=== PATIENT | female | born 1945 | race Caucasian/White ===

== ENCOUNTER 2023-05-20 09:06 | Inpatient (IN) | payer OTHER, MEDICARE, SELFPAY ==
[2023-05-20] VITALS (73 sets, daily range): BP systolic 79–151; BP diastolic 50–83; PULSE 90–147; RESP 18–41; TEMP 36.5–39.4; O2SAT 95–100; BMI 29.1; BMI 29.4
--- NOTE | 2023-05-20 | OP_ITS ---
OPERATION DATE: ??05/20/2023 PREOPERATIVE DIAGNOSIS:? 1.? Septic shock. 2.? Bilateral hydronephrosis with ureteral/UPJ calculi. 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 4.? Acute kidney injury. POSTOPERATIVE DIAGNOSIS: 1.? Septic shock. 2.? Bilateral hydronephrosis with ureteral/UPJ calculi. 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 4.? Acute kidney injury. PROCEDURE:? 1.? Cystoscopy. 2.? Gentle bilateral retrograde pyelogram. 3.? Bilateral ureteral stent placement under fluoroscopic guidance. SURGEON:? Kyle Martines M.D. COMPLICATIONS:? None. ANESTHESIA:? Dr. Jolly with a general by endotracheal route. INDICATIONS:? Ms. Rios is a 78-year-old female with a positive prior history of kidney stones, who presents in essential septic shock with elevated lactic acid, labile blood pressure and certainly <__sepsis > criteria.? Recommendation made for operative intervention with cystoscopy and drainage of the bilateral renal units.? The patient and her then decided to proceed with operative intervention.? She does carry an increased anesthesia risk secondary to these concomitant comorbidities.? Intravenous antibiotics already prescribed by Dr. Echavarira.? Full informed consent is part of the record.? Risks of bleeding, infection, heart and lung problems under anesthesia, need for further intervention and intensive resuscitation postoperative are expected.? PROCEDURE:? The patient was brought back to the operating room and a time out was performed. ??All were in agreement with the operative plan.? After the successful induction of general anesthesia by the endotracheal root by Dr. Jolly, she was placed in the modified dorsolithotomy position and prepped in the usual fashion with Betadine solution.? She was draped appropriately.? ?2% Xylocaine jelly placed per urethra and a well lubricated 22-[place] cystourethroscope with 30 degree lens was then passed into the bladder.? The bladder was full of purulent urine.? This was irrigated with saline solution several times.? Degorot endoscopy revealed no tumors or stones or diverticula.? Generalized bladder irritation.? The bilateral ureteral orifices are normal.? I began with the left side.? A gentle left retrograde pyelogram was performed utilizing a 6-[place] open ended ureteral catheter.? It appears she has a stone at the left ureteropelvic junction and perhaps another within the left upper portion of the kidney.? The retrograde did not include filling up the entire collecting system, so as not to provide undue retrograde pressure. I was able to negotiate a 0.035 Guidewire up into the kidney, beyond the obstructing stone and over that a 7-[place] 22-30 cm Microvasive double J stent was passed into the kidney under fluoroscopic guidance.? Wire removed and there was good curl within the kidney and the bladder.? The right side was similarly treated.? On the right side, this was a very large stone, measuring about 3.5 cm, which essentially fills out the entire renal pelvis, and there may be a smaller stone in the lower pole.? Similarly, a right sided stent was placed there.? I should not that purulent urine was seen coming through the holes of each stent as soon as they were placed.? The bladder was left partially full, scope removed.? I should note that after removal of the wire, there was good positioning of both stents.? A Bob catheter was placed into the urinary bladder and the balloon inflated with about 8 cc of sterile water.? It was placed to bag drainage so as to monitor urine output carefully.? After the procedure, she was now a bit hypotensive, but still tachycardic and was subsequently transferred to the intensive care unit for aggressive monitoring.? I discussed the case again with Dr. Echavarria, who will be further evaluating the patient this evening.? KEKE
--- NOTE | 2023-05-20 | XR_ITS ---
The [address] [address] Patient Name: DAVID HWANG MRN: [id number] date: 1945 Sex: F Assigned Patient Location: [place] Current Patient Location: ICU Accession/Order Number: [id number] Exam Date: 05/20/2023 17:30 Report Date: 05/20/2023 20:41 At the request of: LEIGH FRY Procedure: XR urethrogram retrograde 2 fluoroscopic images of bilateral retrograde urethrogram, 05/20/2023 5:30 PM EST: COMPARISON: CT scan of the abdomen and pelvis, 05/20/2023. CLINICAL HISTORY: agustín kidney stones Fluoroscopy time: 23 seconds. Findings and impression: 1. Left ureteral stent has been placed. 2. Contrast seen opacifying the right renal pelvis outlining a prominent stone in right renal pelvis and also contrast opacifying the right ureter with subsequent placement of a stent. 3. Further correlation with real-time thorascopic findings and procedure note recommended. 4. An immediate interpretation was not requested. Electronically authenticated by: Zaki EMDINA Date: 05/20/2023 20:41
--- NOTE | 2023-05-20 09:36 | ED_ITS ---
HPI - Weakness General Chief complaint: Weakness Time Seen by Provider: 05/20/23 09:23 Source: patient and family Mode of arrival: walk-in History of Present Illness HPI Narrative: this patient's here with her complaining of weakness. Yesterday she had several falls and she's never fallen before. They admit that she's been shuffling and weaker than usual for the last several weeks. She is not running a fever. She did have some vomiting yesterday. She's not had diarrhea. She's not been eating much at all. She says she doesn't feel safe at home without her being there could she knows she'll fall again. She's not had previous cardiovascular problems, she denies hypertension diabetes previous stroke or any type of cancer. She does have a thyroid disorder and is on a statin. She says she's also had kidney stones. She does not have any back or flank pain. No abbdominal pain chest pain or shortness of breath. Related Data Home Medications Medication Instructions Recorded Confirmed amlodipine 10 mg tablet 10 mg PO QAM 05/20/23 05/20/23 atorvastatin 20 mg tablet 20 mg PO QPM 05/20/23 05/20/23 lamotrigine 200 mg tablet 200 mg PO QAM 05/20/23 05/20/23 levothyroxine 112 mcg tablet 112 mcg PO QAM 05/20/23 05/20/23 losartan 100 mg tablet 100 mg PO QAM 05/20/23 05/20/23 Allergies Allergy/AdvReac Type Severity Reaction Status Date / Time No Known Drug Allergies Allergy Verified 05/20/23 09:17 Exam Narrative Exam Narrative: she is awake alert cognition and mentation are normal. No slurred speech. Does not appear acutely ill but she is pale. Vital signs show some tachycardia but no hypotension. She is afebrile. HEENT does not have any scleral icterus. Mucous membranes are moist and pink. Eye examination shows extraocular muscles to be normal. Neck soft and supple with no meningeal irritation. There is no bruises contusions or injury to her neck area. Chest shows her lungs were clear bilaterally no wheezes rales or rhonchi. Heart sounds did not hear murmur but she does have tachycardia. Does not have any abdominal discomfort. Extremities show no edema. She has substantial weakness of all the major muscle groups that is equal on both legs bilaterally. She barely has antigravity muscles while in the seated position. Pulses to the extremities are normal. Constitutional Vital Signs, click to edit/add: Last Vital Signs Temp 97.7 F 05/20/23 09:14 Pulse 127 H 05/20/23 09:14 Resp 22 05/20/23 09:14 BP 150/83 H 05/20/23 09:14 Pulse Ox 99 05/20/23 09:27 O2 Del Method Room Air 05/20/23 09:27 Course Vital Signs Vital signs: Vital Signs Temperature 97.7 F 05/20/23 09:14 Pulse Rate 127 H 05/20/23 09:14 Respiratory Rate 22 05/20/23 09:14 Blood Pressure 150/83 H 05/20/23 09:14 Pulse Oximetry 96 05/20/23 09:14 Oxygen Delivery Method Room Air 05/20/23 09:14 Temperature 97.7 F 05/20/23 09:14 Pulse Rate 127 H 05/20/23 09:14 Respiratory Rate 22 05/20/23 09:14 Blood Pressure 150/83 H 05/20/23 09:14 Pulse Oximetry 99 05/20/23 09:27 Oxygen Delivery Method Room Air 05/20/23 09:27 MDM - Weakness MDM Narrative Medical decision making narrative: this patient presents with profound weakness and falls yesterday. Her laboratory studies suggest sepsis. She is placed on sepsis protocol with fluid hydration and antibiotic therapy and blood cultures. Her white blood cell count was elevated substantially with a left shift. Urinalysis consistent with urinary tract infection. Chest x-ray is normal. Also elevated is her thyroid-stimulating hormone and one of her liver function tests. These findings were discussed with the on-call physician who knows the patient personally. She will be admitted to the hospital for ongoing care Lab Data Labs: Lab Results 05/20/23 05/20/23 05/20/23 Range/Units 09:34 10:05 10:34 WBC 22.8 H (4.0-11.0) 10^3/uL RBC 3.45 L (4.20-5.40) 10^6/uL Hgb 13.1 (12.0-16.0) g/dL Hct 38.8 (36.0-48.0) % MCV 112.5 H (81.0-99.0) fL MCH 38.0 H (26.7-34.0) pg MCHC 33.8 (29.9-35.2) g/dL RDW 14.4 (11.0-15.0) % Plt Count 171 (150-450) 10^3/uL MPV 10.7 (9.5-13.5) fL Seg Neuts % (Manual) 70.0 Band Neutrophils % 19.0 H (0-5) % Lymphocytes % (Manual) 7.0 L (20.5-60.0) % Monocytes % (Manual) 3.0 (1.7-12.0) % Eosinophils % (Manual) 0.0 L (0.9-7.0) % Basophils % (Manual) 0.0 L (0.2-2.0) % Metamyelocytes % 1.0 Neutrophils # (Manual) 15.96 H (1.4-6.5) 10^3/uL Band Neutrophils # 4.3 H (0.0-0.3) 10^3/uL Lymphocytes # (Manual) 1.59 (1.20-3.80) 10^3/uL Monocytes # (Manual) 0.68 (0.30-0.80) 10^3/uL Eosinophils # (Manual) 0.00 (0.00-0.70) 10^3/uL Basophils # (Manual) 0.00 (0.00-0.10) 10^3/uL Metamyelocytes # 0.22 Anisocytosis 1+ Macrocytosis 1+ D-Dimer 11.36 H* (<=0.59) mg/L FEU VBG pH 7.411 (7.330-7.430) VBG pCO2 30.6 L (40.0-52.0) mmHg Sodium 135 L (136-145) mmol/L Potassium 3.8 (3.5-5.1) mmol/L Chloride 99 (98-107) mmol/L Carbon Dioxide 22.0 (21.0-32.0) mmol/L Anion Gap 17.8 BUN 29.0 H (7.0-18.0) mg/dL Creatinine 2.09 H (0.55-1.02) mg/dL Est GFR ( Amer) 28 L (>=60) Est GFR (Non-Af Amer) 23 L (>=60) BUN/Creatinine Ratio 13.9 Glucose 200 H (74-106) mg/dL Lactate 7.2 H* (0.4-2.0) mmol/L Calcium 9.3 (8.5-10.1) mg/dL Magnesium 1.6 L (1.8-2.4) mg/dL Total Bilirubin 1.2 H (0.2-1.0) mg/dL AST 45 H (15-37) U/L ALT 33 (14-59) U/L Alkaline Phosphatase 108 (46-116) U/L Total Protein 7.1 (6.4-8.2) g/dL Albumin 3.4 (3.4-5.0) g/dL Globulin 3.7 g/dL Albumin/Globulin Ratio 0.9 Lipase 11.0 L (16.0-77.0) U/L Free T4 1.36 (0.76-1.46) ng/dL TSH & Free T4 Interp 11.377 H (0.358-3.740) Urine Color Dk yellow (YELLOW) Urine Clarity Clear (CLEAR) Urine pH 6.0 (5.0-9.0) Ur Specific [place] 1.020 (1.005-1.025) Urine Protein 100 A (NEG/TRACE) mg/dL Urine Glucose (UA) Negative (NEGATIVE) mg/dL Urine Ketones Trace A (NEGATIVE) mg/dL Urine Occult Blood Large A (NEGATIVE) Urine Nitrite Negative (NEGATIVE) Urine Bilirubin Negative (NEGATIVE) Urine Urobilinogen 1.0 (0.2-1.0) EU/dL Ur Leukocyte Esterase Moderate A (NEGATIVE) Urine RBC 20-50 A (0-2) #/HPF Urine WBC 75-100 A (NONE SEEN) #/HPF Ur Squamous Epith Cells Rare (NONE/RARE) #/LPF Urine Crystals None seen (None Seen) #/HPF Urine Bacteria Large A (NONE SEEN) #/HPF Urine Casts None seen (NONE SEEN) #/LPF Urine Mucus Trace A (NONE SEEN) Ur Culture Indicated? Yes Blood Type A Negative Antibody Screen Negative Discharge Plan Discharge Chief Complaint: Weakness Time of Disposition Decision: 11:26 Prescriptions / Home Meds: No Action amlodipine 10 mg tablet 10 mg PO QAM atorvastatin 20 mg tablet 20 mg PO QPM lamotrigine 200 mg tablet 200 mg PO QAM levothyroxine 112 mcg tablet 112 mcg PO QAM losartan 100 mg tablet 100 mg PO QAM
--- NOTE | 2023-05-20 09:38 | XR_ITS ---
The [address] [address] Patient Name: DAVID HWANG MRN: [id number] date: 1945 Sex: F Assigned Patient Location: ER Current Patient Location: ED.MAIN Accession/Order Number: [id number] Exam Date: 05/20/2023 09:53 Report Date: 05/20/2023 10:04 At the request of: AURORA GUZMAN Procedure: XR chest 1V EXAMINATION: XR chest 1V HISTORY: weakness COMPARISON: No relevant comparison available. FINDINGS: LUNGS: No significant pulmonary parenchymal abnormalities. VASCULATURE: No increased pulmonary vasculature. PLEURA: No pneumothorax, effusion, or pleural thickening. CARDIAC: No cardiomegaly or cardiac silhouette abnormality. MEDIASTINUM: No visible mass or adenopathy. BONES: No fracture or visible bone lesion. OTHER: Negative. XR/XR chest 1V IMPRESSION: 1. No acute cardiopulmonary process. Electronically authenticated by: DON OSHEA Date: 05/20/2023 10:04
[2023-05-20] MEDS: 0.9 % SODIUM CHLORIDE 1,000 ML 999 ML IV (09:54)
[2023-05-20 09:56] LABS: Hematocrit 38.8 % (36.0-48.0); Hemoglobin 13.1 g/dL (12.0-16.0); Mean Corpuscular HGB Conc 33.8 g/dL (29.9-35.2); Mean Corpuscular Volume 112.5 fL (81.0-99.0); Mean Platelet Volume 10.7 fL (9.5-13.5); Platelet Count 171 10^3/uL (150-450); Red Blood Count 3.45 10^6/uL (4.20-5.40); Red Cell Distribution Width 14.4 % (11.0-15.0); White Blood Count 22.8 10^3/uL (4.0-11.0)
[2023-05-20 10:10] LABS: pH VBG 7.411 (7.330-7.430)
[2023-05-20 10:11] LABS: PCO2 VBG 30.6 mmHg (40.0-52.0)
[2023-05-20 10:13] LABS: Alanine Aminotransferase 33 U/L (14-59); Albumin Globulin Ratio 0.9; Albumin Level 3.4 g/dL (3.4-5.0); Alkaline Phosphatase 108 U/L (46-116); Anion Gap 17.8; Aspartate Amino Transferase 45 U/L (15-37); BUN Creatinine Ratio 13.9; Bilirubin Total 1.2 mg/dL (0.2-1.0); Calcium 9.3 mg/dL (8.5-10.1); Chloride 99 mmol/L (98-107); Estimated GFR (African America 28 (>=60); Estimated GFR (Non-African Ame 23 (>=60); Globulin 3.7 g/dL; Glucose 200 mg/dL (74-106); Magnesium 1.6 mg/dL (1.8-2.4); Potassium 3.8 mmol/L (3.5-5.1); Sodium 135 mmol/L (136-145); Total Protein 7.1 g/dL (6.4-8.2)
[2023-05-20 10:22] LABS: D Dimer 11.36 mg/L FEU (<=0.59); Lactate/Lactic Acid 7.2 mmol/L (0.4-2.0)
[2023-05-20 10:30] LABS: Band Neutrophils Absolute 4.3 10^3/uL (0.0-0.3); Lymphocytes Absolute Manual 1.59 10^3/uL (1.20-3.80); Monocytes Absolute Manual 0.68 10^3/uL (0.30-0.80); Segmented Neut Absolute Manual 15.96 10^3/uL (1.4-6.5)
[2023-05-20 10:31] LABS: Anisocytosis 1+; Macrocytosis 1+; Metamyelocytes Absolute Manual 0.22
--- NOTE | 2023-05-20 10:43 | ECG_ITS ---
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
[2023-05-20 10:44] LABS: Bilirubin Urine NEGATIVE (NEGATIVE); Blood Urine LARGE (NEGATIVE); Clarity Urine CLEAR (CLEAR); Glucose Urine UA NEGATIVE (NEGATIVE); Ketones Urine TRACE mg/dL (NEGATIVE); Leukocyte Esterase Urine MODERATE (NEGATIVE); Nitrite Urine NEGATIVE (NEGATIVE); Protein Urine 100 mg/dL (NEG/TRACE)
[2023-05-20 10:44] LABS: TSH W/ REFLEX FT4 11.377 (0.358-3.740)
[2023-05-20 10:47] LABS: Color Urine DK YELLOW (YELLOW); Urine Microscopic Indicated YES
[2023-05-20 11:13] LABS: Bacteria Urine LARGE #/HPF (NONE SEEN); Cast Seen? NONE SEEN #/LPF (NONE SEEN); Crystals Seen? None Seen #/HPF (None Seen); Mucus Urine TRACE (NONE SEEN); RBC Urine 20-50 #/HPF (0-2); Squamous Epithelial Cell Urine RARE #/LPF (NONE/RARE); Urine Culture Indicated YES; WBC Urine 75-100 #/HPF (NONE SEEN)
[2023-05-20 11:16] LABS: Free T4 1.36 ng/dL (0.76-1.46)
[2023-05-20] MEDS: CEFTRIAXONE 1,000 MG in 0.9 % SODIUM CHLORIDE 50 ML 100 MG IV (11:48)
--- NOTE | 2023-05-20 12:44 | P.HP_ITS ---
H&P: HPI History of Present Illness Chief complaint: WEAKNESS Narrative: Is a 2 to 3-day history of increasing weakness. describes some shortness of breath. In ER found to have significant sinus tachycardia, leukocytosis with bandemia, positive lactate with acute kidney injury from dehydration which is all secondary to acute UTI leading to severe sepsis with multisystem organ dysfunction. Patient admitted to the hospital Review of Systems ROS Status of ROS 10 or more systems reviewed and unremarkable except as noted in history and below Constitutional Reports: fatigue; Denies: fever Cardiovascular Denies: chest pain, palpitations or edema Respiratory Reports: shortness of breath; Denies: cough Gastrointestinal Reports: abdominal pain and nausea Meds Home Medications and Allergies Home Medications Medication Instructions Recorded Confirmed Type amlodipine 10 mg tablet 10 mg PO QAM 05/20/23 05/20/23 History atorvastatin 20 mg tablet 20 mg PO QPM 05/20/23 05/20/23 History lamotrigine 200 mg tablet 200 mg PO QAM 05/20/23 05/20/23 History levothyroxine 112 mcg tablet 112 mcg PO QAM 05/20/23 05/20/23 History losartan 100 mg tablet 100 mg PO QAM 05/20/23 05/20/23 History Allergies Allergy/AdvReac Type Severity Reaction Status Date / Time No Known Drug Allergies Allergy Verified 05/20/23 09:17 Exam Constitutional Vital Signs, click to edit/add: Last Vital Signs Temp 97.7 F 05/20/23 09:14 Pulse 147 H 05/20/23 12:22 Resp 18 05/20/23 12:20 BP 127/80 05/20/23 12:25 Pulse Ox 99 05/20/23 09:27 O2 Del Method Room Air 05/20/23 09:27 Documenting provider has reviewed patient's vital signs: yes Common normals: no apparent distress Exam limitations: altered mental status General appearance: cooperative [facility] Common normals: normocephalic; oral mucous membranes not moist (Dry mucous membranes) Chest Common normals: inspection of chest normal Respiratory Common normals: normal respiratory effort, no retractions and no use of accessory muscles Cardio Common normals: regular rhythm; irregular rate Rate: tachycardic GI Common normals: Normal to inspection, nondistended, normoactive bowel sounds present Palpation: soft and tender (Diffusely tender) Results Labs Labs: Short CBC 05/20/23 Range/Units 09:34 WBC 22.8 H (4.0-11.0) 10^3/uL Hgb 13.1 (12.0-16.0) g/dL Hct 38.8 (36.0-48.0) % Plt Count 171 (150-450) 10^3/uL BMP 05/20/23 09:34 Sodium 135 L Potassium 3.8 Chloride 99 Carbon Dioxide 22.0 BUN 29.0 H Creatinine 2.09 H Glucose 200 H Calcium 9.3 Liver Function 05/20/23 Range/Units 09:34 Total Bilirubin 1.2 H (0.2-1.0) mg/dL AST 45 H (15-37) U/L ALT 33 (14-59) U/L Alkaline Phosphatase 108 (46-116) U/L Albumin 3.4 (3.4-5.0) g/dL Urine 05/20/23 Range/Units 10:34 Urine Color Dk yellow (YELLOW) Urine Clarity Clear (CLEAR) Urine pH 6.0 (5.0-9.0) Ur Specific [place] 1.020 (1.005-1.025) Urine Protein 100 A (NEG/TRACE) mg/dL Urine Glucose (UA) Negative (NEGATIVE) mg/dL ABG ABG results: 05/20/23 10:05 VBG pH 7.411 VBG pCO2 30.6 L Assessment and Plan Assessment and Plan (1) Sepsis: Plan Sinus tachycardia, uncontrolled hypertension, mild respiratory distress, leukocytosis with significant bandemia, positive lactate, acute kidney injury with creatinine 2 times normal, elevated LFTs secondary to acute UTI possible pyelonephritis resulting in severe sepsis with multisystem organ dysfunction(kidney, liver, heme). IV fluid resuscitation started in ER, maintain continuous fluids, double antibiotics until cultures are returned, check on blood cultures and urine culture over the next day or 2. Severity of symptoms patient likely in the hospital 3 days minimum Hypothyroidism- states has been taking medication, T4 is not bad but will tweak up dose. Hyponatremia secondary to dehydration-secondary to the above-maintain fluid resuscitation- Acute kidney injury-earlier this year creatinine was 0.9. So more than 2 times normal. Continue with fluid resuscitation Hyperglycemia as possible complication of the above-does not appear to be on oral hypoglycemics. Accu-Cheks before meals and at bedtime with insulin sliding scale Hypertension by history-maintain current medications Mild dementia with anxiety-continue with medications Abdominal tenderness on my exam. Will check CT scan abdomen pelvis without con trast. She does have a history of kidney stones in the past. Macrocytosis-check B12 and folate levels as an outpatient Hypomagnesemia-supplement With severe sepsis and multisystem organ dysfunction the likely stay of at least 3 days. Make patient as inpatient status.
--- NOTE | 2023-05-20 12:52 | CT_ITS ---
[address] [address] Patient Name: DAVID HWANG MRN: [id number] date: 1945 Sex: F Assigned Patient Location: [place] Current Patient Location: [place] Accession/Order Number: [id number] Exam Date: 05/20/2023 13:45 Report Date: 05/20/2023 14:21 At the request of: JEROME MARIE Procedure: CT abdomen pelvis wo con EXAM: CT abdomen pelvis wo con HISTORY: nephrolithiasis COMPARISON: None. TECHNIQUE: Axial CT imaging was performed through the abdomen and pelvis without intravenous contrast. Multiplanar reformats were performed. Dose reduction techniques were achieved by using automated exposure control and/or adjustment of mA and/or kV according to patient size and/or use of iterative reconstruction technique. FINDINGS: Lung bases: Lung bases are clear. No pleural effusion. GI upper: Moderate hiatal hernia. Liver: Normal size and contour. Gallbladder: No significant abnormality. No cholelithiasis. Biliary system: No intra or extrahepatic biliary ductal dilatation. Spleen: Normal size. Pancreas: Unremarkable. Adrenal glands: Normal adrenal glands. Kidneys/ureters: Normal contours. There are bilateral renal stones measuring 3.2 cm on the right and 2.4 cm and the left, within the renal caliectasis and pelvis, resulting in bilateral moderate to severe hydronephrosis. No hydroureter. There are foci of air in the left renal calyces and pelvis, representing emphysematous pyelitis. 3.7 cm right renal cyst. Vessels: No aneurysm. Lymph Nodes: No lymphadenopathy. Small bowel: No wall thickening or dilatation. Colon: No wall thickening or dilatation. Constipation. Appendix: No findings of appendicitis. Peritoneal cavity: No free fluid or pneumoperitoneum. Lower : Unremarkable. Bones: No acute bony abnormality. Degenerative changes of the lumbar spine. Status post total arthroplasty of left hip. Streak artifact from the arthroplasty, limited evaluation of the adjacent soft tissue and pelvic organs. Soft tissues: No acute finding. Additional findings: None. CT/CT abdomen pelvis wo con IMPRESSION: bilateral renal stones measuring 3.2 cm on the right and 2.4 cm and the left, within the renal caliectasis and pelvis, resulting in bilateral moderate to severe hydronephrosis. No hydroureter. Foci of air in the left renal calyces and pelvis, representing emphysematous pyelitis. Moderate hiatal hernia. Constipation. Electronically authenticated by: RADHA WATKINS Date: 05/20/2023 14:21
[2023-05-20 13:15] LABS: Troponin I High Sensitivity 15.5 pg/mL (4.0-51.3)
[2023-05-20] MEDS: 0.9 % SODIUM CHLORIDE 1,000 ML 125 ML IV ×2 (14:41→23:34)
[2023-05-20] MEDS: CIPROFLOXACIN IN 5 % DEXTROSE 400 MG/200 ML PIGGYBACK 200 MG IV (14:41)
[2023-05-20 16:47] LABS: INR 1.15; Partial Thromboplastin Time 26.2 sec (22.3-36.2); Prothrombin Time 12.1 sec (9.0-11.6)
[2023-05-20] MEDS: PANTOPRAZOLE SODIUM 40 MG VIAL IV (16:55)
[2023-05-20 17:01] LABS: Glucometer 140 mg/dL (74-106)
[2023-05-20] MEDS: IOHEXOL 240 MG/ML - 10 ML VIAL INJ (17:45)
--- NOTE | 2023-05-20 18:10 | P.URCN_ITS ---
Urology - CN: HPI Date of Consult Consult date: 05/20/23 Requesting Physician: Tommy Hansen MD Primary Care Provider: Non-Staff Physician, Consult Narrative Reason for consult IM: Urosepsis, bilateral obstructing UPJ stones Narrative: Thanks for consult. 78 year old female with history of kidney stones presents for admission by Dr. Echavarria. CT shows bilateral renal calculi, obstructing at UPJ bilaterally. Left kidney with air in collecting system. Pain began two days ago, worsened. Clinical status worsened. WBC elevated, troponin 7. Entire PMH,PSH,ROS,family and social history, meds, allergies are as noted in admission H and P performed by Dr. Echavarria earlier today and are unchanged cc:: CC: Tommy Hansen MD [facility] Medical History (Updated 05/20/23 @ 18:19 by Eddie Martines MD) History of kidney stones ?Z87.442 - Personal history of urinary calculi (ICD-10) Hx: UTI (urinary tract infection) ?Z87.440 - Personal history of urinary (tract) infections (ICD-10) Hypothyroidism ?E03.9 - Hypothyroidism, unspecified (ICD-10) Surgical History (Updated 05/20/23 @ 12:53 by Yara Sow) History of hip replacement ?Z96.649 - Presence of unspecified artificial hip joint (ICD-10) History of knee replacement ?Z96.659 - Presence of unspecified artificial knee joint (ICD-10) Meds Home Medications and Allergies Home Medications Medication Instructions Recorded Confirmed Type amlodipine 10 mg tablet 10 mg PO QAM 05/20/23 05/20/23 History atorvastatin 20 mg tablet 20 mg PO QPM 05/20/23 05/20/23 History lamotrigine 200 mg tablet 200 mg PO QAM 05/20/23 05/20/23 History levothyroxine 112 mcg tablet 112 mcg PO QAM 05/20/23 05/20/23 History losartan 100 mg tablet 100 mg PO QAM 05/20/23 05/20/23 History Allergies Allergy/AdvReac Type Severity Reaction Status Date / Time No Known Drug Allergies Allergy Verified 05/20/23 09:17 Exam Narrative Exam Narrative: Gen: appears ill and pale, coooperative, shaking chills, rigors HEENT, wnl Heart, rapid rate, normal rhytyhm Lungs clear Abd, soft, NT Bilateral flank tenderness Normal external female genitalia LE: normal, good pulses, no edema Awake, weak. Constitutional Vital Signs, click to edit/add: Last Vital Signs Temp 100.6 F H 05/20/23 12:30 Pulse 115 H 05/20/23 16:00 Resp 20 05/20/23 12:30 BP 129/78 05/20/23 12:30 Pulse Ox 95 05/20/23 12:30 O2 Del Method Room Air 05/20/23 12:43 Results Labs Labs: Short CBC 05/20/23 Range/Units 09:34 WBC 22.8 H (4.0-11.0) 10^3/uL Hgb 13.1 (12.0-16.0) g/dL Hct 38.8 (36.0-48.0) % Plt Count 171 (150-450) 10^3/uL BMP 05/20/23 09:34 Sodium 135 L Potassium 3.8 Chloride 99 Carbon Dioxide 22.0 BUN 29.0 H Creatinine 2.09 H Glucose 200 H Calcium 9.3 Liver Function 05/20/23 Range/Units 09:34 Total Bilirubin 1.2 H (0.2-1.0) mg/dL AST 45 H (15-37) U/L ALT 33 (14-59) U/L Alkaline Phosphatase 108 (46-116) U/L Albumin 3.4 (3.4-5.0) g/dL Urine 05/20/23 Range/Units 10:34 Urine Color Dk yellow (YELLOW) Urine Clarity Clear (CLEAR) Urine pH 6.0 (5.0-9.0) Ur Specific [place] 1.020 (1.005-1.025) Urine Protein 100 A (NEG/TRACE) mg/dL Urine Glucose (UA) Negative (NEGATIVE) mg/dL ABG ABG results: 05/20/23 10:05 VBG pH 7.411 VBG pCO2 30.6 L Additional Findings Additional findings: CT viewed, report viewed, labs viewed. Discussed with Dr. Echavarria, discussed with Dr. Jolly from anesthesia, discussed with pt. and her . Urology Assessment and Plan Assessment and Plan (1) Hydronephrosis with ureteral calculus: (2) Septic shock: (3) Renal calculi: (4) KAMALA (acute kidney injury): (5) Emphysematous pyelonephritis: Plan The patient is at high anesthesia risk but has limited choices. Air in collecting system on the left indicative of gas-forming UTI with high morbidity risk, including . Needs immediate operative intervention to drain the kidneys (bilateral ureteral stents). Discussed extensively with the patient's , as pt. has mild dementia, and overall clinical state. Resuscitation efforts to continue. ICU recommended after OR and consideration for transfer to tertiary care facility. .
--- NOTE | 2023-05-20 19:09 | PC.NURSE ---
1841 Patients recovery was completed in the ICU department by this writer technical publications. Spouse was retrieved after initial recovery period and taken to in Room 271.
[2023-05-20 19:16] LABS: Hematocrit 31.9 % (36.0-48.0); Hemoglobin 10.6 g/dL (12.0-16.0); Mean Corpuscular HGB Conc 33.2 g/dL (29.9-35.2); Mean Corpuscular Hemoglobin 37.6 pg (26.7-34.0); Mean Corpuscular Volume 113.1 fL (81.0-99.0); Mean Platelet Volume 10.9 fL (9.5-13.5); Platelet Count 104 10^3/uL (150-450); Red Blood Count 2.82 10^6/uL (4.20-5.40); Red Cell Distribution Width 14.6 % (11.0-15.0); White Blood Count 10.7 10^3/uL (4.0-11.0)
[2023-05-20 19:33] LABS: Alanine Aminotransferase 31 U/L (14-59); Albumin Globulin Ratio 0.9; Albumin Level 2.5 g/dL (3.4-5.0); Alkaline Phosphatase 88 U/L (46-116); Anion Gap 15.1; Aspartate Amino Transferase 48 U/L (15-37); BUN Creatinine Ratio 15.1; Carbon Dioxide 19.4 mmol/L (21.0-32.0); Chloride 104 mmol/L (98-107); Estimated GFR (African America 31 (>=60); Estimated GFR (Non-African Ame 25 (>=60); Globulin 2.8 g/dL; Glucose 134 mg/dL (74-106); Potassium 3.5 mmol/L (3.5-5.1); Sodium 135 mmol/L (136-145); Total Protein 5.3 g/dL (6.4-8.2)
[2023-05-20 19:44] LABS: Atypical Lymphocytes Abs Man 0.1; Band Neutrophils Absolute 0.3 10^3/uL (0.0-0.3); Lymphocytes Absolute Manual 0.53 10^3/uL (1.20-3.80); Segmented Neut Absolute Manual 9.63 10^3/uL (1.4-6.5)
[2023-05-20 19:45] LABS: Anisocytosis 3+; Macrocytosis 2+
[2023-05-20] MEDS: PIPERACILLIN SODIUM/TAZOBACTAM 3.375 GM in 0.9 % SODIUM CHLORIDE 50 ML IV (20:00)
[2023-05-20 20:13] LABS: Lactate/Lactic Acid 4.4 mmol/L (0.4-2.0)
[2023-05-20] MEDS: NOREPINEPHRINE BITARTRATE 4 MG in DEXTROSE 5 % IN WATER 250 ML 30.48 MG IV (20:15)
[2023-05-20] MEDS: 0.9 % SODIUM CHLORIDE 1,000 ML 1000 ML IV ×3 (20:42→23:35)
[2023-05-20] MEDS: L. ACIDOPHILUS/L.BULGARICUS 1 PACKET GRAN.PACK PO (20:50)
[2023-05-20] MEDS: MAGNESIUM OXIDE 400 MG TABLET PO (20:50)
[2023-05-20] MEDS: ATORVASTATIN CALCIUM 20 MG TABLET PO (20:50)
[2023-05-20] MEDS: INSULIN ASPART 300 UNIT/3 ML PEN SUBQ (21:21)
[2023-05-20 21:26] LABS: Glucometer 162 mg/dL (74-106)
[2023-05-20] MEDS: ACETAMINOPHEN 500 MG TABLET 1000 MG PO (23:51)
[2023-05-21] VITALS (233 sets, daily range): BP systolic 73–125; BP diastolic 46–80; PULSE 80–129; RESP 18–50; TEMP 36.4–38.9; O2SAT 83–100
[2023-05-21 00:17] LABS: A. calcoaceticus-baumannii Cpx NOT DETECTED (NOT DETECTE); Bacteroides fragilis NOT DETECTED (NOT DETECTE); Candida albicans NOT DETECTED (NOT DETECTE); Candida auris NOT DETECTED (NOT DETECTE); Candida glabrata NOT DETECTED (NOT DETECTE); Candida krusei NOT DETECTED (NOT DETECTE); Candida parapsilosis NOT DETECTED (NOT DETECTE); Candida tropicalis NOT DETECTED (NOT DETECTE); Cryptococcus neoformans/gattii NOT DETECTED (NOT DETECTE); Enterobacter cloacae complex NOT DETECTED (NOT DETECTE); Enterococcus faecalis NOT DETECTED (NOT DETECTE); Enterococcus faecium NOT DETECTED (NOT DETECTE); Haemophilus influenzae NOT DETECTED (NOT DETECTE); Klebsiella aerogenes NOT DETECTED (NOT DETECTE); Listeria monocytogenes NOT DETECTED (NOT DETECTE); Neisseria meningitidis NOT DETECTED (NOT DETECTE); Proteus spp. NOT DETECTED (NOT DETECTE); Pseudomonas aeruginosa NOT DETECTED (NOT DETECTE); Salmonella spp. NOT DETECTED (NOT DETECTE); Serratia marcescens NOT DETECTED (NOT DETECTE); Staphylococcus epidermidis NOT DETECTED (NOT DETECTE); Staphylococcus lugdunensis NOT DETECTED (NOT DETECTE); Staphylococcus spp. NOT DETECTED (NOT DETECTE); Stenotrophomonas maltophilia NOT DETECTED (NOT DETECTE); Streptococcus agalactiae NOT DETECTED (NOT DETECTE); Streptococcus pneumoniae NOT DETECTED (NOT DETECTE); Streptococcus pyogenes NOT DETECTED (NOT DETECTE); Streptococcus spp. NOT DETECTED (NOT DETECTE)
[2023-05-21] MEDS: CIPROFLOXACIN IN 5 % DEXTROSE 400 MG/200 ML PIGGYBACK 200 MG IV (01:06)
[2023-05-21 01:39] LABS: Enterobacterales DETECTED (NOT DETECTE); Klebsiella pneumoniae group DETECTED (NOT DETECTE)
[2023-05-21] MEDS: NOREPINEPHRINE BITARTRATE 4 MG in DEXTROSE 5 % IN WATER 250 ML 38.1 MG IV (03:16)
[2023-05-21] MEDS: PIPERACILLIN SODIUM/TAZOBACTAM 3.375 GM in 0.9 % SODIUM CHLORIDE 50 ML IV ×2 (03:17→15:45)
[2023-05-21 04:15] LABS: Basophils Absolute Auto 0.1 10^3/uL (0.0-0.1); Basophils Percent Auto 0.3 % (0.2-2.0); Hematocrit 31.3 % (36.0-48.0); Hemoglobin 10.3 g/dL (12.0-16.0); Immature Granulocytes Abs Auto 1.17 10^3/uL (0.00-0.03); Immature Granulocytes Pct Auto 7.7 % (0.0-0.5); Lymphocytes Absolute Auto 1.5 10^3/uL (1.2-3.8); Lymphocytes Percent Auto 9.7 % (20.5-60.0); Mean Corpuscular HGB Conc 32.9 g/dL (29.9-35.2); Mean Corpuscular Hemoglobin 37.1 pg (26.7-34.0); Mean Corpuscular Volume 112.6 fL (81.0-99.0); Monocytes Absolute Auto 0.2 10^3/uL (0.3-0.8); Monocytes Percent Auto 1.6 % (1.7-12.0); Neutrophils Absolute Auto 12.3 10^3/uL (1.4-6.5); Neutrophils Percent Auto 80.7 % (43.0-75.0); Platelet Count 90 10^3/uL (150-450); Red Blood Count 2.78 10^6/uL (4.20-5.40); Red Cell Distribution Width 14.8 % (11.0-15.0); White Blood Count 15.2 10^3/uL (4.0-11.0)
[2023-05-21 04:42] LABS: Alanine Aminotransferase 38 U/L (14-59); Albumin Globulin Ratio 0.8; Albumin Level 2.2 g/dL (3.4-5.0); Alkaline Phosphatase 75 U/L (46-116); Anion Gap 15.8; Aspartate Amino Transferase 57 U/L (15-37); BUN Creatinine Ratio 15.3; Bilirubin Total 0.8 mg/dL (0.2-1.0); Calcium 7.3 mg/dL (8.5-10.1); Carbon Dioxide 17.8 mmol/L (21.0-32.0); Chloride 107 mmol/L (98-107); Estimated GFR (African America 35 (>=60); Estimated GFR (Non-African Ame 29 (>=60); Globulin 2.8 g/dL; Glucose 152 mg/dL (74-106); Magnesium 1.2 mg/dL (1.8-2.4); Potassium 3.6 mmol/L (3.5-5.1); Sodium 137 mmol/L (136-145)
[2023-05-21 04:55] LABS: Troponin I High Sensitivity 69.4 pg/mL (4.0-51.3)
[2023-05-21] MEDS: LEVOTHYROXINE SODIUM 125 MCG TABLET PO (06:36)
[2023-05-21] MEDS: HYOSCYAMINE SULFATE 0.125 MG TAB.SUBL 0.25 MG SL ×3 (07:38→15:45)
[2023-05-21 07:43] LABS: Glucometer 137 mg/dL (74-106)
[2023-05-21] MEDS: 0.9 % SODIUM CHLORIDE 1,000 ML 125 ML IV ×2 (08:00→17:25)
[2023-05-21] MEDS: MAGNESIUM OXIDE 400 MG TABLET PO ×2 (09:35→22:10)
[2023-05-21] MEDS: LAMOTRIGINE 100 MG TABLET 200 MG PO (09:37)
[2023-05-21] MEDS: L. ACIDOPHILUS/L.BULGARICUS 1 PACKET GRAN.PACK PO ×2 (09:38→22:10)
[2023-05-21 11:04] LABS: Troponin I High Sensitivity 55.9 pg/mL (4.0-51.3)
--- NOTE | 2023-05-21 11:06 | PM.PN ---
Progress Note: Subjective Subjective Interval history: Patient feels okay today. Denies pain. Reports decreased appetite and not hungry. Afebrile. Developed hypotension after procedure and on levophed overnight but now off. Troponin slightly elevated likely due to strain. No chest pain or palpitations. No SOB or cough. No nausea or emesis. Exam Constitutional Vital Signs, click to edit/add: Last Vital Signs Temp 98.2 F 05/21/23 10:42 Pulse 95 H 05/21/23 10:40 Resp 28 H 05/21/23 10:40 BP 95/53 05/21/23 10:05 Pulse Ox 83 L 05/21/23 10:40 O2 Del Method Room Air 05/21/23 07:55 O2 Flow Rate 2 05/20/23 23:44 Documenting provider has reviewed patient's vital signs: yes Common normals: no apparent distress and alert HENMT Common normals: normocephalic Eye Common normals: PERRL and EOMs intact bilaterally Respiratory Common normals: normal respiratory effort and clear to auscultation bilaterally Cardio Common normals: regular rate, regular rhythm, no gallops, no murmurs and no rub GI Common normals: Normal to inspection, nondistended, normoactive bowel sounds present and non-tender Extremity Common normals: no pedal edema Progress Note: Objective Labs Labs: Short CBC 05/20/23 05/21/23 Range/Units 18:59 04:09 WBC 10.7 15.2 H (4.0-11.0) 10^3/uL Hgb 10.6 L 10.3 L (12.0-16.0) g/dL Hct 31.9 L 31.3 L (36.0-48.0) % Plt Count 104 L 90 L (150-450) 10^3/uL BMP 05/20/23 05/21/23 18:59 04:09 Sodium 135 L 137 Potassium 3.5 3.6 Chloride 104 107 Carbon Dioxide 19.4 L 17.8 L BUN 29.0 H 26.0 H Creatinine 1.92 H 1.70 H Glucose 134 H 152 H Calcium 8.0 L 7.3 L Liver Function 05/20/23 05/21/23 Range/Units 18:59 04:09 Total Bilirubin 1.0 0.8 (0.2-1.0) mg/dL AST 48 H 57 H (15-37) U/L ALT 31 38 (14-59) U/L Alkaline Phosphatase 88 75 (46-116) U/L Albumin 2.5 L 2.2 L (3.4-5.0) g/dL ECG Attestation: ?I have reviewed the pertinent ECG results. Progress Note: A&P Assessment and Plan (1) Septic shock: (2) Emphysematous pyelonephritis: (3) Hydronephrosis with ureteral calculus: (4) Renal calculi: (5) KAMALA (acute kidney injury): (6) Elevated troponin: (7) Benign essential hypertension: (8) Hyponatremia: (9) Hypothyroidism: (10) Dementia: Plan Developed severe sepsis with shock after surgery as evidenced by hypotension and need for levophed. BP improved and monitor. Increase PO intake. Stop rocephin and start zosyn in addition to cipro while awaiting urine culture. Continue PT/OT for weakness. Monitor labs. Troponin elevated after procedure likely due to strain and monitor.
[2023-05-21 11:14] LABS: Glucometer 147 mg/dL (74-106)
[2023-05-21 11:32] LABS: CTX-M NOT DETECTED (NOT DETECTE); IMP NOT DETECTED (NOT DETECTE); KPC NOT DETECTED (NOT DETECTE)
[2023-05-21 11:33] LABS: NDM NOT DETECTED (NOT DETECTE); OXA-48-like NOT DETECTED (NOT DETECTE); VIM NOT DETECTED (NOT DETECTE); mcr-1 NOT DETECTED (NOT DETECTE)
[2023-05-21 15:51] LABS: Glucometer 104 mg/dL (74-106)
[2023-05-21] MEDS: ACETAMINOPHEN 500 MG TABLET 1000 MG PO (16:44)
--- NOTE | 2023-05-21 17:29 | PC.NURSE ---
Dolores, daughter, phoned [phone], for update regarding patient. Advised that patient had a slight fever, but was given a PRN medication and will monitor patient. Daughter states that she is concerned because family has noticed that she has had little interest in doing things and a decrease in appetite for a while now but was unable to quantify the amount of time that they have noticed this change in patient. States that mother will watch TV and lay in bed and tends top lack motivation for doing things, like her personal ADLs and hygiene care. Daughter states that patient's affect has been flat for some time now, and was curious if there was away that any of her depression medications could be adjusted. Advised would let physician know of her concerns. Will continue to monitor patient at this time.
[2023-05-21] MEDS: IBUPROFEN 200 MG/10 ML ORAL.SUSP 800 MG PO (18:24)
[2023-05-21 22:10] LABS: Glucometer 126 mg/dL (74-106)
[2023-05-21] MEDS: ATORVASTATIN CALCIUM 20 MG TABLET PO (22:10)
[2023-05-21] MEDS: NOREPINEPHRINE BITARTRATE 4 MG in DEXTROSE 5 % IN WATER 250 ML 6 MG IV (22:41)
[2023-05-22] VITALS (235 sets, daily range): BP systolic 73–146; BP diastolic 43–111; PULSE 76–167; RESP 20–53; TEMP 36.6–39.2; O2SAT 64–100
[2023-05-22] MEDS: 0.9 % SODIUM CHLORIDE 1,000 ML 125 ML IV ×3 (01:07→20:52)
[2023-05-22] MEDS: CIPROFLOXACIN IN 5 % DEXTROSE 400 MG/200 ML PIGGYBACK 200 MG IV (01:07)
[2023-05-22] MEDS: PIPERACILLIN SODIUM/TAZOBACTAM 3.375 GM in 0.9 % SODIUM CHLORIDE 50 ML IV ×2 (02:25→16:51)
[2023-05-22 05:26] LABS: Hematocrit 28.9 % (36.0-48.0); Hemoglobin 9.4 g/dL (12.0-16.0); Mean Corpuscular HGB Conc 32.5 g/dL (29.9-35.2); Mean Corpuscular Volume 113.8 fL (81.0-99.0); Mean Platelet Volume 11.4 fL (9.5-13.5); Platelet Count 71 10^3/uL (150-450); Red Blood Count 2.54 10^6/uL (4.20-5.40); Red Cell Distribution Width 14.9 % (11.0-15.0); White Blood Count 11.4 10^3/uL (4.0-11.0)
[2023-05-22 05:45] LABS: Troponin I High Sensitivity 31.7 pg/mL (4.0-51.3)
[2023-05-22 05:49] LABS: Alanine Aminotransferase 40 U/L (14-59); Albumin Globulin Ratio 0.7; Albumin Level 1.9 g/dL (3.4-5.0); Alkaline Phosphatase 69 U/L (46-116); Anion Gap 15.7; Aspartate Amino Transferase 48 U/L (15-37); BUN Creatinine Ratio 14.8; Bilirubin Total 0.7 mg/dL (0.2-1.0); Calcium 7.2 mg/dL (8.5-10.1); Carbon Dioxide 17.7 mmol/L (21.0-32.0); Chloride 109 mmol/L (98-107); Estimated GFR (African America 43 (>=60); Estimated GFR (Non-African Ame 36 (>=60); Globulin 2.9 g/dL; Glucose 124 mg/dL (74-106); Magnesium 1.3 mg/dL (1.8-2.4); Potassium 3.4 mmol/L (3.5-5.1); Sodium 139 mmol/L (136-145); Total Protein 4.8 g/dL (6.4-8.2)
[2023-05-22 06:09] LABS: Band Neutrophils Absolute 0.5 10^3/uL (0.0-0.3); Lymphocytes Absolute Manual 1.25 10^3/uL (1.20-3.80); Monocytes Absolute Manual 0.34 10^3/uL (0.30-0.80); Segmented Neut Absolute Manual 9.34 10^3/uL (1.4-6.5)
[2023-05-22] MEDS: LEVOTHYROXINE SODIUM 125 MCG TABLET PO (06:15)
[2023-05-22 07:55] LABS: Glucometer 104 mg/dL (74-106)
[2023-05-22] MEDS: MAGNESIUM OXIDE 400 MG TABLET PO ×2 (08:03→21:24)
[2023-05-22] MEDS: LAMOTRIGINE 100 MG TABLET 200 MG PO (08:03)
[2023-05-22] MEDS: HYOSCYAMINE SULFATE 0.125 MG TAB.SUBL 0.25 MG SL ×3 (08:03→17:57)
[2023-05-22] MEDS: L. ACIDOPHILUS/L.BULGARICUS 1 PACKET GRAN.PACK PO (08:03)
--- NOTE | 2023-05-22 10:31 | CT_ITS ---
The [address] [address] Patient Name: DAVID HWANG MRN: [id number] date: 1945 Sex: F Assigned Patient Location: ICU Current Patient Location: ICU Accession/Order Number: [id number] Exam Date: 05/22/2023 10:40 Report Date: 05/22/2023 11:17 At the request of: LEIGH FRY Procedure: CT stroke head/brain wo con CT stroke head/brain wo con, 05/22/2023 10:40 AM EST INDICATION: Dysphagia COMPARISON: No prior CT of the head available for comparison at the time of this dictation. TECHNIQUE: Axial CT images of the brain from skull base to vertex, including portions of the face and sinuses, were obtained without contrast. Multiplanar reformatted images were generated and reviewed as needed. FINDINGS: No intracranial mass, hydrocephalus, midline shift or acute hemorrhage. No extra-axial collection. Periventricular and deep white matter microvascular ischemic change. Keen-white matter differentiation is preserved. The paranasal sinuses and mastoid air cells are clear. Orbits are within normal limits. No acute skull fracture. CT/CT stroke head/brain wo con IMPRESSION: No acute intracranial abnormality. Electronically authenticated by: ALBANIA ORTIZ Date: 05/22/2023 11:17
--- NOTE | 2023-05-22 10:32 | PM.PN ---
Progress Note: Subjective Subjective Interval history: Patient feels better today. Denies pain. Still with decreased appetite and not hungry but trying to drink well. Afebrile. Off levophed during day but developed hypotension and resumed overnight. Currently off now. Troponin decreased. Urine culture with K. pneumoniae. No chest pain or palpitations. No SOB or cough. No nausea or emesis. Nursing reports problems swallowing today and no history of swallowing problems in past. Exam Constitutional Vital Signs, click to edit/add: Last Vital Signs Temp 98.2 F 05/22/23 09:37 Pulse 93 H 05/22/23 09:35 Resp 30 H 05/22/23 09:35 BP 108/73 05/22/23 09:30 Pulse Ox 95 05/22/23 09:35 O2 Del Method Room Air 05/22/23 03:00 O2 Flow Rate 2 05/20/23 23:44 Documenting provider has reviewed patient's vital signs: yes Common normals: no apparent distress, oriented x3 and alert HENMT Common normals: normocephalic Eye Common normals: PERRL and EOMs intact bilaterally Respiratory Common normals: normal respiratory effort and clear to auscultation bilaterally Cardio Common normals: regular rate, regular rhythm, no gallops, no murmurs and no rub GI Common normals: Normal to inspection, nondistended, normoactive bowel sounds present and non-tender Extremity Common normals: no pedal edema Progress Note: Objective Labs Labs: Short CBC 05/22/23 Range/Units 04:05 WBC 11.4 H (4.0-11.0) 10^3/uL Hgb 9.4 L (12.0-16.0) g/dL Hct 28.9 L (36.0-48.0) % Plt Count 71 L (150-450) 10^3/uL BMP 05/22/23 04:05 Sodium 139 Potassium 3.4 L Chloride 109 H Carbon Dioxide 17.7 L BUN 21.0 H Creatinine 1.42 H Glucose 124 H Calcium 7.2 L Liver Function 05/22/23 Range/Units 04:05 Total Bilirubin 0.7 (0.2-1.0) mg/dL AST 48 H (15-37) U/L ALT 40 (14-59) U/L Alkaline Phosphatase 69 (46-116) U/L Albumin 1.9 L (3.4-5.0) g/dL Progress Note: A&P Assessment and Plan (1) Septic shock: (2) Emphysematous pyelonephritis: (3) Hydronephrosis with ureteral calculus: (4) Renal calculi: (5) KAMALA (acute kidney injury): (6) Elevated troponin: (7) Dysphagia: (8) Benign essential hypertension: (9) Hyponatremia: (10) Hypothyroidism: (11) Dementia: Plan Continues to improve and urine culture showed K. pneumonia. UTI, pyelonephritis, and severe sepsis due to K. pneumonia. Culture shows sensitive to zosyn and continue. Stop cipro but also sensitive. BP improved and monitor. Increase oral intake and push fluids. Continue PT/OT for weakness. Noticed dysphagia and prior falls, check CT head. Check bedside swallow evaluation. Monitor labs and vitals.
[2023-05-22 12:55] LABS: Glucometer 102 mg/dL (74-106)
--- NOTE | 2023-05-22 15:40 | CT_ITS ---
[address] [address] Patient Name: DAVID HWANG MRN: [id number] date: 1945 Sex: F Assigned Patient Location: ICU Current Patient Location: ICU Accession/Order Number: [id number] Exam Date: 05/22/2023 20:15 Report Date: 05/22/2023 21:20 At the request of: LEIGH FRY Procedure: CT angio chest EXAM: CT angio chest HISTORY: PE PROTOCOL COMPARISON: Chest x-ray 05/20/2023 TECHNIQUE: Contrast-enhanced axial CT of the chest was performed in the pulmonary angiographic phase. Coronal and sagittal reformats provided. Maximum intensity projections of the chest were also provided. FINDINGS: Neck/mediastinum: The thyroid is not visualized. No supraclavicular, axillary, mediastinal or hilar lymphadenopathy. Cardiovascular: Normal heart size without pericardial effusion or thickening. Mild calcific atherosclerosis of the coronary arteries. Descending thoracic aorta measures 3.7 cm in diameter. Normal caliber of the main pulmonary artery. No aortic dissection. Small central filling defect seen within a segmental branch of the right upper lobe concerning for pulmonary embolus. No evidence for right heart strain. Right PICC with tip terminating at the superior cavoatrial junction. Lungs/pleura/airways: Bibasilar effusions with component of atelectasis. No pneumothorax. Trachea and mainstem bronchi are clear. No concerning pulmonary nodules. Upper abdomen: Large hiatal hernia. There is a focal area of contrast extravasation seen within the hernia sac on axial image 57 and 61. Musculoskeletal/soft tissues: Soft tissues are within normal limits. No acute or aggressive osseous abnormality. CT/CT angio chest IMPRESSION: Small central filling defect within segmental branch of the right upper lobe concerning for acute pulmonary embolus. No right heart strain. Large hiatal hernia. There are 2 hyperdense foci within the hernia sac which could reflect blood products or contrast extravasation without clear source. Of note the thoracic aorta runs just posterior to the hernia sac. Bibasilar small effusions. Electronically authenticated by: ALEXANDRA ALFONSO Date: 05/22/2023 21:20
[2023-05-22 16:32] LABS: Adenovirus NOT DETECTED (NOT DETECTE); Bordetella parapertussis NOT DETECTED (NOT DETECTE); Coronavirus 229E NOT DETECTED (NOT DETECTE); Coronavirus HKU1 NOT DETECTED (NOT DETECTE); Coronavirus NL63 NOT DETECTED (NOT DETECTE); Coronavirus OC43 NOT DETECTED (NOT DETECTE); Human Metapneumovirus NOT DETECTED (NOT DETECTE); Human Rhinovirus/Enterovirus NOT DETECTED (NOT DETECTE); Influenza A NOT DETECTED (NOT DETECTE); Influenza B NOT DETECTED (NOT DETECTE); Mycoplasma pneumoniae NOT DETECTED (NOT DETECTE); Parainfluenza Virus 1 NOT DETECTED (NOT DETECTE); Parainfluenza Virus 2 NOT DETECTED (NOT DETECTE); Parainfluenza Virus 3 NOT DETECTED (NOT DETECTE); Parainfluenza Virus 4 NOT DETECTED (NOT DETECTE); Respiratory Syncytial Virus NOT DETECTED (NOT DETECTE); SARS-CoV-2 NOT DETECTED (NOT DETECTE)
[2023-05-22 16:38] LABS: Hematocrit 31.6 % (36.0-48.0); Hemoglobin 10.4 g/dL (12.0-16.0); Mean Corpuscular HGB Conc 32.9 g/dL (29.9-35.2); Mean Corpuscular Hemoglobin 37.1 pg (26.7-34.0); Mean Corpuscular Volume 112.9 fL (81.0-99.0); Mean Platelet Volume 11.6 fL (9.5-13.5); Platelet Count 74 10^3/uL (150-450); Red Cell Distribution Width 14.9 % (11.0-15.0); White Blood Count 9.4 10^3/uL (4.0-11.0)
[2023-05-22 16:50] LABS: Alanine Aminotransferase 43 U/L (14-59); Albumin Globulin Ratio 0.6; Alkaline Phosphatase 98 U/L (46-116); Anion Gap 17.6; Aspartate Amino Transferase 50 U/L (15-37); Bilirubin Total 0.8 mg/dL (0.2-1.0); Calcium 7.6 mg/dL (8.5-10.1); Carbon Dioxide 16.1 mmol/L (21.0-32.0); Chloride 107 mmol/L (98-107); Estimated GFR (African America 43 (>=60); Estimated GFR (Non-African Ame 36 (>=60); Globulin 3.4 g/dL; Glucose 161 mg/dL (74-106); Magnesium 1.3 mg/dL (1.8-2.4); Potassium 3.7 mmol/L (3.5-5.1); Sodium 137 mmol/L (136-145); Total Protein 5.4 g/dL (6.4-8.2)
[2023-05-22] MEDS: ACETAMINOPHEN 500 MG TABLET 1000 MG PO (16:51)
[2023-05-22 16:58] LABS: Creatine Kinase MB 1.35 ng/mL (<=3.60); Troponin I High Sensitivity 32.5 pg/mL (4.0-51.3)
[2023-05-22 17:08] LABS: Creatine Kinase 337 U/L (26-192)
--- NOTE | 2023-05-22 18:16 | RESP.RT ---
Pt placed on NRB mask at this time, SpO2 increased to 98
[2023-05-22] MEDS: LACTATED RINGER'S SOLUTION 1,000 ML 999 ML IV ×2 (21:16→22:20)
[2023-05-22] MEDS: ATORVASTATIN CALCIUM 20 MG TABLET PO (21:24)
[2023-05-22] MEDS: ENSURE HP 237 ML LIQUID PO (21:24)
[2023-05-22 21:33] LABS: Glucometer 120 mg/dL (74-106)
[2023-05-22 21:58] LABS: Lactate/Lactic Acid 1.3 mmol/L (0.4-2.0)
[2023-05-22] MEDS: HEPARIN SODIUM (PORCINE) 5,000 UNIT/ML VIAL 6000 UNIT IV (22:20)
[2023-05-23] VITALS (207 sets, daily range): BP systolic 73–135; BP diastolic 50–101; PULSE 88–134; RESP 17–39; TEMP 37–37.4; O2SAT 85–100
[2023-05-23] MEDS: PIPERACILLIN SODIUM/TAZOBACTAM 3.375 GM in 0.9 % SODIUM CHLORIDE 50 ML IV ×2 (02:17→15:05)
[2023-05-23] MEDS: NOREPINEPHRINE BITARTRATE 4 MG in DEXTROSE 5 % IN WATER 250 ML 15.24 MG IV (02:18)
[2023-05-23] MEDS: IPRATROPIUM/ALBUTEROL SULFATE 3 ML AMPUL.NEB IH ×2 (04:24→15:30)
[2023-05-23 04:38] LABS: Basophils Percent Auto 0.2 % (0.2-2.0); Eosinophils Percent Auto 0.3 % (0.9-7.0); Hematocrit 27.2 % (36.0-48.0); Hemoglobin 9.3 g/dL (12.0-16.0); Immature Granulocytes Abs Auto 0.16 10^3/uL (0.00-0.03); Immature Granulocytes Pct Auto 1.8 % (0.0-0.5); Lymphocytes Percent Auto 11.3 % (20.5-60.0); Mean Corpuscular HGB Conc 34.2 g/dL (29.9-35.2); Mean Platelet Volume 11.4 fL (9.5-13.5); Monocytes Absolute Auto 0.2 10^3/uL (0.3-0.8); Monocytes Percent Auto 2.3 % (1.7-12.0); Neutrophils Absolute Auto 7.4 10^3/uL (1.4-6.5); Neutrophils Percent Auto 84.1 % (43.0-75.0); Platelet Count 64 10^3/uL (150-450); Red Blood Count 2.45 10^6/uL (4.20-5.40); Red Cell Distribution Width 14.7 % (11.0-15.0); White Blood Count 8.8 10^3/uL (4.0-11.0)
[2023-05-23 04:55] LABS: Alanine Aminotransferase 30 U/L (14-59); Albumin Globulin Ratio 0.6; Albumin Level 1.7 g/dL (3.4-5.0); Alkaline Phosphatase 80 U/L (46-116); Anion Gap 14.5; Aspartate Amino Transferase 40 U/L (15-37); BUN Creatinine Ratio 13.4; Bilirubin Total 0.9 mg/dL (0.2-1.0); Calcium 7.4 mg/dL (8.5-10.1); Carbon Dioxide 18.9 mmol/L (21.0-32.0); Chloride 109 mmol/L (98-107); Estimated GFR (African America 57 (>=60); Estimated GFR (Non-African Ame 47 (>=60); Globulin 2.9 g/dL; Glucose 130 mg/dL (74-106); Magnesium 1.2 mg/dL (1.8-2.4); Potassium 3.4 mmol/L (3.5-5.1); Sodium 139 mmol/L (136-145); Total Protein 4.6 g/dL (6.4-8.2)
[2023-05-23] MEDS: 0.9 % SODIUM CHLORIDE 1,000 ML 125 ML IV ×3 (06:15→21:06)
[2023-05-23] MEDS: LEVOTHYROXINE SODIUM 125 MCG TABLET PO (06:15)
[2023-05-23] MEDS: HYOSCYAMINE SULFATE 0.125 MG TAB.SUBL 0.25 MG SL (08:04)
[2023-05-23] MEDS: LAMOTRIGINE 100 MG TABLET 200 MG PO (08:06)
[2023-05-23] MEDS: L. ACIDOPHILUS/L.BULGARICUS 1 PACKET GRAN.PACK PO (08:07)
[2023-05-23] MEDS: MAGNESIUM OXIDE 400 MG TABLET PO ×2 (08:07→21:06)
[2023-05-23] MEDS: ENSURE HP 237 ML LIQUID PO ×2 (08:07→21:06)
--- NOTE | 2023-05-23 08:17 | PC.NURSE ---
2 rings given to the .
--- NOTE | 2023-05-23 09:06 | CA_ITS ---
Patient Name: DAVID VALENCIA MR#: [id number] : 1945 Exam Date: 05/23/2023 Ordering Doctor: DR LEIGH FRY . ECHOCARDIOGRAM REPORT PROCEDURE: CA ECHO DOPPLER COMPLETE INDICATIONS: Pulmonary embolism, pneumonia, septic shock COMPARISON: None. DESCRIPTION: COMPLETE ECHOCARDIOGRAM Real-time transthoracic echocardiography with 2D, M-mode, spectral and color flow Doppler performed. QUALITY: Technical quality was good. LEFT VENTRICLE: Normal chamber size. Proximal septal hypertrophy (sigmoid septum). LV EF: Global left ventricular systolic function is hyperdynamic; visually estimated ejection fraction is 65 to 70%. No significant wall motion abnormalities. DIASTOLIC: Normal diastolic function. ATRIAL SEPTUM: Not well-visualized. LEFT ATRIUM: Normal chamber size. RIGHT ATRIUM: Normal chamber size. RIGHT VENTRICLE: Normal chamber size. Normal right ventricular systolic function. TRICUSPID VALVE: Normal mobility and thickness. Mild regurgitation. Doppler studies reveal moderately (45-60) elevated right sided pressures. RVSP 53 mmHg MITRAL VALVE: Normal mobility and thickness. No evidence of mitral valve stenosis. There is no mitral annular calcification. Trivial mitral regurgitation. AORTIC VALVE: Normal trileaflet appearance. No visible sclerosis. Normal leaflet mobility. No evidence of aortic valve stenosis. No aortic regurgitation. AORTIC ROOT: Normal diameter and appearance. PULMONIC VALVE: Not well visualized. No stenosis. No regurgitation. PERICARDIUM: Anterior free space; trivial effusion versus fat pad. IVC: IVC is normal in size, does not fully collapse. CONCLUSION: 1. Global left ventricular systolic function is hyperdynamic; visually estimated ejection fraction is 65 to 70% 2. The right ventricle is normal in size and systolic function 3. Normal diastolic function 4. Mild tricuspid regurgitation 5. Moderately elevated right ventricular systolic pressure; RVSP 53 mmHg 6. Anterior free space; trivial effusion versus fat pad Adult Echocardiography Procedure Report Left Ventricle LVEDD (3.7 - 5.6 cm): 4.29 cm LVESD (2.2 - 4.0 cm): 2.83 cm LVIVS thickness (0.6 - 1.2 cm): 0.99 cm LVPW thickness (0.5 - 1.0 cm): 0.60 cm e': 0.11 m/s E - e': 7.87 LVOT Max Gradient: 7.53 mm[Hg] LVOT Area (cm2): 1.37 m/s Peak Velocity (LVOT): 1.37 m/s Mean Velocity (LVOT): 0.87 m/s LVOT Diameter 1.98 cm Left Atrium LA Volume Index (2D A2C): 32.34 ml/m2 Left Atrium Systolic Dimension: 3.29 cm Mitral Valve MV E to A Ratio: 0.94 Mitral Valve A-Wave Peak Velocity: 0.94 m/s Mitral Valve E-Wave Peak Velocity: 0.89 m/s Right Ventricle Aorta AO Root Diam: 3.26 cm Ascending Ao Diam: 2.80 cm Aortic Valve AoV Area (Peak Geoff): 2.48 cm2, 2.48 cm2 AoV Area (VTI): 2.50 cm2, 2.50 cm2 Peak Velocity(Antegrade Flow): 1.70 m/s Peak Gradient(Antegrade Flow): 11.58 mm[Hg] Mean Velocity(Antegrade Flow): 1.24 m/s Mean Gradient(Antegrade Flow): 6.74 mm[Hg] Velocity Time Integral: 32.20 cm Tricuspid Valve Peak Velocity (Regurgitant Flow): 2.99 m/s, 2.96 m/s, 3.36 m/s, 3.21 m/s Pulmonic Valve Peak Velocity: 1.20 m/s Peak Gradient: 6.52 mm[Hg], 5.08 mm[Hg] Right Atrium Right Atrium Systolic Pressure: 50.05 ml, 50.05 ml Dictated by: Hollis Posadas M.D. on 05/24/2023 at 15:56 Approved by: Hollis Posadas M.D. on 05/24/2023 at 16:00
[2023-05-23] MEDS: MAGNESIUM SULFATE IN WATER 4 GM/100 ML PIGGYBACK IV (09:11)
--- NOTE | 2023-05-23 09:23 | CM.NOTE ---
Important Message From Medicare discussed with pt and , both verbalize understanding. signs paper for pt, original given to pt and copy placed on pt's chart.
[2023-05-23] MEDS: HEPARIN SODIUM (PORCINE) 5,000 UNIT/ML VIAL 3400 UNIT IV (09:54)
[2023-05-23] MEDS: HEPARIN SODIUM,PORCINE/D5W 25,000 UNIT/500 ML IV.SOLN 23.04 UNIT IV (09:55)
--- NOTE | 2023-05-23 10:23 | CM.NOTE ---
Rounds made with Dr. Hansen, no discharge today. PT and OT will continue to work with pt for strengthening.
--- NOTE | 2023-05-23 10:29 | P.PN_ITS ---
Patient seen and examined, agree with assessment and plan below. Found PE and started heparin drip. Vitals improved. Overall feels better. Progress Note: Subjective Subjective Interval history: Date/time of exam: 05/23/23 1005 The patient is currently sitting up in a bedside chair. She states she feels better than when she was admitted, but continues to feel weak and with malaise. She admits to a persistent poor appetite. She denies any chest pain, SOB (on supplemental O2), abdominal pain, nausea, or vomiting. She continues to spike fevers with a Tmax of 102.5 yesterday afternoon. Her initial set of blood cultures have popped positive with Klebsiella pneumoniae. We will order repeat set of blood cultures today until we have negative blood cultures x24 hours. This is the same bacteria that is in the patient's urine and is sensitive to Zosyn that is already prescribed. She was still on Levophed drip overnight to maintain her blood pressures but nursing is attempting to titrate this down. We will continue to monitor her vital signs closely. She is awake and alert and oriented x3. [employer] emily is still pending after nursing reported difficulty swallowing yesterday. CTA chest obtained yesterday evening was positive for a PE in the right upper lobe and the patient is a little more hypoxic overnight. She has been initiated on a heparin drip for now and we will de-escalate to DOAC therapy when clinically indicated. Exam Constitutional Vital Signs, click to edit/add: Last Vital Signs Temp 97.8 F 05/22/23 19:02 Pulse 103 H 05/23/23 10:00 Resp 26 H 05/23/23 06:55 BP 106/67 05/23/23 08:16 Pulse Ox 96 05/23/23 06:55 O2 Del Method Nasal Cannula 05/23/23 05:15 O2 Flow Rate 4 05/23/23 06:00 Common normals: no apparent distress, oriented x3 and alert General appearance: cooperative Orientation/consciousness: Yes awake [facility] Common normals: normocephalic, head/scalp atraumatic and hearing grossly normal bilaterally Eye Common normals: PERRL, EOMs intact bilaterally, conjunctivae normal and no scleral icterus Chest Common normals: inspection of chest normal Chest: symmetrical chest wall rise Respiratory Common normals: normal respiratory effort, no use of accessory muscles and clear to auscultation bilaterally Effort & inspection: able to speak in complete sentences Auscultation: diminished lung sounds (BLL) Cardio Common normals: regular rate, regular rhythm, S1 normal heart sound, S2 normal heart sound, no murmurs and peripheral pulses 2+ throughout GI Common normals: Normal to inspection, nondistended, normoactive bowel sounds present, soft to palpation and no hepatosplenomegaly Palpation: tender (Mild RLQ); no guarding, not rigid and no rebound tenderness present Bladder/kidney exam: bladder normal to palpation and no CVA tenderness Extremity Common normals: normal to inspection and no calf tenderness General: edema (Tr-1+ Bilat insteps/ankles); no clubbing and no cyanosis Neuro Common normals: oriented x3, CN's II-XII intact bilaterally, moves all extremities, no focal motor deficits and no sensory deficits noted Sensorium/orientation: awake and alert Psych Common normals: mental status grossly normal Progress Note: Objective Labs Labs: Short CBC 05/22/23 05/23/23 Range/Units 16:23 04:30 WBC 9.4 8.8 (4.0-11.0) 10^3/uL Hgb 10.4 L 9.3 L (12.0-16.0) g/dL Hct 31.6 L 27.2 L (36.0-48.0) % Plt Count 74 L 64 L (150-450) 10^3/uL BMP 05/22/23 05/23/23 16:23 04:30 Sodium 137 139 Potassium 3.7 3.4 L Chloride 107 109 H Carbon Dioxide 16.1 L 18.9 L BUN 20.0 H 15.0 Creatinine 1.43 H 1.12 H Glucose 161 H 130 H Calcium 7.6 L 7.4 L Cardiac Enzymes 05/22/23 Range/Units 16:23 Total Creatine Kinase 337 H* (26-192) U/L CK-MB (CK-2) 1.35 (<=3.60) ng/mL Liver Function 05/22/23 05/23/23 Range/Units 16:23 04:30 Total Bilirubin 0.8 0.9 (0.2-1.0) mg/dL AST 50 H 40 H (15-37) U/L ALT 43 30 (14-59) U/L Alkaline Phosphatase 98 80 (46-116) U/L Albumin 2.0 L 1.7 L (3.4-5.0) g/dL Imaging CTA Chest: Attestation: I have reviewed the pertinent imaging results. Radiologist's impression: IMPRESSION: Small central filling defect within segmental branch of the right upper lobe concerning for acute pulmonary embolus. No right heart strain. Large hiatal hernia. There are 2 hyperdense foci within the hernia sac which could reflect blood products or contrast extravasation without clear source. Of note the thoracic aorta runs just posterior to the hernia sac. Bibasilar small effusions. Progress Note: A&P Assessment and Plan (1) Septic shock: Assessment and Plan: ACUTE * Improving * Levophed gtt weaning down, nursing will attempt to titrate off this morning * Lactic acid resolved * Leukocytosis resolved * Mentation at baseline * Renal function improving * Troponins returned to normal * Platelets continue dropping - 64 today * Tmax 102.5 yesterday afternoon but afebrile this morning * Continue IVF at 125/hr for now - monitor closely for fluid overload * 2/2 Emphysematous pyelonephritis - see below for ABX * Daily CBC, CMP (2) Emphysematous pyelonephritis: Assessment and Plan: ACUTE * Improving * 2/2 bilat obstructing renal calculi, L kidney emphysematous * See hydronephrosis * Urine growing K. Pneumoniae, sensitive to Zosyn. Continue IVPB zosyn for now * IVPB Cipro discontinued 05/22/23 (3) Hydronephrosis with ureteral calculus: Assessment and Plan: ACUTE * s/p pyelogram, bilat ureteral stent placement per Dr Martines, Urologist, on 05/20/23 * Unremarkable post op course * Defer to urology management when stents are to be removed * Pt denies pain, sepsis improving (4) Pulmonary embolism: Assessment and Plan: ACUTE * RUL segmental small PE on CTA 05/22/23 * On heparin gtt w/ pharmacy to manage for now * Plan to convert to Lovenox this evening if not significant hematuria develops, then likely convert to DOAC therapy in AM (5) Acute hypoxic respiratory failure: Assessment and Plan: ACUTE * Onset of hypoxia requiring O2 supplementation 05/22/23 * 2/2 acute PE in the post operative period (Cystoscopy, ureteral stent placement) * See PE (6) Bacteremia due to Klebsiella pneumoniae: Assessment and Plan: ACUTE * New result today from initial blood cultures in the ED * Identical pathogen is growing in urine and is susceptable to Zosyn - continue (7) Hypomagnesemia: Assessment and Plan: ACUTE * Mag sulfate 4 gm now * Check phos level as well and replete if indicated. See hypokalemia (8) KAMALA (acute kidney injury): Assessment and Plan: ACUTE Laboratory Tests 05/20/23 05/20/23 05/23/23 09:34 09:34 04:30 BUN 29.0 H 15.0 Creatinine 2.09 H 1.12 H Est GFR (Non-Af Amer) 23 L 05/23/23 04:30 BUN Creatinine Est GFR (Non-Af Amer) 47 L * 2/2 obstructive renal calculi, hydronephrosis and pyelonephritis * Improving * Lasix 40 IVP x 1 to push kidneys for improved output * Monitor renal fx closely * Continue IVFs for now * Continue to hold home ARB d/t renal toxicity * Daily CMP (9) Elevated troponin: Assessment and Plan: ACUTE * Resolved * Mild elevation likely d/t demand ischemia/septic shock (10) Dysphagia: Assessment and Plan: ACUTE * New finding reported by nursing 05/22/23 * CT brain unremarkable * No focal clinical findings * [employer] eval today (11) Hyponatremia: Assessment and Plan: ACUTE Laboratory Tests 05/20/23 05/23/23 09:34 04:30 Sodium 135 L 139 * Resolved * CMP daily (12) Hyperglycemia: Assessment and Plan: ACUTE * Improving * No known dx of DM2, not on oral glycemic meds * Likely 2/2 sepsis/infectious process * Continue ACHS glucometer checks and low dose SS insulin for glucose correction (13) Hypothyroidism: Assessment and Plan: CHRONIC * Subtherapeutic labs on admission * Home levothyroxine increased from 112 mcg to 125 * Defer to PCP management after discharge (14) Dementia: Assessment and Plan: CHRONIC * Continue home lamotrigine (15) Benign essential hypertension: Assessment and Plan: ACUTE * Hold home amlodipine and losartan d/t hypotension/sepsis/levophed administration * Resume when clinically indicated Plan I spent greater than 90 min of critical care time on this pt including face-to- face time, review of historical documentation, coordination of care.
[2023-05-23] MEDS: PANTOPRAZOLE SODIUM 40 MG VIAL IV ×2 (10:48→21:06)
[2023-05-23] MEDS: FUROSEMIDE 40 MG/4 ML VIAL IVP (10:48)
[2023-05-23 11:38] LABS: Phosphorus 1.2 mg/dL (2.6-4.7)
--- NOTE | 2023-05-23 11:53 | CM.NOTE ---
Discussed with pt regarding HH services at discharge, pt is in agreement to HH but unsure who she would like to go with. Pt given list of [employer] 5 star rating to pick HH company. Pt would like some time to discuss with .
[2023-05-23 12:08] LABS: Glucometer 132 mg/dL (74-106)
[2023-05-23] MEDS: POTASSIUM CHLORIDE 10 MEQ ER TABLET 40 MEQ PO (12:12)
--- NOTE | 2023-05-23 14:40 | CM.NOTE ---
Talked with pt to discuss discharge planning, pt refuses inpt skilled at discharge but remains open to services. Pt has decided on [facility] . Faxed clinical.
[2023-05-23 16:40] LABS: Glucometer 151 mg/dL (74-106)
[2023-05-23 16:40] LABS: PTT Heparin Monitor 40.4 sec (48.2-68.6)
[2023-05-23 18:34] LABS: Phosphorus 3.8 mg/dL (2.6-4.7)
[2023-05-23 20:57] LABS: Phosphorus 3.5 mg/dL (2.6-4.7)
[2023-05-23] MEDS: ENOXAPARIN SODIUM 80 MG/0.8 ML SYRINGE SUBQ (21:06)
[2023-05-23] MEDS: ATORVASTATIN CALCIUM 20 MG TABLET PO (21:06)
[2023-05-23 21:09] LABS: PTT Heparin Monitor 39.3 sec (48.2-68.6)
[2023-05-23 21:31] LABS: Glucometer 115 mg/dL (74-106)
[2023-05-24] VITALS (119 sets, daily range): BP systolic 90–124; BP diastolic 47–81; PULSE 87–107; RESP 18–39; TEMP 36.9–37.2; O2SAT 87–96; BMI 35.3
[2023-05-24] MEDS: PIPERACILLIN SODIUM/TAZOBACTAM 3.375 GM in 0.9 % SODIUM CHLORIDE 50 ML IV ×3 (02:42→21:00)
[2023-05-24] MEDS: IPRATROPIUM/ALBUTEROL SULFATE 3 ML AMPUL.NEB IH ×2 (02:49→12:43)
[2023-05-24 05:23] LABS: Basophils Percent Auto 0.2 % (0.2-2.0); Eosinophils Percent Auto 0.8 % (0.9-7.0); Hemoglobin 7.5 g/dL (12.0-16.0); Immature Granulocytes Abs Auto 0.12 10^3/uL (0.00-0.03); Immature Granulocytes Pct Auto 2.3 % (0.0-0.5); Lymphocytes Absolute Auto 1.1 10^3/uL (1.2-3.8); Lymphocytes Percent Auto 20.8 % (20.5-60.0); Mean Corpuscular HGB Conc 32.8 g/dL (29.9-35.2); Mean Corpuscular Hemoglobin 36.2 pg (26.7-34.0); Mean Corpuscular Volume 110.6 fL (81.0-99.0); Mean Platelet Volume 11.4 fL (9.5-13.5); Monocytes Absolute Auto 0.2 10^3/uL (0.3-0.8); Neutrophils Absolute Auto 3.8 10^3/uL (1.4-6.5); Neutrophils Percent Auto 71.9 % (43.0-75.0); Platelet Count 68 10^3/uL (150-450); Red Blood Count 2.07 10^6/uL (4.20-5.40); Red Cell Distribution Width 14.6 % (11.0-15.0); White Blood Count 5.2 10^3/uL (4.0-11.0)
[2023-05-24 05:37] LABS: Alanine Aminotransferase 34 U/L (14-59); Albumin Globulin Ratio 0.5; Albumin Level 1.5 g/dL (3.4-5.0); Alkaline Phosphatase 76 U/L (46-116); Anion Gap 12.6; Aspartate Amino Transferase 41 U/L (15-37); BUN Creatinine Ratio 11.7; Bilirubin Total 0.8 mg/dL (0.2-1.0); Calcium 7.1 mg/dL (8.5-10.1); Carbon Dioxide 21.6 mmol/L (21.0-32.0); Chloride 110 mmol/L (98-107); Estimated GFR (African America 53 (>=60); Estimated GFR (Non-African Ame 44 (>=60); Globulin 2.9 g/dL; Glucose 113 mg/dL (74-106); Magnesium 1.9 mg/dL (1.8-2.4); Potassium 3.2 mmol/L (3.5-5.1); Sodium 141 mmol/L (136-145); Total Protein 4.4 g/dL (6.4-8.2)
[2023-05-24 05:49] LABS: Hematocrit 22.9 % (36.0-48.0)
[2023-05-24] MEDS: LEVOTHYROXINE SODIUM 125 MCG TABLET PO (05:56)
[2023-05-24] MEDS: 0.9 % SODIUM CHLORIDE 1,000 ML 125 ML IV (06:05)
[2023-05-24] MEDS: MAGNESIUM OXIDE 400 MG TABLET PO ×2 (08:29→21:01)
[2023-05-24] MEDS: PANTOPRAZOLE SODIUM 40 MG VIAL IV ×2 (08:29→21:01)
[2023-05-24] MEDS: L. ACIDOPHILUS/L.BULGARICUS 1 PACKET GRAN.PACK PO ×2 (08:29→21:00)
[2023-05-24] MEDS: ENSURE HP 237 ML LIQUID PO ×2 (08:29→21:01)
[2023-05-24] MEDS: LAMOTRIGINE 100 MG TABLET 200 MG PO (08:29)
--- NOTE | 2023-05-24 08:39 | XR_ITS ---
The [address] [address] Patient Name: DAVID VALENCIA MRN: [id number] date: 1945 Sex: F Assigned Patient Location: ICU Current Patient Location: ICU Accession/Order Number: [id number] Exam Date: 05/24/2023 08:40 Report Date: 05/24/2023 09:17 At the request of: ADAM TRINIDAD Procedure: XR chest 1V PROCEDURE: XR chest 1V DATE: 05/24/2023 7:40 AM HOME [employer] EXPERIENCE EXPERT COMPARISONS: 05/20/2023 CLINICAL INDICATION: 78 years Female hypoxia FINDINGS: The heart size is within normal limits. The diaphragms appear slightly elevated consistent with less than optimal inspiratory radiograph. There is slight haziness overlying the lower lungs, left greater than right probably representing small bilateral pleural effusions with associated atelectasis. Slight increased markings of the perihilar regions could represent a small amount of interstitial fluid due to congestion. There is no evidence of pneumothorax A right arm PICC line is in place. The tip appears to overlie the SVC RA junction. XR/XR chest 1V IMPRESSION: There is now pleural effusions, left greater than right. There is associated basilar atelectasis. There is slight increased markings possibly representing some mild congestive changes. Electronically authenticated by: FAWN LISA Date: 05/24/2023 09:17
[2023-05-24] MEDS: 0.9 % SODIUM CHLORIDE 1,000 ML 85 ML IV (09:40)
[2023-05-24 10:13] LABS: Percent Iron Saturation 18.9 %
[2023-05-24] MEDS: ENOXAPARIN SODIUM 80 MG/0.8 ML SYRINGE SUBQ (10:14)
--- NOTE | 2023-05-24 10:30 | CM.NOTE ---
Rounds made with Dr. Hansen, discussed with pt about inpatient rehab vs HH and safety. Pt now open to going inpatient skilled at [facility]. E-mailed Orte[facility] at [facility] to check on bed status and openings.
--- NOTE | 2023-05-24 10:55 | P.PN_ITS ---
Patient seen and examined, agree with assessment and plan below. Overall improving and feels better. Hgb decreased overnight but no evidence of active bleeding. Continue antibiotics. Significant weakness and patient willing to go to SNF upon discharge. Diagnosis: 1. Severe sepsis with shock 2. Pyelonephritis 3. Kidney stones 4. PE 5. Hypoxia 6. Anemia 7. KAMALA Progress Note: Subjective Subjective Interval history: Date/time of exam: 05/24/23 1005 The patient is currently sitting up in a bedside chair. She states she feels better than when she was admitted, but continues to feel weak and a little SOB. Nursing was able to wean her off of O2 supplementation and her sats are dylan ntained between 90-93%, but she is tachypneic and may still require O2 supplementation. She denies any chest pain, abdominal pain, nausea, or vomiting. She has been afebrile x 36 hrs+. Her initial set of blood cultures have popped positive with Klebsiella pneumoniae. Follow up BC have remained neg for up to 48 hrs. She able to maintain a stable BP off of levophed since yesterday morning. Her BP this morning is soft and we have reduced her IVF rate and will be giving lasix d/t clinical concern for fluid overload. This may result in hypotension requiring resumption of pressor support. Nursing will monitor her VS closely. She is awake and alert and oriented x3. [employer] emily yesterday did not identify any swallowing needs. Exam Constitutional Vital Signs, click to edit/add: Last Vital Signs Temp 99.4 F 05/23/23 19:05 Pulse 106 H 05/24/23 08:00 Resp 31 H 05/24/23 05:50 BP 90/47 L 05/24/23 05:30 Pulse Ox 90 L 05/24/23 05:50 O2 Del Method Room Air 05/24/23 02:49 O2 Flow Rate 4 05/23/23 06:00 Common normals: no apparent distress, oriented x3 and alert General appearance: cooperative and other (Pale) Orientation/consciousness: Yes awake [facility] Common normals: normocephalic, head/scalp atraumatic and hearing grossly normal bilaterally Eye Common normals: PERRL, EOMs intact bilaterally, conjunctivae normal and no scleral icterus General eye: normal appearance of both eyes Chest Common normals: inspection of chest normal Chest: symmetrical chest wall rise Respiratory Common normals: no use of accessory muscles and clear to auscultation bilaterally Effort & inspection: able to speak in complete sentences and tachypneic Auscultation: diminished lung sounds (BLL) Cardio Common normals: regular rate (Borderline tachycardia), regular rhythm, S1 normal heart sound, S2 normal heart sound, no murmurs and peripheral pulses 2+ throughout GI Common normals: Normal to inspection, nondistended, normoactive bowel sounds present, soft to palpation and no hepatosplenomegaly Palpation: tender (Very mild RUQ - no rebound, guarding) Bladder/kidney exam: bladder normal to palpation Extremity Common normals: normal to inspection and no calf tenderness General: edema (1-2+ BLE shins to insteps); no clubbing and no cyanosis Neuro Common normals: CN's II-XII intact bilaterally, moves all extremities, no focal motor deficits and no sensory deficits noted Psych Common normals: mental status grossly normal Progress Note: Objective Labs Labs: Short CBC 05/24/23 Range/Units 05:00 WBC 5.2 (4.0-11.0) 10^3/uL Hgb 7.5 L (12.0-16.0) g/dL Hct 22.9 L* (36.0-48.0) % Plt Count 68 L (150-450) 10^3/uL BMP 05/24/23 05:00 Sodium 141 Potassium 3.2 L Chloride 110 H Carbon Dioxide 21.6 BUN 14.0 Creatinine 1.20 H Glucose 113 H Calcium 7.1 L Liver Function 05/24/23 Range/Units 05:00 Total Bilirubin 0.8 (0.2-1.0) mg/dL AST 41 H (15-37) U/L ALT 34 (14-59) U/L Alkaline Phosphatase 76 (46-116) U/L Albumin 1.5 L (3.4-5.0) g/dL Imaging Chest x-ray: Attestation: I have reviewed the pertinent imaging results. Radiologist's impression: IMPRESSION: There is now pleural effusions, left greater than right. There is associated basilar atelectasis. There is slight increased markings possibly representing some mild congestive changes. Progress Note: A&P Assessment and Plan (1) Septic shock: Assessment and Plan: ACUTE * Resolving * Levophed gtt weaning off yesterday morning. 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 Pneumoniae, sensitive to Zosyn. Continue IVPB zosyn * IVPB Cipro discontinued 05/22/23 (3) Hydronephrosis with ureteral calculus: Assessment and Plan: ACUTE * s/p pyelogram, bilat ureteral stent placement per Dr Martines, Urologist, on 05/20/23 * Unremarkable post op course * Defer to urology management when stents are to be removed * Pt denies pain, sepsis improving (4) Anemia: Assessment and Plan: ACUTE * Hgb 7.5 today * No evidence of active bleeding - no hematuria post operatively * Suspect hemodilution after large volume IVF administration for septic shock and KAMALA * See fluid overload * Check FOB to r/o occult bleeding * Iron studies ordered * Repeat HH at 1500 today * Consider PRBC transfusion for hgb less than 7 or significantly symptomatic (5) Fluid overload: Assessment and Plan: ACUTE * 2/2 large volume IVF administration for septic shock and KAMALA * CXR w/ evidence of developing pleural effusions and congestion, increasing peripheral edema * Reduce IVF rate to 85 ml/hr today * Unable to S.L. d/t very soft BPs w/ only recent d/c of pressor support, but could consider pending clinical course * Give IVP Lasix 40 mg x 1 now - consider further doses pending clinical course and BP tolerance * Daily weights (6) Pulmonary embolism: Assessment and Plan: ACUTE * RUL segmental small PE on CTA 05/22/23 * Heparin gtt converted to therapeutic lovenox BID dosing last noc - pt angelica well * Continue lovenox for now d/t concurrent anemia and risk for active bleeding. * Plan to convert to DOAC dosing at d/c (7) Acute hypoxic respiratory failure: Assessment and Plan: ACUTE * Resolving * Weaned off O2 supplementation today but pt is tachypneic and may need O2 resumed. Nursing to monitor * 2/2 acute PE in the post operative period (Cystoscopy, ureteral stent placement) * See PE (8) Bacteremia due to Klebsiella pneumoniae: Assessment and Plan: ACUTE * New result 05/23/23 from initial blood cultures in the ED * Identical pathogen is growing in urine and is susceptable to Zosyn - continue * Repeat BC neg for up to 48 hrs (9) Hypomagnesemia: Assessment and Plan: ACUTE * Resolved - Mag 1.9 today * Daily mag level (10) Hypophosphatemia: Assessment and Plan: ACUTE Laboratory Tests 05/23/23 05/23/23 09:50 20:39 Phosphorus 1.2 L* 3.5 * Repleted w/ 48 mmol NaPhos 05/23/23 - resolved on am labs today * Repeat Phos in AM (11) KAMALA (acute kidney injury): Assessment and Plan: ACUTE * Improving * 2/2 obstructive renal calculi, hydronephrosis and pyelonephritis * Continue IVFs at reduced rate d/t concern for fluid overload * Continue to hold home ARB d/t renal toxicity * Daily CMP (12) Hypothyroidism: Assessment and Plan: CHRONIC * Subtherapeutic labs on admission * Home levothyroxine increased from 112 mcg to 125 * Defer to PCP management after discharge (13) Dysphagia: Assessment and Plan: ACUTE * New finding reported by nursing 05/22/23 * CT brain unremarkable * No focal clinical findings * [employer]ATION AGENT eval w/ no identified swallowing issues * Suspect generalized weakness (14) Hyponatremia: Assessment and Plan: ACUTE * Resolved * CMP daily (15) Hyperglycemia: Assessment and Plan: ACUTE * Improving * No known dx of DM2, not on oral glycemic meds * Likely 2/2 sepsis/infectious process * Continue ACHS glucometer checks and low dose SS insulin for glucose correction (16) Elevated troponin: Assessment and Plan: ACUTE * Resolved * Mild elevation likely d/t demand ischemia/septic shock (17) Dementia: Assessment and Plan: CHRONIC * Continue home lamotrigine (18) Benign essential hypertension: Assessment and Plan: ACUTE * Hold home amlodipine and losartan d/t hypotension/sepsis/levophed administration * Resume when clinically indicated
--- NOTE | 2023-05-24 10:55 | PM.PN ---
Progress Note: Subjective Subjective Interval history: Date/time of exam: 05/24/23 1005 The patient is currently sitting up in a bedside chair. She states she feels better than when she was admitted, but continues to feel weak and a little SOB. Nursing was able to wean her off of O2 supplementation and her sats are maintained between 90-93%, but she is tachypneic and may still require O2 supplementation. She denies any chest pain, abdominal pain, nausea, or vomiting. She has been afebrile x 36 hrs+. Her initial set of blood cultures have popped positive with Klebsiella pneumoniae. Follow up BC have remained neg for up to 48 hrs. She able to maintain a stable BP off of levophed since yesterday morning. Her BP this morning is soft and we have reduced her IVF rate and will be giving lasix d/t clinical concern for fluid overload. This may result in hypotension requiring resumption of pressor support. Nursing will monitor her VS closely. She is awake and alert and oriented x3. NUCLEAR MEDICINE SPECIALIST emily yesterday did not identify any swallowing needs. Exam Constitutional Vital Signs, click to edit/add: Last Vital Signs Temp 99.4 F 05/23/23 19:05 Pulse 106 H 05/24/23 08:00 Resp 31 H 05/24/23 05:50 BP 90/47 L 05/24/23 05:30 Pulse Ox 90 L 05/24/23 05:50 O2 Del Method Room Air 05/24/23 02:49 O2 Flow Rate 4 05/23/23 06:00 Common normals: no apparent distress, oriented x3 and alert General appearance: cooperative and other (Pale) Orientation/consciousness: Yes awake [facility] Common normals: normocephalic, head/scalp atraumatic and hearing grossly normal bilaterally Eye Common normals: PERRL, EOMs intact bilaterally, conjunctivae normal and no scleral icterus General eye: normal appearance of both eyes Chest Common normals: inspection of chest normal Chest: symmetrical chest wall rise Respiratory Common normals: no use of accessory muscles and clear to auscultation bilaterally Effort & inspection: able to speak in complete sentences and tachypneic Auscultation: diminished lung sounds (BLL) Cardio Common normals: regular rate (Borderline tachycardia), regular rhythm, S1 normal heart sound, S2 normal heart sound, no murmurs and peripheral pulses 2+ throughout GI Common normals: Normal to inspection, nondistended, normoactive bowel sounds present, soft to palpation and no hepatosplenomegaly Palpation: tender (Very mild RUQ - no rebound, guarding) Bladder/kidney exam: bladder normal to palpation Extremity Common normals: normal to inspection and no calf tenderness General: edema (1-2+ BLE shins to insteps); no clubbing and no cyanosis Neuro Common normals: CN's II-XII intact bilaterally, moves all extremities, no focal motor deficits and no sensory deficits noted Psych Common normals: mental status grossly normal Progress Note: Objective Labs Labs: Short CBC 05/24/23 Range/Units 05:00 WBC 5.2 (4.0-11.0) 10^3/uL Hgb 7.5 L (12.0-16.0) g/dL Hct 22.9 L* (36.0-48.0) % Plt Count 68 L (150-450) 10^3/uL BMP 05/24/23 05:00 Sodium 141 Potassium 3.2 L Chloride 110 H Carbon Dioxide 21.6 BUN 14.0 Creatinine 1.20 H Glucose 113 H Calcium 7.1 L Liver Function 05/24/23 Range/Units 05:00 Total Bilirubin 0.8 (0.2-1.0) mg/dL AST 41 H (15-37) U/L ALT 34 (14-59) U/L Alkaline Phosphatase 76 (46-116) U/L Albumin 1.5 L (3.4-5.0) g/dL Imaging Chest x-ray: Attestation: I have reviewed the pertinent imaging results. Radiologist's impression: IMPRESSION: There is now pleural effusions, left greater than right. There is associated basilar atelectasis. There is slight increased markings possibly representing some mild congestive changes. Progress Note: A&P Assessment and Plan (1) Septic shock: Assessment and Plan: ACUTE Resolving Levophed gtt weaning off yesterday morning. 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 Pneumoniae, sensitive to Zosyn. Continue IVPB zosyn IVPB Cipro discontinued 05/22/23 (3) Hydronephrosis with ureteral calculus: Assessment and Plan: ACUTE s/p pyelogram, bilat ureteral stent placement per Dr Martines, Urologist, on 05/20/23 Unremarkable post op course Defer to urology management when stents are to be removed Pt denies pain, sepsis improving (4) Anemia: Assessment and Plan: ACUTE Hgb 7.5 today No evidence of active bleeding - no hematuria post operatively Suspect hemodilution after large volume IVF administration for septic shock and KAMALA See fluid overload Check FOB to r/o occult bleeding Iron studies ordered Repeat HH at 1500 today Consider PRBC transfusion for hgb less than 7 or significantly symptomatic (5) Fluid overload: Assessment and Plan: ACUTE 2/2 large volume IVF administration for septic shock and KAMALA CXR w/ evidence of developing pleural effusions and congestion, increasing peripheral edema Reduce IVF rate to 85 ml/hr today Unable to S.L. d/t very soft BPs w/ only recent d/c of pressor support, but could consider pending clinical course Give IVP Lasix 40 mg x 1 now - consider further doses pending clinical course and BP tolerance Daily weights (6) Pulmonary embolism: Assessment and Plan: ACUTE RUL segmental small PE on CTA 05/22/23 Heparin gtt converted to therapeutic lovenox BID dosing last noc - pt angelica well Continue lovenox for now d/t concurrent anemia and risk for active bleeding. Plan to convert to DOAC dosing at d/c (7) Acute hypoxic respiratory failure: Assessment and Plan: ACUTE Resolving Weaned off O2 supplementation today but pt is tachypneic and may need O2 resumed. Nursing to monitor 2/2 acute PE in the post operative period (Cystoscopy, ureteral stent placement) See PE (8) Bacteremia due to Klebsiella pneumoniae: Assessment and Plan: ACUTE New result 05/23/23 from initial blood cultures in the ED Identical pathogen is growing in urine and is susceptable to Zosyn - continue Repeat BC neg for up to 48 hrs (9) Hypomagnesemia: Assessment and Plan: ACUTE Resolved - Mag 1.9 today Daily mag level (10) Hypophosphatemia: Assessment and Plan: ACUTE Laboratory Tests 05/23/23 05/23/23 09:50 20:39 Phosphorus 1.2 L* 3.5 Repleted w/ 48 mmol NaPhos 05/23/23 - resolved on am labs today Repeat Phos in AM (11) KAMALA (acute kidney injury): Assessment and Plan: ACUTE Improving 2/2 obstructive renal calculi, hydronephrosis and pyelonephritis Continue IVFs at reduced rate d/t concern for fluid overload Continue to hold home ARB d/t renal toxicity Daily CMP (12) Hypothyroidism: Assessment and Plan: CHRONIC Subtherapeutic labs on admission Home levothyroxine increased from 112 mcg to 125 Defer to PCP management after discharge (13) Dysphagia: Assessment and Plan: ACUTE New finding reported by nursing 05/22/23 CT brain unremarkable No focal clinical findings NUCLEAR MEDICINE SPECIALIST eval w/ no identified swallowing issues Suspect generalized weakness (14) Hyponatremia: Assessment and Plan: ACUTE Resolved CMP daily (15) Hyperglycemia: Assessment and Plan: ACUTE Improving No known dx of DM2, not on oral glycemic meds Likely 2/2 sepsis/infectious process Continue ACHS glucometer checks and low dose SS insulin for glucose correction (16) Elevated troponin: Assessment and Plan: ACUTE Resolved Mild elevation likely d/t demand ischemia/septic shock (17) Dementia: Assessment and Plan: CHRONIC Continue home lamotrigine (18) Benign essential hypertension: Assessment and Plan: ACUTE Hold home amlodipine and losartan d/t hypotension/sepsis/levophed administration Resume when clinically indicated
[2023-05-24] MEDS: FUROSEMIDE 40 MG/4 ML VIAL IVP (11:03)
[2023-05-24] MEDS: POTASSIUM CHLORIDE 40 MEQ in 0.9 % SODIUM CHLORIDE 250 ML 67.5 MEQ IV (11:03)
--- NOTE | 2023-05-24 11:27 | CM.NOTE ---
[facility] notified of pt wanting to go inpatient skilled at discharge.
--- NOTE | 2023-05-24 11:28 | CM.NOTE ---
Clinical faxed to [facility] and spoke with Ortega in admissions.
--- NOTE | 2023-05-24 11:41 | PT.DAILY ---
Physical Therapy Daily Note PT Daily Note/Assess Start: 05/23/23 11:27 Freq: Status: Active Protocol: Document 05/24/23 11:27 CHRISTOPHER (Rec: 05/24/23 11:33 CHRISTOPHER [id number]) Physical Therapy Daily Note/Assessment Time In/Time Out Time In 11:05 Time Out 11:20 Pain In Pain N/A Pain Out Pain N/A Subjective Subjective Pt sitting in BS chair upon arrival. Agrees to PT. Denies pain. Wishes to get back to bed. Spo2 92% on room air prior to session. Therapeutic Exercise Time Therapeutic Exercise Minutes (minutes) 3 Therapeutic Exercise Units 0 Therapeutic Exercise Treatment Therapeutic Exercise Treatment Pt performs seated bilat LE strengthening ex while sitting in BS chair 10x ea. Therapeutic Activity Time Therapeutic Activity Minutes (minutes) 10 Therapeutic Activity Units 1 Therapeutic Activity Treatment Bed Mobility Ability Moderate Assist Chair Transfer Ability Standby Assistance Therapeutic Activity Comments Sit>stand from BS chair SBA - pt verbalized apprehension but is steady with RW. pt amb 5' to BS chair, slow on turn again because she is fearful of falling. Pt sits EOB 20 sec O2 88%. Sit>supine ModA for bilat LE's. Pt reports having a bowel movement while laying down. JIG BORER assists nursing with s-s rolling to get pt cleaned up. Pt remains supine with call light in reach and nursing present. Total Physical Therapy Time Total Therapy Minutes 13 Total Physical Therapy Units 1 Summary Daily Note Summary Apprehensive of standing due to fear of falling. Spo2 Does drop to 88% with activity. Steady with gait/chair transfer.
--- NOTE | 2023-05-24 14:09 | CM.NOTE ---
Updated PT, OT and progress note sent to [facility]. Spoke with [facility], they are able to accept pt and precert started. Updated pt and .
[2023-05-24] MEDS: BENZONATATE 100 MG CAPSULE 200 MG PO (14:21)
[2023-05-24 14:38] LABS: C. Difficile PCR NEGATIVE (NEGATIVE)
[2023-05-24 15:01] LABS: Hematocrit 25.9 % (36.0-48.0); Hemoglobin 8.5 g/dL (12.0-16.0)
[2023-05-24 16:35] LABS: Occult Blood Negative
[2023-05-24 17:33] LABS: Glucometer 130 mg/dL (74-106)
[2023-05-24] MEDS: ATORVASTATIN CALCIUM 20 MG TABLET PO (21:01)
[2023-05-24 21:06] LABS: Glucometer 109 mg/dL (74-106)
[2023-05-25] VITALS (17 sets, daily range): BP systolic 91–141; BP diastolic 55–83; PULSE 74–104; RESP 18–36; TEMP 36.7–37.7; O2SAT 89–98
[2023-05-25] MEDS: IPRATROPIUM/ALBUTEROL SULFATE 3 ML AMPUL.NEB IH ×2 (00:29→11:21)
[2023-05-25] MEDS: PIPERACILLIN SODIUM/TAZOBACTAM 3.375 GM in 0.9 % SODIUM CHLORIDE 50 ML IV ×3 (04:35→20:38)
[2023-05-25] MEDS: 0.9 % SODIUM CHLORIDE 1,000 ML 85 ML IV (04:35)
[2023-05-25 04:45] LABS: Basophils Percent Auto 0.2 % (0.2-2.0); Eosinophils Absolute Auto 0.1 10^3/uL (0.0-0.7); Eosinophils Percent Auto 1.2 % (0.9-7.0); Hemoglobin 7.4 g/dL (12.0-16.0); Immature Granulocytes Abs Auto 0.23 10^3/uL (0.00-0.03); Immature Granulocytes Pct Auto 4.1 % (0.0-0.5); Lymphocytes Absolute Auto 1.4 10^3/uL (1.2-3.8); Lymphocytes Percent Auto 24.4 % (20.5-60.0); Mean Corpuscular HGB Conc 32.9 g/dL (29.9-35.2); Mean Corpuscular Hemoglobin 36.8 pg (26.7-34.0); Mean Corpuscular Volume 111.9 fL (81.0-99.0); Mean Platelet Volume 11.3 fL (9.5-13.5); Monocytes Absolute Auto 0.2 10^3/uL (0.3-0.8); Monocytes Percent Auto 4.1 % (1.7-12.0); Neutrophils Absolute Auto 3.7 10^3/uL (1.4-6.5); Platelet Count 75 10^3/uL (150-450); Red Blood Count 2.01 10^6/uL (4.20-5.40); Red Cell Distribution Width 14.8 % (11.0-15.0); White Blood Count 5.6 10^3/uL (4.0-11.0)
[2023-05-25] MEDS: ACETAMINOPHEN 500 MG TABLET 1000 MG PO (04:46)
[2023-05-25 04:58] LABS: Phosphorus 2.4 mg/dL (2.6-4.7)
[2023-05-25 05:00] LABS: Alanine Aminotransferase 38 U/L (14-59); Albumin Globulin Ratio 0.5; Albumin Level 1.5 g/dL (3.4-5.0); Alkaline Phosphatase 89 U/L (46-116); Anion Gap 11.5; Aspartate Amino Transferase 44 U/L (15-37); BUN Creatinine Ratio 12.1; Bilirubin Total 0.7 mg/dL (0.2-1.0); Calcium 7.5 mg/dL (8.5-10.1); Carbon Dioxide 23.2 mmol/L (21.0-32.0); Chloride 109 mmol/L (98-107); Estimated GFR (African America 55 (>=60); Estimated GFR (Non-African Ame 45 (>=60); Glucose 101 mg/dL (74-106); Magnesium 1.8 mg/dL (1.8-2.4); Potassium 3.7 mmol/L (3.5-5.1); Sodium 140 mmol/L (136-145); Total Protein 4.5 g/dL (6.4-8.2)
[2023-05-25 05:19] LABS: Hematocrit 22.5 % (36.0-48.0)
[2023-05-25] MEDS: LEVOTHYROXINE SODIUM 125 MCG TABLET PO (05:37)
[2023-05-25] MEDS: ENOXAPARIN SODIUM 80 MG/0.8 ML SYRINGE SUBQ (08:42)
[2023-05-25] MEDS: MAGNESIUM OXIDE 400 MG TABLET PO ×2 (08:43→22:43)
[2023-05-25] MEDS: HYOSCYAMINE SULFATE 0.125 MG TAB.SUBL 0.25 MG SL ×3 (08:43→16:09)
[2023-05-25] MEDS: ENSURE HP 237 ML LIQUID PO ×2 (08:43→22:44)
[2023-05-25] MEDS: LAMOTRIGINE 100 MG TABLET 200 MG PO (08:43)
[2023-05-25] MEDS: L. ACIDOPHILUS/L.BULGARICUS 1 PACKET GRAN.PACK PO (08:43)
[2023-05-25] MEDS: PANTOPRAZOLE SODIUM 40 MG VIAL IV ×2 (08:43→22:44)
[2023-05-25] MEDS: FUROSEMIDE 40 MG/4 ML VIAL IVP ×2 (09:29→16:19)
[2023-05-25] MEDS: IRON SUCROSE COMPLEX 200 MG in 0.9 % SODIUM CHLORIDE 100 ML 220 MG IV (09:29)
--- NOTE | 2023-05-25 09:51 | CM.NOTE ---
Rounding with Dr. Hansen, anticipated discharge in 2 days. Plan for [facility] pending precert and medical stability.
--- NOTE | 2023-05-25 10:13 | CM.NOTE ---
Discussed again today with pt and about [facility], pt still agreeing to skilled rehab at discharge. Precert is good and pt able to transfer to [facility] skilled when medically stable.
[2023-05-25 11:16] LABS: Glucometer 133 mg/dL (74-106)
--- NOTE | 2023-05-25 11:21 | PT.DAILY ---
Physical Therapy Daily Note PT Daily Note/Assess Start: 05/23/23 11:27 Freq: Status: Active Protocol: Document 05/25/23 11:17 JORDINILNDAHARDY (Rec: 05/25/23 11:21 ASHLYNGAY [id number]) Physical Therapy Daily Note/Assessment Time In/Time Out Time In 09:40 Time Out 09:50 Pain In Pain N/A Pain Out Pain N/A Subjective Subjective Supine upon arrival. Agrees to PT. Cont to be anxious/ fearful of falling. Therapeutic Exercise Time Therapeutic Exercise Minutes (minutes) 3 Therapeutic Exercise Units 0 Therapeutic Exercise Treatment Therapeutic Exercise Treatment Bilat seated LE strengthening ex complete while sitting EOB unsupported on this date. 10x ea. Therapeutic Activity Time Therapeutic Activity Minutes (minutes) 6 Therapeutic Activity Units 1 Therapeutic Activity Treatment Bed Mobility Ability Standby Assistance Chair Transfer Ability Standby Assistance Therapeutic Activity Comments Supine>sit SBA with increased time needed and HOB elevated. Pt sits EOB 3 min to complete bilat LE strengthening ex while sitting unsupported - no LOB. Pt sit>stand SBA to RW. Has bowel movement. Static stand at RW while CERTIFICATION OFFICER cleans pt up and applied moisture barrier. Pt amb 5' to BS chair with RW, SBA with assist for IV lines. Pt reports SOB and is anxious - Spo2 is 93% on room air at this time. Pt declines further activity. Wishes to rest. Feet are elevated and call light is within reach. Total Physical Therapy Time Total Therapy Minutes 9 Total Physical Therapy Units 1 Summary Daily Note Summary Cont to be steady with transfer but fearful. remains incontinent and need assistance for pericare.
--- NOTE | 2023-05-25 13:14 | P.PN_ITS ---
Patient seen and examined, agree with assessment and plan below. Continues to improve and BP stable. Labs showed iron deficiency. Hgb stable and gave IV iron. Continue antibiotics. Significant weakness and patient willing to go to SNF upon discharge. Diagnosis: 1. Severe sepsis with shock 2. Pyelonephritis 3. Kidney stones 4. PE 5. Hypoxia 6. Anemia 7. KAMALA Progress Note: Subjective Subjective Interval history: Date/time of exam: 05/25/23 1140 The patient is sitting up in a bedside chair. She states she feels better than when she was admitted and notes that her appetite is improving. Her blood pressure has remained stable without pressor support and decreased IVF administr ation w/ lasix dosing. Nursing was able to keep her off O2 supplementation for the majority of the last 24 hrs. She has remained afebrile. She is not in any respiratory distress at the time of my exam. She will be transferred to the [facility] floor later today. Discharge likely in the next 48-72 hrs. Exam Constitutional Vital Signs, click to edit/add: Last Vital Signs Temp 98.0 F 05/25/23 07:25 Pulse 93 H 05/25/23 11:57 Resp 18 05/25/23 11:39 BP 113/67 05/25/23 11:39 Pulse Ox 96 05/25/23 11:39 O2 Del Method Room Air 05/25/23 11:39 O2 Flow Rate 1 05/25/23 00:32 Common normals: no apparent distress, oriented x3 and alert General appearance: cooperative Orientation/consciousness: Yes awake [facility] Common normals: normocephalic, head/scalp atraumatic and hearing grossly normal bilaterally Head and scalp: normocephalic and atraumatic Eye Common normals: PERRL, EOMs intact bilaterally, conjunctivae normal and no scleral icterus General eye: normal appearance of both eyes Conjunctiva: conjunctiva(e) normal Pupil: PERRL Chest Common normals: inspection of chest normal Chest: symmetrical chest wall rise Respiratory Common normals: normal respiratory effort and no use of accessory muscles Effort & inspection: able to speak in complete sentences Auscultation: rales (Faint, scattered RLL) Cardio Common normals: regular rate, regular rhythm, S1 normal heart sound, S2 normal heart sound, no murmurs and peripheral pulses 2+ throughout Rate: regular rate Rhythm: regular rhythm Heart sounds: S1 normal and S2 normal Peripheral pulses: pulses 2+ throughout GI Common normals: Normal to inspection, nondistended, normoactive bowel sounds present, soft to palpation, non-tender and no hepatosplenomegaly Palpation: soft and no hepatosplenomegaly Bladder/kidney exam: bladder normal to palpation Bimanual exam- vagina & uterus: bladder normal to palpation Extremity Common normals: normal to inspection and no calf tenderness General: edema (1-2+ edema BLE, improving); no clubbing and no cyanosis Neuro Common normals: oriented x3, CN's II-XII intact bilaterally, moves all extremities, no focal motor deficits and no sensory deficits noted Sensorium/orientation: awake and alert Psych Common normals: mental status grossly normal Progress Note: Objective Labs Labs: Short CBC 05/24/23 05/25/23 Range/Units 14:55 04:00 WBC 5.6 (4.0-11.0) 10^3/uL Hgb 8.5 L 7.4 L (12.0-16.0) g/dL Hct 25.9 L 22.5 L* (36.0-48.0) % Plt Count 75 L (150-450) 10^3/uL BMP 05/25/23 04:00 Sodium 140 Potassium 3.7 Chloride 109 H Carbon Dioxide 23.2 BUN 14.0 Creatinine 1.16 H Glucose 101 Calcium 7.5 L Liver Function 05/25/23 Range/Units 04:00 Total Bilirubin 0.7 (0.2-1.0) mg/dL AST 44 H (15-37) U/L ALT 38 (14-59) U/L Alkaline Phosphatase 89 (46-116) U/L Albumin 1.5 L (3.4-5.0) g/dL Progress Note: A&P Assessment and Plan (1) Septic shock: Assessment and Plan: ACUTE * Resolved * Levophed gtt weaning off 05/23/22. 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 Pneumoniae, sensitive to Zosyn. Continue IVPB zosyn * IVPB Cipro discontinued 05/22/23 (3) Hydronephrosis with ureteral calculus: Assessment and Plan: ACUTE * s/p pyelogram, bilat ureteral stent placement per Dr Martines, Urologist, on 05/20/23 * Unremarkable post op course * Defer to urology management when stents are to be removed * Pt denies pain, sepsis resolved (4) Anemia: Assessment and Plan: ACUTE * Hgb stable at 7.4 today * No evidence of active bleeding - no hematuria post operatively * FOB neg * Suspect hemodilution after large volume IVF administration for septic shock and KAMALA * See fluid overload * Iron studies revealed iron deficiency * Venofer IVPB today * Consider PRBC transfusion for hgb less than 7 or significantly symptomatic (5) Thrombocytopenia: Assessment and Plan: ACUTE * 2/2 sepsis and hemodilution * Stable and slowly improving despite Lovenox administration * Monitor w/ cbc daily (6) Fluid overload: Assessment and Plan: ACUTE * Improving * 2/2 large volume IVF administration for septic shock and KAMALA * Reduce IVF rate to 50 ml/hr today * Unable to S.L. d/t very soft BPs w/ only recent d/c of pressor support, but could consider pending clinical course * Give additional IVP Lasix 40 mg BID today * Daily weights (7) Severe protein-calorie malnutrition: Assessment and Plan: ACUTE * Per cad designer drafter evaluation and poor PO intake * Ensure BID (8) Pulmonary embolism: Assessment and Plan: ACUTE * RUL segmental small PE on CTA 05/22/23 * Continue therapeutic lovenox BID dosing this morning then d/c * Convert to DOAC dosing at d/c (9) Acute hypoxic respiratory failure: Assessment and Plan: ACUTE * Resolving * Weaned off O2 supplementation * 2/2 acute PE in the post operative period (Cystoscopy, ureteral stent placement) * See PE (10) Bacteremia due to Klebsiella pneumoniae: Assessment and Plan: ACUTE * Noted on 05/23/23 from initial blood cultures in the ED * Identical pathogen is growing in urine and is susceptable to Zosyn - continue * Repeat BC neg x 5 days (11) Hypomagnesemia: Assessment and Plan: ACUTE * Resolved - Mag stable at 1.8 today * Daily mag level (12) Hypophosphatemia: Assessment and Plan: ACUTE Laboratory Tests 05/23/23 05/23/23 09:50 20:39 Phosphorus 1.2 L* 3.5 * Resolved on am labs today * Repeat Phos in AM (13) KAMALA (acute kidney injury): Assessment and Plan: ACUTE * Improving * 2/2 obstructive renal calculi, hydronephrosis and pyelonephritis * Continue IVFs at reduced rate d/t concern for fluid overload * Continue to hold home ARB d/t renal toxicity * Daily CMP (14) Hypothyroidism: Assessment and Plan: CHRONIC * Subtherapeutic labs on admission * Home levothyroxine increased from 112 mcg to 125 * Defer to PCP management after discharge (15) Dysphagia: Assessment and Plan: ACUTE * Resolved * New finding reported by nursing 05/22/23 * CT brain unremarkable * No focal clinical findings * BOTTLE MACHINE OPERATOR eval w/ no identified swallowing issues * Suspect generalized weakness (16) Hyponatremia: Assessment and Plan: ACUTE * Resolved * CMP daily (17) Hyperglycemia: Assessment and Plan: ACUTE * Improving * No known dx of DM2, not on oral glycemic meds * Likely 2/2 sepsis/infectious process * Continue ACHS glucometer checks and low dose SS insulin for glucose correction (18) Elevated troponin: Assessment and Plan: ACUTE * Resolved * Mild elevation likely d/t demand ischemia/septic shock (19) Dementia: Assessment and Plan: CHRONIC * Continue home lamotrigine (20) Benign essential hypertension: Assessment and Plan: ACUTE * Hold home amlodipine and losartan d/t hypotension/sepsis/levophed administration * Resume when clinically indicated
--- NOTE | 2023-05-25 13:14 | PM.PN ---
Progress Note: Subjective Subjective Interval history: Date/time of exam: 05/25/23 1140 The patient is sitting up in a bedside chair. She states she feels better than when she was admitted and notes that her appetite is improving. Her blood pressure has remained stable without pressor support and decreased IVF administration w/ lasix dosing. Nursing was able to keep her off O2 supplementation for the majority of the last 24 hrs. She has remained afebrile. She is not in any respiratory distress at the time of my exam. She will be transferred to the [facility] floor later today. Discharge likely in the next 48-72 hrs. Exam Constitutional Vital Signs, click to edit/add: Last Vital Signs Temp 98.0 F 05/25/23 07:25 Pulse 93 H 05/25/23 11:57 Resp 18 05/25/23 11:39 BP 113/67 05/25/23 11:39 Pulse Ox 96 05/25/23 11:39 O2 Del Method Room Air 05/25/23 11:39 O2 Flow Rate 1 05/25/23 00:32 Common normals: no apparent distress, oriented x3 and alert General appearance: cooperative Orientation/consciousness: Yes awake HENMA Common normals: normocephalic, head/scalp atraumatic and hearing grossly normal bilaterally Head and scalp: normocephalic and atraumatic Eye Common normals: PERRL, EOMs intact bilaterally, conjunctivae normal and no scleral icterus General eye: normal appearance of both eyes Conjunctiva: conjunctiva(e) normal Pupil: PERRL Chest Common normals: inspection of chest normal Chest: symmetrical chest wall rise Respiratory Common normals: normal respiratory effort and no use of accessory muscles Effort & inspection: able to speak in complete sentences Auscultation: rales (Faint, scattered RLL) Cardio Common normals: regular rate, regular rhythm, S1 normal heart sound, S2 normal heart sound, no murmurs and peripheral pulses 2+ throughout Rate: regular rate Rhythm: regular rhythm Heart sounds: S1 normal and S2 normal Peripheral pulses: pulses 2+ throughout GI Common normals: Normal to inspection, nondistended, normoactive bowel sounds present, soft to palpation, non-tender and no hepatosplenomegaly Palpation: soft and no hepatosplenomegaly Bladder/kidney exam: bladder normal to palpation Bimanual exam- vagina & uterus: bladder normal to palpation Extremity Common normals: normal to inspection and no calf tenderness General: edema (1-2+ edema BLE, improving); no clubbing and no cyanosis Neuro Common normals: oriented x3, CN's II-XII intact bilaterally, moves all extremities, no focal motor deficits and no sensory deficits noted Sensorium/orientation: awake and alert Psych Common normals: mental status grossly normal Progress Note: Objective Labs Labs: Short CBC 05/24/23 05/25/23 Range/Units 14:55 04:00 WBC 5.6 (4.0-11.0) 10^3/uL Hgb 8.5 L 7.4 L (12.0-16.0) g/dL Hct 25.9 L 22.5 L* (36.0-48.0) % Plt Count 75 L (150-450) 10^3/uL BMP 05/25/23 04:00 Sodium 140 Potassium 3.7 Chloride 109 H Carbon Dioxide 23.2 BUN 14.0 Creatinine 1.16 H Glucose 101 Calcium 7.5 L Liver Function 05/25/23 Range/Units 04:00 Total Bilirubin 0.7 (0.2-1.0) mg/dL AST 44 H (15-37) U/L ALT 38 (14-59) U/L Alkaline Phosphatase 89 (46-116) U/L Albumin 1.5 L (3.4-5.0) g/dL Progress Note: A&P Assessment and Plan (1) Septic shock: Assessment and Plan: ACUTE Resolved Levophed gtt weaning off 05/23/22. 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 Pneumoniae, sensitive to Zosyn. Continue IVPB zosyn IVPB Cipro discontinued 05/22/23 (3) Hydronephrosis with ureteral calculus: Assessment and Plan: ACUTE s/p pyelogram, bilat ureteral stent placement per Dr Martines, Urologist, on 05/20/23 Unremarkable post op course Defer to urology management when stents are to be removed Pt denies pain, sepsis resolved (4) Anemia: Assessment and Plan: ACUTE Hgb stable at 7.4 today No evidence of active bleeding - no hematuria post operatively FOB neg Suspect hemodilution after large volume IVF administration for septic shock and KAMALA See fluid overload Iron studies revealed iron deficiency Venofer IVPB today Consider PRBC transfusion for hgb less than 7 or significantly symptomatic (5) Thrombocytopenia: Assessment and Plan: ACUTE 2/2 sepsis and hemodilution Stable and slowly improving despite Lovenox administration Monitor w/ cbc daily (6) Fluid overload: Assessment and Plan: ACUTE Improving 2/2 large volume IVF administration for septic shock and KAMALA Reduce IVF rate to 50 ml/hr today Unable to S.L. d/t very soft BPs w/ only recent d/c of pressor support, but could consider pending clinical course Give additional IVP Lasix 40 mg BID today Daily weights (7) Severe protein-calorie malnutrition: Assessment and Plan: ACUTE Per seismic prospecting supervisor evaluation and poor PO intake Ensure BID (8) Pulmonary embolism: Assessment and Plan: ACUTE RUL segmental small PE on CTA 05/22/23 Continue therapeutic lovenox BID dosing this morning then d/c Convert to DOAC dosing at d/c (9) Acute hypoxic respiratory failure: Assessment and Plan: ACUTE Resolving Weaned off O2 supplementation 2/2 acute PE in the post operative period (Cystoscopy, ureteral stent placement) See PE (10) Bacteremia due to Klebsiella pneumoniae: Assessment and Plan: ACUTE Noted on 05/23/23 from initial blood cultures in the ED Identical pathogen is growing in urine and is susceptable to Zosyn - continue Repeat BC neg x 5 days (11) Hypomagnesemia: Assessment and Plan: ACUTE Resolved - Mag stable at 1.8 today Daily mag level (12) Hypophosphatemia: Assessment and Plan: ACUTE Laboratory Tests 05/23/23 05/23/23 09:50 20:39 Phosphorus 1.2 L* 3.5 Resolved on am labs today Repeat Phos in AM (13) KAMALA (acute kidney injury): Assessment and Plan: ACUTE Improving 2/2 obstructive renal calculi, hydronephrosis and pyelonephritis Continue IVFs at reduced rate d/t concern for fluid overload Continue to hold home ARB d/t renal toxicity Daily CMP (14) Hypothyroidism: Assessment and Plan: CHRONIC Subtherapeutic labs on admission Home levothyroxine increased from 112 mcg to 125 Defer to PCP management after discharge (15) Dysphagia: Assessment and Plan: ACUTE Resolved New finding reported by nursing 05/22/23 CT brain unremarkable No focal clinical findings SEWAGE SCREEN OPERATOR eval w/ no identified swallowing issues Suspect generalized weakness (16) Hyponatremia: Assessment and Plan: ACUTE Resolved CMP daily (17) Hyperglycemia: Assessment and Plan: ACUTE Improving No known dx of DM2, not on oral glycemic meds Likely 2/2 sepsis/infectious process Continue ACHS glucometer checks and low dose SS insulin for glucose correction (18) Elevated troponin: Assessment and Plan: ACUTE Resolved Mild elevation likely d/t demand ischemia/septic shock (19) Dementia: Assessment and Plan: CHRONIC Continue home lamotrigine (20) Benign essential hypertension: Assessment and Plan: ACUTE Hold home amlodipine and losartan d/t hypotension/sepsis/levophed administration Resume when clinically indicated
--- NOTE | 2023-05-25 15:18 | CM.NOTE ---
2nd notice for Important Message From Medicare discussed with pt, pt verbalizes understanding and denies questions or concerns.
--- NOTE | 2023-05-25 15:25 | CM.NOTE ---
Updates sent to [facility].
[2023-05-25 16:08] LABS: Glucometer 91 mg/dL (74-106)
[2023-05-25 20:03] LABS: Glucometer 109 mg/dL (74-106)
[2023-05-25] MEDS: ATORVASTATIN CALCIUM 20 MG TABLET PO (20:38)
[2023-05-25] MEDS: 0.9 % SODIUM CHLORIDE 1,000 ML 50 ML IV (20:38)
[2023-05-25] MEDS: APIXABAN 5 MG TABLET 10 MG PO (22:43)
[2023-05-26] VITALS (8 sets, daily range): BP systolic 101–138; BP diastolic 66–80; PULSE 93–100; RESP 18–22; TEMP 36.7–37.3; O2SAT 90–92
[2023-05-26 04:36] LABS: Hematocrit 24.2 % (36.0-48.0); Hemoglobin 8.2 g/dL (12.0-16.0); Mean Corpuscular HGB Conc 33.9 g/dL (29.9-35.2); Mean Corpuscular Hemoglobin 37.6 pg (26.7-34.0); Mean Platelet Volume 11.5 fL (9.5-13.5); Platelet Count 109 10^3/uL (150-450); Red Blood Count 2.18 10^6/uL (4.20-5.40); Red Cell Distribution Width 14.6 % (11.0-15.0); White Blood Count 9.2 10^3/uL (4.0-11.0)
[2023-05-26] MEDS: PIPERACILLIN SODIUM/TAZOBACTAM 3.375 GM in 0.9 % SODIUM CHLORIDE 50 ML IV ×3 (04:37→20:44)
[2023-05-26 04:51] LABS: Alanine Aminotransferase 33 U/L (14-59); Albumin Globulin Ratio 0.5; Albumin Level 1.6 g/dL (3.4-5.0); Alkaline Phosphatase 101 U/L (46-116); Anion Gap 9.4; Aspartate Amino Transferase 38 U/L (15-37); BUN Creatinine Ratio 11.6; Bilirubin Total 0.5 mg/dL (0.2-1.0); Calcium 7.9 mg/dL (8.5-10.1); Chloride 104 mmol/L (98-107); Estimated GFR (African America 52 (>=60); Estimated GFR (Non-African Ame 43 (>=60); Globulin 3.5 g/dL; Glucose 103 mg/dL (74-106); Magnesium 1.6 mg/dL (1.8-2.4); Potassium 3.4 mmol/L (3.5-5.1); Sodium 138 mmol/L (136-145); Total Protein 5.1 g/dL (6.4-8.2)
[2023-05-26 05:37] LABS: Eosinophils Absolute Manual 0.27 10^3/uL (0.00-0.70); Lymphocytes Absolute Manual 0.82 10^3/uL (1.20-3.80); Monocytes Absolute Manual 0.36 10^3/uL (0.30-0.80); Segmented Neut Absolute Manual 7.72 10^3/uL (1.4-6.5)
[2023-05-26] MEDS: LEVOTHYROXINE SODIUM 125 MCG TABLET PO (06:16)
[2023-05-26 07:37] LABS: Glucometer 107 mg/dL (74-106)
[2023-05-26] MEDS: APIXABAN 5 MG TABLET 10 MG PO ×2 (08:38→22:06)
[2023-05-26] MEDS: LAMOTRIGINE 100 MG TABLET 200 MG PO (08:38)
[2023-05-26] MEDS: L. ACIDOPHILUS/L.BULGARICUS 1 PACKET GRAN.PACK PO (08:38)
[2023-05-26] MEDS: ENSURE HP 237 ML LIQUID PO ×2 (08:38→22:06)
[2023-05-26] MEDS: MAGNESIUM OXIDE 400 MG TABLET PO ×2 (08:38→22:06)
[2023-05-26] MEDS: PANTOPRAZOLE SODIUM 40 MG VIAL IV ×2 (08:38→22:06)
[2023-05-26] MEDS: HYOSCYAMINE SULFATE 0.125 MG TAB.SUBL 0.25 MG SL ×3 (08:38→18:10)
[2023-05-26] MEDS: MAGNESIUM SULFATE IN WATER 2 GM/50 ML PREMIX IV (10:29)
[2023-05-26] MEDS: POTASSIUM CHLORIDE 10 MEQ ER TABLET 20 MEQ PO (10:29)
[2023-05-26] MEDS: ONDANSETRON PF 4 MG/2 ML VIAL IV (10:32)
[2023-05-26 10:57] LABS: Glucometer 114 mg/dL (74-106)
--- NOTE | 2023-05-26 11:35 | P.PN_ITS ---
Patient seen and examined, agree with assessment and plan below. Continues to improve and BP stable. Labs show Hgb stable. C/o nausea. Continue antibiotics. Significant weakness and patient willing to go to SNF upon discharge. Diagnosis: 1. Severe sepsis with shock 2. Pyelonephritis 3. Kidney stones 4. PE 5. Hypoxia 6. Anemia 7. KAMALA Progress Note: Subjective Subjective Interval history: Date/time of exam: 05/26/23 0940 The patient is sitting up in a bedside chair. She continues to state that she feels better than when she was admitted and notes that her appetite is improving. Her blood pressure has remained stable without pressor support and decreased IVF administration w/ lasix dosing. We will saline lock her IVF today and continue to monitor her blood pressure. No further lasix doses are indicated and her renal function bumped up yesterday after 2 doses - we will continue to monitor her renal function. She has remained afebrile and without O2 supplementation overnight. She is not in any respiratory distress at the time of my exam. She will be transferred to the [facility] floor later today. Discharge likely in the next 24 hrs. Exam Constitutional Vital Signs, click to edit/add: Last Vital Signs Temp 98.5 F 05/26/23 06:00 Pulse 93 H 05/26/23 06:00 Resp 20 05/26/23 06:00 BP 138/80 05/26/23 06:00 Pulse Ox 90 L 05/26/23 10:27 O2 Del Method Room Air 05/26/23 10:27 O2 Flow Rate 1 05/25/23 00:32 Common normals: no apparent distress, oriented x3 and alert General appearance: cooperative Orientation/consciousness: Yes awake [facility] Common normals: normocephalic, head/scalp atraumatic and hearing grossly normal bilaterally Eye Common normals: PERRL, EOMs intact bilaterally, conjunctivae normal and no scleral icterus General eye: normal appearance of both eyes Chest Common normals: inspection of chest normal Chest: symmetrical chest wall rise Respiratory Common normals: normal respiratory effort, no use of accessory muscles and clear to auscultation bilaterally Effort & inspection: able to speak in complete sentences Cardio Common normals: regular rate, regular rhythm, S1 normal heart sound, S2 normal heart sound, no murmurs and peripheral pulses 2+ throughout GI Common normals: Normal to inspection, nondistended, normoactive bowel sounds present, soft to palpation, non-tender and no hepatosplenomegaly Palpation: soft and no hepatosplenomegaly Bladder/kidney exam: bladder normal to palpation Extremity Common normals: normal to inspection and no calf tenderness General: edema (1+ BLE - improving); no clubbing and no cyanosis Neuro Common normals: CN's II-XII intact bilaterally, moves all extremities, no focal motor deficits and no sensory deficits noted Psych Common normals: mental status grossly normal Progress Note: Objective Labs Labs: Short CBC 05/26/23 Range/Units 04:15 WBC 9.2 (4.0-11.0) 10^3/uL Hgb 8.2 L (12.0-16.0) g/dL Hct 24.2 L (36.0-48.0) % Plt Count 109 L (150-450) 10^3/uL BMP 05/26/23 04:15 Sodium 138 Potassium 3.4 L Chloride 104 Carbon Dioxide 28.0 BUN 14.0 Creatinine 1.21 H Glucose 103 Calcium 7.9 L Liver Function 05/26/23 Range/Units 04:15 Total Bilirubin 0.5 (0.2-1.0) mg/dL AST 38 H (15-37) U/L ALT 33 (14-59) U/L Alkaline Phosphatase 101 (46-116) U/L Albumin 1.6 L (3.4-5.0) g/dL Progress Note: A&P Assessment and Plan (1) Septic shock: Assessment and Plan: ACUTE * Resolved * Levophed gtt weaned off 05/23/22. MAP remains above 65 throughout night * Lactic acid resolved * Leukocytosis resolved * Mentation at baseline * Renal function improving * Troponins returned to normal * Afebrile more than 48 hrs * Platelets improving at 109 today, improving * Saline lock IVF today. 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 Pneumoniae, sensitive to Zosyn. Continue IVPB zosyn * IVPB Cipro discontinued 05/22/23 * Plan total 14 day course of ABX - likely d/c on Cefdinir (3) Hydronephrosis with ureteral calculus: Assessment and Plan: ACUTE * s/p pyelogram, bilat ureteral stent placement per Dr Martines, Urologist, on 05/20/23 * Unremarkable post op course * Defer to urology management when stents are to be removed. Follow up outpatient * Pt denies pain, sepsis resolved (4) Anemia: Assessment and Plan: ACUTE * Hgb stable at 8.2 today * No evidence of active bleeding - no hematuria post operatively * FOB neg * Suspect hemodilution after large volume IVF administration for septic shock and KAMALA * See fluid overload * Iron studies revealed iron deficiency * Venofer IVPB 05/25/23 * Consider PRBC transfusion for hgb less than 7 or significantly symptomatic (5) Thrombocytopenia: Assessment and Plan: ACUTE * 2/2 sepsis and hemodilution * Stable and slowly improving despite Lovenox administration * Monitor w/ cbc daily (6) Fluid overload: Assessment and Plan: ACUTE * Resolving * 2/2 large volume IVF administration for septic shock and KAMALA * S.L. IVF rate today * No further lasix dosing at this time * Lungs clear today * No hypoxia * Renal labs bumped today after BID Lasix dosing yesterday * Nearing euvolemia * Daily weights (7) Severe protein-calorie malnutrition: Assessment and Plan: ACUTE * Per senior network engineer evaluation with poor PO intake * Ensure BID (8) Pulmonary embolism: Assessment and Plan: ACUTE * RUL segmental small PE on CTA 05/22/23 * Converted to DOAC dosing yesterday - continue at d/c * Defer to PCP for total length of treatment (9) Acute hypoxic respiratory failure: Assessment and Plan: ACUTE * Resolved (10) Bacteremia due to Klebsiella pneumoniae: Assessment and Plan: ACUTE * Noted on 05/23/23 from initial blood cultures in the ED * Identical pathogen is growing in urine and is susceptable to Zosyn - continue * Repeat BC neg x 5 days (11) Hypomagnesemia: Assessment and Plan: ACUTE * Recurrent, mild * Mag 1.6 today * Give additional Mag sulfate 2gm IVPB * Daily mag level (12) Hypophosphatemia: Assessment and Plan: ACUTE * Resolved (13) KAMALA (acute kidney injury): Assessment and Plan: ACUTE * Improving * 2/2 obstructive renal calculi, hydronephrosis and pyelonephritis * Continue to hold home ARB d/t renal toxicity - consider holding at discharge pending BP control/clinical course * Daily CMP (14) Hypothyroidism: Assessment and Plan: CHRONIC * Subtherapeutic labs on admission * Home levothyroxine increased from 112 mcg to 125 * Defer to PCP management after discharge (15) Dysphagia: Assessment and Plan: ACUTE * Resolved * New finding reported by nursing 05/22/23 * CT brain unremarkable * No focal clinical findings * WAITER/WAITRESS HEAD eval w/ no identified swallowing issues * Suspect generalized weakness (16) Hyponatremia: Assessment and Plan: ACUTE * Resolved * CMP daily (17) Hyperglycemia: Assessment and Plan: ACUTE * Improving * No known dx of DM2, not on oral glycemic meds * Likely 2/2 sepsis/infectious process * Continue ACHS glucometer checks and low dose SS insulin for glucose correction (18) Elevated troponin: Assessment and Plan: ACUTE * Resolved * Mild elevation likely d/t demand ischemia/septic shock (19) Dementia: Assessment and Plan: CHRONIC * Continue home lamotrigine (20) Benign essential hypertension: Assessment and Plan: ACUTE * Hold home amlodipine and losartan d/t hypotension/sepsis/levophed administration * Resume when clinically indicated
--- NOTE | 2023-05-26 11:35 | PM.PN ---
Progress Note: Subjective Subjective Interval history: Date/time of exam: 05/26/23 0940 The patient is sitting up in a bedside chair. She continues to state that she feels better than when she was admitted and notes that her appetite is improving. Her blood pressure has remained stable without pressor support and decreased IVF administration w/ lasix dosing. We will saline lock her IVF today and continue to monitor her blood pressure. No further lasix doses are indicated and her renal function bumped up yesterday after 2 doses - we will continue to monitor her renal function. She has remained afebrile and without O2 supplementation overnight. She is not in any respiratory distress at the time of my exam. She will be transferred to the [facility] floor later today. Discharge likely in the next 24 hrs. Exam Constitutional Vital Signs, click to edit/add: Last Vital Signs Temp 98.5 F 05/26/23 06:00 Pulse 93 H 05/26/23 06:00 Resp 20 05/26/23 06:00 BP 138/80 05/26/23 06:00 Pulse Ox 90 L 05/26/23 10:27 O2 Del Method Room Air 05/26/23 10:27 O2 Flow Rate 1 05/25/23 00:32 Common normals: no apparent distress, oriented x3 and alert General appearance: cooperative Orientation/consciousness: Yes awake HENPR Common normals: normocephalic, head/scalp atraumatic and hearing grossly normal bilaterally Eye Common normals: PERRL, EOMs intact bilaterally, conjunctivae normal and no scleral icterus General eye: normal appearance of both eyes Chest Common normals: inspection of chest normal Chest: symmetrical chest wall rise Respiratory Common normals: normal respiratory effort, no use of accessory muscles and clear to auscultation bilaterally Effort & inspection: able to speak in complete sentences Cardio Common normals: regular rate, regular rhythm, S1 normal heart sound, S2 normal heart sound, no murmurs and peripheral pulses 2+ throughout GI Common normals: Normal to inspection, nondistended, normoactive bowel sounds present, soft to palpation, non-tender and no hepatosplenomegaly Palpation: soft and no hepatosplenomegaly Bladder/kidney exam: bladder normal to palpation Extremity Common normals: normal to inspection and no calf tenderness General: edema (1+ BLE - improving); no clubbing and no cyanosis Neuro Common normals: CN's II-XII intact bilaterally, moves all extremities, no focal motor deficits and no sensory deficits noted Psych Common normals: mental status grossly normal Progress Note: Objective Labs Labs: Short CBC 05/26/23 Range/Units 04:15 WBC 9.2 (4.0-11.0) 10^3/uL Hgb 8.2 L (12.0-16.0) g/dL Hct 24.2 L (36.0-48.0) % Plt Count 109 L (150-450) 10^3/uL BMP 05/26/23 04:15 Sodium 138 Potassium 3.4 L Chloride 104 Carbon Dioxide 28.0 BUN 14.0 Creatinine 1.21 H Glucose 103 Calcium 7.9 L Liver Function 05/26/23 Range/Units 04:15 Total Bilirubin 0.5 (0.2-1.0) mg/dL AST 38 H (15-37) U/L ALT 33 (14-59) U/L Alkaline Phosphatase 101 (46-116) U/L Albumin 1.6 L (3.4-5.0) g/dL Progress Note: A&P Assessment and Plan (1) Septic shock: Assessment and Plan: ACUTE Resolved Levophed gtt weaned off 05/23/22. MAP remains above 65 throughout night Lactic acid resolved Leukocytosis resolved Mentation at baseline Renal function improving Troponins returned to normal Afebrile more than 48 hrs Platelets improving at 109 today, improving Saline lock IVF today. 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 Pneumoniae, sensitive to Zosyn. Continue IVPB zosyn IVPB Cipro discontinued 05/22/23 Plan total 14 day course of ABX - likely d/c on Cefdinir (3) Hydronephrosis with ureteral calculus: Assessment and Plan: ACUTE s/p pyelogram, bilat ureteral stent placement per Dr Martines, Urologist, on 05/20/23 Unremarkable post op course Defer to urology management when stents are to be removed. Follow up outpatient Pt denies pain, sepsis resolved (4) Anemia: Assessment and Plan: ACUTE Hgb stable at 8.2 today No evidence of active bleeding - no hematuria post operatively FOB neg Suspect hemodilution after large volume IVF administration for septic shock and KAMALA See fluid overload Iron studies revealed iron deficiency Venofer IVPB 05/25/23 Consider PRBC transfusion for hgb less than 7 or significantly symptomatic (5) Thrombocytopenia: Assessment and Plan: ACUTE 2/2 sepsis and hemodilution Stable and slowly improving despite Lovenox administration Monitor w/ cbc daily (6) Fluid overload: Assessment and Plan: ACUTE Resolving 2/2 large volume IVF administration for septic shock and KAMALA S.L. IVF rate today No further lasix dosing at this time Lungs clear today No hypoxia Renal labs bumped today after BID Lasix dosing yesterday Nearing euvolemia Daily weights (7) Severe protein-calorie malnutrition: Assessment and Plan: ACUTE Per gyn evaluation with poor PO intake Ensure BID (8) Pulmonary embolism: Assessment and Plan: ACUTE RUL segmental small PE on CTA 05/22/23 Converted to DOAC dosing yesterday - continue at d/c Defer to PCP for total length of treatment (9) Acute hypoxic respiratory failure: Assessment and Plan: ACUTE Resolved (10) Bacteremia due to Klebsiella pneumoniae: Assessment and Plan: ACUTE Noted on 05/23/23 from initial blood cultures in the ED Identical pathogen is growing in urine and is susceptable to Zosyn - continue Repeat BC neg x 5 days (11) Hypomagnesemia: Assessment and Plan: ACUTE Recurrent, mild Mag 1.6 today Give additional Mag sulfate 2gm IVPB Daily mag level (12) Hypophosphatemia: Assessment and Plan: ACUTE Resolved (13) KAMALA (acute kidney injury): Assessment and Plan: ACUTE Improving 2/2 obstructive renal calculi, hydronephrosis and pyelonephritis Continue to hold home ARB d/t renal toxicity - consider holding at discharge pending BP control/clinical course Daily CMP (14) Hypothyroidism: Assessment and Plan: CHRONIC Subtherapeutic labs on admission Home levothyroxine increased from 112 mcg to 125 Defer to PCP management after discharge (15) Dysphagia: Assessment and Plan: ACUTE Resolved New finding reported by nursing 05/22/23 CT brain unremarkable No focal clinical findings MUSEUM ARCHIVIST eval w/ no identified swallowing issues Suspect generalized weakness (16) Hyponatremia: Assessment and Plan: ACUTE Resolved CMP daily (17) Hyperglycemia: Assessment and Plan: ACUTE Improving No known dx of DM2, not on oral glycemic meds Likely 2/2 sepsis/infectious process Continue ACHS glucometer checks and low dose SS insulin for glucose correction (18) Elevated troponin: Assessment and Plan: ACUTE Resolved Mild elevation likely d/t demand ischemia/septic shock (19) Dementia: Assessment and Plan: CHRONIC Continue home lamotrigine (20) Benign essential hypertension: Assessment and Plan: ACUTE Hold home amlodipine and losartan d/t hypotension/sepsis/levophed administration Resume when clinically indicated
--- NOTE | 2023-05-26 11:53 | CM.NOTE ---
Rounds made with Dr. Hansen, no discharge today. Pt plan is when medically stable will transfer to [facility].
--- NOTE | 2023-05-26 13:35 | CM.NOTE ---
Updates sent to [facility].
[2023-05-26 17:57] LABS: Glucometer 126 mg/dL (74-106)
[2023-05-26] MEDS: ATORVASTATIN CALCIUM 20 MG TABLET PO (20:44)
[2023-05-26 22:48] LABS: Glucometer 135 mg/dL (74-106)
[2023-05-27 02:50] LABS: Bilirubin Urine NEGATIVE (NEGATIVE); Blood Urine LARGE (NEGATIVE); Clarity Urine CLEAR (CLEAR); Color Urine LT. YELLOW (YELLOW); Glucose Urine UA NEGATIVE (NEGATIVE); Ketones Urine NEGATIVE (NEGATIVE); Leukocyte Esterase Urine SMALL (NEGATIVE); Nitrite Urine NEGATIVE (NEGATIVE); Protein Urine 100 mg/dL (NEG/TRACE); Specific Gravity Urine 1.015 (1.005-1.025); Urobilinogen Urine 0.2 EU/dL (0.2-1.0)
[2023-05-27 03:00] LABS: Urine Microscopic Indicated YES
[2023-05-27 03:03] LABS: Bacteria Urine NONE SEEN #/HPF (NONE SEEN); Mucus Urine NONE SEEN (NONE SEEN); RBC Urine >100 #/HPF (0-2); Squamous Epithelial Cell Urine NONE SEEN #/LPF (NONE/RARE); WBC Urine 20-50 #/HPF (NONE SEEN)
[2023-05-27 03:04] LABS: Cast Seen? NONE SEEN #/LPF (NONE SEEN); Crystals Seen? None Seen #/HPF (None Seen)
[2023-05-27 04:24] VITALS: PULSE 88; RESP 22; O2SAT 93
[2023-05-27] MEDS: IPRATROPIUM/ALBUTEROL SULFATE 3 ML AMPUL.NEB IH (04:24)
[2023-05-27] MEDS: PIPERACILLIN SODIUM/TAZOBACTAM 3.375 GM in 0.9 % SODIUM CHLORIDE 50 ML IV ×2 (04:41→13:02)
[2023-05-27 05:05] LABS: Basophils Percent Auto 0.2 % (0.2-2.0); Eosinophils Absolute Auto 0.1 10^3/uL (0.0-0.7); Hematocrit 28.9 % (36.0-48.0); Hemoglobin 9.6 g/dL (12.0-16.0); Immature Granulocytes Abs Auto 0.26 10^3/uL (0.00-0.03); Immature Granulocytes Pct Auto 2.1 % (0.0-0.5); Lymphocytes Absolute Auto 1.6 10^3/uL (1.2-3.8); Lymphocytes Percent Auto 13.2 % (20.5-60.0); Mean Corpuscular HGB Conc 33.2 g/dL (29.9-35.2); Mean Corpuscular Hemoglobin 37.5 pg (26.7-34.0); Mean Corpuscular Volume 112.9 fL (81.0-99.0); Mean Platelet Volume 11.7 fL (9.5-13.5); Monocytes Absolute Auto 0.4 10^3/uL (0.3-0.8); Monocytes Percent Auto 3.2 % (1.7-12.0); Neutrophils Absolute Auto 9.8 10^3/uL (1.4-6.5); Neutrophils Percent Auto 80.3 % (43.0-75.0); Platelet Count 140 10^3/uL (150-450); Red Blood Count 2.56 10^6/uL (4.20-5.40); Red Cell Distribution Width 14.8 % (11.0-15.0); White Blood Count 12.2 10^3/uL (4.0-11.0)
[2023-05-27 05:07] VITALS: BP 119/79; PULSE 98; RESP 22; TEMP 37.3; O2SAT 84
[2023-05-27 05:46] LABS: Alanine Aminotransferase 31 U/L (14-59); Albumin Globulin Ratio 0.5; Albumin Level 1.8 g/dL (3.4-5.0); Alkaline Phosphatase 121 U/L (46-116); Anion Gap 9.2; Aspartate Amino Transferase 32 U/L (15-37); BUN Creatinine Ratio 14.3; Bilirubin Total 0.4 mg/dL (0.2-1.0); Calcium 8.1 mg/dL (8.5-10.1); Carbon Dioxide 27.7 mmol/L (21.0-32.0); Chloride 103 mmol/L (98-107); Estimated GFR (African America 57 (>=60); Estimated GFR (Non-African Ame 47 (>=60); Globulin 3.6 g/dL; Glucose 106 mg/dL (74-106); Magnesium 2.3 mg/dL (1.8-2.4); Potassium 3.9 mmol/L (3.5-5.1); Sodium 136 mmol/L (136-145); Total Protein 5.4 g/dL (6.4-8.2)
[2023-05-27] MEDS: LEVOTHYROXINE SODIUM 125 MCG TABLET PO (06:42)
[2023-05-27] MEDS: HYOSCYAMINE SULFATE 0.125 MG TAB.SUBL 0.25 MG SL ×2 (07:35→11:23)
[2023-05-27 07:38] VITALS: RESP 26; O2SAT 84
[2023-05-27 08:08] VITALS: O2SAT 92
[2023-05-27] MEDS: ENSURE HP 237 ML LIQUID PO (08:26)
[2023-05-27] MEDS: PANTOPRAZOLE SODIUM 40 MG VIAL IV (08:26)
[2023-05-27] MEDS: APIXABAN 5 MG TABLET 10 MG PO (08:27)
[2023-05-27] MEDS: MAGNESIUM OXIDE 400 MG TABLET PO (08:27)
[2023-05-27] MEDS: LAMOTRIGINE 100 MG TABLET 200 MG PO (08:27)
[2023-05-27] MEDS: L. ACIDOPHILUS/L.BULGARICUS 1 PACKET GRAN.PACK PO (08:27)
--- NOTE | 2023-05-27 09:27 | CM.NOTE ---
2nd Notice of Important Message From Medicare discussed with pt and , both verbalizes understanding and denies questions or concerns.
--- NOTE | 2023-05-27 09:36 | XR_ITS ---
The [address] [address] Patient Name: DAVID VALENCIA MRN: [id number] date: 1945 Sex: F Assigned Patient Location: [place] Current Patient Location: [place] Accession/Order Number: [id number] Exam Date: 05/27/2023 09:35 Report Date: 05/27/2023 10:13 At the request of: ADAM TRINIDAD Procedure: XR chest 1V EXAMINATION: XR chest 1V 05/27/2023 7:10 AM PST HISTORY: Hypoxia TECHNIQUE: Single frontal view of the chest acquired. COMPARISONS: Chest x-ray 05/24/[address] 05/22/2023. FINDINGS: Lines/tubes/other: Central venous catheter terminates near the superior cavoatrial junction. Heart and mediastinum: Stable. Bones: No acute osseous abnormality. Lungs: Mild bibasilar opacification is similar. No overt pulmonary edema. Pleura: Follow-up pleural effusion and trace right pleural effusion are similar. No pneumothorax. Other: None. XR/XR chest 1V IMPRESSION: Mild bibasilar opacification is similar. No new or worsening cardiopulmonary abnormality demonstrated. Electronically authenticated by: RODNEY GRIFFIN Date: 05/27/2023 10:13
--- NOTE | 2023-05-27 10:22 | CM.NOTE ---
Rounding with Dr. Hansen and AISSATOU Laws. Pt. sitting up in chair with a family member in room. Oxygen at 2 liters, discussed weaning. Discussed discharge to [facility] today.
[2023-05-27 10:58] VITALS: O2SAT 93
[2023-05-27 11:27] LABS: Glucometer 128 mg/dL (74-106)
--- NOTE | 2023-05-27 12:13 | P.DS_ITS ---
Patient seen and examined, agree with below. Admitted with UTI and kidney stones. To OR for stents and developed hypotension and septic shock after. Initially on levophed. Cultures showed K. pneumonia and sensitive to antibiotics. BP stable. Severe weakness and PT recommended SNF. Transferred to SNF in stable condition. Diagnosis: 1. Severe sepsis with shock 2. Pyelonephritis 3. Kidney stones 4. PE 5. Hypoxia 6. Anemia 7. KAMALA DS: Providers Provider Date of admission: 05/20/23 12:27 Primary care physician: Non-Staff Physician, Consults: 05/20/23 12:33 Occupational Therapy Eval and Treat Routine Reason for consultation: Only if needed for Rehab Has provider been notified: No Physical Therapy Eval and Treat Routine Reason for consultation: Eval and Treat Has provider been notified: No 05/20/23 15:39 Consult to Urology Routine Consulting Provider: Eddie Martines Reason for consultation: nephro Has provider been notified: Yes 05/22/23 10:31 Clinical Bedside Swallow Eval and Treat Routine Reason for consultation: dysphagia Discharging clinician: Zeenat Zamora DS: Diagnosis Discharge Diagnosis (1) Septic shock: (2) Emphysematous pyelonephritis: (3) Hydronephrosis with ureteral calculus: (4) Anemia: (5) Thrombocytopenia: (6) Fluid overload: (7) Severe protein-calorie malnutrition: (8) Pulmonary embolism: (9) Acute hypoxic respiratory failure: (10) Bacteremia due to Klebsiella pneumoniae: (11) Hypomagnesemia: (12) Hypophosphatemia: (13) KAMALA (acute kidney injury): (14) Hypothyroidism: (15) Dysphagia: (16) Hyponatremia: (17) Hyperglycemia: (18) Elevated troponin: (19) Dementia: (20) Benign essential hypertension: DS: Summary Hospital Course Hospital Course: The patient was admitted with a septic shock from a UTI. KAMALA, leukocytosis, lactic acidosis and subtherapeutic hypothyroidism were also noted on admission. She was treated with IV fluids and double gram-negative IV antibiotics with Zosyn and Cipro. As the patient was also having abdominal pain, CT of the abdomen was obtained. This revealed obstructive bilateral renal calculi resulting in bilateral moderate to severe hydronephrosis with emphysematous pyelitis noted on the left. Urology was consulted emergently and the patient was taken to the OR later that same day by Dr. Martines for a cystoscopy, pyelogram, and bilateral ureteral stent placement. Postoperatively the patient became hypotensive and required IV pressor support in the ICU. She received large- volume IV fluid boluses as well . Urine cultures resulted with Klebsiella pneumoniae sensitive to both penicillins and ciprofloxacin. Ciprofloxacin was discontinued and Zosyn was maintained throughout her stay. Her first set of blood cultures also eventually grew out K. Pneumoniae but repeat blood cultures have finalized prior to discharge and are now negative. A 2D echo was unremarkable and no vegetations were noted and preserved LVEF of 65-70%. She was eventually weaned off of Levophed pressor support and was able to maintain blood pressures on her own. She became hypoxic during her stay and a CTA of the chest revealed an acute PE of the RUL and she was inititially treated with a heparin gtt, transitioned to therapeutic lovenox, then finally Eliquis shortly before discharge. Unfortunately she showed signs of fluid overload later in her stay and was given cautious Lasix administration due to her persistent but imp roving KAMALA. We were able to resolve her fluid overload in this manner and lasix was discontinued. Her renal function continued to improve and is near baseline for the patient. Her home ARB is continued to be on hold at d/c due to renal toxicity and adequately controlled BPs. We defer to her PCP if this should be resumed in the future. She was able to wean off of O2 support completely with PE treatment and diuresis. She also developed anemia during her stay. This was partly d/t hemodilution with large volume fluid administration as no active bleeding was noted, but iron studies revealed iron deficiency. She was given IV Venofer and her anemia is improving at the time of discharge. She also developed thrombocytopenia from septic shock (prior to anticoagulation administration). This slowly improved throughout her stay and is nearing her norm. Poor appetite lead to evaluation by the vacuum plastic forming machine operator who diagnosed severe protein calorie malnutrition and she was initiated on BID Ensure. Electrolyte disturbances with hypomagnesemia, hyponatremia, and hypophosphatemia were noted during her stay. These were repleted either with IV or p.o. preparations and had resolved at the time of discharge. TSH was noted to be subtherapeutic on admission and her levothyroxine dosing was increased. Follow-up TSH in 4 to 6 weeks is recommended. As the patient is significantly improved but she c ontinues to require strengthening, she is being discharged to a local SNF for rehab strengthening. She should follow-up with her PCP or SNF provider within 3 to 5 days, and with Dr. Martines, urologist, as scheduled. The bejarano catheter will be discontinued at discharge per the urology service recommendations She has been prescribed 7 more days of cefdinir (total 14 day course) for her UTI/bacteremia. She was also prescribed Eliquis per protocol for acute PE and length of treatment is deferred to her PCP/SNF provider. Time Spent with Patient Time attestation: Total time spent providing and/or coordinating discharge services: Time spent: greater than 30 minutes Specific discharge activities: Physical exam, discussion of discharge plan, questions answered. Exam Constitutional Vital Signs, click to edit/add: Last Vital Signs Temp 99.2 F 05/27/23 05:07 Pulse 98 H 05/27/23 05:07 Resp 26 H 05/27/23 07:38 BP 119/79 05/27/23 05:07 Pulse Ox 93 L 05/27/23 10:58 O2 Del Method Room Air 05/27/23 10:58 O2 Flow Rate 2 05/27/23 08:08 Common normals: no apparent distress, oriented x3 and alert General appearance: cooperative Orientation/consciousness: Yes awake HENMT Common normals: normocephalic and head/scalp atraumatic Eye Common normals: PERRL, EOMs intact bilaterally, conjunctivae normal and no scleral icterus Respiratory Common normals: normal respiratory effort, no use of accessory muscles and clear to auscultation bilaterally Effort & inspection: able to speak in complete sentences and symmetric chest movement Cardio Common normals: no JVD, regular rate, regular rhythm, S1 normal heart sound, S2 normal heart sound and peripheral pulses 2+ throughout GI Common normals: Normal to inspection, nondistended, normoactive bowel sounds present, soft to palpation and non-tender Palpation: soft Bladder/kidney exam: bladder normal to palpation Extremity Common normals: normal to inspection, full ROM and normal capillary refill General: edema (BLE 1-2+ insteps); no clubbing and no cyanosis Neuro Common normals: moves all extremities, no focal motor deficits and no sensory deficits noted Speech: speech normal Psych Common normals: mental status grossly normal and activity/motor behavior normal DS: Data Data Completed and Pending Labs on day of discharge: Labs from last 24 hours 05/27/23 05/27/23 05/27/23 11:26 04:25 01:45 WBC 12.2 H RBC 2.56 L Hgb 9.6 L Hct 28.9 L MCV 112.9 H MCH 37.5 H MCHC 33.2 RDW 14.8 Plt Count 140 L MPV 11.7 Neut % (Auto) 80.3 H Lymph % (Auto) 13.2 L [place] % (Auto) 3.2 Eos % (Auto) 1.0 Baso % (Auto) 0.2 Neut # (Auto) 9.8 H Lymph # (Auto) 1.6 [place] # (Auto) 0.4 Eos # (Auto) 0.1 Baso # (Auto) 0.0 Abs Immat Gran (auto) 0.26 H Imm/Tot Granulo (auto) 2.1 H Sodium 136 Potassium 3.9 Chloride 103 Carbon Dioxide 27.7 Anion Gap 9.2 BUN 16.0 Creatinine 1.12 H Est GFR ( Amer) 57 L Est GFR (Non-Af Amer) 47 L BUN/Creatinine Ratio 14.3 Glucose 106 Calcium 8.1 L Magnesium 2.3 Total Bilirubin 0.4 AST 32 ALT 31 Alkaline Phosphatase 121 H Total Protein 5.4 L Albumin 1.8 L Globulin 3.6 Albumin/Globulin Ratio 0.5 Urine Color Lt. yellow Urine Clarity Clear Urine pH 7.0 Ur Specific [place] 1.015 Urine Protein 100 A Urine Glucose (UA) Negative Urine Ketones Negative Urine Occult Blood Large A Urine Nitrite Negative Urine Bilirubin Negative Urine Urobilinogen 0.2 Ur Leukocyte Esterase Small A Urine RBC >100 A Urine WBC 20-50 A Ur Squamous Epith Cells None seen Urine Crystals None seen Urine Bacteria None seen Urine Casts None seen Urine Mucus None seen POC Glucose 128 H 05/26/23 05/26/23 22:47 17:55 WBC RBC Hgb Hct MCV MCH MCHC RDW Plt Count MPV Neut % (Auto) Lymph % (Auto) [place] % (Auto) Eos % (Auto) Baso % (Auto) Neut # (Auto) Lymph # (Auto) [place] # (Auto) Eos # (Auto) Baso # (Auto) Abs Immat Gran (auto) Imm/Tot Granulo (auto) Sodium Potassium Chloride Carbon Dioxide Anion Gap BUN Creatinine Est GFR ( Amer) Est GFR (Non-Af Amer) BUN/Creatinine Ratio Glucose Calcium Magnesium Total Bilirubin AST ALT Alkaline Phosphatase Total Protein Albumin Globulin Albumin/Globulin Ratio Urine Color Urine Clarity Urine pH Ur Specific [place] Urine Protein Urine Glucose (UA) Urine Ketones Urine Occult Blood Urine Nitrite Urine Bilirubin Urine Urobilinogen Ur Leukocyte Esterase Urine RBC Urine WBC Ur Squamous Epith Cells Urine Crystals Urine Bacteria Urine Casts Urine Mucus POC Glucose 135 H 126 H Preliminary micro results at discharge 05/23/23 10:02 - Preliminary Blood NO GROWTH AT 36-48 HOURS. FINAL TO FOLLOW. 05/23/23 09:50 Blood Culture Result 1 - Preliminary Blood NO GROWTH AT 36-48 HOURS. FINAL TO FOLLOW. Discharge Plan Discharge Disposition: Xfer SNF Condition: Fair Discharge Medications: New cefdinir 300 mg capsule 300 mg PO BID 7 Days Qty: 14 0RF apixaban 5 mg tablet 10 mg PO BID 5 Days Qty: 20 0RF Eliquis 5 mg tablet 5 mg PO BID Qty: 60 0RF Rx Instructions: Start 06/01/23 levothyroxine 125 mcg Tablet 125 mcg PO ACB Qty: 30 0RF Ensure Active Protein-Muscle Liquid 1 ea PO BID 30 Days Qty: 5688 0RF magnesium oxide 400 mg (241.3 mg magnesium) Tablet 400 mg PO BID Qty: 60 0RF Continued atorvastatin 20 mg tablet 20 mg PO QPM lamotrigine 200 mg tablet 200 mg PO QAM Held amlodipine 10 mg tablet 10 mg PO QAM Hold Instructions: Resume on 05/30/23. losartan 100 mg tablet 100 mg PO QAM Hold Instructions: Until PCP/SNF provider indicates to resume Discontinued levothyroxine 112 mcg tablet 112 mcg PO QAM Activity Restrictions/Additional Instructions: - Obtain BMP, magnesium level twice weekly x 2 weeks - results to SNF provider. (KAMALA, hypokalemia, hypomagnesemia) Forms: Portal Instructions Follow Up Appointments: - Follow up appt. with Dr. Martines (urology) on May.31 @ 9:15am office location: [facility], [address] [place], [place] [address]Adith[place] office #: [phone]
--- NOTE | 2023-05-27 12:45 | CM.NOTE ---
Faxed discharge summary, med list and CRF to [facility] for discharge. Called and spoke with Chante for update, pt will be transported between 4-4:30 by [facility].
[2023-05-27] MEDS: ONDANSETRON PF 4 MG/2 ML VIAL IV (13:28)
[2023-05-27 13:33] VITALS: BP 125/79; PULSE 90; RESP 20; TEMP 37.6; O2SAT 91
[2023-08-15 14:31] LABS: Reticulocyte Count 0.97 % (0.60-3.10)
== END 2023-05-27 15:56 | DRG 853 ==
LOC: ER 12:00 → MS 12:42 → ICU 05-21 08:33 → MS 05-25 13:20
PROVIDERS: Family Medicine; Internal Medicine; Urology; Admitting Provider Family Medicine; Emergency Provider Emergency Medicine Emergency Medical Services; Visit Provider Nurse Practitioner
PROC: 0T788DZ Dilation of Bilateral Ureters with Intraluminal Device, Via Natural or Artificial Opening Endoscopic (ICD-10-PCS; principal; 2023-05-20 17:30)
DX: A41.89 Other specified sepsis (principal); E43 Unspecified severe protein-calorie malnutrition; I26.99 Other pulmonary embolism without acute cor pulmonale; J96.01 Acute respiratory failure with hypoxia; R65.21 Severe sepsis with septic shock; N17.9 Acute kidney failure, unspecified; N13.6 Pyonephrosis; E87.1 Hypo-osmolality and hyponatremia; F03.A4 Unspecified dementia, mild, with anxiety; Z16.11 Resistance to penicillins; I11.0 Hypertensive heart disease with heart failure; I50.30 Unspecified diastolic (congestive) heart failure; B96.1 Klebsiella pneumoniae [K. pneumoniae] as the cause of diseases classified elsewhere; D69.6 Thrombocytopenia, unspecified; D50.9 Iron deficiency anemia, unspecified; E86.0 Dehydration; E03.9 Hypothyroidism, unspecified; E83.42 Hypomagnesemia; E87.70 Fluid overload, unspecified; E83.39 Other disorders of phosphorus metabolism; R73.9 Hyperglycemia, unspecified; R94.5 Abnormal results of liver function studies; R29.6 Repeated falls; R13.10 Dysphagia, unspecified; Z79.899 Other long term (current) drug therapy; Z79.890 Hormone replacement therapy; Z68.33 Body mass index [BMI] 33.0-33.9, adult
CPT/HCPCS: 0202U; 36415; 36569; 36591; 36592; 70450; 71045; 71275; 74176; 74420; 80048; 80053; 81001; 82550; 82553; 82728; 82800; 82948; 83540; 83550; 83605; 83690; 83735; 83880; 84100; 84439; 84443; 84481; 84484; 85014; 85018; 85025; 85027; 85045; 85378; 85610; 85730; 86850; 86900; 86901; 87040; 87086; 87150; 87186; 87493; 92610; 93005; 93306; 94640; 94667; 94668; 94761; 96361; 96366; 96367; 96368; 96372; 96375; 96376; 97110; 97161; 97164; 97165; 97530; 97535; 99285; C1874; C1887; G0328; J1756; J2704; J3480; Q9966; Q9967

== ENCOUNTER 2023-06-02 15:13 | Emergency (ER) | payer OTHER, MEDICARE, SELFPAY ==
[2023-06-02] VITALS (14 sets, daily range): BP systolic 119–132; BP diastolic 60–87; PULSE 85–90; RESP 18–30; TEMP 36.8–37.1; O2SAT 95–100; BMI 21.6
--- NOTE | 2023-06-02 15:28 | XR_ITS ---
The [address] [address] Patient Name: DAVID VALENCIA MRN: [id number] date: 1945 Sex: F Assigned Patient Location: ER Current Patient Location: ER Accession/Order Number: [id number] Exam Date: 06/02/2023 16:00 Report Date: 06/02/2023 16:22 At the request of: JAIDA RAYMUNDO Procedure: XR chest 1V EXAM: CHEST 1 VIEW HISTORY: Weakness TECHNIQUE: Chest, one view. COMPARISON: 05/27/2023. FINDINGS: There are low lung volumes with mild biapical scarring. There is a tiny left effusion. There is mild left basilar atelectasis. No focal consolidation. No pneumothorax. Pulmonary vasculature is within normal limits. Cardiomediastinal silhouette is normal. XR/XR chest 1V IMPRESSION: 1. Expiratory chest with tiny left effusion and mild left basilar atelectasis. Electronically authenticated by: KEANU PARK Date: 06/02/2023 16:22
--- NOTE | 2023-06-02 15:28 | ECG_ITS ---
The [facility] Test Date: 2023-06-02 Pat Name: DAVID VALENCIA Department: Room: - Gender: Female Director Of Home Health Services: : 1945 Requested By: TAWANNA RO Order Number: [id number] Reading MD: DARCIE HERNANDEZ Measurements Intervals [place] Rate: 88 P: 67 DC: 158 QRS: 20 QRSD: 84 T: 32 QT: 356 QTc: 401 Interpretive Statements 1100 Sinus rhythm 8102 Low QRS voltage in chest leads 9120 atypical ECG No previous ECG available for comparison Electronically Signed On 06-03-2023 7:21:05 EST by DARCIE HERNANDEZ
--- NOTE | 2023-06-02 15:30 | CT_ITS ---
The [address] [address] Patient Name: DAVID VALENCIA MRN: [id number] date: 1945 Sex: F Assigned Patient Location: ER Current Patient Location: ER Accession/Order Number: [id number] Exam Date: 06/02/2023 16:33 Report Date: 06/02/2023 16:58 At the request of: JAIDA RAYMUNDO Procedure: CT head/brain wo con CT head/brain wo con, 06/02/2023 4:33 PM EST INDICATION: Weakness COMPARISON: Prior CT dated 05/22/2023 TECHNIQUE: Axial CT images of the brain from skull base to vertex, including portions of the face and sinuses, were obtained without contrast . Multiplanar reformatted images were generated and reviewed as needed. Dose reduction techniques were achieved by using automated exposure control and/or adjustment of mA and/or kV according to patient size and/or use of iterative reconstruction technique. FINDINGS: The cerebral sulci as well as ventricular system are appropriate for age. There is no intracranial mass, mass effect, midline shift, intra or extra-axial fluid collection or hemorrhage. Periventricular and centrum semiovale hypodensities are most likely consistent with microvascular ischemic changes. 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 The visualized portions of orbits, mastoid air cells as well as paranasal sinuses are unremarkable. There is no suspicious osteolytic or osteoblastic lesion. CT/CT head/brain wo con IMPRESSION: No acute intracranial process is noted. Electronically authenticated by: MIKEY LEWIS Date: 06/02/2023 16:58
--- NOTE | 2023-06-02 15:30 | ED_ITS ---
HPI - Weakness General Chief complaint: Weakness Stated complaint: General Weakness Time Seen by Provider: 06/02/23 15:14 Source: patient Mode of arrival: ambulance Limitations: physical limitation History of Present Illness HPI Narrative: Patient is a 78-year-old female brought to the emergency department by ambulance from the [place] [facility] where she has been a resident for the last 6 days after a hospital stay for UTI, kidney stones, PE and septic shock. Patient has been refusing physical therapy and has not been communicative with the half-way staff. Family requested she be evaluated in the ER today due to generalized weakness and refusing PT. Patient denies any falls or injuries. She denies any pain at this time. When asked where she lives she states she lives at home with her who cares for her. Family's concern was for failure to thrive . Patient states she does not eat because she does not have an appetite. She denies any fevers, vomiting. She denies chest pain, shortness of breath, abdominal pain. She recently had a PICC line to her right upper extremity, while in the hospital she was on Levophed for septic shock. She was also diagnosed with a PE and started on Eliquis. She arrives to the emergency department with stable vital signs Related Data Home Medications Medication Instructions Recorded Confirmed amlodipine 10 mg tablet 10 mg PO QAM 05/20/23 06/02/23 atorvastatin 20 mg tablet 20 mg PO QPM 05/20/23 06/02/23 lamotrigine 200 mg tablet 200 mg PO QAM 05/20/23 06/02/23 losartan 100 mg tablet 100 mg PO QAM 05/20/23 05/20/23 apixaban 5 mg tablet 10 mg PO DAILY 06/02/23 06/02/23 Previous Rx's Medication Instructions Recorded cefdinir 300 mg capsule 300 mg PO BID 7 days #14 caps 05/26/23 food supplemt, lactose-reduced 1 ea PO BID 30 days #5,688 mL 05/26/23 (Ensure Active Protein-Muscle oral liquid) levothyroxine 125 mcg tablet 125 mcg PO ACB #30 tabs 05/26/23 magnesium oxide 400 mg (241.3 mg 400 mg PO BID #60 tabs 05/26/23 magnesium) tablet Allergies Allergy/AdvReac Type Severity Reaction Status Date / Time No Known Drug Allergies Allergy Verified 05/20/23 09:17 Review of Systems ROS Constitutional Denies: fever or chills Cardiovascular Denies: chest pain Respiratory Denies: shortness of breath or cough Gastrointestinal Denies: abdominal pain, nausea, vomiting or diarrhea Genitourinary Denies: painful urination Musculoskeletal Denies: back pain Integumentary/Breast Denies: rash Neurological Denies: headache PFSH PFSH Medical History (Updated 06/02/23 @ 17:30 by NACHO Thomas) Dementia ?F03.90 - Unspecified dementia, unspecified severity, without behavioral d isturbance, psychotic disturbance, mood disturbance, and anxiety (ICD-10) Benign essential hypertension ?I10 - Essential (primary) hypertension (ICD-10) Hx: UTI (urinary tract infection) ?Z87.440 - Personal history of urinary (tract) infections (ICD-10) History of kidney stones ?Z87.442 - Personal history of urinary calculi (ICD-10) Sepsis ?A41.9 - Sepsis, unspecified organism (ICD-10) Surgical History (Updated 05/20/23 @ 12:53 by Yara Sow) History of knee replacement ?Z96.659 - Presence of unspecified artificial knee joint (ICD-10) History of hip replacement ?Z96.649 - Presence of unspecified artificial hip joint (ICD-10) Exam Narrative Exam Narrative: Gen.: Awake, alert, in no distress Head: Normocephalic, atraumatic ENT: Moist mucous membranes Respiratory: No respiratory distress, lungs clear bilaterally; oxygen by nasal cannula Cardio: Regular rate and rhythm Gastrointestinal: Abdomen is soft, nondistended and nontender to palpation Extremities: Moves extremities equally Psych: Normal mood and affect Neuro: No focal neuro deficit Skin: Warm, dry, intact Constitutional Vital Signs, click to edit/add: Last Vital Signs Temp 98.3 F 06/02/23 15:21 Pulse 86 06/02/23 17:43 Resp 18 06/02/23 17:43 BP 119/79 06/02/23 17:43 Pulse Ox 98 06/02/23 17:43 O2 Del Method Nasal Cannula 06/02/23 15:25 O2 Flow Rate 3 06/02/23 15:25 Course Vital Signs Vital signs: Vital Signs Pulse Oximetry 100 06/02/23 15:18 Temperature 98.3 F 06/02/23 15:21 Pulse Rate 86 06/02/23 17:43 Respiratory Rate 18 06/02/23 17:43 Blood Pressure 119/79 06/02/23 17:43 Pulse Oximetry 98 06/02/23 17:43 Oxygen Delivery Method Nasal Cannula 06/02/23 15:25 Oxygen Delivery Flow Rate 3 06/02/23 15:25 MDM - Weakness MDM Narrative Medical decision making narrative: CT of the brain, chest x-ray, EKG unremarkable. Lab studies including blood cultures and straight catheterization for urine were obtained. Patient does still have a moderate urinary tract infection, she has another 7 days of antibiotics ordered and based on her urine culture from her hospital stay, the Omnicef is an appropriate antibiotic for this UTI. She has normal vital signs, no evidence of sepsis in the ER and her kidney function, blood counts and albumin are improving. There is no indication for admission as she is currently at a [place] [facility]. She is appropriate to continue rehab, continue her antibiotics and anticoagulation at the [facility]. Family was given education and reassurance by attending physician prior to discharge. Family did request that we discussed the case with the hospitalist as she did have a change in her energy level and weakness today, I discussed the case with Dr. Pulliam who is in agreement that the patient is already currently in a [place] [facility] facility on appropriate antibiotics, she does not meet sepsis criteria and there is no admission criteria at this time. If her symptoms change or she deteriorates, he recommended she be brought back to the hospital for further evaluation. Medical Records Attestation: I reviewed the patient's medical records. Lab Data Attestation: I reviewed the patient's lab results. Labs: Lab Results 06/02/23 06/02/23 Range/Units 15:50 16:25 WBC 9.7 (4.0-11.0) 10^3/uL RBC 2.97 L (4.20-5.40) 10^6/uL Hgb 10.8 L (12.0-16.0) g/dL Hct 33.7 L (36.0-48.0) % MCV 113.5 H (81.0-99.0) fL MCH 36.4 H (26.7-34.0) pg MCHC 32.0 (29.9-35.2) g/dL RDW 14.8 (11.0-15.0) % Plt Count 647 H (150-450) 10^3/uL MPV 10.0 (9.5-13.5) fL Neut % (Auto) 74.9 (43.0-75.0) % Lymph % (Auto) 18.1 L (20.5-60.0) % [place] % (Auto) 4.4 (1.7-12.0) % Eos % (Auto) 1.2 (0.9-7.0) % Baso % (Auto) 0.4 (0.2-2.0) % Neut # (Auto) 7.3 H (1.4-6.5) 10^3/uL Lymph # (Auto) 1.8 (1.2-3.8) 10^3/uL [place] # (Auto) 0.4 (0.3-0.8) 10^3/uL Eos # (Auto) 0.1 (0.0-0.7) 10^3/uL Baso # (Auto) 0.0 (0.0-0.1) 10^3/uL Abs Immat Gran (auto) 0.10 H (0.00-0.03) 10^3/uL Imm/Tot Granulo (auto) 1.0 H (0.0-0.5) % Sodium 134 L (136-145) mmol/L Potassium 4.3 (3.5-5.1) mmol/L Chloride 99 (98-107) mmol/L Carbon Dioxide 27.8 (21.0-32.0) mmol/L Anion Gap 11.5 BUN 11.0 (7.0-18.0) mg/dL Creatinine 1.05 H (0.55-1.02) mg/dL Est GFR ( Amer) >60 (>=60) Est GFR (Non-Af Amer) 51 L (>=60) BUN/Creatinine Ratio 10.5 Glucose 98 (74-106) mg/dL Lactate 1.9 (0.4-2.0) mmol/L Calcium 9.6 (8.5-10.1) mg/dL Magnesium 2.2 (1.8-2.4) mg/dL Total Bilirubin 0.3 (0.2-1.0) mg/dL AST 35 (15-37) U/L ALT 23 (14-59) U/L Alkaline Phosphatase 96 (46-116) U/L Troponin I High Sens 6.1 (4.0-51.3) pg/mL Total Protein 8.0 (6.4-8.2) g/dL Albumin 2.5 L (3.4-5.0) g/dL Globulin 5.5 g/dL Albumin/Globulin Ratio 0.5 TSH 14.076 H (0.358-3.740) uIU/mL Free T4 1.59 H (0.76-1.46) ng/dL Free T3 0.73 L (2.18-3.98) pg/mL Urine Color Lt. yellow (YELLOW) Urine Clarity Clear (CLEAR) Urine pH 7.5 (5.0-9.0) Ur Specific [place] 1.010 (1.005-1.025) Urine Protein 30 A (NEG/TRACE) mg/dL Urine Glucose (UA) Negative (NEGATIVE) mg/dL Urine Ketones Negative (NEGATIVE) mg/dL Urine Occult Blood Large A (NEGATIVE) Urine Nitrite Negative (NEGATIVE) Urine Bilirubin Negative (NEGATIVE) Urine Urobilinogen 0.2 (0.2-1.0) EU/dL Ur Leukocyte Esterase Moderate A (NEGATIVE) Urine RBC 50-75 A (0-2) #/HPF Urine WBC 20-50 A (NONE SEEN) #/HPF Ur Squamous Epith Cells Few A (NONE/RARE) #/LPF Urine Crystals None seen (None Seen) #/HPF Urine Bacteria Moderate A (NONE SEEN) #/HPF Urine Casts None seen (NONE SEEN) #/LPF Urine Mucus None seen (NONE SEEN) Ur Culture Indicated? Yes Imaging Data Chest x-ray: Attestation: I have reviewed the pertinent imaging results. Radiologist's impression: Procedure: XR chest 1V EXAM: CHEST 1 VIEW HISTORY: Weakness TECHNIQUE: Chest, one view. COMPARISON: 05/27/2023. FINDINGS: There are low lung volumes with mild biapical scarring. There is a tiny left effusion. There is mild left basilar atelectasis. No focal consolidation. No pneumothorax. Pulmonary vasculature is within normal limits. Cardiomediastinal silhouette is normal. IMPRESSION: 1. Expiratory chest with tiny left effusion and mild left basilar atelectasis. Electronically authenticated by: KEANU PARK Date: 06/02/2023 16:22 CT scan - head: Attestation: I have reviewed the pertinent imaging results. Radiologist's impression: Procedure: CT head/brain wo con CT head/brain wo con, 06/02/2023 4:33 PM EST INDICATION: Weakness COMPARISON: Prior CT dated 05/22/2023 TECHNIQUE: Axial CT images of the brain from skull base to vertex, including portions of the face and sinuses, were obtained without contrast . Multiplanar reformatted images were generated and reviewed as needed. Dose reduction techniques were achieved by using automated exposure control and/or adjustment of mA and/or kV according to patient size and/or use of iterative reconstruction technique. FINDINGS: The cerebral sulci as well as ventricular system are appropriate for age. There is no intracranial mass, mass effect, midline shift, intra or extra-axial fluid collection or hemorrhage. Periventricular and centrum semiovale hypodensities are most likely consistent with microvascular ischemic changes. 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 The visualized portions of orbits, mastoid air cells as well as paranasal sinuses are unremarkable. There is no suspicious osteolytic or osteoblastic lesion. IMPRESSION: No acute intracranial process is noted. Electronically authenticated by: MIKEY LEWIS Date: 06/02/2023 16:58 ECG Data Attestation: I personally reviewed and interpreted this ECG as follows: (Normal sinus rhythm at a rate of 88, no acute ST elevation, no ectopy. EKG reviewed by attending physician) ECG interpretation date: 06/02/23 ECG interpretation time: 15:41 Discharge Plan Discharge Chief Complaint: Weakness Clinical Impression: Generalized weakness, Acute UTI Patient Disposition: Home, Self-Care Time of Disposition Decision: 17:26 Condition: Good Prescriptions / Home Meds: No Action apixaban 5 mg tablet 10 mg PO DAILY amlodipine 10 mg tablet 10 mg PO QAM Hold Instructions: Resume on 05/30/23. atorvastatin 20 mg tablet 20 mg PO QPM lamotrigine 200 mg tablet 200 mg PO QAM losartan 100 mg tablet 100 mg PO QAM Hold Instructions: Until PCP/SNF provider indicates to resume cefdinir 300 mg capsule 300 mg PO BID 7 Days Qty: 14 0RF levothyroxine 125 mcg Tablet 125 mcg PO ACB Qty: 30 0RF Ensure Active Protein-Muscle Liquid 1 ea PO BID 30 Days Qty: 5688 0RF magnesium oxide 400 mg (241.3 mg magnesium) Tablet 400 mg PO BID Qty: 60 0RF Instructions: Weakness (ED), Urinary Tract Infection in Older Adults (ED) Additional Instructions: Continue antibiotics, follow up with PCP Stand Alone Forms: Portal Instructions Referrals: Physician,Non-Staff, [Physician] - 1 week
[2023-06-02] MEDS: 0.9 % SODIUM CHLORIDE 1,000 ML 100 ML IV (15:58)
[2023-06-02 16:09] LABS: Basophils Percent Auto 0.4 % (0.2-2.0); Eosinophils Absolute Auto 0.1 10^3/uL (0.0-0.7); Eosinophils Percent Auto 1.2 % (0.9-7.0); Hematocrit 33.7 % (36.0-48.0); Hemoglobin 10.8 g/dL (12.0-16.0); Lymphocytes Absolute Auto 1.8 10^3/uL (1.2-3.8); Lymphocytes Percent Auto 18.1 % (20.5-60.0); Mean Corpuscular Hemoglobin 36.4 pg (26.7-34.0); Mean Corpuscular Volume 113.5 fL (81.0-99.0); Monocytes Absolute Auto 0.4 10^3/uL (0.3-0.8); Monocytes Percent Auto 4.4 % (1.7-12.0); Neutrophils Absolute Auto 7.3 10^3/uL (1.4-6.5); Neutrophils Percent Auto 74.9 % (43.0-75.0); Red Blood Count 2.97 10^6/uL (4.20-5.40); Red Cell Distribution Width 14.8 % (11.0-15.0); White Blood Count 9.7 10^3/uL (4.0-11.0)
[2023-06-02 16:23] LABS: Lactate/Lactic Acid 1.9 mmol/L (0.4-2.0)
[2023-06-02 16:28] LABS: Platelet Count 647 10^3/uL (150-450)
[2023-06-02 16:35] LABS: Alanine Aminotransferase 23 U/L (14-59); Albumin Globulin Ratio 0.5; Albumin Level 2.5 g/dL (3.4-5.0); Alkaline Phosphatase 96 U/L (46-116); Anion Gap 11.5; Aspartate Amino Transferase 35 U/L (15-37); BUN Creatinine Ratio 10.5; Bilirubin Total 0.3 mg/dL (0.2-1.0); Calcium 9.6 mg/dL (8.5-10.1); Carbon Dioxide 27.8 mmol/L (21.0-32.0); Chloride 99 mmol/L (98-107); Estimated GFR (African America >60 (>=60); Estimated GFR (Non-African Ame 51 (>=60); Globulin 5.5 g/dL; Glucose 98 mg/dL (74-106); Magnesium 2.2 mg/dL (1.8-2.4); Potassium 4.3 mmol/L (3.5-5.1); Sodium 134 mmol/L (136-145); Troponin I High Sensitivity 6.1 pg/mL (4.0-51.3)
[2023-06-02 16:45] LABS: Bilirubin Urine NEGATIVE (NEGATIVE); Blood Urine LARGE (NEGATIVE); Clarity Urine CLEAR (CLEAR); Color Urine LT. YELLOW (YELLOW); Glucose Urine UA NEGATIVE (NEGATIVE); Ketones Urine NEGATIVE (NEGATIVE); Leukocyte Esterase Urine MODERATE (NEGATIVE); Nitrite Urine NEGATIVE (NEGATIVE); Protein Urine 30 mg/dL (NEG/TRACE); Urobilinogen Urine 0.2 EU/dL (0.2-1.0); pH Urine 7.5 (5.0-9.0)
[2023-06-02 16:46] LABS: Urine Microscopic Indicated YES
[2023-06-02 17:00] LABS: WBC Urine 20-50 #/HPF (NONE SEEN)
[2023-06-02 17:01] LABS: Bacteria Urine MODERATE #/HPF (NONE SEEN); Cast Seen? NONE SEEN #/LPF (NONE SEEN); Crystals Seen? None Seen #/HPF (None Seen); Mucus Urine NONE SEEN (NONE SEEN); RBC Urine 50-75 #/HPF (0-2); Squamous Epithelial Cell Urine FEW #/LPF (NONE/RARE); Urine Culture Indicated YES
[2023-06-02 17:13] LABS: Free T4 1.59 ng/dL (0.76-1.46)
[2023-06-02 17:28] LABS: Free T3 0.73 pg/mL (2.18-3.98)
== END 2023-06-02 19:46 | disposition home or self-care (01) ==
PROVIDERS: Physician Assistant; Emergency Provider Emergency Medicine Emergency Medical Services; PCP Family Medicine
DX: N39.0 Urinary tract infection, site not specified (principal); R53.1 Weakness; Z86.711 Personal history of pulmonary embolism; Z79.01 Long term (current) use of anticoagulants; Z79.899 Other long term (current) drug therapy; F03.90 Unspecified dementia, unspecified severity, without behavioral disturbance, psychotic disturbance, mood disturbance, and anxiety; I10 Essential (primary) hypertension; Z87.442 Personal history of urinary calculi; Z96.649 Presence of unspecified artificial hip joint; Z96.659 Presence of unspecified artificial knee joint; Z79.890 Hormone replacement therapy
CPT/HCPCS: 36415; 70450; 71045; 80053; 81001; 83605; 83735; 84439; 84443; 84481; 84484; 85025; 87040; 87086; 87150; 87186; 93005; 99285

== ENCOUNTER 2024-07-12 07:50 | Outpatient (OUT) | payer OTHER, MEDICARE, SELFPAY ==
--- OUTSIDE RECORDS SUMMARY | 2024-07-12 07:58 | XMS_ITS | CCD ---
Author Organization [facility] Care Team Providers Care Senior Director Finance Name Role Phone MARIAHROSSYED M Unavailable Unavailable MARIAH, BELEN M Unavailable Unavailable MARIAH, BELEN M Unavailable Unavailable HEMEYERFREDY Unavailable Unavailable MARIAH, BELEN M Unavailable Unavailable MARIAH, BELEN M Unavailable Unavailable MARIAH, BELEN M Unavailable Unavailable FREDY RO Unavailable Unavailable HEMEYER, DR STACY Attending Unavailable HEMEYER, DR STACY Consulting Unavailable HEMEYER, DR STACY Primary Care Unavailable HEMEYER, DR STACY Admitting Unavailable HEMEYER, DR STACY Admitting Unavailable HEMEYER, DR STACY Attending Unavailable HEMEYER, DR STACY Consulting Unavailable HEMEYER, DR STACY Primary Care Unavailable BOISE, DR ENZO Webber Consulting Unavailable ZIEBER, DR DON Bills Consulting Unavailable HEMEYER, DR STACY Admitting Unavailable HEMEYER, DR STACY Attending Unavailable HEMEYER, DR STACY Consulting Unavailable HEMEYER, DR STACY Primary Care Unavailable HEMEYER, DR STACY Attending Unavailable HEMEYER, DR STACY Consulting Unavailable HEMEYER, DR STACY Primary Care Unavailable HEMEYER, DR STACY Admitting Unavailable Eddie MARTINES Attending Unavailable Eddie MARTINES Attending Unavailable Eddie MARTINES Referring Unavailable Eddie MARTINES Attending Unavailable Eddie Martines Unavailable Fredy Ro MD Primary Care Provider Eddie Martines MD Unavailable Fredy Ro MD Primary Care Provider FREDY RO Attending Unavailable FREDY RO Attending Unavailable FREDY RO Attending Unavailable FREDY RO Attending Unavailable KIRSTIE, MELANI Referring Unavailable KIRSTIE, MELANI [facility] MELANI Referring Unavailable [facility] Unavailab le CHAVEZ, TROY Referring Unavailable CHAVEZ, TROY [facility]ending [facility] O'MARYAN, JONATHAN Attending Unavailable ELIZABETHRACHEL Attending Unavailable [facility] Unavailab le CHAVEZ, TROY Admitting Unavailable CHAVEZ, TROY [facility]ending [facility] CHAVEZ[facility] TROY Attending Unavailable O'MARYAN, JONATHAN Referring Unavailable KIRSTIE, MELANI Referring Unavailable [facility] Unavailab le KIRSTIE, MELANI Attending Unavailable KIRSTIE, MELANI [facility] Un[facility], [facility] Unavailab le HEMEYER, [facility] Unavailab le O'MARYAN, JONATHAN Attending Unavailable O'MARYAN, JONATHAN [facility]ending [facility] O'MARYAN, JONATHAN Attending Unavailable [facility] Unavailab le HEMEYER, [facility] CHAVEZ[facility] TROY [facility] Un[facility] CHAVEZ, TROY Admitting Unavailable CHAVEZ, TROY Attending Unavailable [facility] Unavailab le HEMEYER, [facility] Unavailab le CHAVEZ, TROY Ref[facility] Un[facility] KIRSTIE, MELANI Referring Unavailable KIRSTIE, MELANI Attending Unavailable [facility] Unavailab le O'MARYAN, JONATHAN Referring Unavailable CHAVEZ TROY J Referring Un[facility]ZTR[facility] J Referring [facility]available [facility] KIRSTIE, MELANI Referring Unavailable [facility] Unavailab le [facility] Primary Care Physician Unavail able Jayjay DICKERSON, Fredy Samson Primary Care Provider [phone] Medications Current Medications Medication Drug Class(es) Dates Sig (Normalized) Sig (Original) amLODIPine 5 mg oral tablet (20 sources) Dihydropyridine Calcium Channel Cornelia Start: 09-17-2023 take 1 tablet by mouth once daily amLODIPine (Norvasc) 5 MG tablet Indications: Essential hypertension (CMS/HCC) Take 1 tablet (5 mg) by mouth Daily 90 tablet 1 12/13/2023 Active take 1 tablet by masha th once daily in the morning amLODIPine (NORVASC) 10 mg tablet Take 1 0 mg by mouth every morning. 0 Suspended Comment on above: Take 10 mg by mouth every morning. Take 1 tablet by masha th every morning. apixaban 5 mg oral tablet (20 sources) Factor Xa Inhibitor Start: 03-12-2024 take 1 tablet by mouth in the morning apixaban (Eliquis) 5 MG tablet Indications: Acute septic pulmonary embolism without acute cor pulmonale (CMS/HCC) Take 1 tablet (5 mg) by mouth in the morning and 1 tablet (5 mg) before bedtime. 180 tablet 03/12/2024 Active Start: 07-25-2023 End: 10-23-2023 apixaban (ELIQUIS) 5 mg tab( s) Take 5 mg by mouth. 09/02/2023 Active Comment on above: Take 1 tablet by masha th every morning. Patient should start on July 25, 2023. carvedilol 12.5 mg oral tablet (20 sources) alpha-Adrenergic Cornelia, beta-Adrenergic Cornelia Start: take 1 tablet by mouth in the morning carvedilol (Coreg) 12.5 MG tablet Indications: Essential hypertension (CMS/HCC) Take 1 tablet (12.5 mg) by mouth in the morning and 1 tablet (12.5 mg) in the evening. Take with meals. 180 tablet 1 12/13/2023 Active Comment on above: Take 1 tablet by masha th twice daily. cholecalciferol 0.025 mg oral tablet (1 source) Vitamin D take 1 tablet by mouth in the morning cholecalciferol (Vitamin D-3) 25 MCG (1000 UT) tablet Take 25 mcg by mouth in the morning. Active docusate sodium 100 mg oral capsule (2 sources) Start: End: take 1 capsule by mouth twice daily docusate sodium (COLACE) 100 mg capsule Take 1 capsule by mouth two times a day. 60 capsule 0 07/22/2023 08/21/2023 Active Comment on above: Take 1 capsule by mo [facility] two times a day. famotidine 40 mg oral tablet (20 sources) Histamine-2 Receptor Antagonist take 1 tablet by mouth once daily famotidine (PEPCID) 40 mg tablet Take 40 mg by mouth once daily. Active Comment on above: Take 40 mg by mouth once daily. iv contrast (will be provided with radiology test) (1 source) Start: End: iv contrast (will be provided with radiology test) MRI Kidney Inject, intravenously, once for 1 dose. No IV access, insert saline lock prior to the beginning of sedation, infusion, injection of imaging exam. Discontinue saline lock post exam. If Pt. has a central line or IVAD, may access for administration according to line specific nursing protocol. Once exam is complete flush line and de-access according to line specific nursing protocol in the MR contrast administration guidelines link. 1 Each 0 11/07/2023 11/08/2023 Active lamoTRIgine 200 mg oral tablet (1 source) Mood Stabilizer, Anti-epileptic Agent Start: take 1 tablet by mouth once daily Lamictal 200 mg Tab 200 mg = 1 tab(s), Oral, Daily, # 90 tab(s), Refills(s) 1, [facility]: [facility], 162, cm, 12/07/19 9:02:00 EDT, Height/Length Measured, 73.1, kg, 12/07/19 9:02:00 EDT, Weight Measured Start Date: 12/07/19 Status: Ordered levothyroxine sodium 0.125 mg oral tablet (20 sources) l-Thyroxine Start: take 1 tablet by mouth before mealtime levothyroxine (Synthroid, Levoxyl) 125 MCG tablet Indications: Acquired hypothyroidism (CMS/HCC) Take 1 tablet (125 mcg) by mouth in the morning. Take before meals. 90 tablet 03/12/2024 Active Start: 04-15-2021 take 1 tablet by masha th once daily Synthroid 112 mcg Tab 112 mcg = 1 tab(s), Oral, Daily, Refills(s) 0 Start Date: 04/15/21 Status: Ordered levothyroxine (S YNTHROID) 125 mcg tablet Take 175 mcg by mouth once daily. 0 Active Comment on above: Take 175 mcg by mout h once daily. Take 125 mcg by mout h once daily. magnesium oxide 400 mg oral capsule (20 sources) Start: 03-12-2024 End: 09-08-2024 take 1 capsule by mouth once daily magnesium oxide 400 MG capsule Indications: Hypomagnesemia Take 1 capsule (400 mg) by mouth Daily 90 capsule 03/12/2024 09/08/2024 Active magnesium oxide 200 mg magnesium tab Take by mouth. Active Comment on above: Take by mouth. mirtazapine 30 mg oral tablet (20 sources) take 1 tablet by mouth once daily in the morning mirtazapine (REMERON) 30 mg tablet Take 30 mg by mouth every morning. Active Comment on above: Take 30 mg by mouth every morning. multivitamins(DAILY MULTIPLE TAB) (20 sources) Start: 10-01-2008 multivitamins(DAILY MULTIPLE TAB) Take by mouth. 0 0 10/01/2008 Active Start: 10-01-2008 multivitamins( DAILY MULTIPLE TAB) Take one(1) tablet daily. 0 0 10/01/2008 Suspended Start: 10-01-2008 multivitamins( DAILY MULTIPLE TAB) Take one(1) tablet daily. 0 0 10/01/2008 Active Comment on above: Take one(1) tablet d aily. Macrobid (1 source) Nitrofuran Antibacterial Start: take 1 mg by mouth twice daily Macrobid mg, Oral, BID, Refills(s) 0 Start Date: 06/10/23 Status: Ordered polyethylene glycol 3350 48593 mg powder for oral solution (1 source) Osmotic Laxative take 17 g by mouth once daily polyethylene glycol, PEG, 3350 (MiraLax) 17 g packet Take 17 g by mouth Daily Active Polyethylene Glycols (20 sources) polyethylene gly col 3350 (MIRALAX ORAL) Take by mouth. Active polyethylene gly col 3350 (MIRALAX ORAL) Take by mouth. 0 Suspended polyethylene gly col 3350 (MIRALAX ORAL) Take by mouth. 0 Active Comment on above: Take by mouth. sulfamethoxazole 800 mg / trimethoprim 160 mg oral tablet (14 sources) Dihydrofolate Reductase Inhibitor Antibacterial, Sulfonamide Antimicrobial Start: 07-22-19 End: 09-09-19 24 take 1 tablet by mouth twice daily sulfamethoxazole-t rimethoprim (BACTRIM DS) 800-160 mg per tablet Take 1 tablet by mouth two times a day for 14 days. 28 tablet 0 08/26/2023 09/09/2023 Active Comment on above: Take [address] [facility] two times a day. Take [address] [facility] two times a day for 14 days. tamsulosin hydrochloride 0.4 mg oral capsule (20 sources) alpha-Adrenergic Cornelia Start: 09-15-19 End: 09-24-19 take 0.4 mg by mouth every twenty-four hours as needed tamsulosin (FLOMAX) 0.4 mg Indications: Stent discomfort Take 1 capsule by mouth at bedtime as needed (For stent discomfort) for up to 7 days. Take for stent discomfort 7 capsule 09/17/2023 Active Start: 07-22-2023 End: 10-20-2023 tamsulosin (FLOMAX) 0.4 mg T awilda 1 capsule by mouth once daily 30 minutes after the same meal each day. 90 capsule 0 07/22/2023 10/20/2023 Suspended Comment on above: Take 1 capsule by [facility] once daily 30 minutes after the same meal each day. Take 1 capsule by [facility] at bedtime as needed (For stent discomfort) for up to 7 days. Take for stent discomfort vitamin b12 1 mg/ml injectable solution (20 sources) Vitamin B12 cyanocobalamin ( Vitamin B-12) 1000 MCG/ML injection Inject 1,000 mcg into the shoulder, thigh, or buttocks 1 (one) time Active take 1 tablet by mouth once immanuel y cyanocobalamin (VITAMIN B-12) 1,000 mcg tab Take 1,000 mcg by mouth once daily. Active Comment on above: Take 1,000 mcg by [facility] once daily. Completed/Discontinued Medications Medication Drug Class(es) Dates Sig (Normalized) Sig (Original) fosfomycin 3000 mg powder for oral solution (1 source) Start: 09-21-2023 End: 09-21-2023 take 1 dose by mouth once fosfomycin (MONUROL) 3 g pack Take 1 Packet by mouth one time only for 1 dose. 1 Packet 0 09/21/2023 09/21/2023 Comment on above: Take 1 Packet by [facility] one time only for 1 dose. lidocaine hydrochloride 0.02 mg/mg topical gel (2 sources) Antiarrhythmic, Amide Local Anesthetic Start: 09-21-2023 End: 10-21-2023 lidocaine urojet 2 % 10 mL topical gel (GLYDO) trospium chloride 20 mg oral tablet (11 sources) Cholinergic Muscarinic Antagonist Start: 07-22-2023 End: 09-16-2023 take 1 tablet by mouth every twelve hours as needed trospium (SANCTURA) 20 mg tablet Take 1 tablet by mouth two times a day as needed for bladder spasms for up to 14 days. 28 tablet 0 07/22/2023 09/16/2023 Discontinued Comment on above: Take 1 tablet by masha two times a day as needed for bladder spasms for up to 14 days. Problems Active Problems Problem Classification Problem Date Documented Date Episodic/Chronic Anxiety disorders (2 sources) Generalized anxiety disorder; Translations: [Generalized anxiety disorder] Onset: 02-07-2023 04-15-2021 Chronic Aortic; peripheral; and visceral artery aneurysms (1 source) Aneurysm of splenic artery; Translations: [Aneurysm of other specified arteries] Onset: 11-16-2022 11-16-2022 Chronic Chronic kidney disease (20 sources) Chronic kidney disease stage 3A ; Translations: [Stage 3a chronic kidney disease] Onset: 11-16-2022 07-05-2023 Chronic Chronic kidney disease (2 sources) Chronic kidney disease; Translations: [CHRONIC KIDNEY DISEASE STAGE 3A] Onset: 10-21-2021 Coagulation and hemorrhagic disorders (14 sources) Thrombocytopenic disorder; Translations: [Thrombocytopenia, unspecified] Onset: 10-26-2023 10-26-2023 Chronic Congestive heart failure; nonhypertensive (20 sources) Unspecified diastolic (congestive) heart failure; Translations: [Chronic diastolic heart failure] Onset: 01-26-2017 Chronic Disorders of lipid metabolism (6 sources) Pure hyperglyceridemia; Translations: [Mixed hyperlipidemia] Onset: 04-09-2022 Chronic Esophageal disorders (20 sources) Gastroesophageal reflux disease; Translations: [Gastro-esophageal reflux disease without esophagitis] Onset: 10-01-2008 10-01-2008 Chronic Essential hypertension (20 sources) Hypertensive disorder; Translations: [Essential (primary) hypertension] Onset: 11-12-2014 11-12-2014 Chronic Genitourinary symptoms and ill-defined conditions (20 sources) Presence of urogenital implants; Translations: [Other postprocedural status] Onset: 11-16-2022 07-05-2023 Chronic Hypertension with complications and secondary hypertension (1 source) Hypertensive renal disease; Translations: [Hypertensive chronic kidney disease with stage 1 through stage 4 chronic kidney disease, or unspecified chronic kidney disease] Onset: 11-16-2022 11-16-2022 Chronic Malaise and fatigue (5 sources) Chronic fatigue, unspecified; Translations: [Fatigue] Onset: 04-20-2022 Chronic Menopausal disorders (1 source) Menopausal and female climacteric states; Translations: [MENOPAUSAL FE CLIMACTERIC STATES] Onset: 06-07-2022 Chronic Mood disorders (17 sources) Severe recurrent major depression without psychotic features; Translations: [Major depressive disorder, recurrent severe without psychotic features] Onset: 11-16-2022 10-26-2023 Chronic Nutritional deficiencies (20 sources) Deficiency of macronutrients; Translations: [Unspecified severe protein-calorie malnutrition] Onset: 11-16-2022 07-05-2023 Chronic Osteoarthritis (1 source) Unilateral primary osteoarthritis, right hip; Translations: [UNILATERAL PRIMARY OSTEOARTHRITIS, RIGHT HIP] Onset: 05-13-2017 Chronic Osteoporosis (1 source) Age-related osteoporosis without current pathological fracture; Translations: [AGE-RELATED OSTEOPOROSIS W/O CURRENT PATHOLOGICAL FRACTURE] Onset: 05-13-2017 Chronic Other bone disease and musculoskeletal deformities (1 source) Other specified disorders of bone density and structure, right thigh; Translations: [OTH D/O BONE DEN STRUCT RT THIGH] Onset: 06-07-2022 Episodic Other connective tissue disease (1 source) Presence of left artificial hip joint; Translations: [PRESENCE OF LEFT ARTIFICIAL HIP JOINT] Onset: 02-08-2017 Chronic Other connective tissue disease (1 source) History of total replacement of left hip joint; Translations: [Presence of left artificial hip joint] Onset: 11-16-2022 11-16-2022 Chronic Other diseases of kidney and ureters (2 sources) Disorder of kidney and/or ureter; Translations: [Other specified disorders of kidney and ureter] 11-07-2023 Chronic Other diseases of kidney and ureters (1 source) Other specified disorders of kidney and ureter; Translations: [Other specified disorders of kidney and ureter] Onset: 12-14-2023 Chronic Other diseases of kidney and ureters (1 source) Cyst of kidney; Translations: [Cyst of kidney, acquired] 12-26-2023 Episodic Other ear and sense organ disorders (2 sources) Hearing loss; Translations: [Unspecified hearing loss, unspecified ear] Onset: 11-16-2022 04-15-2021 Chronic Other lower respiratory disease (1 source) Nodule of lung; Translations: [Solitary pulmonary nodule] 09-20-2023 Episodic Other nervous system disorders (20 sources) Disorder of brain; Translations: [Encephalopathy, unspecified] Onset: 07-19-2023 07-19-2023 Chronic Other nervous system disorders (1 source) Walking disability; Translations: [Difficulty in walking, not elsewhere classified] Onset: 11-16-2022 11-16-2022 Chronic Residual codes; unclassified (1 source) Family history of malignant neoplasm of digestive organs; Translations: [FAM HX MALIG NEOPLASM DIGESTIV ORGN] Onset: 06-07-2022 Episodic Spondylosis; intervertebral disc disorders; other back problems (3 sources) Sacroiliitis, not elsewhere classified; Translations: [Spondylosis without myelopathy or radiculopathy, lumbar region] Onset: 02-08-2017 Chronic Thyroid disorders (20 sources) Autoimmune thyroiditis; Translations: [Hypothyroidism] Onset: 04-25-2022 07-05-2023 Chronic Unclassified (2 sources) Unknown / UNK(Unknown) Onset: 02-08-2017 Unclassified (1 source) Patient encounter status 04-17-2021 Past or Other Problems Problem Classification Problem Date Documented Da te Episodic/Chronic Abdominal hernia (2 sources) Hiatal hernia; Translations: [Diaphragmatic hernia without obstruction or gangrene] Onset: 02-07-2023 04-15-2021 Episodic Calculus of urinary tract (20 sources) Kidney stone; Translations: [Calculus of kidney] Onset: 02-07-2023 07-05-2023 Episodic Coma; stupor; and brain damage (1 source) Daytime somnolence; Translations: [Somnolence] Onset: 11-16-2022 11-16-2022 Episodic Complication of device; implant or graft (4 sources) Fracture of femur following insertion of orthopedic implant, joint prosthesis, or bone plate, left leg; Translations: [FX FEMUR FOL INSRT ORTHO IMPLNT/PROSTH/BONE PLT, LEFT LEG] Onset: 02-08-2017 Episodic Deficiency and other anemia (20 sources) Anemia; Translations: [Anemia, unspecified] Onset: 08-29-2023 08-29-2023 Episodic Deficiency and other anemia (1 source) Anemia, unspecified; Translations: [Anemia, unspecified type] Onset: 08-29-2023 Episodic Deficiency and other anemia (2 sources) Pernicious anemia; Translations: [Vitamin B12 deficiency anemia due to intrinsic factor deficiency] Onset: 02-07-2023 04-15-2021 Episodic Fracture of neck of femur (hip) (5 sources) Displaced midcervical fracture of left femur, subsequent encounter for closed fracture with routine healing; Translations: [Closed fracture of neck of femur] Onset: 11-10-2016 02-07-2023 Episodic Genitourinary symptoms and ill-defined conditions (20 sources) Abnormal urinalysis; Translations: [Unspecified abnormal findings in urine] Onset: 07-05-2023 07-05-2023 Episodic Immunizations and screening for infectious disease (19 sources) Culture positive for vancomycin resistant enterococcus; Translations: [Carrier of other specified bacterial diseases] Onset: 09-10-2023 09-10-2023 Episodic Nutritional deficiencies (1 source) Cobalamin deficiency; Translations: [Deficiency of other specified B group vitamins] Onset: 12-14-2023 12-14-2023 Episodic Other aftercare (1 source) Polypharmacy ; Translations: [Other alf (current) drug therapy] Onset: 10-04-2023 10-04-2023 Episodic Other connective tissue disease (20 sources) Weakness of face muscles; Translations: [Facial weakness] Onset: 07-19-2023 07-19-2023 Episodic Other diseases of kidney and ureters (2 sources) Hydronephrosis; Translations: [Unspecified hydronephrosis] Onset: 06-10-2023 Episodic Other diseases of veins and lymphatics (1 source) Venous insufficiency of leg; Translations: [Venous insufficiency (chronic) (peripheral)] Onset: 11-16-2022 11-16-2022 Episodic Other lower respiratory disease (1 source) Shortness of breath; Translations: [Shortness of breath] Onset: 07-11-2023 Episodic Other nervous system disorders (16 sources) Impaired cognition; Translations: [Other symptoms and signs involving cognitive functions and awareness] Onset: 09-16-2023 09-16-2023 Episodic Other nutritional; endocrine; and metabolic disorders (2 sources) Body mass index 25-29 - overweight; Translations: [Overweight] Onset: 11-16-2022 04-17-2021 Episodic Other screening for suspected conditions (not mental disorders or infectious disease) (10 sources) Encounter for screening mammogram for malignant neoplasm of breast; Translations: [Encounter for screening for osteoporosis] Onset: 10-21-2021 Episodic Peripheral and visceral atherosclerosis (1 source) Omental infarction 04-15-2021 Episodic Pulmonary heart disease (20 sources) Pulmonary embolism; Translations: [Other pulmonary embolism without acute cor pulmonale] Onset: 07-11-2023 07-11-2023 Episodic Residual codes; unclassified (20 sources) Family history of renal stone; Translations: [Family history of disorders of kidney and ureter] Onset: 07-05-2023 07-05-2023 Episodic Residual codes; unclassified (18 sources) Delirium; Translations: [Disorientation, unspecified] Onset: 09-14-2023 09-14-2023 Episodic Residual codes; unclassified (1 source) Disorientation, unspecified; Translations: [Delirium] Onset: 09-14-2023 Episodic Residual codes; unclassified (1 source) Altered mental status, unspecified; Translations: [Altered mental status, unspecified altered mental status type] Onset: 07-18-2023 Episodic Residual codes; unclassified (1 source) Encounter for procedure for purposes other than remedying health state, unspecified; Translations: [Surgery, elective] Onset: 07-11-2023 Episodic Residual codes; unclassified (1 source) Family history of disorders of kidney and ureter; Translations: [Family history of nephrolithiasis] Onset: 07-05-2023 Episodic Screening and history of mental health and substance abuse codes (20 sources) Ex-smoker; Translations: [Personal history of nicotine dependence] Onset: 07-05-2023 07-05-2023 Episodic Spondylosis; intervertebral disc disorders; other back problems (1 source) Low back pain 05-09-2019 Episodic Urinary tract infections (19 sources) Acute cystitis; Translations: [Acute cystitis without hematuria] Onset: 09-10-2023 09-10-2023 Episodic Results Test Name Value Interpretation Reference Range Facility CT CHEST WO IVCONon 02-12-20 CT CHEST WO IVCON * * *Final Report* * * DATE OF EXAM: Feb 12 2024 9:24AM [facility] 0541 - CT CHEST WO IVCON / PROCEDURE REASON: Former smoker * * * * Physician Interpretation * * * * EXAMINATION: CHEST CT WITHOUT CONTRAST CLINICAL HISTORY: Lung nodules, former smoker Technique: Spiral CT acquisition of the chest from the thoracic inlet to the upper abdomen without contrast. MQ: [id number] CT Radiation dose: Integrated Dose-length product (DLP) for this visit = 238 mGy*cm CT Dose Reduction Employed: Automated exposure control(AEC) and iterative recon Comparison: CT chest 10/21/2023 RESULT: Limitations: None. Lines, tubes, and devices: None. Lung parenchyma and airways: No pneumothorax, pleural effusions, or focal consolidations. Secretions in the trachea. Scarring in the lung apices. Small clusters of tree-in-bud nodules in the left lower lobe (image 93, 302) and in the right lower lobe (image 149, 302), unchanged. Other previously described tree-in-bud nodules and groundglass opacities in the left lower lobe appear improved and nearly resolved. Scattered lung nodules includin.3 cm nodule in the right upper lobe (image 42, 302), unchanged. 0.5 cm nodule in the right upper lobe (image 57, 302), unchanged. 0.4 cm nodule in the right lower lobe (image 113, 302), unchanged. 0.4 cm nodule in the left apex (image 43, 302), appears new. 0.4 cm nodule left lower lobe (image 110, 302), unchanged. Previously described 0.5 cm nodule in the left lower lobe has resolved Pleural space: No pleural effusion. No pleural thickening. Lower neck, lymph nodes, and mediastinum: Thyroid is not seen. No axillary or mediastinal lymphadenopathy. Evaluation of hilar lymph nodes is limited due to lack of IV contrast. Heart, pericardium, and thoracic vessels: Mild aneurysm dilatation of the ascending thoracic aorta measuring up to 4.2 cm, unchanged from prior study. Main pulmonary artery is normal in caliber. The cardiac chambers are normal in size. Coronary artery atherosclerotic calcifications are noted, although the study is not optimized for coronary assessment. No pericardial effusion or thickening. Moderate-sized hiatal hernia Bones and soft tissues: No suspicious osseous lesions. Mild degenerative changes in the thoracic spine. Upper abdomen: 1.3 cm calcified splenic artery aneurysm, unchanged. 1.0 cm cyst in the midpole of left kidney Localizer images: No additional findings. IMPRESSION: 1. Small clusters of tree-in-bud nodules in the lower lobes bilaterally are unchanged and could reflect sequela of prior infection/inflammation. 2. Other previously described tree-in-bud nodules and groundglass opacities in the left lower lobe have nearly resolved. Were likely infectious or inflammatory 3. Previously seen 0.5 cm nodule in the left lower lobe is resolved. 4. 0.4 cm nodule in the left apex is new from prior study and likely infectious or inflammatory. 5. Other scattered lung nodules measuring up to 0.5 cm are unchanged. Recommend 1 year follow-up ACTIONABLE RESULT: FOLLOW-UP Acuity: Actionable Findings: Thoracic-Lung nodules Routing code: RI_1 Recommendation: CT Chest WO IVCON Time Frame: In one year. COMMUNICATION: Results will be communicated with the ordering provider via [employer] staff message or phone message by [employer] within 2 business days of report finalization. --END OF FINDING-- Harness Installer: [facility] Transcribe Date/Time: Feb 17 2024 7:57A Dictated by : JOANNA CARLISLE MD This examination was interpreted and the report reviewed and electronically signed by: JOANNA CARLISLE MD on Feb 17 2024 8:15AM EST [id number] ACTIONABLE Invalid Interpretation Code [facility] CNOVon 02-06-2024 CNOV Normal [facility] CNPNon 01-03-2024 CNPN Normal [facility] CNOVon 12-26-2023 CNOV Normal [facility] MR Kidney WO and W contrast Maria Del Carmen 12-14-2023 IMPRESSION: SCATTERED BENIGN RENAL CYSTS. NO SUSPICIOUS RENAL MASS -- SPECIFICALLY NO LEFT RENAL HILAR MASS QUERIED ON US 11/02/2023. SMALL TYPE IV HIATAL HERNIA CONTAINING PORTION OF LEFT HEPATIC LOBE LATERAL SEGMENT. Harness Installer: ROGE Transcribe Date/Time: Dec 14 2023 11:20A Dictated by : NITHIN WHALEN MD This examination was interpreted and the report reviewed and electronically signed by: ZELALEM ZUÑIGA MD on Dec 14 2023 12:40PM EST DIVISION OF RADIOLOGY * * *Final Report* * * DATE OF EXAM: Dec 14 2023 10:29AM [facility] 0721 - MRI KIDNEY WO/W IVCON / PROCEDURE REASON: Other specified disorders of kidney and ureter * * * * Physician Interpretation * * * * EXAMINATION: MRI ABDOMEN WITHOUT AND WITH IV CONTRAST CLINICAL HISTORY: Follow-up of solid or indeterminate renal mass on ultrasound 11/02/2023. TECHNIQUE: A renal MRI was performed on a 1.5 T MR system utilizing the torso phased-array coil. Pulse sequences included: axial precontrast T1 weighted in- and [id number], axial and coronal HASTE, axial DWI with creation of ADC map; axial and coronal T1-VIBE before and after the administration of intravenous gadolinium chelate. Multiple post processing techniques were performed. MQ: MRKid_1 Contrast: IV administration of 14 ml of Dotarem COMPARISON: US 11/14/2023, CT 09/17/2023. RESULT: Kidneys, adrenals and ureters: Right kidney: Benign cysts. No solid mass. Multifocal parenchymal scarring scarring. No hydronephrosis. Left kidney: Benign cysts. No solid mass; specifically no hilar mass as queried on 11/02/2023 ultrasound. Multifocal parenchymal scarring scarring. No hydronephrosis. Abdomen: Liver: Normal morphology. Diffuse hepatic steatosis. No mass. Biliary: No bile duct dilation. Spleen: No mass. No splenomegaly. Pancreas: No mass or duct dilation. Adrenals: No mass. GI tract: No dilation or wall thickening. Moderate type IV hiatal hernia containing knuckle of left lobe lateral segment, unchanged. Colonic diverticulosis without inflammatory changes. Small periampullary duodenal diverticulum. Lymph nodes (other): No abdominal or pelvic lymphadenopathy. Mesentery/Peritoneum: No ascites or mass. Retroperitoneum: No mass. Vasculature: The celiac axis and SMA are patent. The portal vein and branches, splenic vein, SMV, and hepatic veins are patent. No abdominal aortic aneurysm. Bones/Soft Tissues: Degenerative changes. Lower thorax: Unremarkable. DIVISION OF RADIOLOGY Provider, Diane Holguin [facility] - 12/14/2023 * * *Final Report* * * DATE OF EXAM: Dec 14 2023 10:29AM [facility] 0721 - MRI KIDNEY WO/W IVCON / PROCEDURE REASON: Other specified disorders of kidney and ureter * * * * Physician Interpretation * * * * EXAMINATION: MRI ABDOMEN WITHOUT AND WITH IV CONTRAST CLINICAL HISTORY: Follow-up of solid or indeterminate renal mass on ultrasound 11/02/2023. TECHNIQUE: A renal MRI was performed on a 1.5 T MR system utilizing the torso phased-array coil. Pulse sequences included: axial precontrast T1 weighted in- and [id number]-yq-clblv, axial and coronal HASTE, axial DWI with creation of ADC map; axial and coronal T1-VIBE before and after the administration of intravenous gadolinium chelate. Multiple post processing techniques were performed. MQ: MRKid_1 Contrast: IV administration of 14 ml of Dotarem COMPARISON: US 11/14/2023, CT 09/17/2023. RESULT: Kidneys, adrenals and ureters: Right kidney: Benign cysts. No solid mass. Multifocal parenchymal scarring scarring. No hydronephrosis. Left kidney: Benign cysts. No solid mass; specifically no hilar mass as queried on 11/02/2023 ultrasound. Multifocal parenchymal scarring scarring. No hydronephrosis. Abdomen: Liver: Normal morphology. Diffuse hepatic steatosis. No mass. Biliary: No bile duct dilation. Spleen: No mass. No splenomegaly. Pancreas: No mass or duct dilation. Adrenals: No mass. GI tract: No dilation or wall thickening. Moderate type IV hiatal hernia containing knuckle of left lobe lateral segment, unchanged. Colonic diverticulosis without inflammatory changes. Small periampullary duodenal diverticulum. Lymph nodes (other): No abdominal or pelvic lymphadenopathy. Mesentery/Peritoneum: No ascites or mass. Retroperitoneum: No mass. Vasculature: The celiac axis and SMA are patent. The portal vein and branches, splenic vein, SMV, and hepatic veins are patent. No abdominal aortic aneurysm. Bones/Soft Tissues: Degenerative changes. Lower thorax: Unremarkable. IMPRESSION IMPRESSION: SCATTERED BENIGN RENAL CYSTS. NO SUSPICIOUS RENAL MASS -- SPECIFICALLY NO LEFT RENAL HILAR MASS QUERIED ON US 11/02/2023. SMALL TYPE IV HIATAL HERNIA CONTAINING PORTION OF LEFT HEPATIC LOBE LATERAL SEGMENT. Harness Installer: ROGE Transcribe Date/Time: Dec 14 2023 11:20A Dictated by : NITHIN WHALEN MD This examination was interpreted and the report reviewed and electronically signed by: ZELALEM ZUÑIGA MD on Dec 14 2023 12:40PM [facility] Radiology Study observation (narrative) [facility] MR Kidney WO and W contrast IVOrdered By: Ccf Provider on 12-14-2023 [facility] MRI KIDNEY WO/W IVCONon 11-25 MRI KIDNEY WO/W IVCON Normal [facility] CNOVon 11-14-2023 CNOV Normal [facility] US KIDNEY/BLADDERon 11-02-19 US KIDNEY/BLADDER * * *Final Report* * * DATE OF EXAM: Nov 02 2023 12:51PM [facility] 1055 - US KIDNEY/BLADDER / PROCEDURE REASON: Nephrolithiasis * * * * Physician Interpretation * * * * EXAMINATION: RENAL ULTRASOUND CLINICAL HISTORY: Nephrolithiasis. TECHNIQUE: Sonography of the kidneys and urinary bladder was performed. Images were obtained and stored in a permanent archive. MQ: UR_1 COMPARISON: CT scan of the abdomen and pelvis without contrast dated 09/17/2023. RESULT: Right Kidney: -Renal length: 10.9 cm -Parenchyma: Normal parenchymal echogenicity. Normal parenchymal thickness. -Collecting system: No hydronephrosis. -Calculus: Echogenic focus measuring approximately 5 x 1 x 5 mm is identified in the mid right kidney, compatible with a nonobstructing renal calculus. -Lesion: An avascular, anechoic, well circumscribed lesion measuring 3.8 x 3.3 x 3.5 cm is identified in the mid to upper pole, compatible with a partly exophytic simple renal cyst. Left Kidney: -Renal length: 10.1 cm -Parenchyma: Normal parenchymal echogenicity. Normal parenchymal thickness. -Collecting system: No hydronephrosis. -Calculus: Echogenic foci measuring 3 x 1 x 3 mm and 4 x 3 x 5 mm in the mid and lower pole, compatible with nonobstructing renal calculi. -Lesion: Solid, iso to hypoechoic density measuring 2.4 x 2.1 x 2.5 cm is identified in the medial aspect of the mid left kidney; concerning for a lesion in this region. Bladder: No sonographically obvious intraluminal bladder lesions. IMPRESSION: Solid appearing lesion in the left kidney, concerning for neoplasm/malignancy. Further evaluation with CT scan of the kidneys or MRI of the kidneys is recommended. Nonobstructing bilateral renal calculi. No right or left hydronephrosis. ACTIONABLE RESULT: FOLLOW-UP Acuity: Actionable Findings: Kidneys/Ureters/Bladder Routing Code: GU_1 Recommendation: Unlisted Recommendation (see report) Time Frame: Non-urgent, but prompt follow-up COMMUNICATION: Results will be communicated with the ordering provider via [employer] staff message or phone message by [facility] within 2 business days of report finalization. --END OF FINDING-- Harness Installer: ROGE Transcribe Date/Time: Nov 05 2023 3:55P Dictated by : REYNA BACK MD This examination was interpreted and the report reviewed and electronically signed by: REYNA BACK MD on Nov 05 2023 3:59PM EST [id number] ACTIONABLE Invalid Interpretation Code [facility] XR ABDOMEN 3V KUB W/OBLIQUES on 11-02-2023 XR ABDOMEN 3V KUB W/OBLIQUES * * *Final Report* * * DATE OF EXAM: Nov 02 2023 12:22PM [id number] [id number] - XR ABDOMEN 3V KUB W/OBLIQUES / PROCEDURE REASON: Nephrolithiasis * * * * Physician Interpretation * * * * XR ABDOMEN 3V KUB W/OBLIQUES 11/02/2023 12:22 PM HISTORY: Nephrolithiasis, status post RIGHT-sided stent removal. TECHNIQUE: 3 views of the kidneys ureter and bladder were obtained COMPARISON: Abdominal x-rays dated 09/13/2023 and 11/02/[address] of the abdomen and pelvis dated 09/17/2023. RESULT: Again noted is a curvilinear calcification overlying the expected region of the RIGHT lower renal pole measuring approximately 9 mm. Linear calcification overlying the LEFT iliopsoas muscle border, which is likely vascular in nature as it is only seen on one view and corresponds with calcification in the aorta on CT. No definite LEFT-sided renal calcifications. Mesh anchors/markers are seen overlying T12 and in the LEFT subdiaphragmatic region, corresponding with those seen on CT. Callus location of the LEFT splenic artery, possibly a small calcified aneurysm. Moderate to severe degenerative changes of the lumbar spine, most prominent at the L4-5 level (assuming 5 lumbar vertebral bodies). Nonspecific bowel gas pattern. IMPRESSION: Approximately 0.9 cm curvilinear calcification overlying the expected region of the inferior RIGHT kidney, which could represent calyceal constipation seen on CT dated 09/17/2023. No additional renal/ureteral calcification seen. Harness Installer: ROGE Transcribe Date/Time: Nov 08 2023 4:41P Dictated by : MELISSA WHIPPLE MD This examination was interpreted and the report reviewed and electronically signed by: MELISSA WHIPPLE MD on Nov 08 2023 4:45PM EST [id number] Normal [facility] CT CHEST WO IVCONon 10-21-19 CT CHEST WO IVCON Invalid Interpretation Code [facility] CT Chest WO contrastOrdered By: Ccf Provider on 10-21-2023 Interpretation and review of laboratory results Abnormal [facility] Radiology Result ACTIONABLE Abnormal [facility] Comment on above: This report contains an incidental or actionable finding. This finding may be a new finding separate from the reason your provider ordered the imaging test or it may be an already known finding that needs additional or continued follow-up. Because of this incidental or actionable finding, you may need another test (imaging or a different type of test). Please contact your provider for the next steps. [facility] CT Chest WO contraston 10-20 IMPRESSION: Findings suggesting infectious bronchiolitis within the lower lobes left greater than right with overall improvement in the right lower lobe since prior CT abdomen pelvis. Additional follow-up chest CT in 3 months is recommended to ensure resolution. Solid pulmonary nodules measuring up to 5 mm can be reassessed on follow-up. Possible 2.3 cm contour deformity at the upper pole left kidney. Contrast-enhanced MRI is recommended to exclude a neoplasm. ACTIONABLE RESULT: FOLLOW-UP Acuity: Actionable Findings: Thoracic-Other Routing Code: CT_1 Recommendation: CT Chest WO IVCON Time Frame: Additional evaluation as described in the impression COMMUNICATION: Results will be communicated with the ordering provider via [employer] staff message or phone message by [facility] within 2 business days of report finalization. --END OF FINDING-- Acuity: Actionable Findings: Kidneys/Ureters/Bladder Routing Code: GU_1 Recommendation: MRI KIDNEY WO/W IVCON TimeFrame: at the discretion of the clinical team. --END OF FINDING-- Transcribe Date/Time: Oct 21 2023 10:21A Dictated by: BRIT HOBSON MD This examination was interpreted and the report reviewed and electronically signed by: BRIT HOBSON MD on Oct 21 2023 10:45AM EST Thank you for allowing us to participate in the care of your patient. Should there be any questions regarding this interpretation, please call [phone]. If you are unable to reach us at the number above, please feel free to contact [facility] eRadiology at [phone]. DIVISION OF RADIOLOGY * * *Final Report* * * DATE OF EXAM: Oct 21 2023 8:21AM [facility] 0541 - CT CHEST WO IVCON / PROCEDURE REASON: Former smoker * * * * Physician Interpretation * * * * RESULT: EXAMINATION: CHEST CT WITHOUT CONTRAST CLINICAL HISTORY: Former smoker nodule Technique: Spiral CT acquisition of the chest from the thoracic inlet to the upper abdomen without contrast. MQ: CTCWOR_4 CT Dose-Length Product: 191 mGy*cm CT Dose Reduction Employed: Automated exposure control (AEC) Comparison: CT abdomen pelvis 09/17/2023 and 07/05/2023 RESULT: Lines, tubes, and devices: None. Lung parenchyma and airways: Trachea and central airways are patent. Biapical pleuroparenchymal scarring. Diffuse bronchial wall thickening with scattered mucoid impactions. Centrilobular and tree-in-bud nodular opacities within the lower lobes left greater than right. Opacities in the right lower lobe improved since prior. More confluent 1.7 cm groundglass and nodular opacity left lower lobe (image 115). Previously identified 1.1 cm right middle lobe nodule has resolved. Scattered pulmonary nodules are noted. Index nodules are as follows: * 3 mm nodule right upper lobe (image 38) * 3 mm nodule right upper lobe (image 54) * 5 mm nodule left lower lobe (image 98) Pleural space: No pleural effusion or pneumothorax. Lower neck, lymph nodes, and mediastinum: No axillary, supraclavicular, mediastinal or hilar lymphadenopathy by CT size criteria. Heart, pericardium, and thoracic vessels: The heart is normal in size. No pericardial effusion. Ascending aorta is borderline dilated measuring up to 4 cm. Main pulmonary artery is normal caliber. Atherosclerotic calcifications of the thoracic aorta and coronary arteries. Bones/Soft Tissues: No aggressive osseous lesions. Upper abdomen: 1.3 cm calcified splenic artery aneurysm. Small hiatal hernia. Possible 2.3 cm contour deformity at the upper pole of the left kidney (axial image 203). Model Maker Scale (topogram) images: Unremarkable. DIVISION OF RADIOLOGY Provider, [facility] - 10/21/2023 * * *Final Report* * * DATE OF EXAM: Oct 21 2023 8:21AM [facility] 0541 - CT CHEST WO IVCON / PROCEDURE REASON: Former smoker * * * * Physician Interpretation * * * * RESULT: EXAMINATION: CHEST CT WITHOUT CONTRAST CLINICAL HISTORY: Former smoker nodule Technique: Spiral CT acquisition of the chest from the thoracic inlet to the upper abdomen without contrast. MQ: CTCWOR_4 CT Dose-Length Product: 191 mGy*cm CT Dose Reduction Employed: Automated exposure control (AEC) Comparison: CT abdomen pelvis 09/17/2023 and 07/05/2023 RESULT: Lines, tubes, and devices: None. Lung parenchyma and airways: Trachea and central airways are patent. Biapical pleuroparenchymal scarring. Diffuse bronchial wall thickening with scattered mucoid impactions. Centrilobular and tree-in-bud nodular opacities within the lower lobes left greater than right. Opacities in the right lower lobe improved since prior. More confluent 1.7 cm groundglass and nodular opacity left lower lobe (image 115). Previously identified 1.1 cm right middle lobe nodule has resolved. Scattered pulmonary nodules are noted. Index nodules are as follows: * 3 mm nodule right upper lobe (image 38) * 3 mm nodule right upper lobe (image 54) * 5 mm nodule left lower lobe (image 98) Pleural space: No pleural effusion or pneumothorax. Lower neck, lymph nodes, and mediastinum: No axillary, supraclavicular, mediastinal or hilar lymphadenopathy by CT size criteria. Heart, pericardium, and thoracic vessels: The heart is normal in size. No pericardial effusion. Ascending aorta is borderline dilated measuring up to 4 cm. Main pulmonary artery is normal caliber. Atherosclerotic calcifications of the thoracic aorta and coronary arteries. Bones/Soft Tissues: No aggressive osseous lesions. Upper abdomen: 1.3 cm calcified splenic artery aneurysm. Small hiatal hernia. Possible 2.3 cm contour deformity at the upper pole of the left kidney (axial image 203). Model Maker Scale (topogram) images: Unremarkable. IMPRESSION IMPRESSION: Findings suggesting infectious bronchiolitis within the lower lobes left greater than right with overall improvement in the right lower lobe since prior CT abdomen pelvis. Additional follow-up chest CT in 3 months is recommended to ensure resolution. Solid pulmonary nodules measuring up to 5 mm can be reassessed on follow-up. Possible 2.3 cm contour deformity at the upper pole left kidney. Contrast-enhanced MRI is recommended to exclude a neoplasm. ACTIONABLE RESULT: FOLLOW-UP Acuity: Actionable Findings: Thoracic-Other Routing Code: CT_1 Recommendation: CT Chest WO IVCON Time Frame: Additional evaluation as described in the impression COMMUNICATION: Results will be communicated with the ordering provider via [employer] staff message or phone message by [facility] within 2 business days of report finalization. --END OF FINDING-- Acuity: Actionable Findings: Kidneys/Ureters/Bladder Routing Code: GU_1 Recommendation: MRI KIDNEY WO/W IVCON TimeFrame: at the discretion of the clinical team. --END OF FINDING-- Transcribe Date/Time: Oct 21 2023 10:21A Dictated by: BRIT HOBSON MD This examination was interpreted and the report reviewed and electronically signed by: BRIT HOBSON MD on Oct 21 2023 10:45AM EST Thank you for allowing us to participate in the care of your patient. Should there be any questions regarding this interpretation, please call [phone]. If you are unable to reach us at the number above, please feel free to contact [facility] eRadiology at [phone]. [facility] Radiology Study observation (narrative) [facility] ASPERGILLUS GALACTOMANNAN SE RUMon 10-10-2023 ASPERGILLUS GALACTOMANNAN 0.06 Index Value Normal <=0.49 [facility] Comment on above: Order Comment: Ash rodarte Type: BLOOD SPECIMENOrdering Facility: [facility] Address: [address] [place] [address] Performed By: #### A SGALS ####[facility] LABCLIA [id number] [place] [address] [place] Galactomannan Ag IA Ql Negative Normal Negative [facility] Comment on above: Order Comment: Ash rodarte Type: BLOOD SPECIMENOrdering Facility: [facility] Address: [address] [place] [address] Result Comment: Aspe rgillus Galactomannan antigen assay is used as an aid in diagnosis of invasive aspergillosis in immunocompromised individuals especially in post-stem cell transplant, hematological malignancies on chemotherapy, and HIV-positive patients with very low CD4 T-cell counts. The test may also be used in disease prognostication and for monitoring response to anti-fungal therapy. False positive and false negative results are not uncommon. Clinical and radiological correlation is required. Performed By: #### A SAMUEL ####[facility] LABCLIA [id number] [address] BLASTOMYCES ANTIGENon 2023 INTERPRETATION Negative Normal [facility] Comment on above: Order Comment: Speci men Type: BLOOD SPECIMENOrdering Facility: [facility] Address: [address] [place] [address] Result Comment: Test Parameters:Reference Interval: None DetectedReportable Range: 0.31 ng/mL - 20.00 ng/mLResults above 20.00 ng/mL are reported as'Positive, Above the Limit of Quantification'This test was developed and its performancecharacteristics determined by [employer] Ithas not been cleared or approved by the FDA; however,FDA clearance or approval is not currently required forclinical use. The results are not intended to be usedas the sole means for clinical diagnosis or patientmanagement decisions.Test performed by [employer] [address] [place] [address] [place] [address] Phone: Peter Campos MD, [employer] Home [employer] Performed By: #### B HUSAM ####[facility]RE[facility] RE[facility] LABCLIA [id number] [place], [place] RESULT: SEE BELOW Normal [facility] Comment on above: Order Comment: Speci men Type: BLOOD SPECIMENOrdering Facility: [facility] Address: [address] [place] [address] Result Comment: None Detected ng/mL Performed By: #### B LAS ####ALYCE MURRELLTILLY REF LABCLIA [id number] [facility] [place] SPECIMEN TYPE: Serum Normal [facility] Comment on above: Order Comment: Speci men Type: BLOOD SPECIMENOrdering Facility: [facility] Address: [address] [place] [address] Performed By: #### B LAS ####ALYCE NANCY REF LABCLIA [id number] [place], [place] FUNGAL BATTERY IDon 10-10-19 24 Aspergillus sp Ab Immune diff Ql (S) Negative Normal Negative [facility] Comment on above: Order Comment: Speci men Type: BLOOD SPECIMENOrdering Facility: [facility] Address: [address] [place] [address] Result Comment: Aspe rgillus antibody test by immunodiffusion may be used as an aid in diagnosis of chronic pulmonary aspergillosis including chronic cavitary pulmonary aspergillosis and chronic fibrosing pulmonary aspergillosis. Immunodiffusion test is more specific but less sensitive than complement fixation test. Clinical correlation is required. Performed By: #### F UNID ####[facility] LABCLIA [id number] [place] [address] [place] B. dermatitidis Ab Immune diff Ql (S) Negative Normal Negative [facility] Comment on above: Order Comment: Speci [facility] Type: BLOOD SPECIMENOrdering Facility: [facility] Address: [address] [place] [address] Result Comment: Bonilla tomyces antibody test by Immunodiffusion may be used as an aid in diagnosis of infection with the dimorphic fungus Blastomyces dermatitidis. Blastomyces serology has low overall diagnostic sensitivity especially with localized disease. Immunodiffusion test is more specific but less sensitive than complement fixation test. Clinical and epidemiological correlation is required. Performed By: #### F UNID ####[facility] LABCLIA [id number] [place] [address] [place] Coccidioides sp Ab Immune diff Ql (S) Negative Normal Negative [facility] Comment on above: Order Comment: Speci men Type: BLOOD SPECIMENOrdering Facility: [facility] Address: [address] [place] [address] Result Comment: Cocc idioides antibody test by Immunodiffusion may be used as an aid in diagnosis of infection with the dimorphic fungus Coccidioides spp. Cannot exclude acute infection if the specimen collected 4-6 weeks after onset of signs and symptoms. Immunodiffusion test is more specific but less sensitive than complement fixation test. Clinical and epidemiological correlation is required. Performed By: #### F UNID ####[facility] [id number] [place] [address] [place] H. capsulatum Ab Immune diff Ql (S) Negative Normal Negative [facility] Comment on above: Order Comment: Speci men Type: BLOOD SPECIMENOrdering Facility: [facility] Address: [address] [place] [address] Result Comment: Hist oplasma antibody test by Immunodiffusion may be used as an aid in diagnosis of infection with the dimorphic fungus Histoplasma capsulatum. Histoplasma antibody test has low overall diagnostic sensitivity especially with localized disease. Immunodiffusion test is more specific but less sensitive than complement fixation test. Clinical and epidemiological correlation is required. Performed By: #### F UNID ####[facility] [id number] [place] [address] [place] HISTOPLASMA AG URINEon 10-09 H. capsulatum Ag (U) [Mass/Vol] <0.2 Normal <0.2 [facility] Comment on above: Order Comment: Speci men Type: URINE SPECIMENOrdering Facility: [facility] Address: [address] [place] [address] Performed By: #### U HISTO ####[facility] [id number] [place] [address] [place] H. capsulatum Ag IA Ql (U) Negative Normal Negative [facility] Comment on above: Order Comment: Speci men Type: URINE SPECIMENOrdering Facility: [facility] Address: [address] [place] [address] Result Comment: Hist oplasma galactomannan antigen, urine test is used as an aid in diagnosing histoplasmosis. A negative result cannot rule out infection. Low positive results may at times be due to cross-reactivity with Blastomyces, Talaromyces marneffei, Paracoccidioides, and some Mireya species. Clinical radiological, and epidemiological correlation is required. Performed By: #### U HISTO ####[facility] LABCLIA [id number] [place] [address] [place] CNOVon 09-21-2023 CNOV Normal [facility] CNCOon 09-19-2023 CNCO Letter Text Normal [facility] Basic metabolic 2000 panelon 09-17-2023 Anion gap [Moles/Vol] 11 mmol/L Normal 9-18 [facility] Comment on above: Order Comment: Speci men Type: BLOOD SPECIMENOrdering Facility: [facility] Address: [address] [place] [address] Performed By: #### 2 4321-2 ####[facility] LABCLIA [id number] [place] [address] [place] Calcium [Mass/Vol] 8.6 mg/dL Normal 8.5-10.2 [facility] Comment on above: Order Comment: Speci men Type: BLOOD SPECIMENOrdering Facility: [facility] Address: [address] [place] [address] Performed By: #### 2 4321-2 ####[facility] LABCLIA [id number] [place] [address] [place] Chloride [Moles/Vol] 107 mmol/L High 97-105 [facility] Comment on above: Order Comment: Speci men Type: BLOOD SPECIMENOrdering Facility: [facility] Address: [address] [place] [address] Performed By: #### 2 4321-2 ####[facility] LABCLIA [id number] [place] [address] [place] CO2 [Moles/Vol] 23 mmol/L Normal 22-30 [facility] Comment on above: Order Comment: Speci men Type: BLOOD SPECIMENOrdering Facility: [facility] Address: [address] [place] [address] Performed By: #### 2 4321-2 ####[facility] LABCLIA [id number] [place] [id number] [place] [facility] Creatinine [Mass/Vol] 0.70 mg/dL Normal 0.58-0.96 [facility] Comment on above: Order Comment: Speci men Type: BLOOD SPECIMENOrdering Facility: [facility] Address: [address] [place] [address] Performed By: #### 2 4321-2 ####[facility] LABIA [id number] [place] [address] [place] Creatinine and Glomerular filtration rate.predicted panel (S/P/Bld) 89 mL/min/1.73m??? Normal >=60 [facility] Comment on above: Order Comment: Speci men Type: BLOOD SPECIMENOrdering Facility: [facility] Address: [address] [place] [address] Result Comment: Josie mated Glomerular Filtration Rate (eGFR) is calculated using the 2020 CKD-EPI creatinine equation. This equation utilizes serum creatinine, sex, and age as parameters. The creatinine assay has traceable calibration to isotope dilution-mass spectrometry. Refer to KDIGO guidelines for clinical interpretation. In patients with unstable renal function, e.g. those with acute kidney injury, the eGFR may not accurately reflect actual GFR. Performed By: #### 2 4321-2 ####[facility] LABIA [id number] [place] [address] [place] Glucose [Mass/Vol] 94 mg/dL Normal 74-99 [facility] Comment on above: Order Comment: Speci men Type: BLOOD SPECIMENOrdering Facility: [facility] Address: [address] [place] [address] Result Comment: The [place] [employer] (ADA) provides guidance for cutoff values for fasting glucose and random glucose. The ADA defines fasting as no caloric intake for at least 8 hours. Fasting plasma glucose results between 100 to 125 mg/dL indicate increased risk for diabetes (prediabetes).Fasting plasma glucose results greater than or equal to 126 mg/dL meet the criteria for diagnosis of diabetes. In the absence of unequivocal hyperglycemia, results should be confirmed by repeat testing. In a patient with classic symptoms of hyperglycemia or hyperglycemic crisis, random plasma glucose results greater than or equal to 200 mg/dL meet the criteria for diagnosis of diabetes.Reference: Standards of Medical Care in Diabetes 2016, [place] [employer]. Diabetes Care. 2016.39(Suppl 1). Performed By: #### 2 4321-2 ####[facility] LABCLIA [id number] [place] [address] [place] Potassium [Moles/Vol] 3.6 mmol/L Low 3.7-5.1 [facility] Comment on above: Order Comment: Speci men Type: BLOOD SPECIMENOrdering Facility: [facility] Address: [address] [place] [address] Performed By: #### 2 4321-2 ####[facility] LABIA [id number] [place] [address] [place] Sodium [Moles/Vol] 141 mmol/L Normal 136-144 [facility] Comment on above: Order Comment: Ash rodarte Type: BLOOD SPECIMENOrdering Facility: [facility] Address: [address] [place] [address] Performed By: #### 2 4321-2 ####[facility] LABIA [id number] [place] [address] [place] Urea nitrogen [Mass/Vol] 4 mg/dL Low 7-21 [facility] Comment on above: Order Comment: Madeleinei men Type: BLOOD SPECIMENOrdering Facility: [facility] Address: [address] [place] [address] Performed By: #### 2 4321-2 ####[facility] LABIA [id number] [place] [id number] [place] CASE MANAGEMon 09-17-2023 CASE MANAGEM Normal [facility] CBC panel Auto (Bld)on 03-23 -2024 Erythrocyte distribution width (RBC) [Ratio] 13.8 % Normal 11.5-15.0 [facility] Comment on above: Order Comment: Speci men Type: BLOOD SPECIMENOrdering Facility: [facility] Address: [address] [place] [address] Performed By: #### 5 8410-2 ####[facility] LABIA [id number] [place] [address] [place] Hematocrit (Bld) [Volume fraction] 30.9 % Low 36.0-46.0 [facility] Comment on above: Order Comment: Speci men Type: BLOOD SPECIMENOrdering Facility: [facility] Address: [address] [place] [address] Performed By: #### 5 8410-2 ####[facility] LABIA [id number] [place] [address] [place] Hemoglobin (Bld) [Mass/Vol] 9.7 g/dL Low 11.5-15.5 [facility] Comment on above: Order Comment: Speci men Type: BLOOD SPECIMENOrdering Facility: [facility] Address: [address] [place] [address] Performed By: #### 5 8410-2 ####[facility] LABIA [id number] [place] [address] [place] MCH (RBC) [Entitic mass] 29.6 pg Normal 26.0-34.0 [facility] Comment on above: Order Comment: Speci men Type: BLOOD SPECIMENOrdering Facility: [facility] Address: [address] [place] [address] Performed By: #### 5 8410-2 ####[facility] LABIA [id number] [place] [address] [place] MCHC (RBC) [Mass/Vol] 31.4 g/dL Normal 30.5-36.0 [facility] Comment on above: Order Comment: Speci men Type: BLOOD SPECIMENOrdering Facility: [facility] Address: [address] [place] [address] Performed By: #### 5 8410-2 ####[facility] LABCLIA [id number] [place] [address] [place] MCV (RBC) [Entitic vol] 94.2 fL Normal 80.0-100.0 [facility] Comment on above: Order Comment: Speci men Type: BLOOD SPECIMENOrdering Facility: [facility] Address: [address] [place] [address] Performed By: #### 5 8410-2 ####[facility] LABIA [id number] [place] [address] [place] Nucleated RBC (Bld) [#/Vol] 10*3/uL Normal <0.01 [facility] Comment on above: Order Comment: Speci men Type: BLOOD SPECIMENOrdering Facility: [facility] Address: [address] [place] [address] Performed By: #### 5 8410-2 ####[facility] LABIA [id number] [place] [address] [place] Platelet mean volume (Bld) [Entitic vol] 9.4 fL Normal 9.0-12.7 [facility] Comment on above: Order Comment: Speci men Type: BLOOD SPECIMENOrdering Facility: [facility] Address: [address] [place] [address] Performed By: #### 5 8410-2 ####[facility] LABCLIA [id number] [place] [address] [place] Platelets (Bld) [#/Vol] 250 10*3/uL Normal 150-400 [facility] Comment on above: Order Comment: Speci men Type: BLOOD SPECIMENOrdering Facility: [facility] Address: [address] [place] [address] Performed By: #### 5 8410-2 ####[facility] LABCLIA [id number] [place] [address] [place] RBC (Bld) [#/Vol] 3.28 10*6/uL Low 3.90-5.[address] [facility] Comment on above: Order Comment: Speci men Type: BLOOD SPECIMENOrdering Facility: [facility] Address: [address] [place] [address] Performed By: #### 5 8410-2 ####[facility] LABIA [id number] [place] [address] [place] WBC (Bld) [#/Vol] 4.78 10*3/uL Normal 3.70-11.[address] [facility] Comment on above: Order Comment: Speci men Type: BLOOD SPECIMENOrdering Facility: [facility] Address: [address] [place] [address] Performed By: #### 5 8410-2 ####[facility] LABIA [id number] [place] [address] [place] Erythrocyte distribution width (RBC) [Ratio] 13.6 % Normal 11.5-15.0 [facility] Comment on above: Order Comment: Speci men Type: BLOOD SPECIMENOrdering Facility: [facility] Address: [address] [place] [address] Performed By: #### 5 8410-2 ####[facility] LABIA [id number] [place] [address] [place] Hematocrit (Bld) [Volume fraction] 30.3 % Low 36.0-46.0 [facility] Comment on above: Order Comment: Speci men Type: BLOOD SPECIMENOrdering Facility: [facility] Address: [address] [place] [address] Performed By: #### 5 8410-2 ####[facility] LABCLIA [id number] [place] [address] [place] Hemoglobin (Bld) [Mass/Vol] 9.2 g/dL Low 11.5-15.5 [facility] Comment on above: Order Comment: Speci men Type: BLOOD SPECIMENOrdering Facility: [facility] Address: [address] [place] [address] Performed By: #### 5 8410-2 ####[facility] LABIA [id number] [place] [address] [place] MCH (RBC) [Entitic mass] 29.0 pg Normal 26.0-34.0 [facility] Comment on above: Order Comment: Speci men Type: BLOOD SPECIMENOrdering Facility: [facility] Address: [address] [place] [address] Performed By: #### 5 8410-2 ####[facility] [id number] [place] [address] [place] MCHC (RBC) [Mass/Vol] 30.4 g/dL Low 30.5-36.0 [facility] Comment on above: Order Comment: Speci men Type: BLOOD SPECIMENOrdering Facility: [facility] Address: [address] [place] [address] Performed By: #### 5 8410-2 ####[facility] [id number] [place] [address] [place] MCV (RBC) [Entitic vol] 95.6 fL Normal 80.0-100.0 [facility] Comment on above: Order Comment: Speci men Type: BLOOD SPECIMENOrdering Facility: [facility] Address: [address] [place] [address] Performed By: #### 5 8410-2 ####[facility] [id number] [place] [address] [place] Nucleated RBC (Bld) [#/Vol] 10*3/uL Normal <0.01 [facility] Comment on above: Order Comment: Speci men Type: BLOOD SPECIMENOrdering Facility: [facility] Address: [address] [place] [address] Performed By: #### 5 8410-2 ####[facility] LABCLIA [id number] [place] [address] [place] Platelet mean volume (Bld) [Entitic vol] 9.3 fL Normal 9.0-12.7 [facility] Comment on above: Order Comment: Speci men Type: BLOOD SPECIMENOrdering Facility: [facility] Address: [address] [place] [address] Performed By: #### 5 8410-2 ####[facility] LABCLIA [id number] [place] [address] [place] Platelets (Bld) [#/Vol] 242 10*3/uL Normal 150-400 [facility] Comment on above: Order Comment: Speci men Type: BLOOD SPECIMENOrdering Facility: [facility] Address: [address] [place] [address] Performed By: #### 5 8410-2 ####[facility] LABCLIA [id number] [place] [address] [place] RBC (Bld) [#/Vol] 3.17 10*6/uL Low 3.90-5.[address] [facility] Comment on above: Order Comment: Speci men Type: BLOOD SPECIMENOrdering Facility: [facility] Address: [address] [place] [address] Performed By: #### 5 8410-2 ####[facility] LABCLIA [id number] [place] [address] [place] WBC (Bld) [#/Vol] 4.83 10*3/uL Normal 3.70-11.[address] [facility] Comment on above: Order Comment: Speci men Type: BLOOD SPECIMENOrdering Facility: [facility] Address: [address] [place] [address] Performed By: #### 5 8410-2 ####[facility] LABCLIA [id number] [place] [address] [place] ABD/PEL WO IVCONon 2023 CT ABD/PEL WO IVCON Invalid Interpretation Code [facility] Basic metabolic 2000 panelon 09-16-2023 Anion gap [Moles/Vol] 8 mmol/L Low 9-18 [facility] Comment on above: Order Comment: Speci men Type: BLOOD SPECIMENOrdering Facility: [facility] Address: [address] [place] [address] Performed By: #### 2 4321-2 ####[facility] LABCLIA [id number] [place] [address] [place] Calcium [Mass/Vol] 9.1 mg/dL Normal 8.5-10.2 [facility] Comment on above: Order Comment: Speci men Type: BLOOD SPECIMENOrdering Facility: [facility] Address: [address] [place] [address] Performed By: #### 2 4321-2 ####[facility] LABCLIA [id number] [place] [address] [place] Chloride [Moles/Vol] 106 mmol/L High 97-105 [facility] Comment on above: Order Comment: Speci men Type: BLOOD SPECIMENOrdering Facility: [facility] Address: [address] [place] [address] Performed By: #### 2 4321-2 ####[facility] LABCLIA [id number] [place] [address] [place] CO2 [Moles/Vol] 24 mmol/L Normal 22-30 [facility] Comment on above: Order Comment: Speci men Type: BLOOD SPECIMENOrdering Facility: [facility] Address: [address] [place] [address] Performed By: #### 2 4321-2 ####[facility] LABCLIA [id number] [place] [address] [place] Creatinine [Mass/Vol] 0.56 mg/dL Low 0.58-0.96 [facility] Comment on above: Order Comment: Ash rodarte Type: BLOOD SPECIMENOrdering Facility: [facility] Address: [address] [place] [address] Performed By: #### 2 4321-2 ####[facility] LABCLIA [id number] [place] [address] [place] Creatinine and Glomerular filtration rate.predicted panel (S/P/Bld) 94 mL/min/1.73m??? Normal >=60 [facility] Comment on above: Order Comment: Ash rodarte Type: BLOOD SPECIMENOrdering Facility: [facility] Address: [address] [place] [address] Result Comment: Josie mated Glomerular Filtration Rate (eGFR) is calculated using the 2020 CKD-EPI creatinine equation. This equation utilizes serum creatinine, sex, and age as parameters. The creatinine assay has traceable calibration to isotope dilution-mass spectrometry. Refer to KDIGO guidelines for clinical interpretation. In patients with unstable renal function, e.g. those with acute kidney injury, the eGFR may not accurately reflect actual GFR. Performed By: #### 2 4321-2 ####[facility] LABCLIA [id number] [place] [address] [place] Glucose [Mass/Vol] 96 mg/dL Normal 74-99 [facility] Comment on above: Order Comment: Ash rodarte Type: BLOOD SPECIMENOrdering Facility: [facility] Address: [address] [place] [address] Result Comment: The [place] [employer] (ADA) provides guidance for cutoff values for fasting glucose and random glucose. The ADA defines fasting as no caloric intake for at least 8 hours. Fasting plasma glucose results between 100 to 125 mg/dL indicate increased risk for diabetes (prediabetes).Fasting plasma glucose results greater than or equal to 126 mg/dL meet the criteria for diagnosis of diabetes. In the absence of unequivocal hyperglycemia, results should be confirmed by repeat testing. In a patient with classic symptoms of hyperglycemia or hyperglycemic crisis, random plasma glucose results greater than or equal to 200 mg/dL meet the criteria for diagnosis of diabetes.Reference: Standards of Medical Care in Diabetes 2016, [place] [employer]. Diabetes Care. 2016.39(Suppl 1). Performed By: #### 2 4321-2 ####[facility] LABCLIA [id number] [place] [address] [place] Potassium [Moles/Vol] 3.7 mmol/L Normal 3.7-5.1 [facility] Comment on above: Order Comment: Speci men Type: BLOOD SPECIMENOrdering Facility: [facility] Address: [address] [place] [address] Performed By: #### 2 4321-2 ####[facility] LABIA [id number] [place] [address] [place] Sodium [Moles/Vol] 138 mmol/L Normal 136-144 [facility] Comment on above: Order Comment: Speci men Type: BLOOD SPECIMENOrdering Facility: [facility] Address: [address] [place] [address] Performed By: #### 2 4321-2 ####[facility] LABIA [id number] [place] [address] [place] Urea nitrogen [Mass/Vol] 5 mg/dL Low 7-21 [facility] Comment on above: Order Comment: Speci men Type: BLOOD SPECIMENOrdering Facility: [facility] Address: [address] [place] [address] Performed By: #### 2 4321-2 ####[facility] LABIA [id number] [place] [id number] [place] CASE MANAGEMon 09-16-2023 CASE MANAGEM Normal [facility] CASE MANAGEM Normal [facility] CBC panel Auto (Bld)on 09-15 Erythrocyte distribution width (RBC) [Ratio] 13.8 % Normal 11.5-15.0 [facility] Comment on above: Order Comment: Speci men Type: BLOOD SPECIMENOrdering Facility: [facility] Address: [address] [place] [address] Performed By: #### 5 8410-2 ####[facility] LABCLIA [id number] [place] [address] [place] Hematocrit (Bld) [Volume fraction] 32.9 % Low 36.0-46.0 [facility] Comment on above: Order Comment: Speci men Type: BLOOD SPECIMENOrdering Facility: [facility] Address: [address] [place] [address] Performed By: #### 5 8410-2 ####[facility] LABIA [id number] [place] [address] [place] Hemoglobin (Bld) [Mass/Vol] 10.1 g/dL Low 11.5-15.5 [facility] Comment on above: Order Comment: Speci men Type: BLOOD SPECIMENOrdering Facility: [facility] Address: [address] [place] [address] Performed By: #### 5 8410-2 ####[facility] LABIA [id number] [place] [address] [place] MCH (RBC) [Entitic mass] 29.3 pg Normal 26.0-34.0 [facility] Comment on above: Order Comment: Speci men Type: BLOOD SPECIMENOrdering Facility: [facility] Address: [address] [place] [address] Performed By: #### 5 8410-2 ####[facility] LABCLIA [id number] [place] [address] [place] MCHC (RBC) [Mass/Vol] 30.7 g/dL Normal 30.5-36.0 [facility] Comment on above: Order Comment: Speci men Type: BLOOD SPECIMENOrdering Facility: [facility] Address: [address] [place] [address] Performed By: #### 5 8410-2 ####[facility] LABCLIA [id number] [place] [address] [place] MCV (RBC) [Entitic vol] 95.4 fL Normal 80.0-100.0 [facility] Comment on above: Order Comment: Speci men Type: BLOOD SPECIMENOrdering Facility: [facility] Address: [address] [place] [address] Performed By: #### 5 8410-2 ####[facility] LABIA [id number] [place] [address] [place] Nucleated RBC (Bld) [#/Vol] 10*3/uL Normal <0.01 [facility] Comment on above: Order Comment: Speci men Type: BLOOD SPECIMENOrdering Facility: [facility] Address: [address] [place] [address] Performed By: #### 5 8410-2 ####[facility] LABIA [id number] [place] [address] [place] Platelet mean volume (Bld) [Entitic vol] 9.7 fL Normal 9.0-12.7 [facility] Comment on above: Order Comment: Speci men Type: BLOOD SPECIMENOrdering Facility: [facility] Address: [address] [place] [address] Performed By: #### 5 8410-2 ####[facility] LABIA [id number] [place] [address] [place] Platelets (Bld) [#/Vol] 284 10*3/uL Normal 150-400 [facility] Comment on above: Order Comment: Speci men Type: BLOOD SPECIMENOrdering Facility: [facility] Address: [address] [place] [address] Performed By: #### 5 8410-2 ####[facility] LABCLIA [id number] [place] [address] [place] RBC (Bld) [#/Vol] 3.45 10*6/uL Low 3.90-5.[address] [facility] Comment on above: Order Comment: Speci men Type: BLOOD SPECIMENOrdering Facility: [facility] Address: [address] [place] [address] Performed By: #### 5 8410-2 ####[facility] LABCLIA [id number] [address] [address] [place] WBC (Bld) [#/Vol] 5.27 10*3/uL Normal 3.70-11.[address] [facility] Comment on above: Order Comment: Speci men Type: BLOOD SPECIMENOrdering Facility: [facility] Address: [address] [place] [address] Performed By: #### 5 8410-2 ####[facility] LABCLIA [id number] [place] [address] [place] CNPNon 09-16-2023 CNPN Normal [facility] CONSULTon 09-16-2023 CONSULT Normal [facility] NUTRITIONon 09-16-2023 NUTRITION Normal [facility] THERAPY NTon 09-16-2023 THERAPY NT Normal [facility] Basic metabolic 2000 panelon 09-15-2023 Anion gap [Moles/Vol] 14 mmol/L Normal 9-18 [facility] Comment on above: Order Comment: Speci men Type: BLOOD SPECIMENOrdering Facility: [facility] Address: [address] [place] [address] Performed By: #### 2 4321-2 ####[facility] LABCLIA [id number] [address] [address] [place] Calcium [Mass/Vol] 8.8 mg/dL Normal 8.5-10.2 [facility] Comment on above: Order Comment: Speci men Type: BLOOD SPECIMENOrdering Facility: [facility] Address: [address] [place] [address] Performed By: #### 2 4321-2 ####[facility] LABCLIA [id number] [address] [address] [place] Chloride [Moles/Vol] 104 mmol/L Normal 97-105 [facility] Comment on above: Order Comment: Speci men Type: BLOOD SPECIMENOrdering Facility: [facility] Address: [address] [place] [address] Performed By: #### 2 4321-2 ####[facility] LABCLIA [id number] [place] [address] [place] CO2 [Moles/Vol] 18 mmol/L Low 22-30 [facility] Comment on above: Order Comment: Speci men Type: BLOOD SPECIMENOrdering Facility: [facility] Address: [address] [place] [address] Performed By: #### 2 4321-2 ####[facility] LABCLIA [id number] [place] [address] [place] Creatinine [Mass/Vol] 0.57 mg/dL Low 0.58-0.96 [facility] Comment on above: Order Comment: Speci men Type: BLOOD SPECIMENOrdering Facility: [facility] Address: [address] [place] [address] Performed By: #### 2 4321-2 ####[facility] LABIA [id number] [address] [place] Creatinine and Glomerular filtration rate.predicted panel (S/P/Bld) 94 mL/min/1.73m??? Normal >=60 [facility] Comment on above: Order Comment: Speci men Type: BLOOD SPECIMENOrdering Facility: [facility] Address: [address] [place] [address] Result Comment: Josie mated Glomerular Filtration Rate (eGFR) is calculated using the 2020 CKD-EPI creatinine equation. This equation utilizes serum creatinine, sex, and age as parameters. The creatinine assay has traceable calibration to isotope dilution-mass spectrometry. Refer to KDIGO guidelines for clinical interpretation. In patients with unstable renal function, e.g. those with acute kidney injury, the eGFR may not accurately reflect actual GFR. Performed By: #### 2 4321-2 ####[facility] LABCLIA [id number] [place] [id number] [place] Glucose [Mass/Vol] 94 mg/dL Normal 74-99 [facility] Comment on above: Order Comment: Speci men Type: BLOOD SPECIMENOrdering Facility: [facility] Address: [address] [place] [address] Result Comment: The [place] [employer] (ADA) provides guidance for cutoff values for fasting glucose and random glucose. The ADA defines fasting as no caloric intake for at least 8 hours. Fasting plasma glucose results between 100 to 125 mg/dL indicate increased risk for diabetes (prediabetes).Fasting plasma glucose results greater than or equal to 126 mg/dL meet the criteria for diagnosis of diabetes. In the absence of unequivocal hyperglycemia, results should be confirmed by repeat testing. In a patient with classic symptoms of hyperglycemia or hyperglycemic crisis, random plasma glucose results greater than or equal to 200 mg/dL meet the criteria for diagnosis of diabetes.Reference: Standards of Medical Care in Diabetes 2016, [place] [employer]. Diabetes Care. 2016.39(Suppl 1). Performed By: #### 2 4321-2 ####[facility] LABCLIA [id number] [place] [address] [place] Potassium [Moles/Vol] 3.9 mmol/L Normal 3.7-5.1 [facility] Comment on above: Order Comment: Speci men Type: BLOOD SPECIMENOrdering Facility: [facility] Address: [address] [place] [address] Performed By: #### 2 4321-2 ####[facility] LABCLIA [id number] [place] [address] [place] Sodium [Moles/Vol] 136 mmol/L Normal 136-144 [facility] Comment on above: Order Comment: Speci men Type: BLOOD SPECIMENOrdering Facility: [facility] Address: [address] [place], [place] [address] Performed By: #### 2 4321-2 ####[facility] LABCLIA [id number] [place] [address] [place] Urea nitrogen [Mass/Vol] 5 mg/dL Low 7-21 [facility] Comment on above: Order Comment: Speci men Type: BLOOD SPECIMENOrdering Facility: [facility] Address: [address] [place] [address] Performed By: #### 2 4321-2 ####[facility] LABCLIA [id number] [place] [address] [place] CASE MANAGEMon 09-15-2023 CASE MANAGEM Normal [facility] CBC panel Auto (Bld)on 09-14 Erythrocyte distribution width (RBC) [Ratio] 13.7 % Normal 11.5-15.0 [facility] Comment on above: Order Comment: Speci men Type: BLOOD SPECIMENOrdering Facility: [facility] Address: [address] [place] [address] Performed By: #### 5 8410-2 ####[facility] LABCLIA [id number] [place] [address] [place] Hematocrit (Bld) [Volume fraction] 34.8 % Low 36.0-46.0 [facility] Comment on above: Order Comment: Speci men Type: BLOOD SPECIMENOrdering Facility: [facility] Address: [address] [place] [address] Performed By: #### 5 8410-2 ####[facility] LABCLIA [id number] [place] [address] [place] Hemoglobin (Bld) [Mass/Vol] 10.7 g/dL Low 11.5-15.5 [facility] Comment on above: Order Comment: Speci men Type: BLOOD SPECIMENOrdering Facility: [facility] Address: [address] [place] [address] Performed By: #### 5 8410-2 ####[facility] LABCLIA [id number] [place] [address] [place] MCH (RBC) [Entitic mass] 29.6 pg Normal 26.0-34.0 [facility] Comment on above: Order Comment: Speci men Type: BLOOD SPECIMENOrdering Facility: [facility] Address: [address] [place] [address] Performed By: #### 5 8410-2 ####[facility] LABCLIA [id number] [place] [address] [place] MCHC (RBC) [Mass/Vol] 30.7 g/dL Normal 30.5-36.0 [facility] Comment on above: Order Comment: Speci men Type: BLOOD SPECIMENOrdering Facility: [facility] Address: [address] [place] [address] Performed By: #### 5 8410-2 ####[facility] LABCLIA [id number] [place] [address] [place] MCV (RBC) [Entitic vol] 96.4 fL Normal 80.0-100.0 [facility] Comment on above: Order Comment: Speci men Type: BLOOD SPECIMENOrdering Facility: [facility] Address: [address] [place] [address] Performed By: #### 5 8410-2 ####[facility] LABIA [id number] [place] [address] [place] Nucleated RBC (Bld) [#/Vol] 10*3/uL Normal <0.01 [facility] Comment on above: Order Comment: Speci men Type: BLOOD SPECIMENOrdering Facility: [facility] Address: [address] [place] [address] Performed By: #### 5 8410-2 ####[facility] LABCLIA [id number] [place] [address] [place] Platelet mean volume (Bld) [Entitic vol] 10.4 fL Normal 9.0-12.7 [facility] Comment on above: Order Comment: Speci men Type: BLOOD SPECIMENOrdering Facility: [facility] Address: [address] [place] [address] Performed By: #### 5 8410-2 ####[facility] LABIA [id number] [place] [address] [place] Platelets (Bld) [#/Vol] 217 10*3/uL Normal 150-400 [facility] Comment on above: Order Comment: Speci men Type: BLOOD SPECIMENOrdering Facility: [facility] Address: [address] [place] [address] Performed By: #### 5 8410-2 ####[facility] LABIA [id number] [place] [address] [place] RBC (Bld) [#/Vol] 3.61 10*6/uL Low 3.90-5.[address] [facility] Comment on above: Order Comment: Speci men Type: BLOOD SPECIMENOrdering Facility: [facility] Address: [address] [place] [address] Performed By: #### 5 8410-2 ####[facility] LABIA [id number] [place] [address] [place] WBC (Bld) [#/Vol] 7.83 10*3/uL Normal 3.70-11.[address] [facility] Comment on above: Order Comment: Speci men Type: BLOOD SPECIMENOrdering Facility: [facility] Address: [address] [place] [address] Performed By: #### 5 8410-2 ####[facility] LABIA [id number] [place] [address] [place] CNDSon 09-15-2023 CNDS Normal [facility] CNPNon 09-15-2023 CNPN Normal [facility] CONSULT PROGon 09-15-2023 CONSULT PROG Normal [facility] THERAPY NTon 09-15-2023 THERAPY NT Normal [facility] THERAPY NT Normal [facility] THERAPY NT Normal [facility] ALLIED HEALTHon 09-14-2023 ALLIED HEALTH Normal [facility] Basic metabolic 2000 panelon 09-14-2023 Anion gap [Moles/Vol] 15 mmol/L Normal 9-18 [facility] Comment on above: Order Comment: Speci men Type: BLOOD SPECIMENOrdering Facility: [facility] Address: [address] [place] [address] Performed By: #### 2 4321-2 ####[facility] LABCLIA [id number] [place] [address] [place] Calcium [Mass/Vol] 9.0 mg/dL Normal 8.5-10.2 [facility] Comment on above: Order Comment: Speci men Type: BLOOD SPECIMENOrdering Facility: [facility] Address: [address] [place] [address] Performed By: #### 2 4321-2 ####[facility] LABCLIA [id number] [place] [address] [place] Chloride [Moles/Vol] 104 mmol/L Normal 97-105 [facility] Comment on above: Order Comment: Speci men Type: BLOOD SPECIMENOrdering Facility: [facility] Address: [address] [place] [address] Performed By: #### 2 4321-2 ####[facility] LABCLIA [id number] [place] [address] [place] CO2 [Moles/Vol] 17 mmol/L Low 22-30 [facility] Comment on above: Order Comment: Speci men Type: BLOOD SPECIMENOrdering Facility: [facility] Address: [address] [place], [place] [address] Performed By: #### 2 4321-2 ####[facility] LABCLIA [id number] [place] [id number] [place] Creatinine [Mass/Vol] 0.70 mg/dL Normal 0.58-0.96 [facility] Comment on above: Order Comment: Ash rodarte Type: BLOOD SPECIMENOrdering Facility: [facility] Address: [address] [place] [address] Performed By: #### 2 4321-2 ####[facility] LABCLIA [id number] [place] [address] [place] Creatinine and Glomerular filtration rate.predicted panel (S/P/Bld) 89 mL/min/1.73m??? Normal >=60 [facility] Comment on above: Order Comment: Ash rodarte Type: BLOOD SPECIMENOrdering Facility: [facility] Address: [address] [place] [address] Result Comment: Josie mated Glomerular Filtration Rate (eGFR) is calculated using the 2020 CKD-EPI creatinine equation. This equation utilizes serum creatinine, sex, and age as parameters. The creatinine assay has traceable calibration to isotope dilution-mass spectrometry. Refer to KDIGO guidelines for clinical interpretation. In patients with unstable renal function, e.g. those with acute kidney injury, the eGFR may not accurately reflect actual GFR. Performed By: #### 2 4321-2 ####[facility] LABIA [id number] [place] [address] [place] Glucose [Mass/Vol] 104 mg/dL High 74-99 [facility] Comment on above: Order Comment: Ash rodarte Type: BLOOD SPECIMENOrdering Facility: [facility] Address: [address] [place] [address] Result Comment: The [place] [employer] (ADA) provides guidance for cutoff values for fasting glucose and random glucose. The ADA defines fasting as no caloric intake for at least 8 hours. Fasting plasma glucose results between 100 to 125 mg/dL indicate increased risk for diabetes (prediabetes).Fasting plasma glucose results greater than or equal to 126 mg/dL meet the criteria for diagnosis of diabetes. In the absence of unequivocal hyperglycemia, results should be confirmed by repeat testing. In a patient with classic symptoms of hyperglycemia or hyperglycemic crisis, random plasma glucose results greater than or equal to 200 mg/dL meet the criteria for diagnosis of diabetes.Reference: Standards of Medical Care in Diabetes 2016, [place] [employer]. Diabetes Care. 2016.39(Suppl 1). Performed By: #### 2 4321-2 ####[facility] LABCLIA [id number] [place] [address] [place] Potassium [Moles/Vol] 3.9 mmol/L Normal 3.7-5.1 [facility] Comment on above: Order Comment: Speci men Type: BLOOD SPECIMENOrdering Facility: [facility] Address: [address] [place] [address] Performed By: #### 2 4321-2 ####[facility] LABIA [id number] [place] [address] [place] Sodium [Moles/Vol] 136 mmol/L Normal 136-144 [facility] Comment on above: Order Comment: Speci men Type: BLOOD SPECIMENOrdering Facility: [facility] Address: [address] [place] [address] Performed By: #### 2 4321-2 ####[facility] LABIA [id number] [place] [address] [place] Urea nitrogen [Mass/Vol] 6 mg/dL Low 7-21 [facility] Comment on above: Order Comment: Speci men Type: BLOOD SPECIMENOrdering Facility: [facility] Address: [address] [place] [address] Performed By: #### 2 4321-2 ####[facility] LABIA [id number] [place] [address] [place] CBC panel Auto (Bld)on 09-13 Erythrocyte distribution width (RBC) [Ratio] 14.0 % Normal 11.5-15.0 [facility] Comment on above: Order Comment: Speci men Type: BLOOD SPECIMENOrdering Facility: [facility] Address: [address] [place] [address] Performed By: #### 5 8410-2 ####[facility] LABIA [id number] [place] [id number] [place] Hematocrit (Bld) [Volume fraction] 36.4 % Normal 36.0-46.0 [facility] Comment on above: Order Comment: Speci men Type: BLOOD SPECIMENOrdering Facility: [facility] Address: [address] [place] [address] Performed By: #### 5 8410-2 ####[facility] LABCLIA [id number] [place] [address] [place] Hemoglobin (Bld) [Mass/Vol] 11.0 g/dL Low 11.5-15.5 [facility] Comment on above: Order Comment: Speci men Type: BLOOD SPECIMENOrdering Facility: [facility] Address: [address] [place] [address] Performed By: #### 5 8410-2 ####[facility] LABCLIA [id number] [place] [address] [place] MCH (RBC) [Entitic mass] 29.6 pg Normal 26.0-34.0 [facility] Comment on above: Order Comment: Speci men Type: BLOOD SPECIMENOrdering Facility: [facility] Address: [address] [place] [address] Performed By: #### 5 8410-2 ####[facility] LABIA [id number] [place] [address] [place] MCHC (RBC) [Mass/Vol] 30.2 g/dL Low 30.5-36.0 [facility] Comment on above: Order Comment: Speci men Type: BLOOD SPECIMENOrdering Facility: [facility] Address: [address] [place] [address] Performed By: #### 5 8410-2 ####[facility] LABCLIA [id number] [place] [address] [place] MCV (RBC) [Entitic vol] 98.1 fL Normal 80.0-100.0 [facility] Comment on above: Order Comment: Speci men Type: BLOOD SPECIMENOrdering Facility: [facility] Address: [address] [place] [address] Performed By: #### 5 8410-2 ####[facility] LABIA [id number] [place] [address] [place] Nucleated RBC (Bld) [#/Vol] 10*3/uL Normal <0.01 [facility] Comment on above: Order Comment: Speci men Type: BLOOD SPECIMENOrdering Facility: [facility] Address: [address] [place] [address] Performed By: #### 5 8410-2 ####[facility] LABIA [id number] [place] [address] [place] Platelet mean volume (Bld) [Entitic vol] 9.5 fL Normal 9.0-12.7 [facility] Comment on above: Order Comment: Speci men Type: BLOOD SPECIMENOrdering Facility: [facility] Address: [address] [place] [address] Performed By: #### 5 8410-2 ####[facility] LABIA [id number] [place] [address] [place] Platelets (Bld) [#/Vol] 258 10*3/uL Normal 150-400 [facility] Comment on above: Order Comment: Speci men Type: BLOOD SPECIMENOrdering Facility: [facility] Address: [address] [place] [address] Performed By: #### 5 8410-2 ####[facility] LABIA [id number] [place] [address] [place] RBC (Bld) [#/Vol] 3.71 10*6/uL Low 3.90-5.[address] [facility] Comment on above: Order Comment: Speci men Type: BLOOD SPECIMENOrdering Facility: [facility] Address: [address] [place] [address] Performed By: #### 5 8410-2 ####[facility] LABCLIA [id number] [address] [address] [place] WBC (Bld) [#/Vol] 9.51 10*3/uL Normal 3.70-11.[address] [facility] Comment on above: Order Comment: Speci men Type: BLOOD SPECIMENOrdering Facility: [facility] Address: [address] [place] [address] Performed By: #### 5 8410-2 ####[facility] LABCLIA [id number] [place] [address] [place] CONSULTon 09-14-2023 CONSULT Normal [facility] THERAPY NTon 09-14-2023 THERAPY NT Normal [facility] Basic metabolic 2000 panelon 09-13-2023 Anion gap [Moles/Vol] 11 mmol/L Normal 9-18 [facility] Comment on above: Order Comment: Speci men Type: BLOOD SPECIMENOrdering Facility: [facility] Address: [address] [place] [address] Performed By: #### 2 4321-2 ####[facility] LABCLIA [id number] [place] [address] [place] Calcium [Mass/Vol] 8.9 mg/dL Normal 8.5-10.2 [facility] Comment on above: Order Comment: Speci men Type: BLOOD SPECIMENOrdering Facility: SELECT [facility] Address: [address] [place] [address] Performed By: #### 2 4321-2 ####[facility] LABCLIA [id number] [place] [id number] [place] Chloride [Moles/Vol] 105 mmol/L Normal 97-105 [facility] Comment on above: Order Comment: Speci men Type: BLOOD SPECIMENOrdering Facility: [facility] Address: [address] [place], [place] [address] Performed By: #### 2 4321-2 ####[facility] LABCLIA [id number] [place] [address] [place] CO2 [Moles/Vol] 19 mmol/L Low 22-30 [facility] Comment on above: Order Comment: Speci men Type: BLOOD SPECIMENOrdering Facility: [facility] Address: [address] [place] [address] Performed By: #### 2 4321-2 ####[facility] LABCLIA [id number] [place] [address] [place] Creatinine [Mass/Vol] 0.64 mg/dL Normal 0.58-0.96 [facility] Comment on above: Order Comment: Speci men Type: BLOOD SPECIMENOrdering Facility: [facility] Address: [address] [place] [address] Performed By: #### 2 4321-2 ####[facility] LABIA [id number] [place] [address] [place] [facility] Creatinine and Glomerular filtration rate.predicted panel (S/P/Bld) 91 mL/min/1.73m??? Normal >=60 [facility] Comment on above: Order Comment: Speci men Type: BLOOD SPECIMENOrdering Facility: [facility] Address: [address] [place] [address] Result Comment: Josie mated Glomerular Filtration Rate (eGFR) is calculated using the 2020 CKD-EPI creatinine equation. This equation utilizes serum creatinine, sex, and age as parameters. The creatinine assay has traceable calibration to isotope dilution-mass spectrometry. Refer to KDIGO guidelines for clinical interpretation. In patients with unstable renal function, e.g. those with acute kidney injury, the eGFR may not accurately reflect actual GFR. Performed By: #### 2 4321-2 ####[facility] LABIA [id number] [place] [address] [place] Glucose [Mass/Vol] 121 mg/dL High 74-99 [facility] Comment on above: Order Comment: Speci men Type: BLOOD SPECIMENOrdering Facility: [facility] Address: [address] [place] [address] Result Comment: The [place] [employer] (ADA) provides guidance for cutoff values for fasting glucose and random glucose. The ADA defines fasting as no caloric intake for at least 8 hours. Fasting plasma glucose results between 100 to 125 mg/dL indicate increased risk for diabetes (prediabetes).Fasting plasma glucose results greater than or equal to 126 mg/dL meet the criteria for diagnosis of diabetes. In the absence of unequivocal hyperglycemia, results should be confirmed by repeat testing. In a patient with classic symptoms of hyperglycemia or hyperglycemic crisis, random plasma glucose results greater than or equal to 200 mg/dL meet the criteria for diagnosis of diabetes.Reference: Standards of Medical Care in Diabetes 2016, [place] [employer]. Diabetes Care. 2016.39(Suppl 1). Performed By: #### 2 4321-2 ####[facility] LABCLIA [id number] [place] [address] [place] Potassium [Moles/Vol] 4.2 mmol/L Normal 3.7-5.1 [facility] Comment on above: Order Comment: Speci men Type: BLOOD SPECIMENOrdering Facility: [facility] Address: [address] [place] [address] Performed By: #### 2 4321-2 ####[facility] LABCLIA [id number] [place] [address] [place] Sodium [Moles/Vol] 135 mmol/L Low 136-144 [facility] Comment on above: Order Comment: Speci men Type: BLOOD SPECIMENOrdering Facility: [facility] Address: [address] [place] [address] Performed By: #### 2 4321-2 ####[facility] LABCLIA [id number] [place] [address] [place] Urea nitrogen [Mass/Vol] 5 mg/dL Low 7-21 [facility] Comment on above: Order Comment: Speci men Type: BLOOD SPECIMENOrdering Facility: [facility] Address: [address] [place] [address] Performed By: #### 2 4321-2 ####[facility] LABIA [id number] [place] [address] [place] CASE MGT INIT ASSESon 2023 CASE MGT INIT ASSES Normal [facility] CBC panel Auto (Bld)on 09-12 Erythrocyte distribution width (RBC) [Ratio] 13.8 % Normal 11.5-15.0 [facility] Comment on above: Order Comment: Speci men Type: BLOOD SPECIMENOrdering Facility: [facility] Address: [address] [place] [address] Performed By: #### 5 8410-2 ####[facility] LABIA [id number] [place] [address] [place] Hematocrit (Bld) [Volume fraction] 32.6 % Low 36.0-46.0 [facility] Comment on above: Order Comment: Speci men Type: BLOOD SPECIMENOrdering Facility: [facility] Address: [address] [place] [address] Performed By: #### 5 8410-2 ####[facility] LABIA [id number] [place] [address] [place] Hemoglobin (Bld) [Mass/Vol] 10.2 g/dL Low 11.5-15.5 [facility] Comment on above: Order Comment: Speci men Type: BLOOD SPECIMENOrdering Facility: [facility] Address: [address] [place] [address] Performed By: #### 5 8410-2 ####[facility] LABIA [id number] [place] [address] [place] MCH (RBC) [Entitic mass] 29.8 pg Normal 26.0-34.0 [facility] Comment on above: Order Comment: Speci men Type: BLOOD SPECIMENOrdering Facility: [facility] Address: [address] [place] [address] Performed By: #### 5 8410-2 ####[facility] LABIA [id number] [place] [address] [place] MCHC (RBC) [Mass/Vol] 31.3 g/dL Normal 30.5-36.0 [facility] Comment on above: Order Comment: Speci men Type: BLOOD SPECIMENOrdering Facility: [facility] Address: [address] [place] [address] Performed By: #### 5 8410-2 ####[facility] LABIA [id number] [place] [address] [place] MCV (RBC) [Entitic vol] 95.3 fL Normal 80.0-100.0 [facility] Comment on above: Order Comment: Speci men Type: BLOOD SPECIMENOrdering Facility: [facility] Address: [address] [place] [address] Performed By: #### 5 8410-2 ####[facility] [id number] [place] [address] [place] Nucleated RBC (Bld) [#/Vol] 10*3/uL Normal <0.01 [facility] Comment on above: Order Comment: Speci men Type: BLOOD SPECIMENOrdering Facility: [facility] Address: [address] [place] [address] Performed By: #### 5 8410-2 ####[facility] [id number] [place] [address] [place] Platelet mean volume (Bld) [Entitic vol] 9.5 fL Normal 9.0-12.7 [facility] Comment on above: Order Comment: Speci men Type: BLOOD SPECIMENOrdering Facility: [facility] Address: [address] [place] [address] Performed By: #### 5 8410-2 ####[facility] [id number] [place] [address] [place] Platelets (Bld) [#/Vol] 284 10*3/uL Normal 150-400 [facility] Comment on above: Order Comment: Speci men Type: BLOOD SPECIMENOrdering Facility: [facility] Address: [address] [place] [address] Performed By: #### 5 8410-2 ####[facility] LABCLIA [id number] [place] [address] [place] RBC (Bld) [#/Vol] 3.42 10*6/uL Low 3.90-5.[address] [facility] Comment on above: Order Comment: Speci men Type: BLOOD SPECIMENOrdering Facility: [facility] Address: [address] [place] [address] Performed By: #### 5 8410-2 ####[facility] LABCLIA [id number] [place] [address] [place] WBC (Bld) [#/Vol] 8.71 10*3/uL Normal 3.70-11.[address] [facility] Comment on above: Order Comment: Speci men Type: BLOOD SPECIMENOrdering Facility: [facility] Address: [address] [place] [address] Performed By: #### 5 8410-2 ####[facility] LABCLIA [id number] [place] [address] [place] CONSULT PROGon 09-13-2023 CONSULT PROG Normal [facility] XR ABDOMEN 1V SUPINEon 09-12 XR ABDOMEN 1V SUPINE Normal [facility] ANES POSTPROC EVALon 024 [address]ES [address]PROC EVAL Normal [facility] ANES PRE-OPon 09-12-2023 ANES PRE-OP Normal [facility] BRIEF OP NOTon 09-12-2023 BRIEF OP NOT Normal [facility] Basic metabolic 2000 panelon 09-12-2023 Anion gap [Moles/Vol] 11 mmol/L Normal 9-18 [facility] Comment on above: Order Comment: Speci men Type: BLOOD SPECIMENOrdering Facility: [facility] Address: [address] [place] [address] Performed By: #### 2 4321-2 ####[facility] LABCLIA [id number] [place] [address] [place] Calcium [Mass/Vol] 9.0 mg/dL Normal 8.5-10.2 [facility] Comment on above: Order Comment: Speci men Type: BLOOD SPECIMENOrdering Facility: [facility] Address: [address] [place] [address] Performed By: #### 2 4321-2 ####[facility] LABCLIA [id number] [place] [address] [place] Chloride [Moles/Vol] 105 mmol/L Normal 97-105 [facility] Comment on above: Order Comment: Speci men Type: BLOOD SPECIMENOrdering Facility: [facility] Address: [address] [place] [address] Performed By: #### 2 4321-2 ####[facility] LABCLIA [id number] [place] [address] [place] CO2 [Moles/Vol] 19 mmol/L Low 22-30 [facility] Comment on above: Order Comment: Speci men Type: BLOOD SPECIMENOrdering Facility: [facility] Address: [address] [place] [address] Performed By: #### 2 4321-2 ####[facility] LABCLIA [id number] [place] [address] [place] Creatinine [Mass/Vol] 0.69 mg/dL Normal 0.58-0.96 [facility] Comment on above: Order Comment: Speci men Type: BLOOD SPECIMENOrdering Facility: [facility] Address: [address] [place], [place] [address] Performed By: #### 2 4321-2 ####[facility] LABCLIA [id number] [place] [address] [place] Creatinine and Glomerular filtration rate.predicted panel (S/P/Bld) 90 mL/min/1.73m??? Normal >=60 [facility] Comment on above: Order Comment: Ash rodarte Type: BLOOD SPECIMENOrdering Facility: [facility] Address: [address] [place] [address] Result Comment: Josie mated Glomerular Filtration Rate (eGFR) is calculated using the 2020 CKD-EPI creatinine equation. This equation utilizes serum creatinine, sex, and age as parameters. The creatinine assay has traceable calibration to isotope dilution-mass spectrometry. Refer to KDIGO guidelines for clinical interpretation. In patients with unstable renal function, e.g. those with acute kidney injury, the eGFR may not accurately reflect actual GFR. Performed By: #### 2 4321-2 ####[facility] LABCLIA [id number] [place] [address] [place] Glucose [Mass/Vol] 141 mg/dL High 74-99 [facility] Comment on above: Order Comment: Ash rodarte Type: BLOOD SPECIMENOrdering Facility: [facility] Address: [address] [place] [address] Result Comment: The [place] [employer] (ADA) provides guidance for cutoff values for fasting glucose and random glucose. The ADA defines fasting as no caloric intake for at least 8 hours. Fasting plasma glucose results between 100 to 125 mg/dL indicate increased risk for diabetes (prediabetes).Fasting plasma glucose results greater than or equal to 126 mg/dL meet the criteria for diagnosis of diabetes. In the absence of unequivocal hyperglycemia, results should be confirmed by repeat testing. In a patient with classic symptoms of hyperglycemia or hyperglycemic crisis, random plasma glucose results greater than or equal to 200 mg/dL meet the criteria for diagnosis of diabetes.Reference: Standards of Medical Care in Diabetes 2016, [place] [employer]. Diabetes Care. 2016.39(Suppl 1). Performed By: #### 2 4321-2 ####[facility] LABCLIA [id number] [place] [address] [place] Potassium [Moles/Vol] 4.3 mmol/L Normal 3.7-5.1 [facility] Comment on above: Order Comment: Speci men Type: BLOOD SPECIMENOrdering Facility: [facility] Address: [address] [place] [address] Performed By: #### 2 4321-2 ####[facility] LABCLIA [id number] [place] [address] [place] Sodium [Moles/Vol] 135 mmol/L Low 136-144 [facility] Comment on above: Order Comment: Speci men Type: BLOOD SPECIMENOrdering Facility: [facility] Address: [address] [place] [address] Performed By: #### 2 4321-2 ####[facility] LABCLIA [id number] [place] [address] [place] Urea nitrogen [Mass/Vol] 6 mg/dL Low 7-21 [facility] Comment on above: Order Comment: Speci men Type: BLOOD SPECIMENOrdering Facility: [facility] Address: [address] [place] [address] Performed By: #### 2 4321-2 ####[facility] LABCLIA [id number] [place] [address] [place] Anion gap [Moles/Vol] 14 mmol/L Normal 9-18 [facility] Comment on above: Order Comment: Speci men Type: BLOOD SPECIMENOrdering Facility: [facility] Address: [address] [place] [address] Performed By: #### 2 4321-2 ####[facility] LABCLIA [id number] [place] [address] [place] Calcium [Mass/Vol] 9.6 mg/dL Normal 8.5-10.2 [facility] Comment on above: Order Comment: Speci men Type: BLOOD SPECIMENOrdering Facility: [facility] Address: [address] [place] [address] Performed By: #### 2 4321-2 ####[facility] LABCLIA [id number] [place] [address] [place] Chloride [Moles/Vol] 102 mmol/L Normal 97-105 [facility] Comment on above: Order Comment: Speci men Type: BLOOD SPECIMENOrdering Facility: [facility] Address: [address] [place] [address] Performed By: #### 2 4321-2 ####[facility] LABCLIA [id number] [place] [address] [place] CO2 [Moles/Vol] 19 mmol/L Low 22-30 [facility] Comment on above: Order Comment: Speci men Type: BLOOD SPECIMENOrdering Facility: [facility] Address: [address] [place] [address] Performed By: #### 2 4321-2 ####[facility] LABCLIA [id number] [place] [address] [place] Creatinine [Mass/Vol] 0.73 mg/dL Normal 0.58-0.96 [facility] Comment on above: Order Comment: Speci men Type: BLOOD SPECIMENOrdering Facility: [facility] Address: [address] [place] [address] Performed By: #### 2 4321-2 ####[facility] LABIA [id number] [address] [place] Creatinine and Glomerular filtration rate.predicted panel (S/P/Bld) 85 mL/min/1.73m??? Normal >=60 [facility] Comment on above: Order Comment: Speci men Type: BLOOD SPECIMENOrdering Facility: [facility] Address: [address] [place] [address] Result Comment: Josie mated Glomerular Filtration Rate (eGFR) is calculated using the 2020 CKD-EPI creatinine equation. This equation utilizes serum creatinine, sex, and age as parameters. The creatinine assay has traceable calibration to isotope dilution-mass spectrometry. Refer to KDIGO guidelines for clinical interpretation. In patients with unstable renal function, e.g. those with acute kidney injury, the eGFR may not accurately reflect actual GFR. Performed By: #### 2 4321-2 ####[facility] LABIA [id number] [place] [address] [place] Glucose [Mass/Vol] 114 mg/dL High 74-99 [facility] Comment on above: Order Comment: Ash rodarte Type: BLOOD SPECIMENOrdering Facility: [facility] Address: [address] [place] [address] Result Comment: The [place] Diabetes [employer] (ADA) provides guidance for cutoff values for fasting glucose and random glucose. The ADA defines fasting as no caloric intake for at least 8 hours. Fasting plasma glucose results between 100 to 125 mg/dL indicate increased risk for diabetes (prediabetes).Fasting plasma glucose results greater than or equal to 126 mg/dL meet the criteria for diagnosis of diabetes. In the absence of unequivocal hyperglycemia, results should be confirmed by repeat testing. In a patient with classic symptoms of hyperglycemia or hyperglycemic crisis, random plasma glucose results greater than or equal to 200 mg/dL meet the criteria for diagnosis of diabetes.Reference: Standards of Medical Care in Diabetes 2016, [place] [employer]. Diabetes Care. 2016.39(Suppl 1). Performed By: #### 2 4321-2 ####[facility] LABIA [id number] [place] [address] [place] Potassium [Moles/Vol] 3.8 mmol/L Normal 3.7-5.1 [facility] Comment on above: Order Comment: Ash rodarte Type: BLOOD SPECIMENOrdering Facility: [facility] Address: [address] [place] [address] Performed By: #### 2 4321-2 ####[facility] LABIA [id number] [place] [address] [place] Sodium [Moles/Vol] 135 mmol/L Low 136-144 [facility] Comment on above: Order Comment: Ash rodarte Type: BLOOD SPECIMENOrdering Facility: [facility] Address: [address] [place] [address] Performed By: #### 2 4321-2 ####[facility] LABIA [id number] [place] [address] [place] Urea nitrogen [Mass/Vol] 6 mg/dL Low 7-21 [facility] Comment on above: Order Comment: Speci men Type: BLOOD SPECIMENOrdering Facility: [facility] Address: [address] [place] [address] Performed By: #### 2 4321-2 ####[facility] LABIA [id number] [address] [place] CALCULI ANALYSISon 4 Calculus analysis [Interp] Normal [facility] Comment on above: Order Comment: Speci men Type: CALCULUS SPECIMENOrdering Facility: [facility] Address: [address] [place] [address] Result Comment: This test was developed and its performance characteristics determined by [facility] [place] ([facility]). It has not been cleared or approved by the FDA. [facility] is regulated under CLIA as qualified to perform high-complexity testing. This test is used for clinical purposes. It should not be regarded as investigational or for research. Performed By: #### C SA ####[facility] LABIA [id number] [place] [address] [place] CALCULUS COLOR WHITE Normal [facility] Comment on above: Order Comment: Speci men Type: CALCULUS SPECIMENOrdering Facility: [facility] Address: [address] [place] [address] Performed By: #### C SA ####[facility] LABIA [id number] [address] [place] CALCULUS COMPOSITION 1 90% Calcium Phosphate Normal [facility] Comment on above: Order Comment: Speci men Type: CALCULUS SPECIMENOrdering Facility: [facility] Address: [address] [place] [address] Performed By: #### C SA ####[facility] LABCLIA [id number] [place] [address] [place] CALCULUS COMPOSITION 2 10% Minor Components Normal [facility] Comment on above: Order Comment: Speci men Type: CALCULUS SPECIMENOrdering Facility: [facility] Address: [address] [place] [address] Performed By: #### C SA ####[facility] LABCLIA [id number] [place] [address] [place] CALCULUS SIZE AND WT Multiple pieces. 0.0880 GRAMS Normal [facility] Comment on above: Order Comment: Speci men Type: CALCULUS SPECIMENOrdering Facility: [facility] Address: [address] [place] [address] Performed By: #### C SA ####[facility] LABCLIA [id number] [place] [address] [place] CALCULUS TYPE CALCULI/CALCULUS Normal [facility] Comment on above: Order Comment: Speci men Type: CALCULUS SPECIMENOrdering Facility: [facility] Address: [address] [place] [address] Performed By: #### C SA ####[facility]CL[facility] [id number] [place] [address] [place] CBC panel Auto (Bld)on 09-11 Erythrocyte distribution width (RBC) [Ratio] 13.6 % Normal 11.5-15.0 [facility] Comment on above: Order Comment: Speci men Type: BLOOD SPECIMENOrdering Facility: [facility] Address: [address] [place] [address] Performed By: #### 5 8410-2 ####[facility] LABCLIA [id number] [place] [address] [place] Hematocrit (Bld) [Volume fraction] 37.4 % Normal 36.0-46.0 [facility] Comment on above: Order Comment: Speci men Type: BLOOD SPECIMENOrdering Facility: [facility] Address: [address] [place] [address] Performed By: #### 5 8410-2 ####[facility] LABIA [id number] [place] [address] [place] Hemoglobin (Bld) [Mass/Vol] 11.8 g/dL Normal 11.5-15.5 [facility] Comment on above: Order Comment: Speci men Type: BLOOD SPECIMENOrdering Facility: [facility] Address: [address] [place] [address] Performed By: #### 5 8410-2 ####[facility] [id number] [place] [address] [place] MCH (RBC) [Entitic mass] 29.8 pg Normal 26.0-34.0 [facility] Comment on above: Order Comment: Speci men Type: BLOOD SPECIMENOrdering Facility: [facility] [facility] [place] Address: [address] [place] [address] Performed By: #### 5 8410-2 ####[facility] [id number] [place] [address] [place] MCHC (RBC) [Mass/Vol] 31.6 g/dL Normal 30.5-36.0 [facility] Comment on above: Order Comment: Speci men Type: BLOOD SPECIMENOrdering Facility: [facility] Address: [address] [address] Performed By: #### 5 8410-2 ####[facility] [id number] [place] [address] [place] MCV (RBC) [Entitic vol] 94.4 fL Normal 80.0-100.0 [facility] Comment on above: Order Comment: Speci men Type: BLOOD SPECIMENOrdering Facility: [facility] Address: [address] [place] [address] Performed By: #### 5 8410-2 ####[facility] [id number] [place] [address] [place] Nucleated RBC (Bld) [#/Vol] 10*3/uL Normal <0.01 [facility] Comment on above: Order Comment: Speci men Type: BLOOD SPECIMENOrdering Facility: [facility] Address: [address] [place] [address] Performed By: #### 5 8410-2 ####[facility] [id number] [place] [address] [place] Platelet mean volume (Bld) [Entitic vol] 9.7 fL Normal 9.0-12.7 [facility] Comment on above: Order Comment: Speci men Type: BLOOD SPECIMENOrdering Facility: [facility] Address: [address] [place] [address] Performed By: #### 5 8410-2 ####[facility] [id number] [place] [address] [place] Platelets (Bld) [#/Vol] 317 10*3/uL Normal 150-400 [facility] Comment on above: Order Comment: Speci men Type: BLOOD SPECIMENOrdering Facility: [facility] Address: [address] [place] [address] Performed By: #### 5 8410-2 ####[facility] [id number] [place] [address] [place] RBC (Bld) [#/Vol] 3.96 10*6/uL Normal 3.90-5.[address] [facility] Comment on above: Order Comment: Speci men Type: BLOOD SPECIMENOrdering Facility: [facility] [place] Address: [address] [place] [address] Performed By: #### 5 8410-2 ####[facility] [id number] [place] [id number] [place] WBC (Bld) [#/Vol] 6.14 10*3/uL Normal 3.70-11.[address] [facility] Comment on above: Order Comment: Speci men Type: BLOOD SPECIMENOrdering Facility: [facility] [place] Address: [address] [place] [address] Performed By: #### 5 8410-2 ####[facility] [id number] [place] [address] [place] Erythrocyte distribution width (RBC) [Ratio] 13.6 % Normal 11.5-15.0 [facility] Comment on above: Order Comment: Speci men Type: BLOOD SPECIMENOrdering Facility: [facility] Address: [address] [place] [address] Performed By: #### 5 8410-2 ####[facility] [id number] [place] [address] [place] Hematocrit (Bld) [Volume fraction] 35.4 % Low 36.0-46.0 [facility] Comment on above: Order Comment: Speci men Type: BLOOD SPECIMENOrdering Facility: [facility] [place] Address: [address] [place] [address] Performed By: #### 5 8410-2 ####[facility] [id number] [place] [address] [place] Hemoglobin (Bld) [Mass/Vol] 11.3 g/dL Low 11.5-15.5 [facility] Comment on above: Order Comment: Speci men Type: BLOOD SPECIMENOrdering Facility: [facility] [place] Address: [address] [place] [address] Performed By: #### 5 8410-2 ####[facility] [id number] [place] [address] [place] MCH (RBC) [Entitic mass] 30.1 pg Normal 26.0-34.0 [facility] Comment on above: Order Comment: Speci men Type: BLOOD SPECIMENOrdering Facility: [facility] [place] Address: [address] [place] [address] Performed By: #### 5 8410-2 ####[facility] [id number] [place] [address] [place] MCHC (RBC) [Mass/Vol] 31.9 g/dL Normal 30.5-36.0 [facility] Comment on above: Order Comment: Speci men Type: BLOOD SPECIMENOrdering Facility: [facility] Address: [address] [place] [address] Performed By: #### 5 8410-2 ####[facility] [id number] [place] [address] [place] MCV (RBC) [Entitic vol] 94.4 fL Normal 80.0-100.0 [facility] Comment on above: Order Comment: Speci men Type: BLOOD SPECIMENOrdering Facility: [facility] [place] Address: [address] [place] [address] Performed By: #### 5 8410-2 ####[facility] [id number] [place] [address] [place] Nucleated RBC (Bld) [#/Vol] 10*3/uL Normal <0.01 [facility] Comment on above: Order Comment: Speci men Type: BLOOD SPECIMENOrdering Facility: [facility] [place] Address: [address] [place] [address] Performed By: #### 5 8410-2 ####[facility] [id number] [place] [address] [place] Platelet mean volume (Bld) [Entitic vol] 9.9 fL Normal 9.0-12.7 [facility] Comment on above: Order Comment: Speci men Type: BLOOD SPECIMENOrdering Facility: [facility] [place] Address: [address] [place] [address] Performed By: #### 5 8410-2 ####[facility] [id number] [place] [address] [place] Platelets (Bld) [#/Vol] 300 10*3/uL Normal 150-400 [facility] Comment on above: Order Comment: Speci men Type: BLOOD SPECIMENOrdering Facility: [facility] [place] Address: [address] [place] [address] Performed By: #### 5 8410-2 ####[facility] [id number] [place] [address] [place] RBC (Bld) [#/Vol] 3.75 10*6/uL Low 3.90-5.[address] [facility] Comment on above: Order Comment: Speci men Type: BLOOD SPECIMENOrdering Facility: [facility] [place] Address: [address] [place] [address] Performed By: #### 5 8410-2 ####[facility] [id number] [place] [address] [place] WBC (Bld) [#/Vol] 5.38 10*3/uL Normal 3.70-11.[address] [facility] Comment on above: Order Comment: Speci men Type: BLOOD SPECIMENOrdering Facility: [facility] [place] Address: [address] [place] [address] Performed By: #### 5 8410-2 ####[facility] [id number] [place] [address] [place] OPERATIVE NOon 09-12-2023 OPERATIVE NO Normal [facility] XR CHEST 1V FRONTAL PORTon 0 09-12-2023 XR CHEST 1V FRONTAL PORT Normal [facility] CONSULT PROGon 09-11-2023 CONSULT PROG Normal [facility] PT EDon 09-11-2023 PT ED Normal [facility] Bacteria Ur Culton Bacteria identified Cx Nom (U) ORGANISM ID: 1 50,000-<100,000 CFU/ml Normal urogenital hang Normal [facility] Comment on above: Performed By: #### 6 30-4 ####[facility] [id number] [place] [address] [place] Basic metabolic 2000 panelon 09-10-2023 Anion gap [Moles/Vol] 13 mmol/L Normal 9-18 [facility] Comment on above: Order Comment: Speci men Type: BLOOD SPECIMENOrdering Facility: [facility] [place] Address: [address] [place] [address] Performed By: #### 2 4321-2 ####[facility] [id number] [place] [address] [place] Calcium [Mass/Vol] 9.6 mg/dL Normal 8.5-10.2 [facility] Comment on above: Order Comment: Speci men Type: BLOOD SPECIMENOrdering Facility: [facility] [place] Address: [address] [place] [address] Performed By: #### 2 4321-2 ####[facility] [id number] [place] [address] [place] Chloride [Moles/Vol] 103 mmol/L Normal 97-105 [facility] Comment on above: Order Comment: Speci men Type: BLOOD SPECIMENOrdering Facility: [facility] [place] Address: [address] [place] [address] Performed By: #### 2 4321-2 ####[facility] [id number] [place] [id number] [place] CO2 [Moles/Vol] 20 mmol/L Low 22-30 [facility] Comment on above: Order Comment: Speci men Type: BLOOD SPECIMENOrdering Facility: [facility] [place] Address: [address] [place] [address] Performed By: #### 2 4321-2 ####[facility] [id number] STATES OF [facility] Creatinine [Mass/Vol] 0.85 mg/dL Normal 0.58-0.96 [facility] Comment on above: Order Comment: Ash rodarte Type: BLOOD SPECIMENOrdering Facility: [facility] Address: [address] [place] [address] Performed By: #### 2 4321-2 ####[facility] [id number] [address] OF [facility] Creatinine and Glomerular filtration rate.predicted panel (S/P/Bld) 71 mL/min/1.73m??? Normal >=60 [facility] Comment on above: Order Comment: Ash rodarte Type: BLOOD SPECIMENOrdering Facility: [facility] [place] Address: [address] [place] [address] Result Comment: Josie mated Glomerular Filtration Rate (eGFR) is calculated using the 2020 CKD-EPI creatinine equation. This equation utilizes serum creatinine, sex, and age as parameters. The creatinine assay has traceable calibration to isotope dilution-mass spectrometry. Refer to KDIGO guidelines for clinical interpretation. In patients with unstable renal function, e.g. those with acute kidney injury, the eGFR may not accurately reflect actual GFR. Performed By: #### 2 4321-2 ####[facility] [id number] [place] [address] [place] Glucose [Mass/Vol] 94 mg/dL Normal 74-99 [facility] Comment on above: Order Comment: Ash rodarte Type: BLOOD SPECIMENOrdering Facility: [facility] [place] Address: [address] [place] [address] Result Comment: The [place] [employer] (ADA) provides guidance for cutoff values for fasting glucose and random glucose. The ADA defines fasting as no caloric intake for at least 8 hours. Fasting plasma glucose results between 100 to 125 mg/dL indicate increased risk for diabetes (prediabetes).Fasting plasma glucose results greater than or equal to 126 mg/dL meet the criteria for diagnosis of diabetes. In the absence of unequivocal hyperglycemia, results should be confirmed by repeat testing. In a patient with classic symptoms of hyperglycemia or hyperglycemic crisis, random plasma glucose results greater than or equal to 200 mg/dL meet the criteria for diagnosis of diabetes.Reference: Standards of Medical Care in Diabetes 2016, [place] [employer]. Diabetes Care. 2016.39(Suppl 1). Performed By: #### 2 4321-2 ####[facility] [id number] [place] [address] [place] Potassium [Moles/Vol] 4.3 mmol/L Normal 3.7-5.1 [facility] Comment on above: Order Comment: Speci men Type: BLOOD SPECIMENOrdering Facility: [facility] [place] Address: [address] [place] [address] Performed By: #### 2 4321-2 ####[facility] [id number] [place] [address] [place] Sodium [Moles/Vol] 136 mmol/L Normal 136-144 [facility] Comment on above: Order Comment: Speci men Type: BLOOD SPECIMENOrdering Facility: [facility] [place] Address: [address] [place] [address] Performed By: #### 2 4321-2 ####[facility] [id number] [place] [address] [place] Urea nitrogen [Mass/Vol] 7 mg/dL Normal 7-21 [facility] Comment on above: Order Comment: Speci men Type: BLOOD SPECIMENOrdering Facility: [facility] [place] Address: [address] [place] [address] Performed By: #### 2 4321-2 ####[facility] [id number] [place] [address] [place] CBC W Auto Differential pane l (Bld)on 09-10-2023 Basophils (Bld) [#/Vol] 0.03 10*3/uL Normal <0.11 [facility] Comment on above: Order Comment: Speci men Type: BLOOD SPECIMENOrdering Facility: [facility] [place] Address: [address] [place], [place] [address] Performed By: #### 5 7021-8 ####[facility] [id number] [place] [address] [place] Basophils/100 WBC (Bld) 0.5 % Normal [facility] Comment on above: Order Comment: Speci men Type: BLOOD SPECIMENOrdering Facility: [facility] [place] Address: [address] [place] [address] Performed By: #### 5 7021-8 ####[facility] [id number] [place] [address] [place] Differential cell count method Nom (Bld) Auto Normal [facility] Comment on above: Order Comment: Speci men Type: BLOOD SPECIMENOrdering Facility: [facility] [place] Address: [address] [place] [address] Performed By: #### 5 7021-8 ####[facility] [id number] [place] [address] [place] Eosinophils (Bld) [#/Vol] 0.14 10*3/uL Normal <0.46 [facility] Comment on above: Order Comment: Speci men Type: BLOOD SPECIMENOrdering Facility: [facility] [place] Address: [address] [place] [address] Performed By: #### 5 7021-8 ####[facility] [id number] [place] [address] [place] Eosinophils/100 WBC (Bld) 2.5 % Normal [facility] Comment on above: Order Comment: Speci men Type: BLOOD SPECIMENOrdering Facility: [facility] [place] Address: [address] [place] [address] Performed By: #### 5 7021-8 ####[facility] [id number] [place] [address] [place] Erythrocyte distribution width (RBC) [Ratio] 13.6 % Normal 11.5-15.0 [facility] Comment on above: Order Comment: Speci men Type: BLOOD SPECIMENOrdering Facility: [facility] [place] Address: [address] [place] [address] Performed By: #### 5 7021-8 ####[facility] [id number] [place] [address] [place] Hematocrit (Bld) [Volume fraction] 39.5 % Normal 36.0-46.0 [facility] Comment on above: Order Comment: Speci men Type: BLOOD SPECIMENOrdering Facility: [facility] [place] Address: [address] [place] [address] Performed By: #### 5 7021-8 ####[facility] [id number] [place] [address] [place] Hemoglobin (Bld) [Mass/Vol] 12.5 g/dL Normal 11.5-15.5 [facility] Comment on above: Order Comment: Speci men Type: BLOOD SPECIMENOrdering Facility: [facility] [place] Address: [address] [place] [address] Performed By: #### 5 7021-8 ####[facility] [id number] [place] [address] [place] Immature granulocytes (Bld) [#/Vol] 10*3/uL Normal <0.10 [facility] Comment on above: Order Comment: Speci men Type: BLOOD SPECIMENOrdering Facility: [facility] [place] Address: [address] [place] [address] Performed By: #### 5 7021-8 ####[facility] [id number] [place] [address] [place] Immature granulocytes/100 WBC (Bld) 0.2 % Normal [facility] Comment on above: Order Comment: Speci men Type: BLOOD SPECIMENOrdering Facility: [facility] [place] Address: [address] [place] [address] Performed By: #### 5 7021-8 ####[facility] [id number] [place] [address] [place] Lymphocytes (Bld) [#/Vol] 1.85 10*3/uL Normal 1.00-4.00 [facility] Comment on above: Order Comment: Speci men Type: BLOOD SPECIMENOrdering Facility: [facility] [place] Address: [address] [place] [address] Performed By: #### 5 7021-8 ####[facility] [id number] [place] [address] [place] Lymphocytes/100 WBC (Bld) 33.1 % Normal [facility] Comment on above: Order Comment: Speci men Type: BLOOD SPECIMENOrdering Facility: [facility] [place] Address: [address] [place] [address] Performed By: #### 5 7021-8 ####[facility] [id number] [place] [address] [place] MCH (RBC) [Entitic mass] 30.3 pg Normal 26.0-34.0 [facility] Comment on above: Order Comment: Speci men Type: BLOOD SPECIMENOrdering Facility: [facility] [place] Address: [address] [place] [address] Performed By: #### 5 7021-8 ####[facility] [id number] [place] [address] [place] MCHC (RBC) [Mass/Vol] 31.6 g/dL Normal 30.5-36.0 [facility] Comment on above: Order Comment: Speci men Type: BLOOD SPECIMENOrdering Facility: [facility] Address: [address] [place] [address] Performed By: #### 5 7021-8 ####[facility] [id number] [place] [address] [place] MCV (RBC) [Entitic vol] 95.9 fL Normal 80.0-100.0 [facility] Comment on above: Order Comment: Speci men Type: BLOOD SPECIMENOrdering Facility: [facility] Address: [address] [place] [address] Performed By: #### 5 7021-8 ####[facility] [id number] [place] [address] [place] Monocytes (Bld) [#/Vol] 0.50 10*3/uL Normal <0.87 [facility] Comment on above: Order Comment: Speci men Type: BLOOD SPECIMENOrdering Facility: [facility] Address: [address] [place] [address] Performed By: #### 5 7021-8 ####[facility] [id number] [place] [address] [place] Monocytes/100 WBC (Bld) 8.9 % Normal [facility] Comment on above: Order Comment: Speci men Type: BLOOD SPECIMENOrdering Facility: [facility] [place] Address: [address] [place] [address] Performed By: #### 5 7021-8 ####[facility] [id number] [place] [address] [place] Neutrophils (Bld) [#/Vol] 3.06 10*3/uL Normal 1.45-7.50 [facility] Comment on above: Order Comment: Speci men Type: BLOOD SPECIMENOrdering Facility: [facility] Address: [address] [place] [address] Performed By: #### 5 7021-8 ####[facility] [id number] [place] [address] [place] Neutrophils/100 WBC (Bld) 54.8 % Normal [facility] Comment on above: Order Comment: Speci men Type: BLOOD SPECIMENOrdering Facility: [facility] Address: [address] [place] [address] Performed By: #### 5 7021-8 ####[facility] [id number] [place] [address] [place] Nucleated RBC (Bld) [#/Vol] 10*3/uL Normal <0.01 [facility] Comment on above: Order Comment: Speci men Type: BLOOD SPECIMENOrdering Facility: [facility] Address: [address] [place] [address] Performed By: #### 5 7021-8 ####[facility] [id number] [place] [address] [place] Nucleated RBC/100 WBC (Bld) [Ratio] 0.0 /100 WBC Normal [facility] Comment on above: Order Comment: Speci men Type: BLOOD SPECIMENOrdering Facility: [facility] Address: [address] [place] [address] Performed By: #### 5 7021-8 ####[facility] [id number] [place] [address] [place] Platelet mean volume (Bld) [Entitic vol] 10.1 fL Normal 9.0-12.7 [facility] Comment on above: Order Comment: Speci men Type: BLOOD SPECIMENOrdering Facility: [facility] Address: [address] [place] [address] Performed By: #### 5 7021-8 ####[facility] [id number] [place] [address] [place] Platelets (Bld) [#/Vol] 374 10*3/uL Normal 150-400 [facility] Comment on above: Order Comment: Speci men Type: BLOOD SPECIMENOrdering Facility: [facility] Address: [address] [place] [address] Performed By: #### 5 7021-8 ####[facility] [id number] [place] [address] [place] RBC (Bld) [#/Vol] 4.12 10*6/uL Normal 3.90-5.[address] [facility] Comment on above: Order Comment: Speci men Type: BLOOD SPECIMENOrdering Facility: [facility] Address: [address] [place] [address] Performed By: #### 5 7021-8 ####[facility] [id number] [place] [address] [place] WBC (Bld) [#/Vol] 5.59 10*3/uL Normal 3.70-11.[address] [facility] Comment on above: Order Comment: Speci men Type: BLOOD SPECIMENOrdering Facility: [facility] Address: [address] [place] [address] Performed By: #### 5 7021-8 ####[facility] [id number] [place] [address] [place] CBC panel Auto (Bld)on 09-09 Erythrocyte distribution width (RBC) [Ratio] 13.8 % Normal 11.5-15.0 [facility] Comment on above: Order Comment: Speci men Type: BLOOD SPECIMENOrdering Facility: [facility] Address: [address] [place] [address] Performed By: #### 5 8410-2 ####[facility] [id number] [place] [address] [place] Hematocrit (Bld) [Volume fraction] 33.8 % Low 36.0-46.0 [facility] Comment on above: Order Comment: Speci men Type: BLOOD SPECIMENOrdering Facility: [facility] Address: [address] [place] [address] Performed By: #### 5 8410-2 ####[facility] [id number] [place] [address] [place] Hemoglobin (Bld) [Mass/Vol] 10.7 g/dL Low 11.5-15.5 [facility] Comment on above: Order Comment: Speci men Type: BLOOD SPECIMENOrdering Facility: [facility] Address: [address] [place] [address] Performed By: #### 5 8410-2 ####[facility] [id number] [place] [address] [place] MCH (RBC) [Entitic mass] 30.1 pg Normal 26.0-34.0 [facility] Comment on above: Order Comment: Speci men Type: BLOOD SPECIMENOrdering Facility: [facility] Address: [address] [place] [address] Performed By: #### 5 8410-2 ####[facility] [id number] [place] [address] [place] MCHC (RBC) [Mass/Vol] 31.7 g/dL Normal 30.5-36.0 [facility] Comment on above: Order Comment: Speci men Type: BLOOD SPECIMENOrdering Facility: [facility] Address: [address] [place] [address] Performed By: #### 5 8410-2 ####[facility] [id number] [place] [address] [place] MCV (RBC) [Entitic vol] 94.9 fL Normal 80.0-100.0 [facility] Comment on above: Order Comment: Speci men Type: BLOOD SPECIMENOrdering Facility: [facility] Address: [address] [place] [address] Performed By: #### 5 8410-2 ####[facility] [id number] [place] [address] [place] Nucleated RBC (Bld) [#/Vol] 10*3/uL Normal <0.01 [facility] Comment on above: Order Comment: Speci men Type: BLOOD SPECIMENOrdering Facility: [facility] Address: [address] [place] [address] Performed By: #### 5 8410-2 ####[facility] [id number] [place] [address] [place] Platelet mean volume (Bld) [Entitic vol] 9.9 fL Normal 9.0-12.7 [facility] Comment on above: Order Comment: Speci men Type: BLOOD SPECIMENOrdering Facility: [facility] Address: [address] [place] [address] Performed By: #### 5 8410-2 ####[facility] [id number] [place] [address] [place] Platelets (Bld) [#/Vol] 313 10*3/uL Normal 150-400 [facility] Comment on above: Order Comment: Speci men Type: BLOOD SPECIMENOrdering Facility: [facility] Address: [address] [place] [address] Performed By: #### 5 8410-2 ####[facility] [id number] [place] [address] [place] RBC (Bld) [#/Vol] 3.56 10*6/uL Low 3.90-5.[address] [facility] Comment on above: Order Comment: Speci men Type: BLOOD SPECIMENOrdering Facility: [facility] Address: [address] [place] [address] Performed By: #### 5 8410-2 ####[facility] [id number] [place] [address] [place] WBC (Bld) [#/Vol] 4.98 10*3/uL Normal 3.70-11.[address] [facility] Comment on above: Order Comment: Speci men Type: BLOOD SPECIMENOrdering Facility: [facility] Address: [address] [place] [address] Performed By: #### 5 8410-2 ####[facility] [id number] [place] [address] [place] CONSULT PROGon 09-10-2023 CONSULT PROG Normal [facility] CONSULT PROG Normal [facility] Comprehensive metabolic 2000 panelon 09-10-2023 Albumin [Mass/Vol] 3.5 g/dL Low 3.9-4.9 [facility] Comment on above: Order Comment: Speci men Type: BLOOD SPECIMENOrdering Facility: [facility] Address: [address] [place] [address] Performed By: #### 2 4323-8 ####[facility] [id number] [place] [address] [place] ALP [Catalytic activity/Vol] 127 U/L High 34-123 [facility] Comment on above: Order Comment: Speci men Type: BLOOD SPECIMENOrdering Facility: [facility] Address: [address] [place] [address] Performed By: #### 2 4323-8 ####[facility] [id number] [place] [address] [place] ALT [Catalytic activity/Vol] 12 U/L Normal 7-38 [facility] Comment on above: Order Comment: Speci men Type: BLOOD SPECIMENOrdering Facility: [facility] Address: [address] [place] [address] Performed By: #### 2 4323-8 ####[facility] [id number] [place] [address] [place] Anion gap [Moles/Vol] 13 mmol/L Normal 9-18 [facility] Comment on above: Order Comment: Speci men Type: BLOOD SPECIMENOrdering Facility: [facility] Address: [address] [place] [address] Performed By: #### 2 4323-8 ####[facility] [id number] [place] [address] [place] AST [Catalytic activity/Vol] 18 U/L Normal 13-35 [facility] Comment on above: Order Comment: Speci men Type: BLOOD SPECIMENOrdering Facility: [facility] Address: [address] [place] [address] Performed By: #### 2 4323-8 ####[facility] [id number] [place] [address] [place] Bilirubin [Mass/Vol] mg/dL Low 0.2-1.3 [facility] Comment on above: Order Comment: Speci men Type: BLOOD SPECIMENOrdering Facility: [facility] Address: [address] [place] [address] Performed By: #### 2 4323-8 ####[facility] [id number] [place] [address] [place] Calcium [Mass/Vol] 10.3 mg/dL High 8.5-10.2 [facility] Comment on above: Order Comment: Speci men Type: BLOOD SPECIMENOrdering Facility: [facility] Address: [address] [place], [place] [address] Performed By: #### 2 4323-8 ####[facility] [id number] [place] [address] [place] Chloride [Moles/Vol] 102 mmol/L Normal 97-105 [facility] Comment on above: Order Comment: Speci men Type: BLOOD SPECIMENOrdering Facility: [facility] Address: [address] [place] [address] Performed By: #### 2 4323-8 ####[facility] [id number] [place] [address] [place] CO2 [Moles/Vol] 20 mmol/L Low 22-30 [facility] Comment on above: Order Comment: Speci men Type: BLOOD SPECIMENOrdering Facility: [facility] Address: [address] [place] [address] Performed By: #### 2 4323-8 ####[facility] [id number] [place] [id number] [place] Creatinine [Mass/Vol] 0.92 mg/dL Normal 0.58-0.96 [facility] Comment on above: Order Comment: Ash rodarte Type: BLOOD SPECIMENOrdering Facility: [facility] Address: [address] [place] [address] Performed By: #### 2 4323-8 ####[facility] [id number] [address] Creatinine and Glomerular filtration rate.predicted panel (S/P/Bld) 64 mL/min/1.73m??? Normal >=60 [facility] Comment on above: Order Comment: Ash rodarte Type: BLOOD SPECIMENOrdering Facility: [facility] Address: [address] [place] [address] Result Comment: Josie mated Glomerular Filtration Rate (eGFR) is calculated using the 2020 CKD-EPI creatinine equation. This equation utilizes serum creatinine, sex, and age as parameters. The creatinine assay has traceable calibration to isotope dilution-mass spectrometry. Refer to KDIGO guidelines for clinical interpretation. In patients with unstable renal function, e.g. those with acute kidney injury, the eGFR may not accurately reflect actual GFR. Performed By: #### 2 4323-8 ####[facility] [id number] [place] [address] [place] Glucose [Mass/Vol] 83 mg/dL Normal 74-99 [facility] Comment on above: Order Comment: Ash rodarte Type: BLOOD SPECIMENOrdering Facility: [facility] Address: [address] [place] [address] Result Comment: The [place] [employer] (ADA) provides guidance for cutoff values for fasting glucose and random glucose. The ADA defines fasting as no caloric intake for at least 8 hours. Fasting plasma glucose results between 100 to 125 mg/dL indicate increased risk for diabetes (prediabetes).Fasting plasma glucose results greater than or equal to 126 mg/dL meet the criteria for diagnosis of diabetes. In the absence of unequivocal hyperglycemia, results should be confirmed by repeat testing. In a patient with classic symptoms of hyperglycemia or hyperglycemic crisis, random plasma glucose results greater than or equal to 200 mg/dL meet the criteria for diagnosis of diabetes.Reference: Standards of Medical Care in Diabetes 2016, [place] [employer]. Diabetes Care. 2016.39(Suppl 1). Performed By: #### 2 4323-8 ####[facility] [id number] [place] [address] [place] Potassium [Moles/Vol] 4.6 mmol/L Normal 3.7-5.1 [facility] Comment on above: Order Comment: Speci men Type: BLOOD SPECIMENOrdering Facility: [facility] Address: [address] [place] [address] Performed By: #### 2 4323-8 ####[facility] [id number] [place] [address] [place] Protein [Mass/Vol] 6.2 g/dL Low 6.3-8.0 [facility] Comment on above: Order Comment: Speci men Type: BLOOD SPECIMENOrdering Facility: [facility] Address: [address] [place] [address] Performed By: #### 2 4323-8 ####[facility] [id number] [place] [address] [place] Sodium [Moles/Vol] 135 mmol/L Low 136-144 [facility] Comment on above: Order Comment: Speci men Type: BLOOD SPECIMENOrdering Facility: [facility] Address: [address] [place] [address] Performed By: #### 2 4323-8 ####[facility] [id number] [place] [address] [place] Urea nitrogen [Mass/Vol] 9 mg/dL Normal 7-21 [facility] Comment on above: Order Comment: Speci men Type: BLOOD SPECIMENOrdering Facility: [facility] Address: [address] [place] [address] Performed By: #### 2 4323-8 ####[facility] [id number] [place] [address] [place] HISTORY PHYSICALon HISTORY PHYSICAL Normal [facility] NURSING PROGon 09-10-2023 NURSING PROG Normal [facility] PT panel Coag (PPP)on 2023 INR Coag (PPP) [Relative time] 1.0 {INR} Normal 0.9-1.3 [facility] Comment on above: Order Comment: Speci men Type: BLOOD SPECIMENOrdering Facility: [facility] Address: [address] [place] [address] Result Comment: Maria T min K Antagonist (VKA) Therapeutic Range: INR 2 to 3 (Target INR of 2.5)Note: For patients treated with VKA drugs, such as warfarin, the [place] [employer] 2012 Guideline recommends a therapeutic INR range of 2 to 3 (target INR of 2.5). This recommendation includes high-risk patients with antiphospholipid syndrome with previous arterial or venous thromboembolism, current-generation mechanical or bioprosthetic aortic heart valve replacement.Note: Patients with mechanical aortic valve replacement and additional risk factors for thromboembolic events (atrial fibrillation, previous thromboembolism, LV dysfunction, hypercoagulable conditions) or an older generation mechanical AVR (i.e., ball in-Cage) or any mechanical MVR should have a INR therapeutic range of 2.5 to 3.5 (target INR of 3).René GH, et al. Chest 2012, 141:7S-47SNishimura RA, et al. [facility] 2017, 70: 252-289 Performed By: #### 1 4979-9, 17001-3 ####[facility] [id number] [place] [address] [place] PT Coag (PPP) [Time] 10.8 s Normal 9.7-13.0 [facility] Comment on above: Order Comment: Speci men Type: BLOOD SPECIMENOrdering Facility: [facility] Address: [address] [place] [address] Performed By: #### 1 4979-9, 15568-8 ####[facility] [id number] [place] [address] [place] aPTT PPPon 09-10-2023 aPTT Coag (PPP) [Time] 28.8 s Normal 23.0-32.4 [facility] Comment on above: Order Comment: Speci men Type: BLOOD SPECIMENOrdering Facility: [facility] Address: [address] [place] [address] Performed By: #### 1 4979-9, 93782-9 ####[facility] [id number] [place] [address] [place] CNPNon 09-05-2023 CNPN Normal [facility] CNPNon 08-31-2023 CNPN Normal [facility] Bacteria Ur Culton Bacteria identified Cx Nom (U) Abnormal [facility] Comment on above: Performed By: #### 6 30-4 ####[facility] [id number] [place] [address] [place] CBC W Auto Differential pane l (Bld)on 08-29-2023 Basophils (Bld) [#/Vol] 0.05 10*3/uL Normal <0.11 [facility] Comment on above: Order Comment: Speci men Type: BLOOD SPECIMENOrdering Facility: [facility] Address: [address] [place] [address] Performed By: #### 5 7021-8 ####[facility] [id number] [place] [address] [place] Basophils/100 WBC (Bld) 0.7 % Normal [facility] Comment on above: Order Comment: Speci men Type: BLOOD SPECIMENOrdering Facility: [facility] Address: [address] [place] [address] Performed By: #### 5 7021-8 ####[facility] [id number] [place] [address] [place] Differential cell count method Nom (Bld) Auto Normal [facility] Comment on above: Order Comment: Speci men Type: BLOOD SPECIMENOrdering Facility: [facility] Address: [address] [place] [address] Performed By: #### 5 7021-8 ####[facility] [id number] [place] [address] [place] Eosinophils (Bld) [#/Vol] 0.22 10*3/uL Normal <0.46 [facility] Comment on above: Order Comment: Speci men Type: BLOOD SPECIMENOrdering Facility: [facility] Address: [address] [place] [address] Performed By: #### 5 7021-8 ####[facility] [id number] [place] [address] [place] Eosinophils/100 WBC (Bld) 3.0 % Normal [facility] Comment on above: Order Comment: Speci men Type: BLOOD SPECIMENOrdering Facility: [facility] Address: [address] [place] [address] Performed By: #### 5 7021-8 ####[facility] [id number] [place] [address] [place] Erythrocyte distribution width (RBC) [Ratio] 13.5 % Normal 11.5-15.0 [facility] Comment on above: Order Comment: Speci men Type: BLOOD SPECIMENOrdering Facility: [facility] Address: [address] [place] [address] Performed By: #### 5 7021-8 ####[facility] [id number] [place] [address] [place] Hematocrit (Bld) [Volume fraction] 39.0 % Normal 36.0-46.0 [facility] Comment on above: Order Comment: Speci men Type: BLOOD SPECIMENOrdering Facility: [facility] Address: [address] [place] [address] Performed By: #### 5 7021-8 ####[facility] [id number] [place] [address] [place] Hemoglobin (Bld) [Mass/Vol] 12.2 g/dL Normal 11.5-15.5 [facility] Comment on above: Order Comment: Speci men Type: BLOOD SPECIMENOrdering Facility: [facility] Address: [address] [place] [address] Performed By: #### 5 7021-8 ####[facility] [id number] [place] [address] [place] Immature granulocytes (Bld) [#/Vol] 0.04 10*3/uL Normal <0.10 [facility] Comment on above: Order Comment: Speci men Type: BLOOD SPECIMENOrdering Facility: [facility] Address: [address] [place] [address] Performed By: #### 5 7021-8 ####[facility] [id number] [place] [address] [place] Immature granulocytes/100 WBC (Bld) 0.5 % Normal [facility] Comment on above: Order Comment: Speci men Type: BLOOD SPECIMENOrdering Facility: [facility] Address: [address] [place] [address] Performed By: #### 5 7021-8 ####[facility] [id number] [place] [address] [place] Lymphocytes (Bld) [#/Vol] 2.45 10*3/uL Normal 1.00-4.00 [facility] Comment on above: Order Comment: Speci men Type: BLOOD SPECIMENOrdering Facility: [facility] Address: [address] [place] [address] Performed By: #### 5 7021-8 ####[facility] [id number] [place] [address] [place] Lymphocytes/100 WBC (Bld) 33.5 % Normal [facility] Comment on above: Order Comment: Speci men Type: BLOOD SPECIMENOrdering Facility: [facility] Address: [address] [place] [address] Performed By: #### 5 7021-8 ####[facility] [id number] [place] [address] [place] MCH (RBC) [Entitic mass] 30.8 pg Normal 26.0-34.0 [facility] Comment on above: Order Comment: Speci men Type: BLOOD SPECIMENOrdering Facility: [facility] Address: [address] [place] [address] Performed By: #### 5 7021-8 ####[facility] [id number] [place] [address] [place] MCHC (RBC) [Mass/Vol] 31.3 g/dL Normal 30.5-36.0 [facility] Comment on above: Order Comment: Speci men Type: BLOOD SPECIMENOrdering Facility: [facility] Address: [address] [place] [address] Performed By: #### 5 7021-8 ####[facility] [id number] [place] [address] [place] MCV (RBC) [Entitic vol] 98.5 fL Normal 80.0-100.0 [facility] Comment on above: Order Comment: Speci men Type: BLOOD SPECIMENOrdering Facility: [facility] Address: [address] [place] [address] Performed By: #### 5 7021-8 ####[facility] [id number] [place] [address] [place] Monocytes (Bld) [#/Vol] 0.62 10*3/uL Normal <0.87 [facility] Comment on above: Order Comment: Speci men Type: BLOOD SPECIMENOrdering Facility: [facility] Address: [address] [place] [address] Performed By: #### 5 7021-8 ####[facility] [id number] [place] [address] [place] Monocytes/100 WBC (Bld) 8.5 % Normal [facility] Comment on above: Order Comment: Speci men Type: BLOOD SPECIMENOrdering Facility: [facility] Address: [address] [place] [address] Performed By: #### 5 7021-8 ####[facility] [id number] [place] [address] [place] Neutrophils (Bld) [#/Vol] 3.94 10*3/uL Normal 1.45-7.50 [facility] Comment on above: Order Comment: Speci men Type: BLOOD SPECIMENOrdering Facility: [facility] Address: [address] [place] [address] Performed By: #### 5 7021-8 ####[facility] [id number] [place] [address] [place] Neutrophils/100 WBC (Bld) 53.8 % Normal [facility] Comment on above: Order Comment: Speci men Type: BLOOD SPECIMENOrdering Facility: [facility] Address: [address] [place] [address] Performed By: #### 5 7021-8 ####[facility]CL[facility] [id number] [place] [address] [place] Nucleated RBC (Bld) [#/Vol] 10*3/uL Normal <0.01 [facility] Comment on above: Order Comment: Speci men Type: BLOOD SPECIMENOrdering Facility: [facility] Address: [address] [place] [address] Performed By: #### 5 7021-8 ####[facility]CL[facility] [id number] [place] [address] [place] Nucleated RBC/100 WBC (Bld) [Ratio] 0.0 /100 WBC Normal [facility] Comment on above: Order Comment: Speci men Type: BLOOD SPECIMENOrdering Facility: [facility] Address: [address] [place] [address] Performed By: #### 5 7021-8 ####[facility] [id number] [place] [address] [place] Platelet mean volume (Bld) [Entitic vol] 10.0 fL Normal 9.0-12.7 [facility] Comment on above: Order Comment: Speci men Type: BLOOD SPECIMENOrdering Facility: [facility] Address: [address] [place] [address] Performed By: #### 5 7021-8 ####[facility] [id number] [place] [address] [place] Platelets (Bld) [#/Vol] 372 10*3/uL Normal 150-400 [facility] Comment on above: Order Comment: Speci men Type: BLOOD SPECIMENOrdering Facility: [facility] Address: [address] [place] [address] Performed By: #### 5 7021-8 ####[facility] [id number] [place] [address] [place] RBC (Bld) [#/Vol] 3.96 10*6/uL Normal 3.90-5.[address] [facility] Comment on above: Order Comment: Speci men Type: BLOOD SPECIMENOrdering Facility: [facility] Address: [address] [place] [address] Performed By: #### 5 7021-8 ####[facility] [id number] [place] [address] [place] WBC (Bld) [#/Vol] 7.32 10*3/uL Normal 3.70-11.[address] [facility] Comment on above: Order Comment: Speci men Type: BLOOD SPECIMENOrdering Facility: [facility] Address: [address] [place] [address] Performed By: #### 5 7021-8 ####[facility] [id number] [place] [address] [place] CNCOon 08-29-2023 CNCO Letter Text Normal [facility] CNOVon 08-29-2023 CNOV Normal [facility] CNPTOUTREACHon 08-29-2023 CNPTOUTREACH Normal [facility] Comprehensive metabolic 2000 panelon 08-29-2023 Albumin [Mass/Vol] 3.9 g/dL Normal 3.9-4.9 [facility] Comment on above: Order Comment: Speci men Type: BLOOD SPECIMENOrdering Facility: [facility] Address: [address] [place] [address] Performed By: #### 2 4323-8 ####[facility] LABCLIA [id number] [place] [address] [place] ALP [Catalytic activity/Vol] 134 U/L High 34-123 [facility] Comment on above: Order Comment: Speci men Type: BLOOD SPECIMENOrdering Facility: [facility] Address: [address] [place] [address] Performed By: #### 2 4323-8 ####[facility] LABCLIA [id number] [place] [address] [place] ALT [Catalytic activity/Vol] 19 U/L Normal 7-38 [facility] Comment on above: Order Comment: Speci men Type: BLOOD SPECIMENOrdering Facility: [facility] Address: [address] [place] [address] Performed By: #### 2 4323-8 ####[facility] LABCLIA [id number] [place] [address] [place] Anion gap [Moles/Vol] 12 mmol/L Normal 9-18 [facility] Comment on above: Order Comment: Speci men Type: BLOOD SPECIMENOrdering Facility: [facility] Address: [address] [place] [address] Performed By: #### 2 4323-8 ####[facility] LABCLIA [id number] [place] [address] [place] AST [Catalytic activity/Vol] 25 U/L Normal 13-35 [facility] Comment on above: Order Comment: Speci men Type: BLOOD SPECIMENOrdering Facility: [facility] Address: [address] [place] [address] Performed By: #### 2 4323-8 ####[facility] LABCLIA [id number] [place] [address] [place] Bilirubin [Mass/Vol] mg/dL Low 0.2-1.3 [facility] Comment on above: Order Comment: Speci men Type: BLOOD SPECIMENOrdering Facility: [facility] Address: [address] [place] [address] Performed By: #### 2 4323-8 ####[facility] LABCLIA [id number] [place] [address] [place] Calcium [Mass/Vol] 10.5 mg/dL High 8.5-10.2 [facility] Comment on above: Order Comment: Speci men Type: BLOOD SPECIMENOrdering Facility: [facility] Address: [address] [place] [address] Performed By: #### 2 4323-8 ####[facility] LABCLIA [id number] [place] [address] [place] Chloride [Moles/Vol] 102 mmol/L Normal 97-105 [facility] Comment on above: Order Comment: Speci men Type: BLOOD SPECIMENOrdering Facility: [facility] Address: [address] [place] [address] Performed By: #### 2 4323-8 ####[facility] LABCLIA [id number] [place] [address] [place] CO2 [Moles/Vol] 24 mmol/L Normal 22-30 [facility] Comment on above: Order Comment: Speci men Type: BLOOD SPECIMENOrdering Facility: [facility] Address: [address] [place] [address] Performed By: #### 2 4323-8 ####[facility] LABCLIA [id number] [place] [address] [place] Creatinine [Mass/Vol] 1.17 mg/dL High 0.58-0.96 [facility] Comment on above: Order Comment: Speci men Type: BLOOD SPECIMENOrdering Facility: [facility] Address: [address] [place] [address] Performed By: #### 2 4323-8 ####[facility] LABIA [id number] [place] [address] [place] Creatinine and Glomerular filtration rate.predicted panel (S/P/Bld) 48 mL/min/1.73m??? Low >=60 [facility] Comment on above: Order Comment: Speci men Type: BLOOD SPECIMENOrdering Facility: [facility] Address: [address] [place] [address] Result Comment: Josie mated Glomerular Filtration Rate (eGFR) is calculated using the 2020 CKD-EPI creatinine equation. This equation utilizes serum creatinine, sex, and age as parameters. The creatinine assay has traceable calibration to isotope dilution-mass spectrometry. Refer to KDIGO guidelines for clinical interpretation. In patients with unstable renal function, e.g. those with acute kidney injury, the eGFR may not accurately reflect actual GFR. Performed By: #### 2 4323-8 ####[facility] LABCLIA [id number] [place] [address] [place] Glucose [Mass/Vol] 105 mg/dL High 74-99 [facility] Comment on above: Order Comment: Speci men Type: BLOOD SPECIMENOrdering Facility: [facility] Address: [address] [place] [address] Result Comment: The [place] [employer] (ADA) provides guidance for cutoff values for fasting glucose and random glucose. The ADA defines fasting as no caloric intake for at least 8 hours. Fasting plasma glucose results between 100 to 125 mg/dL indicate increased risk for diabetes (prediabetes).Fasting plasma glucose results greater than or equal to 126 mg/dL meet the criteria for diagnosis of diabetes. In the absence of unequivocal hyperglycemia, results should be confirmed by repeat testing. In a patient with classic symptoms of hyperglycemia or hyperglycemic crisis, random plasma glucose results greater than or equal to 200 mg/dL meet the criteria for diagnosis of diabetes.Reference: Standards of Medical Care in Diabetes 2016, [place] [employer]. Diabetes Care. 2016.39(Suppl 1). Performed By: #### 2 4323-8 ####[facility] LABCLIA [id number] [place] [address] [place] Potassium [Moles/Vol] 4.7 mmol/L Normal 3.7-5.1 [facility] Comment on above: Order Comment: Speci men Type: BLOOD SPECIMENOrdering Facility: [facility] Address: [address] [place] [address] Performed By: #### 2 4323-8 ####[facility] LABCLIA [id number] [place] [address] [place] Protein [Mass/Vol] 6.7 g/dL Normal 6.3-8.0 [facility] Comment on above: Order Comment: Speci men Type: BLOOD SPECIMENOrdering Facility: [facility] Address: [address] [place] [address] Performed By: #### 2 4323-8 ####[facility] LABCLIA [id number] [place] [address] [place] Sodium [Moles/Vol] 138 mmol/L Normal 136-144 [facility] Comment on above: Order Comment: Speci men Type: BLOOD SPECIMENOrdering Facility: [facility] Address: [address] [place] [address] Performed By: #### 2 4323-8 ####[facility] LABCLIA [id number] [place] [address] [place] Urea nitrogen [Mass/Vol] 9 mg/dL Normal 7-21 [facility] Comment on above: Order Comment: Speci men Type: BLOOD SPECIMENOrdering Facility: [facility] Address: [address] [place] [address] Performed By: #### 2 4323-8 ####[facility] LABCLIA [id number] [place] [address] [place] HISTORY PHYSICALon HISTORY PHYSICAL Normal [facility] TYPE AND SCREEN,30 DAYon ABO A Normal [facility] Comment on above: Order Comment: Speci men Type: BLOOD SPECIMENOrdering Facility: [facility] Address: [address] [place] [address] Performed By: #### T [id number] ####[facility] BLOOD BANKCLIA [id number] [place] [address] [place] HISTORICAL AB SCR STATUS Negative Normal [facility] Comment on above: Order Comment: Speci men Type: BLOOD SPECIMENOrdering Facility: [facility] Address: [address] [place] [address] Performed By: #### T SCR30 ####[facility] BLOOD BANKCLIA [id number] [place] [id number] [place] Rh Nom (Bld) Negative Normal [facility] Comment on above: Order Comment: Speci men Type: BLOOD SPECIMENOrdering Facility: [facility] Address: [address] [place] [address] Performed By: #### T SCR30 ####[facility] MA[facility] BLOOD BANKIA [id number] [place] [address] [place] URINALYSIS, REFLEX MICROSCOP ICon 08-29-2023 Bilirubin Ql (U) Negative Negative [facility] Clarity (Unsp spec) Turbid Abnormal Clear [facility] Color (U) Red Abnormal Yellow [facility] Epithelial cells LM.HPF (Urine sed) [#/Area] Few [facility] Glucose Test strip (U) [Mass/Vol] Negative Negative [facility] Hemoglobin Ql (U) 3+ Abnormal Negative [facility] Hyaline casts (Urine sed) [#/Area] 1-3 /LPF Abnormal 0 /LPF [facility] Ketones Ql (U) Negative Negative [facility] Leukocyte esterase Test strip Ql (U) 2+ Abnormal Negative [facility] Nitrite Ql (U) Negative Negative [facility] pH (U) 6.5 [pH] 5.0 - 8.0 [facility] Protein (U) [Mass/Vol] [facility] RBC LM.HPF (Urine sed) [#/Area] /[HPF] Abnormal 0-3 /HPF [facility] Specific gravity (U) [Rel density] 1.025 1.005 - 1.030 [facility] Urobilinogen Ql (U) 0.2 EU/dL 0.2-1.0 EU/dL [facility] WBC LM.HPF (Urine sed) [#/Area] /[HPF] Abnormal 0-5 /HPF [facility] Bilirubin Ql (U) Negative Normal Negative [facility] Comment on above: Order Comment: Speci men Type: URINE SPECIMENOrdering Facility: [facility] Address: [address] [place] [address] Performed By: #### L [id number] ####[facility] LABCLIA [id number] [place] [address] [place] Clarity (Unsp spec) Turbid Abnormal Clear [facility] Comment on above: Order Comment: Speci men Type: URINE SPECIMENOrdering Facility: [facility] Address: [address] [place] [address] Performed By: #### L [id number] ####[facility] LABCLIA [id number] [place] [address] [place] Color (U) Red Abnormal Yellow [facility] Comment on above: Order Comment: Speci men Type: URINE SPECIMENOrdering Facility: [facility] Address: [address] [place] [address] Performed By: #### L [id number] ####[facility] LABCLIA [id number] [place] [address] [place] Epithelial cells LM.HPF (Urine sed) [#/Area] Few Normal [facility] Comment on above: Order Comment: Speci men Type: URINE SPECIMENOrdering Facility: [facility] Address: [address] [place] [address] Performed By: #### L [id number] ####[facility] LABCLIA [id number] [address] [place] Glucose Test strip (U) [Mass/Vol] Negative Normal Negative [facility] Comment on above: Order Comment: Speci men Type: URINE SPECIMENOrdering Facility: [facility] Address: [address] [place] [address] Performed By: #### L [id number] ####[facility] LABCLIA [id number] [place] [address] [place] Hemoglobin Ql (U) 3+ Abnormal Negative [facility] Comment on above: Order Comment: Speci men Type: URINE SPECIMENOrdering Facility: [facility] Address: [address] [place] [address] Performed By: #### L [id number] ####[facility] LABCLIA [id number] [place] [address] [place] Hyaline casts (Urine sed) [#/Area] 1-3 /LPF Abnormal 0 /LPF [facility] Comment on above: Order Comment: Speci men Type: URINE SPECIMENOrdering Facility: [facility] Address: [address] [place] [address] Performed By: #### L [id number] ####[facility] LABCLIA [id number] [place] [address] [place] Ketones Ql (U) Negative Normal Negative [facility] Comment on above: Order Comment: Speci men Type: URINE SPECIMENOrdering Facility: [facility] Address: [address] [place] [address] Performed By: #### L [id number] ####[facility] LABCLIA [id number] [place] [address] [place] Leukocyte esterase Test strip Ql (U) 2+ Abnormal Negative [facility] Comment on above: Order Comment: Speci men Type: URINE SPECIMENOrdering Facility: [facility] Address: [address] [place] [address] Performed By: #### L [id number] ####[facility] LABCLIA [id number] [place] [address] [place] Nitrite Ql (U) Negative Normal Negative [facility] Comment on above: Order Comment: Speci men Type: URINE SPECIMENOrdering Facility: [facility] Address: [address] [place] [address] Performed By: #### L [id number] ####[facility] LABCLIA [id number] [place] [address] [place] pH (U) 6.5 [pH] Normal 5.0-8.0 [facility] Comment on above: Order Comment: Speci men Type: URINE SPECIMENOrdering Facility: [facility] Address: [address] [place] [address] Performed By: #### L [id number] ####[facility] LABCLIA [id number] [place] [address] [place] Protein (U) [Mass/Vol] Normal [facility] Comment on above: Order Comment: Speci men Type: URINE SPECIMENOrdering Facility: [facility] Address: [address] [place] [address] Result Comment: Visi ble blood causes falsely elevated results for analyte Protein. Due to this limitation, Protein will not be reported for patients whose urine contains visible blood. Performed By: #### L [id number] ####[facility] LABIA [id number] [place] [address] [place] RBC LM.HPF (Urine sed) [#/Area] /[HPF] Abnormal 0-3 /HPF [facility] Comment on above: Order Comment: Speci men Type: URINE SPECIMENOrdering Facility: [facility] Address: [address] [place] [address] Performed By: #### L [id number] ####[facility] [id number] [place] [address] [place] Specific gravity (U) [Rel density] 1.025 Normal 1.005-1.030 [facility] Comment on above: Order Comment: Speci men Type: URINE SPECIMENOrdering Facility: [facility] Address: [address] [place] [address] Performed By: #### L [id number] ####[facility] LABIA [id number] [place] [address] [place] Urobilinogen Ql (U) 0.2 EU/dL Normal 0.2-1.0 EU/dL [facility] Comment on above: Order Comment: Speci men Type: URINE SPECIMENOrdering Facility: [facility] Address: [address] [place] [address] Performed By: #### L [id number] ####[facility] LABIA [id number] [place] [address] [place] WBC LM.HPF (Urine sed) [#/Area] /[HPF] Abnormal 0-5 /HPF [facility] Comment on above: Order Comment: Speci men Type: URINE SPECIMENOrdering Facility: [facility] Address: [address] [place] [address] Performed By: #### L [id number] ####[facility] LABCLIA [id number] [place] [address] [place] CNPNon 08-15-2023 CNPN Normal [facility] CNPNon 08-01-2023 CNPN Normal [facility] Basic metabolic 2000 panelon 07-24-2023 Anion gap [Moles/Vol] 13 mmol/L Normal 9-18 [facility] Comment on above: Order Comment: Speci men Type: BLOOD SPECIMENOrdering Facility: [facility] Address: [address] [place] [address] Performed By: #### 2 4321-2 ####[facility] LABCLIA [id number] [place] [address] [place] Calcium [Mass/Vol] 9.2 mg/dL Normal 8.5-10.2 [facility] Comment on above: Order Comment: Speci men Type: BLOOD SPECIMENOrdering Facility: [facility] Address: [address] [place] [address] Performed By: #### 2 4321-2 ####[facility] LABCLIA [id number] [place] [address] [place] Chloride [Moles/Vol] 105 mmol/L Normal 97-105 [facility] Comment on above: Order Comment: Speci men Type: BLOOD SPECIMENOrdering Facility: [facility] Address: [address] [place] [address] Performed By: #### 2 4321-2 ####[facility] LABCLIA [id number] [place] [address] [place] CO2 [Moles/Vol] 19 mmol/L Low 22-30 [facility] Comment on above: Order Comment: Speci men Type: BLOOD SPECIMENOrdering Facility: [facility] Address: [address] [place] [address] Performed By: #### 2 4321-2 ####[facility] LABCLIA [id number] [place] [address] [place] [facility] Creatinine [Mass/Vol] 0.65 mg/dL Normal 0.58-0.96 [facility] Comment on above: Order Comment: Ash rodarte Type: BLOOD SPECIMENOrdering Facility: [facility] Address: [address] [place] [address] Performed By: #### 2 4321-2 ####[facility] LABCLIA [id number] [address] OF [facility] Creatinine and Glomerular filtration rate.predicted panel (S/P/Bld) 91 mL/min/1.73m??? Normal >=60 [facility] Comment on above: Order Comment: Ash rodarte Type: BLOOD SPECIMENOrdering Facility: [facility] Address: [address] [place] [address] Result Comment: Josie mated Glomerular Filtration Rate (eGFR) is calculated using the 2020 CKD-EPI creatinine equation. This equation utilizes serum creatinine, sex, and age as parameters. The creatinine assay has traceable calibration to isotope dilution-mass spectrometry. Refer to KDIGO guidelines for clinical interpretation. In patients with unstable renal function, e.g. those with acute kidney injury, the eGFR may not accurately reflect actual GFR. Performed By: #### 2 4321-2 ####[facility] LABCLIA [id number] [place] [address] [place] Glucose [Mass/Vol] 97 mg/dL Normal 74-99 [facility] Comment on above: Order Comment: Ash rodarte Type: BLOOD SPECIMENOrdering Facility: [facility] Address: [address] [place] [address] Result Comment: The [place] [employer] (ADA) provides guidance for cutoff values for fasting glucose and random glucose. The ADA defines fasting as no caloric intake for at least 8 hours. Fasting plasma glucose results between 100 to 125 mg/dL indicate increased risk for diabetes (prediabetes).Fasting plasma glucose results greater than or equal to 126 mg/dL meet the criteria for diagnosis of diabetes. In the absence of unequivocal hyperglycemia, results should be confirmed by repeat testing. In a patient with classic symptoms of hyperglycemia or hyperglycemic crisis, random plasma glucose results greater than or equal to 200 mg/dL meet the criteria for diagnosis of diabetes.Reference: Standards of Medical Care in Diabetes 2016, [place] [employer]. Diabetes Care. 2016.39(Suppl 1). Performed By: #### 2 4321-2 ####[facility] LABCLIA [id number] [place] [address] [place] Potassium [Moles/Vol] 3.7 mmol/L Normal 3.7-5.1 [facility] Comment on above: Order Comment: Speci men Type: BLOOD SPECIMENOrdering Facility: [facility] Address: [address] [place] [address] Performed By: #### 2 4321-2 ####[facility] LABIA [id number] [place] [address] [place] Sodium [Moles/Vol] 137 mmol/L Normal 136-144 [facility] Comment on above: Order Comment: Speci men Type: BLOOD SPECIMENOrdering Facility: [facility] Address: [address] [place] [address] Performed By: #### 2 4321-2 ####[facility] LABIA [id number] [place] [address] [place] Urea nitrogen [Mass/Vol] 10 mg/dL Normal 7-21 [facility] Comment on above: Order Comment: Speci men Type: BLOOD SPECIMENOrdering Facility: [facility] Address: [address] [place] [address] Performed By: #### 2 4321-2 ####[facility] LABIA [id number] [place] [id number] [place] CASE MANAGEMon 07-24-2023 CASE MANAGEM Normal [facility] CBC W Auto Differential pane l (Bld)on 07-24-2023 Basophils (Bld) [#/Vol] 0.04 10*3/uL Normal <0.11 [facility] Comment on above: Order Comment: Speci men Type: BLOOD SPECIMENOrdering Facility: [facility] Address: [address] [place] [address] Performed By: #### 5 7021-8 ####[facility] LABCLIA [id number] [place] [address] [place] Basophils/100 WBC (Bld) 0.6 % Normal [facility] Comment on above: Order Comment: Speci men Type: BLOOD SPECIMENOrdering Facility: [facility] Address: [address] [place] [address] Performed By: #### 5 7021-8 ####[facility] LABCLIA [id number] [place] [address] [place] Differential cell count method Nom (Bld) Auto Normal [facility] Comment on above: Order Comment: Speci men Type: BLOOD SPECIMENOrdering Facility: [facility] Address: [address] [place] [address] Performed By: #### 5 7021-8 ####[facility] LABCLIA [id number] [place] [address] [place] Eosinophils (Bld) [#/Vol] 0.24 10*3/uL Normal <0.46 [facility] Comment on above: Order Comment: Speci men Type: BLOOD SPECIMENOrdering Facility: [facility] Address: [address] [place] [address] Performed By: #### 5 7021-8 ####[facility] LABCLIA [id number] [place] [address] [place] Eosinophils/100 WBC (Bld) 3.4 % Normal [facility] Comment on above: Order Comment: Speci men Type: BLOOD SPECIMENOrdering Facility: [facility] Address: [address] [place] [address] Performed By: #### 5 7021-8 ####[facility] LABCLIA [id number] [place] [address] [place] Erythrocyte distribution width (RBC) [Ratio] 14.5 % Normal 11.5-15.0 [facility] Comment on above: Order Comment: Speci men Type: BLOOD SPECIMENOrdering Facility: [facility] Address: [address] [place] [address] Performed By: #### 5 7021-8 ####[facility] LABIA [id number] [place] [address] [place] Hematocrit (Bld) [Volume fraction] 35.0 % Low 36.0-46.0 [facility] Comment on above: Order Comment: Speci men Type: BLOOD SPECIMENOrdering Facility: [facility] Address: [address] [place] [address] Performed By: #### 5 7021-8 ####[facility] LABIA [id number] [place] [address] [place] Hemoglobin (Bld) [Mass/Vol] 11.3 g/dL Low 11.5-15.5 [facility] Comment on above: Order Comment: Speci men Type: BLOOD SPECIMENOrdering Facility: [facility] Address: [address] [place] [address] Performed By: #### 5 7021-8 ####[facility] LABIA [id number] [place] [address] [place] Immature granulocytes (Bld) [#/Vol] 0.04 10*3/uL Normal <0.10 [facility] Comment on above: Order Comment: Speci men Type: BLOOD SPECIMENOrdering Facility: [facility] Address: [address] [place] [address] Performed By: #### 5 7021-8 ####[facility] LABIA [id number] [place] [address] [place] Immature granulocytes/100 WBC (Bld) 0.6 % Normal [facility] Comment on above: Order Comment: Speci men Type: BLOOD SPECIMENOrdering Facility: [facility] Address: [address] [place] [address] Performed By: #### 5 7021-8 ####[facility] LABCLIA [id number] [place] [address] [place] Lymphocytes (Bld) [#/Vol] 2.22 10*3/uL Normal 1.00-4.00 [facility] Comment on above: Order Comment: Speci men Type: BLOOD SPECIMENOrdering Facility: [facility] Address: [address] [place] [address] Performed By: #### 5 7021-8 ####[facility] LABCLIA [id number] [place] [address] [place] Lymphocytes/100 WBC (Bld) 31.2 % Normal [facility] Comment on above: Order Comment: Speci men Type: BLOOD SPECIMENOrdering Facility: [facility] Address: [address] [place] [address] Performed By: #### 5 7021-8 ####[facility] LABCLIA [id number] [place] [address] [place] MCH (RBC) [Entitic mass] 33.8 pg Normal 26.0-34.0 [facility] Comment on above: Order Comment: Speci men Type: BLOOD SPECIMENOrdering Facility: [facility] Address: [address] [place] [address] Performed By: #### 5 7021-8 ####[facility] LABCLIA [id number] [place] [address] [place] MCHC (RBC) [Mass/Vol] 32.3 g/dL Normal 30.5-36.0 [facility] Comment on above: Order Comment: Speci men Type: BLOOD SPECIMENOrdering Facility: [facility] Address: [address] [place] [address] Performed By: #### 5 7021-8 ####[facility] LABCLIA [id number] [place] [address] [place] MCV (RBC) [Entitic vol] 104.8 fL High 80.0-100.0 [facility] Comment on above: Order Comment: Speci men Type: BLOOD SPECIMENOrdering Facility: [facility] Address: [address] [place] [address] Performed By: #### 5 7021-8 ####[facility] LABCLIA [id number] [place] [address] [place] Monocytes (Bld) [#/Vol] 0.37 10*3/uL Normal <0.87 [facility] Comment on above: Order Comment: Speci men Type: BLOOD SPECIMENOrdering Facility: [facility] Address: [address] [place] [address] Performed By: #### 5 7021-8 ####[facility] LABCLIA [id number] [place] [address] [place] Monocytes/100 WBC (Bld) 5.2 % Normal [facility] Comment on above: Order Comment: Speci men Type: BLOOD SPECIMENOrdering Facility: [facility] Address: [address] [place] [address] Performed By: #### 5 7021-8 ####[facility] LABCLIA [id number] [place] [address] [place] Neutrophils (Bld) [#/Vol] 4.21 10*3/uL Normal 1.45-7.50 [facility] Comment on above: Order Comment: Speci men Type: BLOOD SPECIMENOrdering Facility: [facility] Address: [address] [place] [address] Performed By: #### 5 7021-8 ####[facility] LABCLIA [id number] [place] [address] [place] Neutrophils/100 WBC (Bld) 59.0 % Normal [facility] Comment on above: Order Comment: Speci men Type: BLOOD SPECIMENOrdering Facility: [facility] Address: [address] [place] [address] Performed By: #### 5 7021-8 ####[facility] LABIA [id number] [place] [address] [place] Nucleated RBC (Bld) [#/Vol] 10*3/uL Normal <0.01 [facility] Comment on above: Order Comment: Speci men Type: BLOOD SPECIMENOrdering Facility: [facility] Address: [address] [place] [address] Performed By: #### 5 7021-8 ####[facility] LABIA [id number] [place] [address] [place] Nucleated RBC/100 WBC (Bld) [Ratio] 0.0 /100 WBC Normal [facility] Comment on above: Order Comment: Speci men Type: BLOOD SPECIMENOrdering Facility: [facility] Address: [address] [place] [address] Performed By: #### 5 7021-8 ####[facility] LABIA [id number] [place] [address] [place] Platelet mean volume (Bld) [Entitic vol] 9.8 fL Normal 9.0-12.7 [facility] Comment on above: Order Comment: Speci men Type: BLOOD SPECIMENOrdering Facility: [facility] Address: [address] [place] [address] Performed By: #### 5 7021-8 ####[facility] LABCLIA [id number] [place] [address] [place] Platelets (Bld) [#/Vol] 332 10*3/uL Normal 150-400 [facility] Comment on above: Order Comment: Speci men Type: BLOOD SPECIMENOrdering Facility: [facility] Address: [address] [place] [address] Performed By: #### 5 7021-8 ####[facility] LABCLIA [id number] [place] [address] [place] RBC (Bld) [#/Vol] 3.34 10*6/uL Low 3.90-5.[address] [facility] Comment on above: Order Comment: Speci men Type: BLOOD SPECIMENOrdering Facility: [facility] Address: [address] [place] [address] Performed By: #### 5 7021-8 ####[facility] LABCLIA [id number] [place] [address] [place] WBC (Bld) [#/Vol] 7.12 10*3/uL Normal 3.70-11.[address] [facility] Comment on above: Order Comment: Speci men Type: BLOOD SPECIMENOrdering Facility: [facility] Address: [address] [place] [address] Performed By: #### 5 7021-8 ####[facility] LABCLIA [id number] [place] [address] [place] CNDSon 07-24-2023 CNDS Normal [facility] ALLIED HEALTHon 07-23-2023 ALLIED HEALTH Normal [facility] Basic metabolic 2000 panelon 07-23-2023 Anion gap [Moles/Vol] 15 mmol/L Normal 9-18 [facility] Comment on above: Order Comment: Speci men Type: BLOOD SPECIMENOrdering Facility: [facility] Address: [address] [place] [address] Performed By: #### 2 4321-2 ####[facility] LABCLIA [id number] [place] [address] [place] Calcium [Mass/Vol] 9.9 mg/dL Normal 8.5-10.2 [facility] Comment on above: Order Comment: Speci men Type: BLOOD SPECIMENOrdering Facility: [facility] Address: [address] [place] [address] Performed By: #### 2 4321-2 ####[facility] LABCLIA [id number] [place] [address] [place] Chloride [Moles/Vol] 103 mmol/L Normal 97-105 [facility] Comment on above: Order Comment: Speci men Type: BLOOD SPECIMENOrdering Facility: [facility] Address: [address] [place] [address] Performed By: #### 2 4321-2 ####[facility] LABCLIA [id number] [place] [address] [place] CO2 [Moles/Vol] 19 mmol/L Low 22-30 [facility] Comment on above: Order Comment: Speci men Type: BLOOD SPECIMENOrdering Facility: [facility] Address: [address] [place] [address] Performed By: #### 2 4321-2 ####[facility] LABCLIA [id number] [place] [address] [place] Creatinine [Mass/Vol] 0.57 mg/dL Low 0.58-0.96 [facility] Comment on above: Order Comment: Speci men Type: BLOOD SPECIMENOrdering Facility: [facility] Address: [address] [place] [address] Performed By: #### 2 4321-2 ####[facility] LABCLIA [id number] [place] [address] [place] Creatinine and Glomerular filtration rate.predicted panel (S/P/Bld) 94 mL/min/1.73m??? Normal >=60 [facility] Comment on above: Order Comment: Speci men Type: BLOOD SPECIMENOrdering Facility: [facility] Address: [address] [place] [address] Result Comment: Josie mated Glomerular Filtration Rate (eGFR) is calculated using the 2020 CKD-EPI creatinine equation. This equation utilizes serum creatinine, sex, and age as parameters. The creatinine assay has traceable calibration to isotope dilution-mass spectrometry. Refer to KDIGO guidelines for clinical interpretation. In patients with unstable renal function, e.g. those with acute kidney injury, the eGFR may not accurately reflect actual GFR. Performed By: #### 2 4321-2 ####[facility] LABIA [id number] [place] [address] [place] Glucose [Mass/Vol] 78 mg/dL Normal 74-99 [facility] Comment on above: Order Comment: Speci men Type: BLOOD SPECIMENOrdering Facility: [facility] Address: [address] [place] [address] Result Comment: The [place] [employer] (ADA) provides guidance for cutoff values for fasting glucose and random glucose. The ADA defines fasting as no caloric intake for at least 8 hours. Fasting plasma glucose results between 100 to 125 mg/dL indicate increased risk for diabetes (prediabetes).Fasting plasma glucose results greater than or equal to 126 mg/dL meet the criteria for diagnosis of diabetes. In the absence of unequivocal hyperglycemia, results should be confirmed by repeat testing. In a patient with classic symptoms of hyperglycemia or hyperglycemic crisis, random plasma glucose results greater than or equal to 200 mg/dL meet the criteria for diagnosis of diabetes.Reference: Standards of Medical Care in Diabetes 2016, [place] [employer]. Diabetes Care. 2016.39(Suppl 1). Performed By: #### 2 4321-2 ####[facility] LABIA [id number] [place] [address] [place] Potassium [Moles/Vol] 3.9 mmol/L Normal 3.7-5.1 [facility] Comment on above: Order Comment: Speci men Type: BLOOD SPECIMENOrdering Facility: [facility] Address: [address] [place] [address] Performed By: #### 2 4321-2 ####[facility] LABIA [id number] [place] [address] [place] Sodium [Moles/Vol] 137 mmol/L Normal 136-144 [facility] Comment on above: Order Comment: Speci men Type: BLOOD SPECIMENOrdering Facility: [facility] Address: [address] [place] [address] Performed By: #### 2 4321-2 ####[facility] LABCLIA [id number] [address] [address] [place] Urea nitrogen [Mass/Vol] 8 mg/dL Normal 7-21 [facility] Comment on above: Order Comment: Speci men Type: BLOOD SPECIMENOrdering Facility: [facility] Address: [address] [place] [address] Performed By: #### 2 4321-2 ####[facility] LABCLIA [id number] [place] [address] [place] CASE MANAGEMon 07-23-2023 CASE MANAGEM Normal [facility] CASE MANAGEM Normal [facility] CBC W Auto Differential pane l (Bld)on 07-23-2023 Basophils (Bld) [#/Vol] 0.04 10*3/uL Normal <0.11 [facility] Comment on above: Order Comment: Speci men Type: BLOOD SPECIMENOrdering Facility: [facility] Address: [address] [place] [address] Performed By: #### 5 7021-8 ####[facility] LABCLIA [id number] [place] [address] [place] Basophils/100 WBC (Bld) 0.6 % Normal [facility] Comment on above: Order Comment: Speci men Type: BLOOD SPECIMENOrdering Facility: [facility] Address: [address] [place] [address] Performed By: #### 5 7021-8 ####[facility] LABCLIA [id number] [place] [address] [place] Differential cell count method Nom (Bld) Auto Normal [facility] Comment on above: Order Comment: Speci men Type: BLOOD SPECIMENOrdering Facility: [facility] Address: [address] [place] [address] Performed By: #### 5 7021-8 ####[facility] LABCLIA [id number] [place] [address] [place] Eosinophils (Bld) [#/Vol] 0.22 10*3/uL Normal <0.46 [facility] Comment on above: Order Comment: Speci men Type: BLOOD SPECIMENOrdering Facility: [facility] Address: [address] [place] [address] Performed By: #### 5 7021-8 ####[facility] LABCLIA [id number] [place] [address] [place] Eosinophils/100 WBC (Bld) 3.2 % Normal [facility] Comment on above: Order Comment: Speci men Type: BLOOD SPECIMENOrdering Facility: [facility] Address: [address] [place] [address] Performed By: #### 5 7021-8 ####[facility] LABCLIA [id number] [place] [address] [place] Erythrocyte distribution width (RBC) [Ratio] 14.2 % Normal 11.5-15.0 [facility] Comment on above: Order Comment: Speci men Type: BLOOD SPECIMENOrdering Facility: [facility] Address: [address] [place] [address] Performed By: #### 5 7021-8 ####[facility] LABCLIA [id number] [place] [address] [place] Hematocrit (Bld) [Volume fraction] 39.2 % Normal 36.0-46.0 [facility] Comment on above: Order Comment: Speci men Type: BLOOD SPECIMENOrdering Facility: [facility] Address: [address] [place] [address] Performed By: #### 5 7021-8 ####[facility] LABCLIA [id number] [place] [address] [place] Hemoglobin (Bld) [Mass/Vol] 12.7 g/dL Normal 11.5-15.5 [facility] Comment on above: Order Comment: Speci men Type: BLOOD SPECIMENOrdering Facility: [facility] Address: [address] [place] [address] Performed By: #### 5 7021-8 ####[facility] LABCLIA [id number] [place] [address] [place] Immature granulocytes (Bld) [#/Vol] 0.06 10*3/uL Normal <0.10 [facility] Comment on above: Order Comment: Speci men Type: BLOOD SPECIMENOrdering Facility: [facility] Address: [address] [place] [address] Performed By: #### 5 7021-8 ####[facility] LABCLIA [id number] [place] [address] [place] Immature granulocytes/100 WBC (Bld) 0.9 % Normal [facility] Comment on above: Order Comment: Speci men Type: BLOOD SPECIMENOrdering Facility: [facility] Address: [address] [place] [address] Performed By: #### 5 7021-8 ####[facility] LABCLIA [id number] [place] [address] [place] Lymphocytes (Bld) [#/Vol] 2.22 10*3/uL Normal 1.00-4.00 [facility] Comment on above: Order Comment: Speci men Type: BLOOD SPECIMENOrdering Facility: [facility] Address: [address] [place] [address] Performed By: #### 5 7021-8 ####[facility] LABCLIA [id number] [place] [address] [place] Lymphocytes/100 WBC (Bld) 32.7 % Normal [facility] Comment on above: Order Comment: Speci men Type: BLOOD SPECIMENOrdering Facility: [facility] Address: [address] [place] [address] Performed By: #### 5 7021-8 ####[facility] LABCLIA [id number] [place] [address] [place] MCH (RBC) [Entitic mass] 33.9 pg Normal 26.0-34.0 [facility] Comment on above: Order Comment: Speci men Type: BLOOD SPECIMENOrdering Facility: [facility] Address: [address] [place] [address] Performed By: #### 5 7021-8 ####[facility] LABIA [id number] [place] [address] [place] MCHC (RBC) [Mass/Vol] 32.4 g/dL Normal 30.5-36.0 [facility] Comment on above: Order Comment: Speci men Type: BLOOD SPECIMENOrdering Facility: [facility] Address: [address] [place] [address] Performed By: #### 5 7021-8 ####[facility] LABIA [id number] [place] [address] [place] MCV (RBC) [Entitic vol] 104.5 fL High 80.0-100.0 [facility] Comment on above: Order Comment: Speci men Type: BLOOD SPECIMENOrdering Facility: [facility] Address: [address] [place] [address] Performed By: #### 5 7021-8 ####[facility] LABIA [id number] [place] [address] [place] Monocytes (Bld) [#/Vol] 0.39 10*3/uL Normal <0.87 [facility] Comment on above: Order Comment: Speci men Type: BLOOD SPECIMENOrdering Facility: [facility] Address: [address] [place] [address] Performed By: #### 5 7021-8 ####[facility] LABCLIA [id number] [place] [address] [place] Monocytes/100 WBC (Bld) 5.8 % Normal [facility] Comment on above: Order Comment: Speci men Type: BLOOD SPECIMENOrdering Facility: [facility] Address: [address] [place] [address] Performed By: #### 5 7021-8 ####[facility] LABCLIA [id number] [place] [address] [place] Neutrophils (Bld) [#/Vol] 3.85 10*3/uL Normal 1.45-7.50 [facility] Comment on above: Order Comment: Speci men Type: BLOOD SPECIMENOrdering Facility: [facility] Address: [address] [place] [address] Performed By: #### 5 7021-8 ####[facility] LABCLIA [id number] [place] [address] [place] Neutrophils/100 WBC (Bld) 56.8 % Normal [facility] Comment on above: Order Comment: Speci men Type: BLOOD SPECIMENOrdering Facility: [facility] Address: [address] [place] [address] Performed By: #### 5 7021-8 ####[facility] LABCLIA [id number] [place] [address] [place] Nucleated RBC (Bld) [#/Vol] 10*3/uL Normal <0.01 [facility] Comment on above: Order Comment: Speci men Type: BLOOD SPECIMENOrdering Facility: [facility] Address: [address] [place] [address] Performed By: #### 5 7021-8 ####[facility] LABCLIA [id number] [place] [address] [place] Nucleated RBC/100 WBC (Bld) [Ratio] 0.0 /100 WBC Normal [facility] Comment on above: Order Comment: Speci men Type: BLOOD SPECIMENOrdering Facility: [facility] Address: [address] [place] [address] Performed By: #### 5 7021-8 ####[facility] LABCLIA [id number] [place] [address] [place] Platelet mean volume (Bld) [Entitic vol] 9.6 fL Normal 9.0-12.7 [facility] Comment on above: Order Comment: Speci men Type: BLOOD SPECIMENOrdering Facility: [facility] Address: [address] [place] [address] Performed By: #### 5 7021-8 ####[facility]IA [id number] [place] [address] [place] Platelets (Bld) [#/Vol] 371 10*3/uL Normal 150-400 [facility] Comment on above: Order Comment: Speci men Type: BLOOD SPECIMENOrdering Facility: [facility] Address: [address] [place] [address] Performed By: #### 5 7021-8 ####[facility]IA [id number] [place] [address] [place] RBC (Bld) [#/Vol] 3.75 10*6/uL Low 3.90-5.[address] [facility] Comment on above: Order Comment: Speci men Type: BLOOD SPECIMENOrdering Facility: [facility] Address: [address] [place] [address] Performed By: #### 5 7021-8 ####[facility] LABIA [id number] [place] [address] [place] WBC (Bld) [#/Vol] 6.78 10*3/uL Normal 3.70-11.[address] [facility] Comment on above: Order Comment: Speci men Type: BLOOD SPECIMENOrdering Facility: [facility] Address: [address] [place] [address] Performed By: #### 5 7021-8 ####[facility]IA [id number] [place] [address] [place] NURSING PROGon 07-23-2023 NURSING PROG Normal [facility] Basic metabolic 2000 panelon 07-22-2023 Anion gap [Moles/Vol] 12 mmol/L Normal 9-18 [facility] Comment on above: Order Comment: Speci men Type: BLOOD SPECIMENOrdering Facility: [facility] Address: [address] [place] [address] Performed By: #### 2 4321-2 ####[facility] LABCLIA [id number] [place] [address] [place] Calcium [Mass/Vol] 9.2 mg/dL Normal 8.5-10.2 [facility] Comment on above: Order Comment: Speci men Type: BLOOD SPECIMENOrdering Facility: [facility] Address: [address] [place] [address] Performed By: #### 2 4321-2 ####[facility] LABCLIA [id number] [place] [address] [place] Chloride [Moles/Vol] 106 mmol/L High 97-105 [facility] Comment on above: Order Comment: Speci men Type: BLOOD SPECIMENOrdering Facility: [facility] Address: [address] [place] [address] Performed By: #### 2 4321-2 ####[facility]CLIA [id number] [place] [address] [place] CO2 [Moles/Vol] 22 mmol/L Normal 22-30 [facility] Comment on above: Order Comment: Speci men Type: BLOOD SPECIMENOrdering Facility: [facility] Address: [address] [place] [address] Performed By: #### 2 4321-2 ####[facility] LABCLIA [id number] [place] [address] [place] Creatinine [Mass/Vol] 0.58 mg/dL Normal 0.58-0.96 [facility] Comment on above: Order Comment: Speci men Type: BLOOD SPECIMENOrdering Facility: [facility] Address: [address] [place] [address] Performed By: #### 2 4321-2 ####[facility] LABIA [id number] [place] [address] [place] Creatinine and Glomerular filtration rate.predicted panel (S/P/Bld) 93 mL/min/1.73m??? Normal >=60 [facility] Comment on above: Order Comment: Ash rodarte Type: BLOOD SPECIMENOrdering Facility: [facility] Address: [address] [place] [address] Result Comment: Josie mated Glomerular Filtration Rate (eGFR) is calculated using the 2020 CKD-EPI creatinine equation. This equation utilizes serum creatinine, sex, and age as parameters. The creatinine assay has traceable calibration to isotope dilution-mass spectrometry. Refer to KDIGO guidelines for clinical interpretation. In patients with unstable renal function, e.g. those with acute kidney injury, the eGFR may not accurately reflect actual GFR. Performed By: #### 2 4321-2 ####[facility] LABIA [id number] [place] [address] [place] Glucose [Mass/Vol] 89 mg/dL Normal 74-99 [facility] Comment on above: Order Comment: Ash rodarte Type: BLOOD SPECIMENOrdering Facility: [facility] Address: [address] [place] [address] Result Comment: The [place] [employer] (ADA) provides guidance for cutoff values for fasting glucose and random glucose. The ADA defines fasting as no caloric intake for at least 8 hours. Fasting plasma glucose results between 100 to 125 mg/dL indicate increased risk for diabetes (prediabetes).Fasting plasma glucose results greater than or equal to 126 mg/dL meet the criteria for diagnosis of diabetes. In the absence of unequivocal hyperglycemia, results should be confirmed by repeat testing. In a patient with classic symptoms of hyperglycemia or hyperglycemic crisis, random plasma glucose results greater than or equal to 200 mg/dL meet the criteria for diagnosis of diabetes.Reference: Standards of Medical Care in Diabetes 2016, [place] [employer]. Diabetes Care. 2016.39(Suppl 1). Performed By: #### 2 4321-2 ####[facility] LABCLIA [id number] [place] [address] [place] Potassium [Moles/Vol] 3.5 mmol/L Low 3.7-5.1 [facility] Comment on above: Order Comment: Speci men Type: BLOOD SPECIMENOrdering Facility: [facility] Address: [address] [place] [address] Performed By: #### 2 4321-2 ####[facility] LABCLIA [id number] [place] [address] [place] Sodium [Moles/Vol] 140 mmol/L Normal 136-144 [facility] Comment on above: Order Comment: Speci men Type: BLOOD SPECIMENOrdering Facility: [facility] Address: [address] [place] [address] Performed By: #### 2 4321-2 ####[facility] LABCLIA [id number] [place] [address] [place] Urea nitrogen [Mass/Vol] 8 mg/dL Normal 7-21 [facility] Comment on above: Order Comment: Speci men Type: BLOOD SPECIMENOrdering Facility: [facility] Address: [address] [place] [address] Performed By: #### 2 4321-2 ####[facility] LABCLIA [id number] [place] [id number] [place] CASE MANAGEMon 07-22-2023 CASE MANAGEM Normal [facility] CASE MANAGEM Normal [facility] CBC W Auto Differential pane l (Bld)on 07-22-2023 Basophils (Bld) [#/Vol] 0.04 10*3/uL Normal <0.11 [facility] Comment on above: Order Comment: Speci men Type: BLOOD SPECIMENOrdering Facility: [facility] Address: [address] [place] [address] Performed By: #### 5 7021-8 ####[facility] LABCLIA [id number] [place] [address] [place] Basophils/100 WBC (Bld) 0.7 % Normal [facility] Comment on above: Order Comment: Speci men Type: BLOOD SPECIMENOrdering Facility: [facility] Address: [address] [place] [address] Performed By: #### 5 7021-8 ####[facility] LABCLIA [id number] [place] [address] [place] Differential cell count method Nom (Bld) Auto Normal [facility] Comment on above: Order Comment: Speci men Type: BLOOD SPECIMENOrdering Facility: [facility] Address: [address] [place] [address] Performed By: #### 5 7021-8 ####[facility] LABCLIA [id number] [place] [address] [place] Eosinophils (Bld) [#/Vol] 0.20 10*3/uL Normal <0.46 [facility] Comment on above: Order Comment: Speci men Type: BLOOD SPECIMENOrdering Facility: [facility] Address: [address] [place] [address] Performed By: #### 5 7021-8 ####[facility] LABCLIA [id number] [place] [address] [place] Eosinophils/100 WBC (Bld) 3.6 % Normal [facility] Comment on above: Order Comment: Speci men Type: BLOOD SPECIMENOrdering Facility: [facility] Address: [address] [place] [address] Performed By: #### 5 7021-8 ####[facility] LABCLIA [id number] [place] [address] [place] Erythrocyte distribution width (RBC) [Ratio] 14.5 % Normal 11.5-15.0 [facility] Comment on above: Order Comment: Speci men Type: BLOOD SPECIMENOrdering Facility: [facility] Address: [address] [place] [address] Performed By: #### 5 7021-8 ####[facility] LABCLIA [id number] [place] [address] [place] Hematocrit (Bld) [Volume fraction] 30.5 % Low 36.0-46.0 [facility] Comment on above: Order Comment: Speci men Type: BLOOD SPECIMENOrdering Facility: [facility] Address: [address] [place] [address] Performed By: #### 5 7021-8 ####[facility] LABCLIA [id number] [place] [address] [place] Hemoglobin (Bld) [Mass/Vol] 9.9 g/dL Low 11.5-15.5 [facility] Comment on above: Order Comment: Speci men Type: BLOOD SPECIMENOrdering Facility: [facility] Address: [address] [place] [address] Performed By: #### 5 7021-8 ####[facility] LABCLIA [id number] [place] [address] [place] Immature granulocytes (Bld) [#/Vol] 0.03 10*3/uL Normal <0.10 [facility] Comment on above: Order Comment: Speci men Type: BLOOD SPECIMENOrdering Facility: [facility] Address: [address] [place] [address] Performed By: #### 5 7021-8 ####[facility] LABCLIA [id number] [place] [address] [place] Immature granulocytes/100 WBC (Bld) 0.5 % Normal [facility] Comment on above: Order Comment: Speci men Type: BLOOD SPECIMENOrdering Facility: [facility] Address: [address] [place] [address] Performed By: #### 5 7021-8 ####[facility] LABCLIA [id number] [place] [address] [place] Lymphocytes (Bld) [#/Vol] 1.83 10*3/uL Normal 1.00-4.00 [facility] Comment on above: Order Comment: Speci men Type: BLOOD SPECIMENOrdering Facility: [facility] Address: [address] [place] [address] Performed By: #### 5 7021-8 ####[facility] LABIA [id number] [place] [address] [place] Lymphocytes/100 WBC (Bld) 33.3 % Normal [facility] Comment on above: Order Comment: Speci men Type: BLOOD SPECIMENOrdering Facility: [facility] Address: [address] [place] [address] Performed By: #### 5 7021-8 ####[facility] LABIA [id number] [place] [address] [place] MCH (RBC) [Entitic mass] 34.6 pg High 26.0-34.0 [facility] Comment on above: Order Comment: Speci men Type: BLOOD SPECIMENOrdering Facility: [facility] Address: [address] [place] [address] Performed By: #### 5 7021-8 ####[facility] LABIA [id number] [place] [address] [place] MCHC (RBC) [Mass/Vol] 32.5 g/dL Normal 30.5-36.0 [facility] Comment on above: Order Comment: Speci men Type: BLOOD SPECIMENOrdering Facility: [facility] Address: [address] [place] [address] Performed By: #### 5 7021-8 ####[facility] LABIA [id number] [place] [address] [place] MCV (RBC) [Entitic vol] 106.6 fL High 80.0-100.0 [facility] Comment on above: Order Comment: Speci men Type: BLOOD SPECIMENOrdering Facility: [facility] Address: [address] [place] [address] Performed By: #### 5 7021-8 ####[facility] LABCLIA [id number] [place] [address] [place] Monocytes (Bld) [#/Vol] 0.32 10*3/uL Normal <0.87 [facility] Comment on above: Order Comment: Speci men Type: BLOOD SPECIMENOrdering Facility: [facility] Address: [address] [place] [address] Performed By: #### 5 7021-8 ####[facility] LABCLIA [id number] [place] [address] [place] Monocytes/100 WBC (Bld) 5.8 % Normal [facility] Comment on above: Order Comment: Speci men Type: BLOOD SPECIMENOrdering Facility: [facility] Address: [address] [place] [address] Performed By: #### 5 7021-8 ####[facility] LABCLIA [id number] [place] [address] [place] Neutrophils (Bld) [#/Vol] 3.07 10*3/uL Normal 1.45-7.50 [facility] Comment on above: Order Comment: Speci men Type: BLOOD SPECIMENOrdering Facility: [facility] Address: [address] [place] [address] Performed By: #### 5 7021-8 ####[facility] LABCLIA [id number] [place] [address] [place] Neutrophils/100 WBC (Bld) 56.1 % Normal [facility] Comment on above: Order Comment: Speci men Type: BLOOD SPECIMENOrdering Facility: [facility] Address: [address] [place] [address] Performed By: #### 5 7021-8 ####[facility] LABCLIA [id number] [place] [address] [place] Nucleated RBC (Bld) [#/Vol] 10*3/uL Normal <0.01 [facility] Comment on above: Order Comment: Speci men Type: BLOOD SPECIMENOrdering Facility: [facility] Address: [address] [place] [address] Performed By: #### 5 7021-8 ####[facility] LABCLIA [id number] [place] [address] [place] Nucleated RBC/100 WBC (Bld) [Ratio] 0.0 /100 WBC Normal [facility] Comment on above: Order Comment: Speci men Type: BLOOD SPECIMENOrdering Facility: [facility] Address: [address] [place] [address] Performed By: #### 5 7021-8 ####[facility] LABIA [id number] [place] [address] [place] Platelet mean volume (Bld) [Entitic vol] 9.8 fL Normal 9.0-12.7 [facility] Comment on above: Order Comment: Speci men Type: BLOOD SPECIMENOrdering Facility: [facility] Address: [address] [place] [address] Performed By: #### 5 7021-8 ####[facility] LABIA [id number] [place] [address] [place] Platelets (Bld) [#/Vol] 308 10*3/uL Normal 150-400 [facility] Comment on above: Order Comment: Speci men Type: BLOOD SPECIMENOrdering Facility: [facility] Address: [address] [place] [address] Performed By: #### 5 7021-8 ####[facility] LABCLIA [id number] [place] [address] [place] RBC (Bld) [#/Vol] 2.86 10*6/uL Low 3.90-5.[address] [facility] Comment on above: Order Comment: Speci men Type: BLOOD SPECIMENOrdering Facility: [facility] Address: [address] [place] [address] Performed By: #### 5 7021-8 ####[facility] LABCLIA [id number] [place] [address] [place] WBC (Bld) [#/Vol] 5.49 10*3/uL Normal 3.70-11.[address] [facility] Comment on above: Order Comment: Speci men Type: BLOOD SPECIMENOrdering Facility: [facility] Address: [address] [place] [address] Performed By: #### 5 7021-8 ####[facility] LABCLIA [id number] [place] [address] [place] Basic metabolic 2000 panelon 07-21-2023 Anion gap [Moles/Vol] 16 mmol/L Normal 9-18 [facility] Comment on above: Order Comment: Speci men Type: BLOOD SPECIMENOrdering Facility: [facility] Address: [address] [place] [address] Performed By: #### 2 4321-2 ####[facility] LABCLIA [id number] [place] [address] [place] Calcium [Mass/Vol] 9.4 mg/dL Normal 8.5-10.2 [facility] Comment on above: Order Comment: Speci men Type: BLOOD SPECIMENOrdering Facility: [facility] Address: [address] [place] [address] Performed By: #### 2 4321-2 ####[facility] LABCLIA [id number] [place] [id number] [place] Chloride [Moles/Vol] 103 mmol/L Normal 97-105 [facility] Comment on above: Order Comment: Speci men Type: BLOOD SPECIMENOrdering Facility: [facility] Address: [address] [place] [address] Performed By: #### 2 4321-2 ####[facility] LABCLIA [id number] [place] [address] [place] CO2 [Moles/Vol] 19 mmol/L Low 22-30 [facility] Comment on above: Order Comment: Speci men Type: BLOOD SPECIMENOrdering Facility: [facility] Address: [address] [place] [address] Performed By: #### 2 4321-2 ####[facility] LABCLIA [id number] [place] [address] [place] Creatinine [Mass/Vol] 0.59 mg/dL Normal 0.58-0.96 [facility] Comment on above: Order Comment: Speci men Type: BLOOD SPECIMENOrdering Facility: [facility] Address: [address] [place] [address] Performed By: #### 2 4321-2 ####[facility] LABIA [id number] [place] [address] [place] Creatinine and Glomerular filtration rate.predicted panel (S/P/Bld) 93 mL/min/1.73m??? Normal >=60 [facility] Comment on above: Order Comment: Speci men Type: BLOOD SPECIMENOrdering Facility: [facility] Address: [address] [place] [address] Result Comment: Josie mated Glomerular Filtration Rate (eGFR) is calculated using the 2020 CKD-EPI creatinine equation. This equation utilizes serum creatinine, sex, and age as parameters. The creatinine assay has traceable calibration to isotope dilution-mass spectrometry. Refer to KDIGO guidelines for clinical interpretation. In patients with unstable renal function, e.g. those with acute kidney injury, the eGFR may not accurately reflect actual GFR. Performed By: #### 2 4321-2 ####[facility] LABCLIA [id number] [place] [address] [place] Glucose [Mass/Vol] 79 mg/dL Normal 74-99 [facility] Comment on above: Order Comment: Speci men Type: BLOOD SPECIMENOrdering Facility: [facility] Address: [address] [place] [address] Result Comment: The [place] [employer] (ADA) provides guidance for cutoff values for fasting glucose and random glucose. The ADA defines fasting as no caloric intake for at least 8 hours. Fasting plasma glucose results between 100 to 125 mg/dL indicate increased risk for diabetes (prediabetes).Fasting plasma glucose results greater than or equal to 126 mg/dL meet the criteria for diagnosis of diabetes. In the absence of unequivocal hyperglycemia, results should be confirmed by repeat testing. In a patient with classic symptoms of hyperglycemia or hyperglycemic crisis, random plasma glucose results greater than or equal to 200 mg/dL meet the criteria for diagnosis of diabetes.Reference: Standards of Medical Care in Diabetes 2016, [place] [employer]. Diabetes Care. 2016.39(Suppl 1). Performed By: #### 2 4321-2 ####[facility] LABCLIA [id number] [place] [address] [place] Potassium [Moles/Vol] 4.2 mmol/L Normal 3.7-5.1 [facility] Comment on above: Order Comment: Speci men Type: BLOOD SPECIMENOrdering Facility: [facility] Address: [address] [place] [address] Performed By: #### 2 4321-2 ####[facility] LABCLIA [id number] [place] [address] [place] Sodium [Moles/Vol] 138 mmol/L Normal 136-144 [facility] Comment on above: Order Comment: Speci men Type: BLOOD SPECIMENOrdering Facility: [facility] Address: [address] [place] [address] Performed By: #### 2 4321-2 ####[facility] LABCLIA [id number] [place] [address] [place] Urea nitrogen [Mass/Vol] 9 mg/dL Normal 7-21 [facility] Comment on above: Order Comment: Speci men Type: BLOOD SPECIMENOrdering Facility: [facility] Address: [address] [place] [address] Performed By: #### 2 4321-2 ####[facility] LABCLIA [id number] [place] [address] [place] CBC W Auto Differential pane l (Bld)on 07-21-2023 Basophils (Bld) [#/Vol] 0.03 10*3/uL Normal <0.11 [facility] Comment on above: Order Comment: Speci men Type: BLOOD SPECIMENOrdering Facility: [facility] Address: [address] [place] [address] Performed By: #### 5 7021-8 ####[facility] LABCLIA [id number] [place] [address] [place] Basophils/100 WBC (Bld) 0.4 % Normal [facility] Comment on above: Order Comment: Speci men Type: BLOOD SPECIMENOrdering Facility: [facility] Address: [address] [place] [address] Performed By: #### 5 7021-8 ####[facility] LABCLIA [id number] [place] [address] [place] Differential cell count method Nom (Bld) Auto Normal [facility] Comment on above: Order Comment: Speci men Type: BLOOD SPECIMENOrdering Facility: [facility] Address: [address] [place] [address] Performed By: #### 5 7021-8 ####[facility] LABIA [id number] [place] [address] [place] Eosinophils (Bld) [#/Vol] 0.21 10*3/uL Normal <0.46 [facility] Comment on above: Order Comment: Speci men Type: BLOOD SPECIMENOrdering Facility: [facility] Address: [address] [place] [address] Performed By: #### 5 7021-8 ####[facility] LABCLIA [id number] [place] [address] [place] Eosinophils/100 WBC (Bld) 3.1 % Normal [facility] Comment on above: Order Comment: Speci men Type: BLOOD SPECIMENOrdering Facility: [facility] Address: [address] [place] [address] Performed By: #### 5 7021-8 ####[facility] LABCLIA [id number] [place] [address] [place] Erythrocyte distribution width (RBC) [Ratio] 14.6 % Normal 11.5-15.0 [facility] Comment on above: Order Comment: Speci men Type: BLOOD SPECIMENOrdering Facility: [facility] Address: [address] [place] [address] Performed By: #### 5 7021-8 ####[facility] LABCLIA [id number] [place] [address] [place] Hematocrit (Bld) [Volume fraction] 35.6 % Low 36.0-46.0 [facility] Comment on above: Order Comment: Speci men Type: BLOOD SPECIMENOrdering Facility: [facility] Address: [address] [place] [address] Performed By: #### 5 7021-8 ####[facility] LABCLIA [id number] [place] [address] [place] Hemoglobin (Bld) [Mass/Vol] 11.5 g/dL Normal 11.5-15.5 [facility] Comment on above: Order Comment: Speci men Type: BLOOD SPECIMENOrdering Facility: [facility] Address: [address] [place] [address] Performed By: #### 5 7021-8 ####[facility] LABCLIA [id number] [place] [address] [place] Immature granulocytes (Bld) [#/Vol] 0.06 10*3/uL Normal <0.10 [facility] Comment on above: Order Comment: Speci men Type: BLOOD SPECIMENOrdering Facility: [facility] Address: [address] [place] [address] Performed By: #### 5 7021-8 ####[facility] LABCLIA [id number] [place] [address] [place] Immature granulocytes/100 WBC (Bld) 0.9 % Normal [facility] Comment on above: Order Comment: Speci men Type: BLOOD SPECIMENOrdering Facility: [facility] Address: [address] [place] [address] Performed By: #### 5 7021-8 ####[facility] LABCLIA [id number] [place] [address] [place] Lymphocytes (Bld) [#/Vol] 1.91 10*3/uL Normal 1.00-4.00 [facility] Comment on above: Order Comment: Speci men Type: BLOOD SPECIMENOrdering Facility: [facility] Address: [address] [place] [address] Performed By: #### 5 7021-8 ####[facility] LABCLIA [id number] [place] [address] [place] Lymphocytes/100 WBC (Bld) 27.8 % Normal [facility] Comment on above: Order Comment: Speci men Type: BLOOD SPECIMENOrdering Facility: [facility] Address: [address] [place] [address] Performed By: #### 5 7021-8 ####[facility] LABCLIA [id number] [place] [address] [place] [place] MCH (RBC) [Entitic mass] 34.5 pg High 26.0-34.0 [facility] Comment on above: Order Comment: Speci men Type: BLOOD SPECIMENOrdering Facility: [facility] Address: [address] [place] [address] Performed By: #### 5 7021-8 ####[facility] LABCLIA [id number] [place] [address] [place] MCHC (RBC) [Mass/Vol] 32.3 g/dL Normal 30.5-36.0 [facility] Comment on above: Order Comment: Speci men Type: BLOOD SPECIMENOrdering Facility: [facility] Address: [address] [place] [address] Performed By: #### 5 7021-8 ####[facility] LABCLIA [id number] [place] [address] [place] MCV (RBC) [Entitic vol] 106.9 fL High 80.0-100.0 [facility] Comment on above: Order Comment: Speci men Type: BLOOD SPECIMENOrdering Facility: [facility] Address: [address] [place] [address] Performed By: #### 5 7021-8 ####[facility] LABIA [id number] [place] [address] [place] Monocytes (Bld) [#/Vol] 0.37 10*3/uL Normal <0.87 [facility] Comment on above: Order Comment: Speci men Type: BLOOD SPECIMENOrdering Facility: [facility] Address: [address] [place] [address] Performed By: #### 5 7021-8 ####[facility] LABIA [id number] [place] [address] [place] Monocytes/100 WBC (Bld) 5.4 % Normal [facility] Comment on above: Order Comment: Speci men Type: BLOOD SPECIMENOrdering Facility: [facility] Address: [address] [place] [address] Performed By: #### 5 7021-8 ####[facility] LABIA [id number] [place] [address] [place] Neutrophils (Bld) [#/Vol] 4.29 10*3/uL Normal 1.45-7.50 [facility] Comment on above: Order Comment: Speci men Type: BLOOD SPECIMENOrdering Facility: [facility] Address: [address] [place] [address] Performed By: #### 5 7021-8 ####[facility] LABCLIA [id number] [place] [address] [place] Neutrophils/100 WBC (Bld) 62.4 % Normal [facility] Comment on above: Order Comment: Speci men Type: BLOOD SPECIMENOrdering Facility: [facility] Address: [address] [place] [address] Performed By: #### 5 7021-8 ####[facility] LABCLIA [id number] [place] [address] [place] Nucleated RBC (Bld) [#/Vol] 10*3/uL Normal <0.01 [facility] Comment on above: Order Comment: Speci men Type: BLOOD SPECIMENOrdering Facility: [facility] Address: [address] [place] [address] Performed By: #### 5 7021-8 ####[facility] LABCLIA [id number] [place] [address] [place] Nucleated RBC/100 WBC (Bld) [Ratio] 0.0 /100 WBC Normal [facility] Comment on above: Order Comment: Speci men Type: BLOOD SPECIMENOrdering Facility: [facility] Address: [address] [place] [address] Performed By: #### 5 7021-8 ####[facility] LABCLIA [id number] [place] [address] [place] Platelet mean volume (Bld) [Entitic vol] 10.0 fL Normal 9.0-12.7 [facility] Comment on above: Order Comment: Speci men Type: BLOOD SPECIMENOrdering Facility: [facility] Address: [address] [place] [address] Performed By: #### 5 7021-8 ####[facility] LABCLIA [id number] [place] [address] [place] Platelets (Bld) [#/Vol] 316 10*3/uL Normal 150-400 [facility] Comment on above: Order Comment: Speci men Type: BLOOD SPECIMENOrdering Facility: [facility] Address: [address] [place] [address] Result Comment: No c lot detected. Performed By: #### 5 7021-8 ####[facility] LABIA [id number] [place] [address] [place] RBC (Bld) [#/Vol] 3.33 10*6/uL Low 3.90-5.[address] [facility] Comment on above: Order Comment: Speci men Type: BLOOD SPECIMENOrdering Facility: [facility] Address: [address] [place] [address] Performed By: #### 5 7021-8 ####[facility] LABIA [id number] [place] [address] [place] WBC (Bld) [#/Vol] 6.87 10*3/uL Normal 3.70-11.[address] [facility] Comment on above: Order Comment: Speci men Type: BLOOD SPECIMENOrdering Facility: [facility] Address: [address] [place] [address] Performed By: #### 5 7021-8 ####[facility] LABIA [id number] [place] [id number] [place] CNPNon 07-21-2023 CNPN Normal [facility] CONSULT PROGon 07-21-2023 CONSULT PROG Normal [facility] THERAPY NTon 07-21-2023 THERAPY NT Normal [facility] Basic metabolic 2000 panelon 07-20-2023 Anion gap [Moles/Vol] 13 mmol/L Normal 9-18 [facility] Comment on above: Order Comment: Speci men Type: BLOOD SPECIMENOrdering Facility: [facility] Address: [address] [place], [place] [address] Performed By: #### 2 4321-2 ####[facility] LABCLIA [id number] [place] [address] [place] Calcium [Mass/Vol] 10.0 mg/dL Normal 8.5-10.2 [facility] Comment on above: Order Comment: Speci men Type: BLOOD SPECIMENOrdering Facility: [facility] Address: [address] [place] [address] Performed By: #### 2 4321-2 ####[facility] LABCLIA [id number] [place] [address] [place] Chloride [Moles/Vol] 104 mmol/L Normal 97-105 [facility] Comment on above: Order Comment: Speci men Type: BLOOD SPECIMENOrdering Facility: [facility] Address: [address] [place] [address] Performed By: #### 2 4321-2 ####[facility] LABCLIA [id number] [place] [address] [place] CO2 [Moles/Vol] 22 mmol/L Normal 22-30 [facility] Comment on above: Order Comment: Speci men Type: BLOOD SPECIMENOrdering Facility: [facility] Address: [address] [place], [place] [address] Performed By: #### 2 4321-2 ####[facility] LABCLIA [id number] [place] [address] [place] Creatinine [Mass/Vol] 0.83 mg/dL Normal 0.58-0.96 [facility] Comment on above: Order Comment: Speci men Type: BLOOD SPECIMENOrdering Facility: [facility] Address: [address] [place], [place] [address] Performed By: #### 2 4321-2 ####[facility] LABCLIA [id number] [place] [address] [place] Creatinine and Glomerular filtration rate.predicted panel (S/P/Bld) 73 mL/min/1.73m??? Normal >=60 [facility] Comment on above: Order Comment: Ash rodarte Type: BLOOD SPECIMENOrdering Facility: [facility] Address: [address] [place] [address] Result Comment: Josie mated Glomerular Filtration Rate (eGFR) is calculated using the 2020 CKD-EPI creatinine equation. This equation utilizes serum creatinine, sex, and age as parameters. The creatinine assay has traceable calibration to isotope dilution-mass spectrometry. Refer to KDIGO guidelines for clinical interpretation. In patients with unstable renal function, e.g. those with acute kidney injury, the eGFR may not accurately reflect actual GFR. Performed By: #### 2 4321-2 ####[facility] LABCLIA [id number] [place] [address] [place] Glucose [Mass/Vol] 98 mg/dL Normal 74-99 [facility] Comment on above: Order Comment: Ash rodarte Type: BLOOD SPECIMENOrdering Facility: [facility] Address: [address] [place] [address] Result Comment: The [place] [employer] (ADA) provides guidance for cutoff values for fasting glucose and random glucose. The ADA defines fasting as no caloric intake for at least 8 hours. Fasting plasma glucose results between 100 to 125 mg/dL indicate increased risk for diabetes (prediabetes).Fasting plasma glucose results greater than or equal to 126 mg/dL meet the criteria for diagnosis of diabetes. In the absence of unequivocal hyperglycemia, results should be confirmed by repeat testing. In a patient with classic symptoms of hyperglycemia or hyperglycemic crisis, random plasma glucose results greater than or equal to 200 mg/dL meet the criteria for diagnosis of diabetes.Reference: Standards of Medical Care in Diabetes 2016, [place] [employer]. Diabetes Care. 2016.39(Suppl 1). Performed By: #### 2 4321-2 ####[facility] LABCLIA [id number] [place] [address] [place] Potassium [Moles/Vol] 3.4 mmol/L Low 3.7-5.1 [facility] Comment on above: Order Comment: Speci men Type: BLOOD SPECIMENOrdering Facility: [facility] Address: [address] [place] [address] Performed By: #### 2 4321-2 ####[facility] LABCLIA [id number] [place] [address] [place] Sodium [Moles/Vol] 139 mmol/L Normal 136-144 [facility] Comment on above: Order Comment: Speci men Type: BLOOD SPECIMENOrdering Facility: [facility] Address: [address] [place] [address] Performed By: #### 2 4321-2 ####[facility] LABCLIA [id number] [place] [address] [place] Urea nitrogen [Mass/Vol] 13 mg/dL Normal 7-21 [facility] Comment on above: Order Comment: Speci men Type: BLOOD SPECIMENOrdering Facility: [facility] Address: [address] [place] [address] Performed By: #### 2 4321-2 ####[facility] LABCLIA [id number] [place] [address] [place] CASE MANAGEMon 07-20-2023 CASE MANAGEM Normal [facility] CBC W Auto Differential pane l (Bld)on 07-20-2023 Basophils (Bld) [#/Vol] 0.04 10*3/uL Normal <0.11 [facility] Comment on above: Order Comment: Speci men Type: BLOOD SPECIMENOrdering Facility: [facility] Address: [address] [place] [address] Performed By: #### 5 7021-8 ####[facility] LABCLIA [id number] [place] [address] [place] Basophils/100 WBC (Bld) 0.6 % Normal [facility] Comment on above: Order Comment: Speci men Type: BLOOD SPECIMENOrdering Facility: [facility] Address: [address] [place] [address] Performed By: #### 5 7021-8 ####[facility] LABCLIA [id number] [place] [address] [place] Differential cell count method Nom (Bld) Auto Normal [facility] Comment on above: Order Comment: Speci men Type: BLOOD SPECIMENOrdering Facility: [facility] Address: [address] [place] [address] Performed By: #### 5 7021-8 ####[facility] LABCLIA [id number] [place] [address] [place] Eosinophils (Bld) [#/Vol] 0.05 10*3/uL Normal <0.46 [facility] Comment on above: Order Comment: Speci men Type: BLOOD SPECIMENOrdering Facility: [facility] Address: [address] [place] [address] Performed By: #### 5 7021-8 ####[facility] LABIA [id number] [place] [address] [place] Eosinophils/100 WBC (Bld) 0.7 % Normal [facility] Comment on above: Order Comment: Speci men Type: BLOOD SPECIMENOrdering Facility: [facility] Address: [address] [place] [address] Performed By: #### 5 7021-8 ####[facility] LABCLIA [id number] [place] [address] [place] Erythrocyte distribution width (RBC) [Ratio] 14.7 % Normal 11.5-15.0 [facility] Comment on above: Order Comment: Speci men Type: BLOOD SPECIMENOrdering Facility: [facility] Address: [address] [place] [address] Performed By: #### 5 7021-8 ####[facility] LABCLIA [id number] [place] [address] [place] Hematocrit (Bld) [Volume fraction] 30.6 % Low 36.0-46.0 [facility] Comment on above: Order Comment: Speci men Type: BLOOD SPECIMENOrdering Facility: [facility] Address: [address] [place] [address] Performed By: #### 5 7021-8 ####[facility] LABCLIA [id number] [place] [address] [place] Hemoglobin (Bld) [Mass/Vol] 9.5 g/dL Low 11.5-15.5 [facility] Comment on above: Order Comment: Speci men Type: BLOOD SPECIMENOrdering Facility: [facility] Address: [address] [place] [address] Performed By: #### 5 7021-8 ####[facility] LABCLIA [id number] [place] [address] [place] Immature granulocytes (Bld) [#/Vol] 0.03 10*3/uL Normal <0.10 [facility] Comment on above: Order Comment: Speci men Type: BLOOD SPECIMENOrdering Facility: [facility] Address: [address] [place] [address] Performed By: #### 5 7021-8 ####[facility] LABCLIA [id number] [place] [address] [place] Immature granulocytes/100 WBC (Bld) 0.4 % Normal [facility] Comment on above: Order Comment: Speci men Type: BLOOD SPECIMENOrdering Facility: [facility] Address: [address] [place] [address] Performed By: #### 5 7021-8 ####[facility] LABCLIA [id number] [place] [address] [place] Lymphocytes (Bld) [#/Vol] 1.97 10*3/uL Normal 1.00-4.00 [facility] Comment on above: Order Comment: Speci men Type: BLOOD SPECIMENOrdering Facility: [facility] Address: [address] [place] [address] Performed By: #### 5 7021-8 ####[facility] LABCLIA [id number] [place] [address] [place] Lymphocytes/100 WBC (Bld) 29.2 % Normal [facility] Comment on above: Order Comment: Speci men Type: BLOOD SPECIMENOrdering Facility: [facility] Address: [address] [place] [address] Performed By: #### 5 7021-8 ####[facility] LABCLIA [id number] [place] [address] [place] MCH (RBC) [Entitic mass] 33.8 pg Normal 26.0-34.0 [facility] Comment on above: Order Comment: Speci men Type: BLOOD SPECIMENOrdering Facility: [facility] Address: [address] [place] [address] Performed By: #### 5 7021-8 ####[facility] LABIA [id number] [place] [address] [place] MCHC (RBC) [Mass/Vol] 31.0 g/dL Normal 30.5-36.0 [facility] Comment on above: Order Comment: Speci men Type: BLOOD SPECIMENOrdering Facility: [facility] Address: [address] [place] [address] Performed By: #### 5 7021-8 ####[facility] LABCLIA [id number] [place] [address] [place] MCV (RBC) [Entitic vol] 108.9 fL High 80.0-100.0 [facility] Comment on above: Order Comment: Speci men Type: BLOOD SPECIMENOrdering Facility: [facility] Address: [address] [place] [address] Performed By: #### 5 7021-8 ####[facility] LABCLIA [id number] [place] [address] [place] Monocytes (Bld) [#/Vol] 0.44 10*3/uL Normal <0.87 [facility] Comment on above: Order Comment: Speci men Type: BLOOD SPECIMENOrdering Facility: [facility] Address: [address] [place] [address] Performed By: #### 5 7021-8 ####[facility] LABCLIA [id number] [place] [address] [place] Monocytes/100 WBC (Bld) 6.5 % Normal [facility] Comment on above: Order Comment: Speci men Type: BLOOD SPECIMENOrdering Facility: [facility] Address: [address] [place] [address] Performed By: #### 5 7021-8 ####[facility] LABCLIA [id number] [place] [address] [place] Neutrophils (Bld) [#/Vol] 4.21 10*3/uL Normal 1.45-7.50 [facility] Comment on above: Order Comment: Speci men Type: BLOOD SPECIMENOrdering Facility: [facility] Address: [address] [place] [address] Performed By: #### 5 7021-8 ####[facility] LABCLIA [id number] [place] [address] [place] Neutrophils/100 WBC (Bld) 62.6 % Normal [facility] Comment on above: Order Comment: Speci men Type: BLOOD SPECIMENOrdering Facility: [facility] Address: [address] [place] [address] Performed By: #### 5 7021-8 ####[facility] LABCLIA [id number] [place] [address] [place] Nucleated RBC (Bld) [#/Vol] 10*3/uL Normal <0.01 [facility] Comment on above: Order Comment: Speci men Type: BLOOD SPECIMENOrdering Facility: [facility] Address: [address] [place] [address] Performed By: #### 5 7021-8 ####[facility] LABIA [id number] [place] [address] [place] Nucleated RBC/100 WBC (Bld) [Ratio] 0.0 /100 WBC Normal [facility] Comment on above: Order Comment: Speci men Type: BLOOD SPECIMENOrdering Facility: [facility] Address: [address] [place] [address] Performed By: #### 5 7021-8 ####[facility] LABIA [id number] [place] [address] [place] Platelet mean volume (Bld) [Entitic vol] 9.4 fL Normal 9.0-12.7 [facility] Comment on above: Order Comment: Speci men Type: BLOOD SPECIMENOrdering Facility: [facility] Address: [address] [place] [address] Performed By: #### 5 7021-8 ####[facility] LABIA [id number] [place] [address] [place] Platelets (Bld) [#/Vol] 321 10*3/uL Normal 150-400 [facility] Comment on above: Order Comment: Speci men Type: BLOOD SPECIMENOrdering Facility: [facility] Address: [address] [place] [address] Performed By: #### 5 7021-8 ####[facility] LABIA [id number] [place] [address] [place] RBC (Bld) [#/Vol] 2.81 10*6/uL Low 3.90-5.[address] [facility] Comment on above: Order Comment: Speci men Type: BLOOD SPECIMENOrdering Facility: [facility] Address: [address] [place] [address] Performed By: #### 5 7021-8 ####[facility] LABCLIA [id number] [place] [address] [place] WBC (Bld) [#/Vol] 6.74 10*3/uL Normal 3.70-11.[address] [facility] Comment on above: Order Comment: Speci men Type: BLOOD SPECIMENOrdering Facility: [facility] Address: [address] [place] [address] Performed By: #### 5 7021-8 ####[facility] LABIA [id number] [place] [address] [place] CBC panel Auto (Bld)on 07-20 Erythrocyte distribution width (RBC) [Ratio] 14.6 % Normal 11.5-15.0 [facility] Comment on above: Order Comment: Speci men Type: BLOOD SPECIMENOrdering Facility: [facility] Address: [address] [place] [address] Performed By: #### 5 8410-2 ####[facility] LABIA [id number] [place] [address] [place] Hematocrit (Bld) [Volume fraction] 30.7 % Low 36.0-46.0 [facility] Comment on above: Order Comment: Speci men Type: BLOOD SPECIMENOrdering Facility: [facility] Address: [address] [place] [address] Performed By: #### 5 8410-2 ####[facility] LABIA [id number] [place] [id number] [place] Hemoglobin (Bld) [Mass/Vol] 9.9 g/dL Low 11.5-15.5 [facility] Comment on above: Order Comment: Speci men Type: BLOOD SPECIMENOrdering Facility: [facility] Address: [address] [place] [address] Performed By: #### 5 8410-2 ####[facility] LABIA [id number] [place] [address] [place] MCH (RBC) [Entitic mass] 34.9 pg High 26.0-34.0 [facility] Comment on above: Order Comment: Speci men Type: BLOOD SPECIMENOrdering Facility: [facility] Address: [address] [place] [address] Performed By: #### 5 8410-2 ####[facility] LABIA [id number] [place] [address] [place] MCHC (RBC) [Mass/Vol] 32.2 g/dL Normal 30.5-36.0 [facility] Comment on above: Order Comment: Speci men Type: BLOOD SPECIMENOrdering Facility: [facility] Address: [address] [place] [address] Performed By: #### 5 8410-2 ####[facility] LABIA [id number] [place] [address] [place] MCV (RBC) [Entitic vol] 108.1 fL High 80.0-100.0 [facility] Comment on above: Order Comment: Speci men Type: BLOOD SPECIMENOrdering Facility: [facility] Address: [address] [place] [address] Performed By: #### 5 8410-2 ####[facility] LABIA [id number] [place] [address] [place] Nucleated RBC (Bld) [#/Vol] 10*3/uL Normal <0.01 [facility] Comment on above: Order Comment: Speci men Type: BLOOD SPECIMENOrdering Facility: [facility] Address: [address] [place] [address] Performed By: #### 5 8410-2 ####[facility] LABCLIA [id number] [place] [address] [place] Platelet mean volume (Bld) [Entitic vol] 9.6 fL Normal 9.0-12.7 [facility] Comment on above: Order Comment: Speci men Type: BLOOD SPECIMENOrdering Facility: [facility] Address: [address] [place] [address] Performed By: #### 5 8410-2 ####[facility] LABCLIA [id number] [place] [address] [place] Platelets (Bld) [#/Vol] 324 10*3/uL Normal 150-400 [facility] Comment on above: Order Comment: Speci men Type: BLOOD SPECIMENOrdering Facility: [facility] Address: [address] [place] [address] Performed By: #### 5 8410-2 ####[facility] LABCLIA [id number] [place] [address] [place] RBC (Bld) [#/Vol] 2.84 10*6/uL Low 3.90-5.[address] [facility] Comment on above: Order Comment: Speci men Type: BLOOD SPECIMENOrdering Facility: [facility] Address: [address] [place] [address] Performed By: #### 5 8410-2 ####[facility] LABCLIA [id number] [place] [address] [place] WBC (Bld) [#/Vol] 7.78 10*3/uL Normal 3.70-11.[address] [facility] Comment on above: Order Comment: Speci men Type: BLOOD SPECIMENOrdering Facility: [facility] Address: [address] [place] [address] Performed By: #### 5 8410-2 ####[facility] LABCLIA [id number] [place] [address] [place] CONSULT PROGon 07-20-2023 CONSULT PROG Normal [facility] CT FLANK WO IVCONon 07-20-[address] FLANK WO IVCON Normal [facility] MRA BRAIN WO IVCONon 024 MRA BRAIN WO IVCON Normal [facility] MRA CAROTID WO/W IVCONon MRA CAROTID WO/W IVCON Normal [facility] MRI BRAIN WO/W IVCONon 07-20 MRI BRAIN WO/W IVCON Normal [facility] THERAPY NTon 07-20-2023 THERAPY NT Normal [facility] CASE MGT INIT ASSESon 2023 CASE MGT INIT ASSES Normal [facility] CBC W Auto Differential pane l (Bld)on 07-19-2023 Basophils (Bld) [#/Vol] 10*3/uL Normal <0.11 [facility] Comment on above: Order Comment: Speci men Type: BLOOD SPECIMENOrdering Facility: [facility] Address: [address] [place] [address] Performed By: #### 5 7021-8, 44125-6 ####[facility] LABCLIA [id number] [place] [address] [place] Basophils/100 WBC (Bld) 0.1 % Normal [facility] Comment on above: Order Comment: Speci men Type: BLOOD SPECIMENOrdering Facility: [facility] Address: [address] [place] [address] Performed By: #### 5 7021-8, 87888-9 ####[facility] LABCLIA [id number] [place] [address] [place] Differential cell count method Nom (Bld) Auto Normal [facility] Comment on above: Order Comment: Speci men Type: BLOOD SPECIMENOrdering Facility: [facility] Address: [address] [place] [address] Performed By: #### 5 7021-8, 98250-5 ####[facility] LABCLIA [id number] [place] [address] [place] Eosinophils (Bld) [#/Vol] 10*3/uL Normal <0.46 [facility] Comment on above: Order Comment: Speci men Type: BLOOD SPECIMENOrdering Facility: [facility] Address: [address] [place] [address] Performed By: #### 5 7021-8, 77175-5 ####[facility] LABCLIA [id number] [place] [address] [place] Eosinophils/100 WBC (Bld) 0.0 % Normal [facility] Comment on above: Order Comment: Speci men Type: BLOOD SPECIMENOrdering Facility: [facility] Address: [address] [place] [address] Performed By: #### 5 7021-8, 08064-5 ####[facility] LABCLIA [id number] [place] [address] [place] Erythrocyte distribution width (RBC) [Ratio] 14.3 % Normal 11.5-15.0 [facility] Comment on above: Order Comment: Speci men Type: BLOOD SPECIMENOrdering Facility: [facility] Address: [address] [place] [address] Performed By: #### 5 7021-8, 93822-5 ####[facility] LABCLIA [id number] [place] [address] [place] Hematocrit (Bld) [Volume fraction] 34.3 % Low 36.0-46.0 [facility] Comment on above: Order Comment: Speci men Type: BLOOD SPECIMENOrdering Facility: [facility] Address: [address] [place] [address] Performed By: #### 5 7021-8, 24686-9 ####[facility] LABCLIA [id number] [place] [address] [place] Hemoglobin (Bld) [Mass/Vol] 10.8 g/dL Low 11.5-15.5 [facility] Comment on above: Order Comment: Speci men Type: BLOOD SPECIMENOrdering Facility: [facility] Address: [address] [place] [address] Performed By: #### 5 7021-8, 34683-9 ####[facility] LABCLIA [id number] [place] [address] [place] Immature granulocytes (Bld) [#/Vol] 0.03 10*3/uL Normal <0.10 [facility] Comment on above: Order Comment: Speci men Type: BLOOD SPECIMENOrdering Facility: [facility] Address: [address] [place] [address] Performed By: #### 5 7021-8, 00908-8 ####[facility] LABCLIA [id number] [place] [address] [place] Immature granulocytes/100 WBC (Bld) 0.4 % Normal [facility] Comment on above: Order Comment: Speci men Type: BLOOD SPECIMENOrdering Facility: [facility] Address: [address] [place] [address] Performed By: #### 5 7021-8, 12240-0 ####[facility] LABIA [id number] [place] [address] [place] Lymphocytes (Bld) [#/Vol] 1.08 10*3/uL Normal 1.00-4.00 [facility] Comment on above: Order Comment: Speci men Type: BLOOD SPECIMENOrdering Facility: [facility] Address: [address] [place] [address] Performed By: #### 5 7021-8, 43152-4 ####[facility] LABCLIA [id number] [place] [address] [place] Lymphocytes/100 WBC (Bld) 14.1 % Normal [facility] Comment on above: Order Comment: Speci men Type: BLOOD SPECIMENOrdering Facility: [facility] Address: [address] [place] [address] Performed By: #### 5 7021-8, 03759-1 ####[facility] LABCLIA [id number] [place] [address] [place] MCH (RBC) [Entitic mass] 33.5 pg Normal 26.0-34.0 [facility] Comment on above: Order Comment: Speci men Type: BLOOD SPECIMENOrdering Facility: [facility] Address: [address] [place] [address] Performed By: #### 5 7021-8, 52836-7 ####[facility] LABCLIA [id number] [place] [address] [place] MCHC (RBC) [Mass/Vol] 31.5 g/dL Normal 30.5-36.0 [facility] Comment on above: Order Comment: Speci men Type: BLOOD SPECIMENOrdering Facility: [facility] Address: [address] [place] [address] Performed By: #### 5 7021-8, 07202-6 ####[facility] LABCLIA [id number] [place] [address] [place] MCV (RBC) [Entitic vol] 106.5 fL High 80.0-100.0 [facility] Comment on above: Order Comment: Speci men Type: BLOOD SPECIMENOrdering Facility: [facility] Address: [address] [place] [address] Performed By: #### 5 7021-8, 49396-7 ####[facility] LABIA [id number] [place] [address] [place] Monocytes (Bld) [#/Vol] 0.23 10*3/uL Normal <0.87 [facility] Comment on above: Order Comment: Speci men Type: BLOOD SPECIMENOrdering Facility: [facility] Address: [address] [place] [address] Performed By: #### 5 7021-8, 82362-4 ####[facility] LABCLIA [id number] [place] [address] [place] Monocytes/100 WBC (Bld) 3.0 % Normal [facility] Comment on above: Order Comment: Speci men Type: BLOOD SPECIMENOrdering Facility: [facility] Address: [address] [place] [address] Performed By: #### 5 7021-8, 54615-4 ####[facility] LABCLIA [id number] [place] [address] [place] Neutrophils (Bld) [#/Vol] 6.30 10*3/uL Normal 1.45-7.50 [facility] Comment on above: Order Comment: Speci men Type: BLOOD SPECIMENOrdering Facility: [facility] Address: [address] [place] [address] Performed By: #### 5 7021-8, 62787-6 ####[facility] LABCLIA [id number] [place] [address] [place] Neutrophils/100 WBC (Bld) 82.4 % Normal [facility] Comment on above: Order Comment: Speci men Type: BLOOD SPECIMENOrdering Facility: [facility] Address: [address] [place] [address] Performed By: #### 5 7021-8, 55858-4 ####[facility] LABCLIA [id number] [place] [address] [place] Nucleated RBC (Bld) [#/Vol] 10*3/uL Normal <0.01 [facility] Comment on above: Order Comment: Speci men Type: BLOOD SPECIMENOrdering Facility: [facility] Address: [address] [place] [address] Performed By: #### 5 7021-8, 44231-2 ####[facility] LABCLIA [id number] [place] [address] [place] Nucleated RBC/100 WBC (Bld) [Ratio] 0.0 /100 WBC Normal [facility] Comment on above: Order Comment: Speci men Type: BLOOD SPECIMENOrdering Facility: [facility] Address: [address] [place] [address] Performed By: #### 5 7021-8, 31761-2 ####[facility] LABIA [id number] [place] [id number] [place] Platelet mean volume (Bld) [Entitic vol] 9.6 fL Normal 9.0-12.7 [facility] Comment on above: Order Comment: Speci men Type: BLOOD SPECIMENOrdering Facility: [facility] Address: [address] [place] [address] Performed By: #### 5 7021-8, 84862-2 ####[facility] LABIA [id number] [place] [address] [place] Platelets (Bld) [#/Vol] 345 10*3/uL Normal 150-400 [facility] Comment on above: Order Comment: Speci men Type: BLOOD SPECIMENOrdering Facility: [facility] Address: [address] [place] [address] Performed By: #### 5 7021-8, 90316-6 ####[facility] LABIA [id number] [place] [address] [place] RBC (Bld) [#/Vol] 3.22 10*6/uL Low 3.90-5.[address] [facility] Comment on above: Order Comment: Speci men Type: BLOOD SPECIMENOrdering Facility: [facility] Address: [address] [place] [address] Performed By: #### 5 7021-8, 10655-7 ####[facility] LABIA [id number] [place] [id number] [place] WBC (Bld) [#/Vol] 7.65 10*3/uL Normal 3.70-11.[address] [facility] Comment on above: Order Comment: Speci men Type: BLOOD SPECIMENOrdering Facility: [facility] Address: [address] [place] [address] Performed By: #### 5 7021-8, 53094-6 ####[facility] LABCLIA [id number] [place] [id number] [place] CONSULTon 07-19-2023 CONSULT Normal [facility] CONSULT Normal [facility] Comprehensive metabolic 2000 panelon 07-19-2023 Albumin [Mass/Vol] 3.5 g/dL Low 3.9-4.9 [facility] Comment on above: Order Comment: Speci men Type: BLOOD SPECIMENOrdering Facility: [facility] Address: [address] [place] [address] Performed By: #### 2 4323-8 ####[facility] LABCLIA [id number] [place] [address] [place] ALP [Catalytic activity/Vol] 131 U/L High 34-123 [facility] Comment on above: Order Comment: Speci men Type: BLOOD SPECIMENOrdering Facility: [facility] Address: [address] [place] [address] Performed By: #### 2 4323-8 ####[facility] LABCLIA [id number] [place] [address] [place] ALT [Catalytic activity/Vol] 8 U/L Normal 7-38 [facility] Comment on above: Order Comment: Speci men Type: BLOOD SPECIMENOrdering Facility: [facility] Address: [address] [place] [address] Performed By: #### 2 4323-8 ####[facility] LABCLIA [id number] [place] [address] [place] Anion gap [Moles/Vol] 12 mmol/L Normal 9-18 [facility] Comment on above: Order Comment: Speci men Type: BLOOD SPECIMENOrdering Facility: [facility] Address: [address] [place] [address] Performed By: #### 2 4323-8 ####[facility] LABCLIA [id number] [place] [address] [place] AST [Catalytic activity/Vol] 17 U/L Normal 13-35 [facility] Comment on above: Order Comment: Speci men Type: BLOOD SPECIMENOrdering Facility: [facility] Address: [address] [place] [address] Result Comment: Resu lts may be falsely increased due to interference from hemolysis. Suggest reorder as clinically indicated. Performed By: #### 2 4323-8 ####[facility] LABCLIA [id number] [place] [address] [place] Bilirubin [Mass/Vol] 0.3 mg/dL Normal 0.2-1.3 [facility] Comment on above: Order Comment: Speci men Type: BLOOD SPECIMENOrdering Facility: [facility] Address: [address] [place] [address] Performed By: #### 2 4323-8 ####[facility] LABCLIA [id number] [place] [address] [place] Calcium [Mass/Vol] 9.8 mg/dL Normal 8.5-10.2 [facility] Comment on above: Order Comment: Speci men Type: BLOOD SPECIMENOrdering Facility: [facility] Address: [address] [place] [address] Performed By: #### 2 4323-8 ####[facility] LABCLIA [id number] [place] [address] [place] Chloride [Moles/Vol] 105 mmol/L Normal 97-105 [facility] Comment on above: Order Comment: Speci men Type: BLOOD SPECIMENOrdering Facility: [facility] Address: [address] [place] [address] Performed By: #### 2 4323-8 ####[facility] LABCLIA [id number] [place] [address] [place] CO2 [Moles/Vol] 24 mmol/L Normal 22-30 [facility] Comment on above: Order Comment: Speci men Type: BLOOD SPECIMENOrdering Facility: [facility] Address: [address] [place] [address] Performed By: #### 2 4323-8 ####[facility] LABIA [id number] [place] [address] [place] Creatinine [Mass/Vol] 0.84 mg/dL Normal 0.58-0.96 [facility] Comment on above: Order Comment: Speci men Type: BLOOD SPECIMENOrdering Facility: [facility] Address: [address] [place] [address] Performed By: #### 2 4323-8 ####[facility] [id number] [place] [address] [place] Creatinine and Glomerular filtration rate.predicted panel (S/P/Bld) 72 mL/min/1.73m??? Normal >=60 [facility] Comment on above: Order Comment: Speci men Type: BLOOD SPECIMENOrdering Facility: [facility] Address: [address] [place] [address] Result Comment: Josie mated Glomerular Filtration Rate (eGFR) is calculated using the 2020 CKD-EPI creatinine equation. This equation utilizes serum creatinine, sex, and age as parameters. The creatinine assay has traceable calibration to isotope dilution-mass spectrometry. Refer to KDIGO guidelines for clinical interpretation. In patients with unstable renal function, e.g. those with acute kidney injury, the eGFR may not accurately reflect actual GFR. Performed By: #### 2 4323-8 ####[facility] LABIA [id number] [place] [address] [place] Glucose [Mass/Vol] 135 mg/dL High 74-99 [facility] Comment on above: Order Comment: Madeleinei men Type: BLOOD SPECIMENOrdering Facility: [facility] Address: [address] [place] [address] Result Comment: The [place] Diabetes Association (ADA) provides guidance for cutoff values for fasting glucose and random glucose. The ADA defines fasting as no caloric intake for at least 8 hours. Fasting plasma glucose results between 100 to 125 mg/dL indicate increased risk for diabetes (prediabetes).Fasting plasma glucose results greater than or equal to 126 mg/dL meet the criteria for diagnosis of diabetes. In the absence of unequivocal hyperglycemia, results should be confirmed by repeat testing. In a patient with classic symptoms of hyperglycemia or hyperglycemic crisis, random plasma glucose results greater than or equal to 200 mg/dL meet the criteria for diagnosis of diabetes.Reference: Standards of Medical Care in Diabetes 2016, [place] [employer] Association. Diabetes Care. 2016.39(Suppl 1). Performed By: #### 2 4323-8 ####[facility] LABCLIA [id number] [place] [address] [place] Potassium [Moles/Vol] 5.1 mmol/L Normal 3.7-5.1 [facility] Comment on above: Order Comment: Speci men Type: BLOOD SPECIMENOrdering Facility: [facility] Address: [address] [place] [address] Performed By: #### 2 4323-8 ####[facility] LABCLIA [id number] [place] [address] [place] Protein [Mass/Vol] 6.1 g/dL Low 6.3-8.0 [facility] Comment on above: Order Comment: Speci men Type: BLOOD SPECIMENOrdering Facility: [facility] Address: [address] [place] [address] Performed By: #### 2 4323-8 ####[facility] LABCLIA [id number] [place] [address] [place] Sodium [Moles/Vol] 141 mmol/L Normal 136-144 [facility] Comment on above: Order Comment: Speci men Type: BLOOD SPECIMENOrdering Facility: [facility] Address: [address] [place] [address] Performed By: #### 2 4323-8 ####[facility] LABCLIA [id number] [place] [address] [place] Urea nitrogen [Mass/Vol] 13 mg/dL Normal 7-21 [facility] Comment on above: Order Comment: Ash rodarte Type: BLOOD SPECIMENOrdering Facility: [facility] Address: [address] [place] [address] Performed By: #### 2 4323-8 ####[facility] LABIA [id number] [address] [place] HbA1c (Bld)on 07-19-2023 Average glucose Estimated from glycated hemoglobin (Bld) [Mass/Vol] 105 mg/dL Normal [facility] Comment on above: Order Comment: Ash rodarte Type: BLOOD SPECIMENOrdering Facility: [facility] Address: [address] [place] [address] Result Comment: eAG: (Estimated average glucose) is a calculated value from HgbA1c and is senior sales representative of the average blood glucose level in the last 2-3 month period. Performed By: #### 5 7021-8, 15109-0 ####[facility] LABIA [id number] [address] STATES OF [facility] HbA1c (Bld) [Mass fraction] 5.3 % Normal 4.3-5.6 [facility] Comment on above: Order Comment: Ash rodarte Type: BLOOD SPECIMENOrdering Facility: [facility] Address: [address] [place] [address] Result Comment: [place] Diabetes Association guidelines indicate that patients with HgbA1c in the range 5.7-6.4% are at increased risk for development of diabetes, and intervention by lifestyle modification may be beneficial. HgbA1c greater or equal to 6.5% is considered diagnostic of diabetes. Performed By: #### 5 7021-8, 73430-4 ####[facility] LABIA [id number] [place] [address] [place] Lipid 1996 panelon Cholesterol [Mass/Vol] 149 mg/dL Normal <200 [facility] Comment on above: Order Comment: Ash aster Type: BLOOD SPECIMENOrdering Facility: [facility] Address: [address] [place] [address] Result Comment: <200 mg/dL, Desirable 200-239 mg/dL, Borderline high>239 mg/dL, High Performed By: #### 2 4331-1 ####[facility] LABCLIA [id number] [place] [address] [place] Cholesterol in HDL [Mass/Vol] 44 mg/dL Normal >39 [facility] Comment on above: Order Comment: Speci men Type: BLOOD SPECIMENOrdering Facility: [facility] Address: [address] [place] [address] Result Comment: 40-5 9 mg/dL, Acceptable>59 mg/dL, High: Negative risk factor for coronary heart disease<40 mg/dL, Low: Positive risk factor for coronary heart disease Performed By: #### 2 4331-1 ####[facility] LABCLIA [id number] [address] STATES OF [facility] Cholesterol in LDL [Mass/Vol] 83 mg/dL Normal <100 [facility] Comment on above: Order Comment: Madeleinei men Type: BLOOD SPECIMENOrdering Facility: [facility] Address: [address] [place] [address] Result Comment: <100 mg/dL, Optimal 100-129 mg/dL, Near optimal/above optimal 130-159 mg/dL, Borderline high 160-189 mg/dL, High>189 mg/dL, Very highSecondary prevention optimal LDL Cholesterol levels are recommended to be < 70 mg/dL Performed By: #### 2 4331-1 ####[facility] LABCLIA [id number] [address] [place] Cholesterol in LDL/Cholesterol in HDL [Mass ratio] 1.89 {ratio} Normal <2.54 [facility] Comment on above: Order Comment: Speci men Type: BLOOD SPECIMENOrdering Facility: [facility] Address: [address] [place] [address] Result Comment: Refe rence:1. National Cholesterol Education Program ATP III Guideline At-A-Glance Quick Desk Reference: National Heart, Lung, and Blood [place]. National Institutes of Health. 2001: NIH Publication No. 01-3305.2. An International Atherosclerosis Society position paper: global recommendations for the management of dyslipidemia: executive summary, Atherosclerosis. 2014: 232(2):410-413. Performed By: #### 2 4331-1 ####[facility] LABCLIA [id number] [place] [address] [place] Cholesterol in VLDL [Mass/Vol] 22 mg/dL Normal <30 [facility] Comment on above: Order Comment: Madeleinei men Type: BLOOD SPECIMENOrdering Facility: [facility] Address: [address] [place] [address] Performed By: #### 2 4331-1 ####[facility] LABCLIA [id number] [place] [address] [place] Cholesterol non HDL [Mass/Vol] 105 mg/dL Normal <130 [facility] Comment on above: Order Comment: Ash rodarte Type: BLOOD SPECIMENOrdering Facility: [facility] Address: [address] [place] [address] Result Comment: <130 mg/dL, Optimal 130-159 mg/dL, Near optimal/above optimal 160-189 mg/dL, Borderline high 190-219 mg/dL, High>219 mg/dL, Very highSecondary prevention optimal non HDL Cholesterol levels are recommended to be <100 mg/dL Performed By: #### 2 4331-1 ####[facility] LABCLIA [id number] [place] [address] [place] Cholesterol.total/ Cholesterol in HDL [Mass ratio] 3.39 {ratio} Normal <5.10 [facility] Comment on above: Order Comment: Ash rodarte Type: BLOOD SPECIMENOrdering Facility: [facility] [facility] [place] Address: [address] [place] [address] Performed By: #### 2 4331-1 ####[facility] LABCLIA [id number] [place] [id number] [place] FASTING TIME Normal [facility] Comment on above: Order Comment: Speci men Type: BLOOD SPECIMENOrdering Facility: [facility] Address: [address] [place] [address] Result Comment: Unkn own Performed By: #### 2 4331-1 ####[facility] LABCLIA [id number] [place] [address] [place] Triglyceride [Mass/Vol] 109 mg/dL Normal <150 [facility] Comment on above: Order Comment: Speci men Type: BLOOD SPECIMENOrdering Facility: [facility] Address: [address] [place] [address] Result Comment: <150 mg/dL, Normal 150-199 mg/dL, Borderline high 200-499 mg/dL, High>499 mg/dL, Very high Performed By: #### 2 4331-1 ####[facility] LABCLIA [id number] [place] [address] [place] NURSING PROGon 07-19-2023 NURSING PROG Normal [facility] THERAPY NTon 07-19-2023 THERAPY NT Normal [facility] NT Normal [facility] THERAPY NT Normal [facility] ANES POSTPROC EVALon 024 ANES POSTPROC EVAL Normal [facility] ANES PRE-OPon 07-18-2023 ANES PRE-OP Normal [facility] BRIEF OP NOTon 07-18-2023 BRIEF OP NOT Normal [facility] Bacteria Ur Culton Bacteria identified Cx Nom (U) Abnormal [facility] Comment on above: Performed By: #### 6 30-4 ####[facility] LABCLIA [id number] [place] [address] [place] Basic metabolic 2000 panelon 07-18-2023 Anion gap [Moles/Vol] 13 mmol/L Normal 9-18 [facility] Comment on above: Order Comment: Speci men Type: BLOOD SPECIMENOrdering Facility: [facility] Address: [address] [place] [address] Performed By: #### 2 777-1, , ####[facility] LABCLIA [id number] [address] [address] [place] Calcium [Mass/Vol] 10.6 mg/dL High 8.5-10.2 [facility] Comment on above: Order Comment: Speci men Type: BLOOD SPECIMENOrdering Facility: [facility] Address: [address] [place] [id number] Performed By: #### 2 777-1, , ####[facility] LABCLIA [id number] [address] [address] [place] Chloride [Moles/Vol] 103 mmol/L Normal 97-105 [facility] Comment on above: Order Comment: Speci men Type: BLOOD SPECIMENOrdering Facility: [facility] Address: [address] [place] [id number] Performed By: #### 2 777-1, , ####[facility] LABCLIA [id number] [address] [address] [place] CO2 [Moles/Vol] 22 mmol/L Normal 22-30 [facility] Comment on above: Order Comment: Speci men Type: BLOOD SPECIMENOrdering Facility: [facility] Address: [address] [place] [id number] Performed By: #### 2 777-1, , ####[facility] LABCLIA [id number] [address] [address] [place] Creatinine [Mass/Vol] 1.03 mg/dL High 0.58-0.96 [facility] Comment on above: Order Comment: Speci men Type: BLOOD SPECIMENOrdering Facility: [facility] Address: [address] [place], [place] [id number] Performed By: #### 2 777-1, , 45342-6 ####[facility] LABCLIA [id number] [place] [address] [place] Creatinine and Glomerular filtration rate.predicted panel (S/P/Bld) 56 mL/min/1.73m??? Low >=60 [facility] Comment on above: Order Comment: Ash rodarte Type: BLOOD SPECIMENOrdering Facility: [facility] Address: [address] [place] [address] Result Comment: Josie mated Glomerular Filtration Rate (eGFR) is calculated using the 2020 CKD-EPI creatinine equation. This equation utilizes serum creatinine, sex, and age as parameters. The creatinine assay has traceable calibration to isotope dilution-mass spectrometry. Refer to KDIGO guidelines for clinical interpretation. In patients with unstable renal function, e.g. those with acute kidney injury, the eGFR may not accurately reflect actual GFR. Performed By: #### 2 777-1, 73836-4, 43858-8 ####[facility] LABIA [id number] [place] [address] [place] Glucose [Mass/Vol] 141 mg/dL High 74-99 [facility] Comment on above: Order Comment: Ash rodarte Type: BLOOD SPECIMENOrdering Facility: [facility] Address: [address] [place] [address] Result Comment: The [place] Diabetes Association (ADA) provides guidance for cutoff values for fasting glucose and random glucose. The ADA defines fasting as no caloric intake for at least 8 hours. Fasting plasma glucose results between 100 to 125 mg/dL indicate increased risk for diabetes (prediabetes).Fasting plasma glucose results greater than or equal to 126 mg/dL meet the criteria for diagnosis of diabetes. In the absence of unequivocal hyperglycemia, results should be confirmed by repeat testing. In a patient with classic symptoms of hyperglycemia or hyperglycemic crisis, random plasma glucose results greater than or equal to 200 mg/dL meet the criteria for diagnosis of diabetes.Reference: Standards of Medical Care in Diabetes 2016, [place] [employer]. Diabetes Care. 2016.39(Suppl 1). Performed By: #### 2 777-1, 24411-3, 01596-1 ####[facility] LABIA [id number] [place] [address] [place] Potassium [Moles/Vol] 4.9 mmol/L Normal 3.7-5.1 [facility] Comment on above: Order Comment: Speci men Type: BLOOD SPECIMENOrdering Facility: [facility] Address: [address] [place] [address] Performed By: #### 2 777-1, , 80084-2 ####[facility] LABIA [id number] [place] [address] [place] Sodium [Moles/Vol] 138 mmol/L Normal 136-144 [facility] Comment on above: Order Comment: Speci men Type: BLOOD SPECIMENOrdering Facility: [facility] Address: [address] [place] [address] Performed By: #### 2 777-1, , 03437-1 ####[facility] LABCLIA [id number] [place] [address] [place] Urea nitrogen [Mass/Vol] 11 mg/dL Normal 7-21 [facility] Comment on above: Order Comment: Speci men Type: BLOOD SPECIMENOrdering Facility: [facility] [place] Address: [address] [place] [address] Performed By: #### 2 777-1, , 38674-8 ####[facility] LABIA [id number] [place] [id number] [place] CALCULI ANALYSISon 4 Calculus analysis [Interp] Normal [facility] Comment on above: Order Comment: Speci men Type: CALCULUS SPECIMENOrdering Facility: [facility] Address: [address] [place] [address] Result Comment: This test was developed and its performance characteristics determined by [facility]'s Trever Krishnamurthy [facility] Pathology and Laboratory Medicine [place] ([facility]). It has not been cleared or approved by the FDA. [facility] is regulated under CLIA as qualified to perform high-complexity testing. This test is used for clinical purposes. It should not be regarded as investigational or for research. Performed By: #### C SA ####[facility] LABIA [id number] [place] [address] [place] CALCULUS COLOR DESIR Normal [facility] Comment on above: Order Comment: Speci men Type: CALCULUS SPECIMENOrdering Facility: [facility] Address: [address] [place] [address] Performed By: #### C SA ####[facility] LABIA [id number] [place] [address] [place] CALCULUS COMPOSITION 1 100% Calcium Phosphate Normal [facility] Comment on above: Order Comment: Speci men Type: CALCULUS SPECIMENOrdering Facility: [facility] Address: [address] [place] [address] Performed By: #### C SA ####[facility] [id number] [place] [address] [place] CALCULUS SIZE AND WT Multiple pieces. 2.0035 GRAMS Normal [facility] Comment on above: Order Comment: Speci men Type: CALCULUS SPECIMENOrdering Facility: [facility] [place] Address: [address] [place] [address] Performed By: #### C SA ####[facility] [id number] [place] [address] [place] CALCULUS TYPE Calculus, CALCULI/CALCULUS Normal [facility] Comment on above: Order Comment: Speci men Type: CALCULUS SPECIMENOrdering Facility: [facility] [place] Address: [address] [place] [address] Performed By: #### C SA ####[facility] LABIA [id number] [place] [address] [place] CBC W Auto Differential pane l (Bld)on 07-18-2023 Basophils (Bld) [#/Vol] 0.05 10*3/uL Normal <0.11 [facility] Comment on above: Order Comment: Speci men Type: BLOOD SPECIMENOrdering Facility: [facility] Address: [address] [place] [address] Performed By: #### 5 7021-8 ####[facility] LABCLIA [id number] [place] [address] [place] Basophils/100 WBC (Bld) 0.5 % Normal [facility] Comment on above: Order Comment: Speci men Type: BLOOD SPECIMENOrdering Facility: [facility] [place] Address: [address] [place] [address] Performed By: #### 5 7021-8 ####[facility] LABCLIA [id number] [place] [address] [place] Differential cell count method Nom (Bld) Auto Normal [facility] Comment on above: Order Comment: Speci men Type: BLOOD SPECIMENOrdering Facility: [facility] [place] Address: [address] [place] [address] Performed By: #### 5 7021-8 ####[facility] LABCLIA [id number] [place] [address] [place] Eosinophils (Bld) [#/Vol] 0.15 10*3/uL Normal <0.46 [facility] Comment on above: Order Comment: Speci men Type: BLOOD SPECIMENOrdering Facility: [facility] Address: [address] [place] [address] Performed By: #### 5 7021-8 ####[facility] LABCLIA [id number] [place] [address] [place] Eosinophils/100 WBC (Bld) 1.5 % Normal [facility] Comment on above: Order Comment: Speci men Type: BLOOD SPECIMENOrdering Facility: [facility] [place] Address: [address] [place] [address] Performed By: #### 5 7021-8 ####[facility] LABCLIA [id number] [place] [address] [place] Erythrocyte distribution width (RBC) [Ratio] 14.6 % Normal 11.5-15.0 [facility] Comment on above: Order Comment: Speci men Type: BLOOD SPECIMENOrdering Facility: [facility] [place] Address: [address] [place] [address] Performed By: #### 5 7021-8 ####[facility] LABCLIA [id number] [place] [address] [place] Hematocrit (Bld) [Volume fraction] 38.5 % Normal 36.0-46.0 [facility] Comment on above: Order Comment: Speci men Type: BLOOD SPECIMENOrdering Facility: [facility] [place] Address: [address] [place] [address] Performed By: #### 5 7021-8 ####[facility] LABCLIA [id number] [place] [address] [place] Hemoglobin (Bld) [Mass/Vol] 12.0 g/dL Normal 11.5-15.5 [facility] Comment on above: Order Comment: Speci men Type: BLOOD SPECIMENOrdering Facility: [facility] [place] Address: [address] [place] [address] Performed By: #### 5 7021-8 ####[facility] LABCLIA [id number] [place] [address] [place] Immature granulocytes (Bld) [#/Vol] 0.04 10*3/uL Normal <0.10 [facility] Comment on above: Order Comment: Speci men Type: BLOOD SPECIMENOrdering Facility: [facility] Address: [address] [place] [address] Performed By: #### 5 7021-8 ####[facility] LABCLIA [id number] [place] [address] [place] Immature granulocytes/100 WBC (Bld) 0.4 % Normal [facility] Comment on above: Order Comment: Speci men Type: BLOOD SPECIMENOrdering Facility: [facility] [place] Address: [address] [place] [address] Performed By: #### 5 7021-8 ####[facility] LABCLIA [id number] [place] [address] [place] Lymphocytes (Bld) [#/Vol] 2.42 10*3/uL Normal 1.00-4.00 [facility] Comment on above: Order Comment: Speci men Type: BLOOD SPECIMENOrdering Facility: [facility] [place] Address: [address] [place] [address] Performed By: #### 5 7021-8 ####[facility] LABCLIA [id number] [place] [address] [place] Lymphocytes/100 WBC (Bld) 24.0 % Normal [facility] Comment on above: Order Comment: Speci men Type: BLOOD SPECIMENOrdering Facility: [facility] Address: [address] [place] [address] Performed By: #### 5 7021-8 ####[facility] LABCLIA [id number] [place] [address] [place] MCH (RBC) [Entitic mass] 33.5 pg Normal 26.0-34.0 [facility] Comment on above: Order Comment: Speci men Type: BLOOD SPECIMENOrdering Facility: [facility] Address: [address] [place] [address] Performed By: #### 5 7021-8 ####[facility] LABCLIA [id number] [place] [address] [place] MCHC (RBC) [Mass/Vol] 31.2 g/dL Normal 30.5-36.0 [facility] Comment on above: Order Comment: Speci men Type: BLOOD SPECIMENOrdering Facility: [facility] [place] Address: [address] [place] [address] Performed By: #### 5 7021-8 ####[facility] LABCLIA [id number] [place] [address] [place] MCV (RBC) [Entitic vol] 107.5 fL High 80.0-100.0 [facility] Comment on above: Order Comment: Speci men Type: BLOOD SPECIMENOrdering Facility: [facility] Address: [address] [place] [address] Performed By: #### 5 7021-8 ####[facility] LABCLIA [id number] [place] [address] [place] Monocytes (Bld) [#/Vol] 0.29 10*3/uL Normal <0.87 [facility] Comment on above: Order Comment: Speci men Type: BLOOD SPECIMENOrdering Facility: [facility] Address: [address] [place] [address] Performed By: #### 5 7021-8 ####[facility] LABCLIA [id number] [place] [address] [place] Monocytes/100 WBC (Bld) 2.9 % Normal [facility] Comment on above: Order Comment: Speci men Type: BLOOD SPECIMENOrdering Facility: [facility] [place] Address: [address] [place] [address] Performed By: #### 5 7021-8 ####[facility] LABCLIA [id number] [place] [address] [place] Neutrophils (Bld) [#/Vol] 7.13 10*3/uL Normal 1.45-7.50 [facility] Comment on above: Order Comment: Speci men Type: BLOOD SPECIMENOrdering Facility: [facility] [place] Address: [address] [place] [address] Performed By: #### 5 7021-8 ####[facility] LABCLIA [id number] [place] [address] [place] Neutrophils/100 WBC (Bld) 70.7 % Normal [facility] Comment on above: Order Comment: Speci men Type: BLOOD SPECIMENOrdering Facility: [facility] [place] Address: [address] [place] [address] Performed By: #### 5 7021-8 ####[facility] LABCLIA [id number] [place] [address] [place] Nucleated RBC (Bld) [#/Vol] 10*3/uL Normal <0.01 [facility] Comment on above: Order Comment: Speci men Type: BLOOD SPECIMENOrdering Facility: [facility] [place] Address: [address] [place] [address] Performed By: #### 5 7021-8 ####[facility] LABCLIA [id number] [place] [address] [place] Nucleated RBC/100 WBC (Bld) [Ratio] 0.0 /100 WBC Normal [facility] Comment on above: Order Comment: Speci men Type: BLOOD SPECIMENOrdering Facility: [facility] [place] Address: [address] [place] [address] Performed By: #### 5 7021-8 ####[facility] LABCLIA [id number] [place] [address] [place] Platelet mean volume (Bld) [Entitic vol] 9.5 fL Normal 9.0-12.7 [facility] Comment on above: Order Comment: Speci men Type: BLOOD SPECIMENOrdering Facility: [facility] Address: [address] [place] [address] Performed By: #### 5 7021-8 ####[facility] LABCLIA [id number] [place] [address] [place] Platelets (Bld) [#/Vol] 392 10*3/uL Normal 150-400 [facility] Comment on above: Order Comment: Speci men Type: BLOOD SPECIMENOrdering Facility: [facility] Address: [address] [place] [address] Performed By: #### 5 7021-8 ####[facility] LABCLIA [id number] [place] [address] [place] RBC (Bld) [#/Vol] 3.58 10*6/uL Low 3.90-5.[address] [facility] Comment on above: Order Comment: Speci men Type: BLOOD SPECIMENOrdering Facility: [facility] Address: [address] [place] [address] Performed By: #### 5 7021-8 ####[facility] LABIA [id number] [place] [address] [place] WBC (Bld) [#/Vol] 10.08 10*3/uL Normal 3.70-11.00 [facility] Comment on above: Order Comment: Speci men Type: BLOOD SPECIMENOrdering Facility: [facility] Address: [address] [place] [address] Performed By: #### 5 7021-8 ####[facility] [id number] [place] [address] [place] [address] BRAIN ATTACK WO IVCONon 0 07-18-2023 CT BRAIN ATTACK WO IVCON Invalid Interpretation Code [facility] ECG COMPLETEon 07-18-2023 ECG COMPLETE Normal [facility] Magnesium SerPl-mCncon 07-18 Magnesium [Mass/Vol] 2.4 mg/dL High 1.7-2.3 [facility] Comment on above: Order Comment: Speci men Type: BLOOD SPECIMENOrdering Facility: [facility] Address: [address] [place] [address] Performed By: #### 2 777-1, 73887-1, 05453-3 ####[facility] LABIA [id number] [place] [address] [place] NURSING PROGon 07-18-2023 NURSING PROG Normal [facility] OPERATIVE NOon 07-18-2023 OPERATIVE NO Normal [facility] Phosphate SerPl-mCncon 07-18 Phosphate [Mass/Vol] 3.9 mg/dL Normal 2.7-4.8 [facility] Comment on above: Order Comment: Speci men Type: BLOOD SPECIMENOrdering Facility: [facility] Address: [address] [place] [address] Performed By: #### 2 777-1, 81369-1, 66918-1 ####[facility] LABCLIA [id number] [address] [place] SURGICAL PATHOLOGYon 024 CASE REPORT Normal [facility] Comment on above: Order Comment: Speci men Type: DEVICE SPECIMENOrdering Facility: [facility] Address: [address] [place] [address] Result Comment: Surg ica Pathology Report Case: [id number] Provider: Troy Chavez MD Collected: 07/18/2023 07:07 PMOrdering Location: Admitting Received: 07/19/2023 07:59 AMPathologist: David Leal MDSpecimens: A) - HARDWARE, Right Retained Stent. B) - HARDWARE, left retained stent Performed By: #### S ####[facility] LABIA [id number] [address] [place] CLINICAL HISTORY Normal [facility] Comment on above: Order Comment: Speci men Type: DEVICE SPECIMENOrdering Facility: [facility] Address: [address] [place] [address] Result Comment: Pre- op diagnosis:Nephrolithiasis [N20.0] Performed By: #### S ####[facility] LABCLIA [id number] [address] OF [facility] FINAL DIAGNOSIS Normal [facility] Comment on above: Order Comment: Speci men Type: DEVICE SPECIMENOrdering Facility: [facility] Address: [address] [place] [address] Result Comment: A. R ight side, hardware removal:-Double pigtail stent with no soft tissue present (gross examination only)B. Left side, hardware removal:-Double pigtail stent with no soft tissue present (gross examination only)CHLOE 07/19/23 Performed By: #### S ####[facility] LABCLIA [id number] [place] [address] [place] FINAL PERFORMING LAB Normal [facility] Comment on above: Order Comment: Speci aster Type: DEVICE SPECIMENOrdering Facility: [facility] Address: [address] [place] [address] Result Comment: Diag nostic interpretation performed at [facility], [address] [place] [address] CLIA# [id number] Director: Rik Powell M.D. Performed By: #### S ####[facility] [id number] [address] [place] GROSS DESCRIPTION A. HARDWARE Normal [facility] Comment on above: Order Comment: Speci aster Type: DEVICE SPECIMENOrdering Facility: [facility] Address: [address] [place] [address] Result Comment: Rece ived fresh labeled right retained stent is a blue double-ended pigtail stent measuring 26 cm in length. Attached calcified material is present. No soft tissue is present. No sections are submitted. The specimen was shown to Dr. Leal.B. HARDWAREReceived fresh labeled left retained stent is a blue double-ended pigtail stent measuring 26 cm in length. Attached calcified material is present. No soft tissue is present. No sections are submitted. The specimen was shown to Dr. Leal.Gross examination performed at [facility], [address] [place] [address] CLIA# [id number] 07/19/23 10:07 AM Performed By: #### S ####[facility] LABCLIA [id number] [place] [address] [place] XR CHEST 1V FRONTAL PORTon 0 07-18-2023 XR CHEST 1V FRONTAL PORT Normal [facility] CBC W Auto Differential pane l (Bld)on 07-11-2023 Basophils (Bld) [#/Vol] 0.05 10*3/uL Normal <0.11 [facility] Comment on above: Order Comment: Speci men Type: BLOOD SPECIMENOrdering Facility: [facility] Address: [address] [place] [address] Performed By: #### 5 7021-8 ####[facility] LABCLIA [id number] [place] [address] [place] Basophils/100 WBC (Bld) 0.5 % Normal [facility] Comment on above: Order Comment: Speci men Type: BLOOD SPECIMENOrdering Facility: [facility] Address: [address] [place] [address] Performed By: #### 5 7021-8 ####[facility] LABCLIA [id number] [place] [address] [place] Differential cell count method Nom (Bld) Auto Normal [facility] Comment on above: Order Comment: Speci men Type: BLOOD SPECIMENOrdering Facility: [facility] Address: [address] [place] [address] Performed By: #### 5 7021-8 ####[facility] LABCLIA [id number] [place] [address] [place] Eosinophils (Bld) [#/Vol] 0.16 10*3/uL Normal <0.46 [facility] Comment on above: Order Comment: Speci men Type: BLOOD SPECIMENOrdering Facility: [facility] Address: [address] [place] [address] Performed By: #### 5 7021-8 ####[facility] LABCLIA [id number] [place] [address] [place] Eosinophils/100 WBC (Bld) 1.7 % Normal [facility] Comment on above: Order Comment: Speci men Type: BLOOD SPECIMENOrdering Facility: [facility] Address: [address] [place] [address] Performed By: #### 5 7021-8 ####[facility] LABCLIA [id number] [place] [address] [place] Erythrocyte distribution width (RBC) [Ratio] 14.8 % Normal 11.5-15.0 [facility] Comment on above: Order Comment: Speci men Type: BLOOD SPECIMENOrdering Facility: [facility] Address: [address] [place] [address] Performed By: #### 5 7021-8 ####[facility] LABCLIA [id number] [place] [address] [place] Hematocrit (Bld) [Volume fraction] 39.4 % Normal 36.0-46.0 [facility] Comment on above: Order Comment: Speci men Type: BLOOD SPECIMENOrdering Facility: [facility] Address: [address] [place] [address] Performed By: #### 5 7021-8 ####[facility] LABIA [id number] [place] [address] [place] Hemoglobin (Bld) [Mass/Vol] 12.6 g/dL Normal 11.5-15.5 [facility] Comment on above: Order Comment: Speci men Type: BLOOD SPECIMENOrdering Facility: [facility] Address: [address] [place] [address] Performed By: #### 5 7021-8 ####[facility] LABCLIA [id number] [place] [address] [place] Immature granulocytes (Bld) [#/Vol] 0.03 10*3/uL Normal <0.10 [facility] Comment on above: Order Comment: Speci men Type: BLOOD SPECIMENOrdering Facility: [facility] Address: [address] [place] [address] Performed By: #### 5 7021-8 ####[facility] LABIA [id number] [place] [address] [place] Immature granulocytes/100 WBC (Bld) 0.3 % Normal [facility] Comment on above: Order Comment: Speci men Type: BLOOD SPECIMENOrdering Facility: [facility] Address: [address] [place] [address] Performed By: #### 5 7021-8 ####[facility] LABCLIA [id number] [place] [address] [place] Lymphocytes (Bld) [#/Vol] 2.36 10*3/uL Normal 1.00-4.00 [facility] Comment on above: Order Comment: Speci men Type: BLOOD SPECIMENOrdering Facility: [facility] Address: [address] [place] [address] Performed By: #### 5 7021-8 ####[facility] LABCLIA [id number] [place] [address] [place] Lymphocytes/100 WBC (Bld) 25.1 % Normal [facility] Comment on above: Order Comment: Speci men Type: BLOOD SPECIMENOrdering Facility: [facility] Address: [address] [place] [address] Performed By: #### 5 7021-8 ####[facility] LABIA [id number] [place] [address] [place] MCH (RBC) [Entitic mass] 34.6 pg High 26.0-34.0 [facility] Comment on above: Order Comment: Speci men Type: BLOOD SPECIMENOrdering Facility: [facility] Address: [address] [place] [address] Performed By: #### 5 7021-8 ####[facility] LABIA [id number] [place] [address] [place] MCHC (RBC) [Mass/Vol] 32.0 g/dL Normal 30.5-36.0 [facility] Comment on above: Order Comment: Speci men Type: BLOOD SPECIMENOrdering Facility: [facility] Address: [address] [place] [address] Performed By: #### 5 7021-8 ####[facility] LABCLIA [id number] [place] [address] [place] MCV (RBC) [Entitic vol] 108.2 fL High 80.0-100.0 [facility] Comment on above: Order Comment: Speci men Type: BLOOD SPECIMENOrdering Facility: [facility] Address: [address] [place] [address] Performed By: #### 5 7021-8 ####[facility] LABCLIA [id number] [place] [address] [place] Monocytes (Bld) [#/Vol] 0.43 10*3/uL Normal <0.87 [facility] Comment on above: Order Comment: Speci men Type: BLOOD SPECIMENOrdering Facility: [facility] Address: [address] [place] [address] Performed By: #### 5 7021-8 ####[facility] LABCLIA [id number] [place] [address] [place] Monocytes/100 WBC (Bld) 4.6 % Normal [facility] Comment on above: Order Comment: Speci men Type: BLOOD SPECIMENOrdering Facility: [facility] Address: [address] [place] [address] Performed By: #### 5 7021-8 ####[facility] LABCLIA [id number] [place] [address] [place] Neutrophils (Bld) [#/Vol] 6.37 10*3/uL Normal 1.45-7.50 [facility] Comment on above: Order Comment: Speci men Type: BLOOD SPECIMENOrdering Facility: [facility] Address: [address] [place] [address] Performed By: #### 5 7021-8 ####[facility] LABCLIA [id number] [place] [address] [place] Neutrophils/100 WBC (Bld) 67.8 % Normal [facility] Comment on above: Order Comment: Speci men Type: BLOOD SPECIMENOrdering Facility: [facility] Address: [address] [place] [address] Performed By: #### 5 7021-8 ####[facility] LABCLIA [id number] [place] [address] [place] Nucleated RBC (Bld) [#/Vol] 10*3/uL Normal <0.01 [facility] Comment on above: Order Comment: Speci men Type: BLOOD SPECIMENOrdering Facility: [facility] Address: [address] [place] [address] Performed By: #### 5 7021-8 ####[facility] LABCLIA [id number] [place] [address] [place] Nucleated RBC/100 WBC (Bld) [Ratio] 0.0 /100 WBC Normal [facility] Comment on above: Order Comment: Speci men Type: BLOOD SPECIMENOrdering Facility: [facility] Address: [address] [place] [address] Performed By: #### 5 7021-8 ####[facility] LABCLIA [id number] [place] [address] [place] Platelet mean volume (Bld) [Entitic vol] 9.6 fL Normal 9.0-12.7 [facility] Comment on above: Order Comment: Speci men Type: BLOOD SPECIMENOrdering Facility: [facility] Address: [address] [place] [address] Performed By: #### 5 7021-8 ####[facility] LABCLIA [id number] [place] [address] [place] Platelets (Bld) [#/Vol] 463 10*3/uL High 150-400 [facility] Comment on above: Order Comment: Speci men Type: BLOOD SPECIMENOrdering Facility: [facility] Address: [address] [place] [address] Performed By: #### 5 7021-8 ####[facility] LABCLIA [id number] [place] [address] [place] RBC (Bld) [#/Vol] 3.64 10*6/uL Low 3.90-5.[address] [facility] Comment on above: Order Comment: Speci men Type: BLOOD SPECIMENOrdering Facility: [facility] Address: [address] [place] [address] Performed By: #### 5 7021-8 ####[facility] LABCLIA [id number] [place] [address] [place] WBC (Bld) [#/Vol] 9.40 10*3/uL Normal 3.70-11.[address] [facility] Comment on above: Order Comment: Speci men Type: BLOOD SPECIMENOrdering Facility: [facility] Address: [address] [place] [address] Performed By: #### 5 7021-8 ####[facility] LABCLIA [id number] [place] [address] [place] Comprehensive metabolic 2000 panelon 07-11-2023 Albumin [Mass/Vol] 4.2 g/dL Normal 3.9-4.9 [facility] Comment on above: Order Comment: Speci men Type: BLOOD SPECIMENOrdering Facility: [facility] Address: [address] [place] [address] Performed By: #### 2 4323-8, 82274-4 ####[facility] LABCLIA [id number] [place] [address] [place] ALP [Catalytic activity/Vol] 167 U/L High 34-123 [facility] Comment on above: Order Comment: Speci men Type: BLOOD SPECIMENOrdering Facility: [facility] Address: [address] [place] [address] Performed By: #### 2 4323-8, 82982-9 ####[facility] LABCLIA [id number] [place] [id number] [place] ALT [Catalytic activity/Vol] 10 U/L Normal 7-38 [facility] Comment on above: Order Comment: Speci men Type: BLOOD SPECIMENOrdering Facility: [facility] Address: [address] [place] [address] Performed By: #### 2 4323-8, 47014-9 ####[facility] LABCLIA [id number] [place] [address] [place] Anion gap [Moles/Vol] 15 mmol/L Normal 9-18 [facility] Comment on above: Order Comment: Speci men Type: BLOOD SPECIMENOrdering Facility: [facility] Address: [address] [place] [address] Performed By: #### 2 4323-8, 80242-0 ####[facility] LABCLIA [id number] [place] [address] [place] AST [Catalytic activity/Vol] 22 U/L Normal 13-35 [facility] Comment on above: Order Comment: Speci men Type: BLOOD SPECIMENOrdering Facility: [facility] Address: [address] [place] [address] Performed By: #### 2 4323-8, 17894-9 ####[facility] LABCLIA [id number] [place] [address] [place] Bilirubin [Mass/Vol] 0.3 mg/dL Normal 0.2-1.3 [facility] Comment on above: Order Comment: Speci men Type: BLOOD SPECIMENOrdering Facility: [facility] Address: [address] [place] [address] Performed By: #### 2 4323-8, 43480-2 ####[facility] LABCLIA [id number] [place] [address] [place] Calcium [Mass/Vol] 11.0 mg/dL High 8.5-10.2 [facility] Comment on above: Order Comment: Speci men Type: BLOOD SPECIMENOrdering Facility: [facility] Address: [address] [place] [address] Performed By: #### 2 4323-8, 57023-8 ####[facility] LABCLIA [id number] [place] [address] [place] Chloride [Moles/Vol] 99 mmol/L Normal 97-105 [facility] Comment on above: Order Comment: Speci men Type: BLOOD SPECIMENOrdering Facility: [facility] Address: [address] [place] [address] Performed By: #### 2 4323-8, 13303-8 ####[facility] LABCLIA [id number] [place] [address] [place] CO2 [Moles/Vol] 24 mmol/L Normal 22-30 [facility] Comment on above: Order Comment: Speci men Type: BLOOD SPECIMENOrdering Facility: [facility] Address: [address] [place] [address] Performed By: #### 2 4323-8, 37942-7 ####[facility] LABCLIA [id number] [place] [address] [place] Creatinine [Mass/Vol] 1.00 mg/dL High 0.58-0.96 [facility] Comment on above: Order Comment: Speci men Type: BLOOD SPECIMENOrdering Facility: [facility] Address: [address] [place] [address] Performed By: #### 2 4323-8, 94909-2 ####[facility] LABCLIA [id number] [place] [address] [place] Creatinine and Glomerular filtration rate.predicted panel (S/P/Bld) 58 mL/min/1.73m??? Low >=60 [facility] Comment on above: Order Comment: Speci men Type: BLOOD SPECIMENOrdering Facility: [facility] Address: [address] [place] [address] Result Comment: Josie mated Glomerular Filtration Rate (eGFR) is calculated using the 2020 CKD-EPI creatinine equation. This equation utilizes serum creatinine, sex, and age as parameters. The creatinine assay has traceable calibration to isotope dilution-mass spectrometry. Refer to KDIGO guidelines for clinical interpretation. In patients with unstable renal function, e.g. those with acute kidney injury, the eGFR may not accurately reflect actual GFR. Performed By: #### 2 4323-8, 04001-4 ####[facility] LABIA [id number] [place] [address] [place] Glucose [Mass/Vol] 125 mg/dL High 74-99 [facility] Comment on above: Order Comment: Ash rodarte Type: BLOOD SPECIMENOrdering Facility: [facility] Address: [address] [place] [address] Result Comment: The [place] [employer] (ADA) provides guidance for cutoff values for fasting glucose and random glucose. The ADA defines fasting as no caloric intake for at least 8 hours. Fasting plasma glucose results between 100 to 125 mg/dL indicate increased risk for diabetes (prediabetes).Fasting plasma glucose results greater than or equal to 126 mg/dL meet the criteria for diagnosis of diabetes. In the absence of unequivocal hyperglycemia, results should be confirmed by repeat testing. In a patient with classic symptoms of hyperglycemia or hyperglycemic crisis, random plasma glucose results greater than or equal to 200 mg/dL meet the criteria for diagnosis of diabetes.Reference: Standards of Medical Care in Diabetes 2016, [place] [employer]. Diabetes Care. 2016.39(Suppl 1). Performed By: #### 2 4323-8, 77881-9 ####[facility] [id number] [place] [id number] [place] Potassium [Moles/Vol] 3.8 mmol/L Normal 3.7-5.1 [facility] Comment on above: Order Comment: Ash rodarte Type: BLOOD SPECIMENOrdering Facility: [facility] Address: [address] [place] [address] Performed By: #### 2 4323-8, 40809-1 ####[facility] LABCLIA [id number] [address] [address] [place] Protein [Mass/Vol] 7.2 g/dL Normal 6.3-8.0 [facility] Comment on above: Order Comment: Speci men Type: BLOOD SPECIMENOrdering Facility: [facility] Address: [address] [place] [address] Performed By: #### 2 4323-8, 95229-3 ####[facility] LABCLIA [id number] [place] [address] [place] Sodium [Moles/Vol] 138 mmol/L Normal 136-144 [facility] Comment on above: Order Comment: Speci men Type: BLOOD SPECIMENOrdering Facility: [facility] Address: [address] [place] [address] Performed By: #### 2 4323-8, 24069-4 ####[facility] LABCLIA [id number] [place] [address] [place] Urea nitrogen [Mass/Vol] 10 mg/dL Normal 7-21 [facility] Comment on above: Order Comment: Speci men Type: BLOOD SPECIMENOrdering Facility: [facility] Address: [address] [place] [address] Performed By: #### 2 4323-8, 18794-3 ####[facility] LABIA [id number] [place] [address] [place] HISTORY PHYSICALon HISTORY PHYSICAL Normal [facility] NT-proBNP [facility] 07-11 Natriuretic peptide.B prohormone N-Terminal [Mass/Vol] 102 pg/mL Normal <450 [facility] Comment on above: Order Comment: Speci men Type: BLOOD SPECIMENOrdering Facility: [facility] Address: [address] [place] [address] Performed By: #### 2 4323-8, 73111-2 ####[facility] LABCLIA [id number] [place] [address] [place] TYPE AND SCREEN,30 DAYon ABO A Normal [facility] Comment on above: Order Comment: Speci men Type: BLOOD SPECIMENOrdering Facility: [facility] Address: [address] [place] [address] Performed By: #### T SCR30 ####[facility] BLOOD BANKCLIA [id number] [place] [address] [place] HISTORICAL AB SCR STATUS Negative Normal [facility] Comment on above: Order Comment: Speci men Type: BLOOD SPECIMENOrdering Facility: [facility] Address: [address] [place] [address] Performed By: #### T SCR30 ####[facility] BLOOD BANKCLIA [id number] [place] [address] [place] Rh Nom (Bld) Negative Normal [facility] Comment on above: Order Comment: Speci men Type: BLOOD SPECIMENOrdering Facility: [facility] Address: [address] [place] [address] Performed By: #### T SCR30 ####[facility] BLOOD BANKCLIA [id number] [place] [address] [place] CNOVon 07-05-2023 CNOV Normal [facility] CNPTOUTREACHon 07-05-2023 CNPTOUTREACH Normal [facility] CT FLANK WO IVCONon 07-05-19 CT FLANK WO IVCON * * *Final Report* * * DATE OF EXAM: Jul 05 2023 7:38AM [facility] 0529 - CT FLANK WO IVCON / PROCEDURE REASON: Calculus of kidney * * * * Physician Interpretation * * * * EXAMINATION: CT ABDOMEN AND PELVIS WITHOUT IV CONTRAST (Renal stone protocol) CLINICAL HISTORY: Kidney stones; Cysto/bilateral retrograde pyelogram/bilateral ureteral stent placement 05/20/2023. TECHNIQUE: Non-contrast imaging of the abdomen and pelvis was performed through the urinary tract. Study performed without intravenous or oral contrast to evaluate for urinary tract calculus. MQ: [id number] Contrast: IV contrast: None Oral contrast: None CT Radiation dose: Integrated dose-length product (DLP) for this visit = 114 mGy*cm. CT Dose Reduction Employed: Automated exposure control(AEC) and iterative recon COMPARISON: Outside CT flank study dated 01/27/2013 RESULT: Limitations: Unenhanced imaging is limited for the evaluation of some renal and other intra-abdominal and pelvic pathology. Urinary Tract: Right kidney and ureter: There is 3.7 x 3 x 4.2 cm right renal pelvic staghorn calculus (axial image 71, coronal image 66, sagittal image 47), new since 01/27/2013. No hydronephrosis status post right double-J ureteral stent placement since 01/27/2013. There is 3 cm exophytic right mid renal cyst laterally, new since 01/27/2015. Left kidney and ureter: There is 1.7 x 2.3 x 2 cm left lower renal pelvic calculus (axial image 57, coronal image 67, sagittal image 80). No hydronephrosis. No finding to suggest cyst or mass in the unenhanced kidney. The left double-J ureteral stent is new since 01/27/2013 Bladder: No calculus. Abdomen and Pelvis: Liver: No mass is identified in the unenhanced liver. Biliary: The gallbladder is present. No intrahepatic biliary ductal dilatation. Spleen: No splenomegaly. Pancreas: No mass is identified in the unenhanced pancreas. Adrenals: Normal. GI Tract: No bowel dilation. Diffuse colonic stool. No bowel obstruction. Lymph Nodes: No lymphadenopathy. Mesentery/peritoneum: No ascites. Vasculature: No abdominal aortic aneurysm. Vascular patency cannot be determined due to lack of intravenous contrast. Pelvis: No mass or ascites. The uterus is surgically absent. Bones and Soft Tissues: Degenerative changes. The patient is status post left total hip arthroplasty, new since 01/27/2013. Lower thorax: Images of the lung bases demonstrate mild right basilar linear atelectasis. Model Maker Scale (topogram) images: No additional findings. IMPRESSION: BILATERAL LARGE RENAL PELVIC STONES (RIGHT GREATER THAN LEFT), NEW SINCE 01/27/2015. NO HYDRONEPHROSIS. NO CT EVIDENCE OF ACUTE INTRA-ABDOMINAL PROCESS. Harness Installer: ROGE Transcribe Date/Time: Jul 05 2023 7:47A Dictated by : REYES SANTACRUZ MD This examination was interpreted and the report reviewed and electronically signed by: REYES SANTACRUZ MD on Jul 05 2023 8:02AM EST [id number] Normal [facility] CNOVon 06-17-2023 CNOV Normal [facility] Operative Reporton 3 Operative Report [id number]#[id number] Normal [facility] Physician Referralon 023 Physician Referral [id number]#1.00TIFF Normal [facility] Physician Referral [id number]#1.00TIFF Normal [facility] Fci Recordson 06-13 [facility] Records [id number]#[id number] Normal [facility] Ambulatory Visit Summaryon 1 08-11-2022 Ambulatory Visit Summary ALICIA RUTHERFORD :1945 Visit Date:06/10/2023 Ambulatory Visit Instructions Your Diagnosis Kidney stone Hydronephrosis Tests Performed XR Abdomen 1 View -- Results Pending -- Please visit your patient portal for your results or contact your primary care physician. Your Care Team Attending Physician - RAMONA DICKERSON, Eddie Sprague Primary Care Physician - JAYJAY DICKERSON, FREDY Samson This Is Your Medications List lamotrigine (Lamictal 200 mg Tab) levothyroxine (Synthroid 112 mcg Tab) nitrofurantoin (Macrobid) Procedures Performed ESWL - Extracorporeal shockwave lithotripsy for renal calculus (06/23/2017), Cystoscopy (05/27/2017), ESWL - Extracorporeal shockwave lithotripsy for renal calculus (02/03/2017), ESWL - Extracorporeal shockwave lithotripsy for renal calculus (10/21/2016), Repair of right inguinal hernia (10/16/2015), ESWL - Extracorporeal shockwave lithotripsy for renal calculus (12/19/2013), Removal of nephrostomy tube (12/07/2013), Cystourethroscopy with percutaneous insertion of nephrostomy tube (12/05/2013), Cystoscopic removal of ureteric stent (02/05/2013), ESWL - Extracorporeal shockwave lithotripsy for renal calculus (01/23/2013), Cystoscopy and retrograde pyelography (01/12/2013), Cystoscopy (05/24/2011), Appendectomy, Biopsy of breast, Colonoscopy, Repair of diaphragmatic hiatal hernia, Sling procedure of bladder neck, PIYUSH BSO - Total abdominal hysterectomy and bilateral salpingo-oophorectomy, Tonsillectomy, Total knee replacement. Discharge Vitals Temperature (Temporal Artery) 36.5 ?C Heart Rate (Peripheral) 72 Blood Pressure 138/86 Height 163 cm Height 64 in Weight 74.2 kg Weight 163.24 lb BMI 27.93 What to do next You Need to Schedule the Following Appointments Follow Up with RAMONA DICKERSON, PAVEL Romero When: Comments: referral to [facility] for stone tx Where: [address] [facility] [address] [place], [place] [id number]- Medications What How Much When Instructions Unchanged lamotrigine (Lamictal 200 mg Tab) 1 Tablets By Mouth Every day Unchanged levothyroxine (Synthroid 112 mcg Tab) 1 Tablets By Mouth Every day Unchanged nitrofurantoin (Macrobid) By Mouth 2 times a day Allergies No Known Allergies Problems Ongoing - Any problem that you are currently receiving treatment for. Bipolar affective disorder, depressed, in full remission BMI 29.0-29.9,adult Diastolic heart failure Frequent urination Generalized anxiety disorder Hiatal hernia HTN (hypertension) Hydronephrosis Hypothyroidism Kidney stone Low back pain Omental infarction Pernicious anemia Personal history UTI Screening for malignant neoplasm of colon Unspecified hearing loss, unspecified ear Patient Survey You may receive a survey via text or e-mail asking about your office visit. Please share your experience with us by completing your survey. We appreciate your feedback and thank you for choosing us for your care. Education Materials Kidney Stones Kidney stones are rock-like masses that form inside of the kidneys. Kidneys are organs that make pee (urine). A kidney stone may move into other parts of the urinary tract, including: ? The tubes that connect the kidneys to the bladder (ureters). ? The bladder. ? The tube that carries urine out of the body (urethra). Kidney stones can cause very bad pain and can block the flow of pee. The stone usually leaves your body (passes) through your pee. You may need to have a doctor take out the stone. What are the causes? Kidney stones may be caused by: ? A condition in which certain glands make too much parathyroid hormone (primary hyperparathyroidism). ? A buildup of a type of crystals in the bladder made of a chemical called uric acid. The body makes uric acid when you eat certain foods. ? Narrowing (stricture) of one or both of the ureters. ? A kidney blockage that you were born with. ? Past surgery on the kidney or the ureters, such as gastric bypass surgery. What increases the risk? You are more likely to develop this condition if: ? You have had a kidney stone in the past. ? You have a family history of kidney stones. ? You do not drink enough water. ? You eat a diet that is high in protein, salt (sodium), or sugar. ? You are overweight or very overweight (obese). What are the signs or symptoms? Symptoms of a kidney stone may include: ? Pain in the side of the belly, right below the ribs (flank pain). Pain usually spreads (radiates) to the groin. ? Needing to pee often or right away (urgently). ? Pain when going pee (urinating). ? Blood in your pee (hematuria). ? Feeling like you may vomit (nauseous). ? Vomiting. ? Fever and chills. How is this treated? Treatment depends on the size, location, and makeup of the kidney stones. The stones will often pass out of the body through peeing. You may nee (more content not included)... Normal [facility] OT - Otheron 06-10-2023 OT - Other [id number]#1.00TIFF Normal [facility] Patient Educationon 06-10-20 23 Patient Education Urology Kidney Stones Kidney stones are rock-like masses that form inside of the kidneys. Kidneys are organs that make pee (urine). A kidney stone may move into other parts of the urinary tract, including: ? The tubes that connect the kidneys to the bladder (ureters). ? The bladder. ? The tube that carries urine out of the body (urethra). Kidney stones can cause very bad pain and can block the flow of pee. The stone usually leaves your body (passes) through your pee. You may need to have a doctor take out the stone. What are the causes? Kidney stones may be caused by: ? A condition in which certain glands make too much parathyroid hormone (primary hyperparathyroidism). ? A buildup of a type of crystals in the bladder made of a chemical called uric acid. The body makes uric acid when you eat certain foods. ? Narrowing (stricture) of one or both of the ureters. ? A kidney blockage that you were born with. ? Past surgery on the kidney or the ureters, such as gastric bypass surgery. What increases the risk? You are more likely to develop this condition if: ? You have had a kidney stone in the past. ? You have a family history of kidney stones. ? You do not drink enough water. ? You eat a diet that is high in protein, salt (sodium), or sugar. ? You are overweight or very overweight (obese). What are the signs or symptoms? Symptoms of a kidney stone may include: ? Pain in the side of the belly, right below the ribs (flank pain). Pain usually spreads (radiates) to the groin. ? Needing to pee often or right away (urgently). ? Pain when going pee (urinating). ? Blood in your pee (hematuria). ? Feeling like you may vomit (nauseous). ? Vomiting. ? Fever and chills. How is this treated? Treatment depends on the size, location, and makeup of the kidney stones. The stones will often pass out of the body through peeing. You may need to: ? Drink more fluid to help pass the stone. In some cases, you may be given fluids through an IV tube put into one of your veins at the hospital. ? Take medicine for pain. ? Make changes in your diet to help keep kidney stones from coming back. Sometimes, medical procedures are needed to remove a kidney stone. This may involve: ? A procedure to break up kidney stones using a beam of light (laser) or shock waves. ? Surgery to remove the kidney stones. Follow these instructions at home: Medicines ? Take acga-tit-ggoapjo and prescription medicines only as told by your doctor. ? Ask your doctor if the medicine prescribed to you requires you to avoid driving or using heavy machinery. Eating and drinking ? Drink enough fluid to keep your pee pale yellow. You may be told to drink at least 8?10 glasses of water each day. This will help you pass the stone. ? If told by your doctor, change your diet. This may include: ? Limiting how much salt you eat. ? Eating more fruits and vegetables. ? Limiting how much meat, poultry, fish, and eggs you eat. ? Follow instructions from your doctor about eating or drinking restrictions. General instructions ? Collect pee samples as told by your doctor. You may need to collect a pee sample: ? 24 hours after a stone comes out. ? 8?12 weeks after a stone comes out, and every 6?12 months after that. ? Strain your pee every time you pee (urinate), for as long as told. Use the strainer that your doctor recommends. ? Do not throw out the stone. Keep it so that it can be tested by your doctor. ? Keep all follow-up visits as told by your doctor. This is important. You may need follow-up tests. How is this prevented? To prevent another kidney stone: ? Drink enough fluid to keep your pee pale yellow. This is the best way to prevent kidney stones. ? Eat healthy foods. ? Avoid certain foods as told by your doctor. You may be told to eat less protein. ? Stay at a healthy weight. Where to find more information ? National Kidney Foundation (NKF): www.kidney.org ? [facility] (UCF): www.urologyhealth.org Contact a doctor if: ? You have pain that gets worse or does not get better with medicine. Get help right away if: ? You have a fever or chills. ? You get very bad pain. ? You get new pain in your belly (abdomen). ? You pass out (faint). ? You cannot pee. Summary ? Kidney stones are rock-like masses that form inside of the kidneys. ? Kidney stones can cause very bad pain and can block the flow of pee. ? The stones will often pass out of the body through peeing. ? Drink enough fluid to keep your pee pale yellow. This information is not intended to replace advice given to you by your health care provider. Make sure you discuss any questions you have with your health care provider. Document Revised: 02/15/2022 Document Reviewed: 02/15/2022 [employer] Patient Education ? 2022 [employer] [facility] Urology Office/Clinic Noteon 06-10-2023 Urology Office/Clinic Note HPI Staff New pt. Last seen in our office on 05/11/19-PRW. Pt was seen at [facility] on 05/20/23. Urology consult 05/20/23. OP note Cysto/bilateral retrograde pyelogram/bilateral ureteral stent placement 05/20/23. Previous DX: frequent urination, HX of kidney stones, personal HX of UTI. S/P ESWL 06/23/17 B&BSQ 16 Her is with her Dysuria: yes, start 1 week ago Incomplete bladder emptying: denies Hematuria: denies visible blood Frequency: every couple hours Urgency: sometimes Nocturia: couple times nightly Depends wore has to change every time she gets up Stream: denies hesitation, normal stream Leaking: denies Post void dripping: yes Wearing pads/ Depends: Depends wore daily changes 10x daily Urge incontinence: sometimes Stress incontinence: yes Incontinence without Sensory Awareness: yes Abdominal pain: _denies Flank pain: denies Sexual complaints: denies History of Present Illness Tests reviewed: reviewed UA, ER notes, CT scan, CBC I have reviewed the previous health record information and history for this patient from external providers and Dr. Alexander. I have reviewed and verified the staff HPI to be accurate for this encounter. Review of Systems PHQ Score Initial Depression Screen Score: 0 SCORE ROS - Provider Constitutional: denies weight loss, denies hot flashes. Eyes: denies eye problems. Gastrointestinal: denies nausea, denies vomiting. Cardiovascular: denies chest pain or angina. Integumentary: no dryness Musculoskeletal: denies musculoskeletal symptoms. ENMT: denies otolaryngeal symptoms. Respiratory: no shortness of breath. Heme/Lymph: denies easy bleeding tendency, denies easy bruising tendency. Psychiatric: no confusion, no anxiety. Genitourinary: See HPI. Physical Exam Vitals & Measurements T: 36.5 ?C(Temporal Artery) HR: 72(Peripheral) BP: 138/86 HT: 64 in HT: 163 cm WT: 74.2 kg WT: 163.24 lb BMI: 27.93 General Appearance: alert , no acute distress, well nourished, well developed female. Genitourinary: bladder nonpalpable, no flank pain. Assessment/Plan Former Dr. Alexander pt here with her . Pt currently resides at [facility]. BBS 16. 1. Kidney stone (N20.0: Calculus of kidney) S/p ESWL 06/23/17. Took HCTZ 12.5mg and Effer-K 25mEq bid in the past to help prevent stone formation. Seen in consult 05/20/[address] Echavarria. Was in septic shock. CT AP wo con 05/20/23 [facility] - bilateral renal stones, 3.2cm on R and 2.4cm on L. S/p Cysto/bilat RGP/bilat stent placement 05/20/[address] Martines. Had catheter placed at that time. Discussed recent [facility] ER visit. No recent imaging obtained. Advised pt a KUB will need done soon to verify if stones are visible on x-ray. Discussed the size of pt's stones will require operative intervention and will need a referral placed to tertiary care center, such as [facility]. Advised pt if stones were tx here now, multiple lithotripsies would be required. Risks would outweigh benefits. -KUB at [facility] now (message in pending results) -Referral to Dr. Troy Chavez at [facility] for stone tx 2. Hydronephrosis (N13.30: Unspecified hydronephrosis) See #1. Overall this patient had severe septic shock and was actually hypertensive with rapid heart rate but rigors/shaking chills. She made it through the surgery and then finally was well enough to be transferred to rehabilitation center. She has the large bilateral renal calculi, both of which were obstructing at the time of her septic shock episode. Will now refer her to tertiary care center, Dr. Chavez for his opinion regarding perhaps bilateral percutaneous access and nephrostolithotomy. The patient and his agree with that plan. CT scan and KUB to be obtained on a disc so they can take that to her appointment. Portions of this record may have been created with voice recognition artificial intelligence software, specifically [email or web address], [email or web address] and or [employer]. Substitutions may have occurred due to the inherent limitations of voice recognition and artificial intelligence software. Follow-up With When Contact Information Eddie MARTINES MD, URL [address] [address] Additional Instructions: referral to [facility] for stone tx Patient Education Kidney Stones, [id number]-Masf IMaliha, personally scribed for Dr. Martines on 06/10/2023 11:44:12. . Documentation recorded by the Maliha enrique acurately reflects the services(s) I performed and decisions made by me. Authenticated by Dr. Martines on 06/10/2023 11:46:19. Problem List/Past Medical History Ongoing Bipolar affective disorder, depressed, in full remission BMI 29.0-29.9,adult Diastolic heart failure Frequent urination Generalized anxiety disorder Hiatal hernia HTN (hypertension) Hydronephrosis Hypothyroidism Kidney stone Low back pain Omental infarction Pernicious anemia Personal history (more content not included)... Normal [facility] Comment on above: Result Comment: Elec tronically Signed By: Eddie MARTINES MD\.br\Date and Time Signed: 06/10/23 11:47 EST\.br\Electronically Co-Signed By: Maliha Dumont\.br\Date and Time Co-Signed: 06/10/23 11:44 EST RAD - CT Reporton 06-03-2023 RAD - CT Report [id number]#1.00TIFF Normal [facility] RAD - MISCon 06-03-2023 RAD - MISC [id number]#1.00TIFF Normal [facility] Consultation Noteon 06-01-20 Consultation Note [id number]#1.00TIFF Normal [facility] Operative Reporton Operative Report [id number]#1.00TIFF Normal [facility] Lab Reportson 05-31-2023 Lab Reports [id number]#1.00TIFF Normal [facility] Lab Reports [id number]#1.00TIFF Normal [facility] Lab Reportson 05-27-2023 Lab Reports [id number]#1.00TIFF Normal [facility] Lab Reportson 05-24-2023 Lab Reports [id number]#1.00TIFF Normal [facility] Lab Reports [id number]#1.00TIFF Normal [facility] Insurance Correspondence Off iceon 05-23-2023 Insurance Correspondence Office [id number]#1.00TIFF Normal [facility] MG MAMM SCREEN 3D DUGLAS CADon 06-03-2022 MG MAMM SCREEN 3D DUGLAS CAD Patient: ALICIA RUTHERFORD Exam Date: 06/03/2022 : 1945 Gender:F Ordering : DR FREDY RO . Admission #: [id number] Family : Order #: [id number] CLICK HERE TO VIEW EXAM RADIOLOGY REPORT PROCEDURE: MAMMOGRAM SCREENING 3D BILATERAL CAD COMPARISON: MG MAMM SCREEN DUGLAS W CAD, 05/09/2020. MG MAMM SCREEN DUGLAS W CAD, 09/30/2017. INDICATIONS: Screening mammography Calculator Name NCI Breast Cancer Risk Assessment Tool 5 Year Breast Cancer Risk 1.70% Lifetime Breast Cancer Risk 3.50% Personal Breast Cancer No Personal Ovarian Cancer No Treatments None Family Cancers Father with pancreas cancer at age 79. LOCATION: [facility] BREAST COMPOSITION: Heterogeneously dense,which may obscure small masses. FINDINGS: DIAGNOSTIC CATEGORY 1--NEGATIVE. NO CHANGE FROM COMPARISON ASSESSMENT. Scattered benign-appearing calcifications are present. Scattered benign-appearing lymph nodes are present. RIGHT BREAST: No significant suspicious finding. LEFT BREAST: No significant suspicious finding. RECOMMENDATIONS: ROUTINE MAMMOGRAM AND CLINICAL EVALUATION IN 12 MONTHS. PLEASE NOTE: A NORMAL MAMMOGRAM DOES NOT EXCLUDE THE POSSIBILITY OF BREAST CANCER. A CLINICALLY SUSPICIOUS PALPABLE LUMP SHOULD BE BIOPSIED. Dictated by: Enzo Aguirre MD on 06/03/2022 at 14:42 Approved by: Enzo Aguirre MD on 06/03/2022 at 14:45 Normal [facility] XR DEXA BONE DENSITYon 06-03 XR DEXA BONE DENSITY EXAMINATION: XR DEXA BONE DENSITY, 06/03/2022 1:24 PM EST HISTORY: Menopause present COMPARISON: DEXA bone densitometry 05/09/2020 TECHNIQUE: Dual-energy X-ray absorptiometry (DEXA) bone density study performed for the axial skeleton. FINDINGS: SPINE ANALYSIS: Average bone mineral density is 1.221 g/cm2. T-score (standard deviation relative to young adult mean): 0.3 . +6.3% change since prior study. HIP ANALYSIS: Lowest bone mineral density is within the right femoral neck, 0.753 g/cm2. T-score (standard deviation relative to young adult mean): -2.1 . -2.5% change since prior study. IMPRESSION: World [place] Organization Classification: Osteopenia - Moderate Fracture Risk Electronically authenticated by: DON OSHEA Date: 2022-06-03 14:21 Normal [facility] FREE T3on 04-20-2022 FREE T3 2.78 pg/mlL Normal 2.18-3.98 [facility] Comment on above: Performed By: #### T SH, FT3 #### [facility] [address] [place] [address] Dr. Dayron Ellis FREE T4on 04-20-2022 Free T4 [Mass/Vol] 1.57 ng/dL Critically high 0.76-1.46 [facility] Comment on above: Performed By: #### F T4 #### [facility] [address] [place] [address] Dr. Dayron Ellis TSHon 04-20-2022 TSH 0.015 uIU/mL Critically low 0.358-3.740 [facility] Comment on above: Performed By: #### T SH, FT3 #### [facility] [address] [place], [place] [id number] Dr. Dayron Ellis LIPID PROFILEon 04-09-2022 CHOL-HDL RATIO NORM SEE BELOW Normal [facility] Comment on above: Result Comment: 3.3 - 4.4 LOW RISK 4.4 - 7.1 AVERAGE RISK 7.1 - 11.0 MODERATE RISK >11.0 HIGH RISK Performed By: #### L IPID, AST #### [facility] [address] [address] [address] Dayron Ellis Cholesterol [Mass/Vol] 150 mg/dL Normal <=200 [facility] Comment on above: Performed By: #### L IPID, AST #### [facility] [address] [address] [address] Dayron Ellis Cholesterol in HDL [Mass/Vol] 56 mg/dL Normal 40-60 [facility] Comment on above: Performed By: #### L IPID, AST #### [facility] [address] [place] [address] Dr. Dayron Ellis Cholesterol in LDL [Mass/Vol] 72.2 mg/dL Normal [facility] Comment on above: Performed By: #### L IPID, AST #### [facility] [address] [address] [address] Dayron Ellis Cholesterol.total/ Cholesterol in HDL [Mass ratio] 2.7 {ratio} Normal [facility] Comment on above: Performed By: #### L IPID, AST #### [facility] [address] [address] [address] Dayron Ellis HDL NORMAL > or = 60 mg/dl - LO W CARDIOVASCULAR RISK <40 mg/dl - HIGH CARDIOVASCULAR RISK Normal [facility] Comment on above: Performed By: #### L IPID, AST #### [facility] [address] [address] [address] Dayron Ellis LDL CALC NORMAL SEE BELOW Normal [facility] Comment on above: Result Comment: <100 mg/dl OPTIMAL 100 - 129 mg/dl NEAR OR ABOVE OPTIMAL 130 - 159 mg/dl BORDERLINE HIGH 160 - 189 mg/dl HIGH >190 mg/dl VERY HIGH Performed By: #### L IPID, AST #### [facility] [address] [address] [address] Dayron Ellis Triglyceride [Mass/Vol] 109 mg/dL Normal <=150 [facility] Comment on above: Performed By: #### L IPID, AST #### [facility] [address] [address] [address] Dayron Ellis VLDL CALC 21.8 mg/dL Normal [facility] Comment on above: Performed By: #### L IPID, AST #### [facility] [address] [address] [address] Dayron Ellis SGOTon 04-09-2022 AST [Catalytic activity/Vol] 18 U/L Normal 15-37 [facility] Comment on above: Performed By: #### L IPID, AST #### [facility] [address] [place] [address] Dr. Dayron Ellis LIPID PROFILEon 10-16-2021 CHOL-HDL RATIO NORM SEE BELOW Normal [facility] Comment on above: Result Comment: 3.3 - 4.4 LOW RISK 4.4 - 7.1 AVERAGE RISK 7.1 - 11.0 MODERATE RISK >11.0 HIGH RISK Performed By: #### L IPID, CMP #### [facility] [address] [place] [address] Dr. Dayron Ellis Cholesterol [Mass/Vol] 266 mg/dL Critically high <=200 [facility] Comment on above: Performed By: #### L IPID, CMP #### [facility] [address] [place] [address] Dr. Dayron Ellis Cholesterol in HDL [Mass/Vol] 54 mg/dL Normal 40-60 [facility] Comment on above: Performed By: #### L IPID, CMP #### [facility] [address] [place] [address] Dr. Dayron Ellis Cholesterol in LDL [Mass/Vol] 174.6 mg/dL [facility] Comment on above: Performed By: #### L IPID, CMP #### [facility] [address] [place] [address] Dr. Dayron Ellis Cholesterol.total/ Cholesterol in HDL [Mass ratio] 4.9 {ratio} [facility] Comment on above: Performed By: #### L IPID, CMP #### [facility] [address] [place] [address] Dr. Dayron Ellis HDL NORMAL > or = 60 mg/dl - LO W CARDIOVASCULAR RISK <40 mg/dl - HIGH CARDIOVASCULAR RISK Normal [facility] Comment on above: Performed By: #### L IPID, CMP #### [facility] [address] [address] [address] Dayron Ellis LDL CALC NORMAL SEE BELOW Normal [facility] Comment on above: Result Comment: <100 mg/dl OPTIMAL 100 - 129 mg/dl NEAR OR ABOVE OPTIMAL 130 - 159 mg/dl BORDERLINE HIGH 160 - 189 mg/dl HIGH >190 mg/dl VERY HIGH Performed By: #### L IPID, CMP #### [facility] [address] [place] [address] Dr. Dayron Ellis Triglyceride [Mass/Vol] 187 mg/dL Critically high <=150 [facility] Comment on above: Performed By: #### L IPID, CMP #### [facility] [address] [place] [address] Dr. Dayron Ellis VLDL CALC 37.4 mg/dL [facility] Comment on above: Performed By: #### L IPID, CMP #### [facility] [address] [place] [address] Dr. Dayron Ellis PROF 14(COMP METB)on 022 Albumin [Mass/Vol] 3.9 g/dL Normal 3.4-5.0 [facility] Comment on above: Performed By: #### L IPID, CMP #### [facility] [address] [place] [address] Dr. Dayron Ellis Albumin/Globulin [Mass ratio] 1.1 {ratio} Normal [facility] Comment on above: Performed By: #### L IPID, CMP #### [facility] [address] [place] [address] Dr. Dayron Ellis ALP [Catalytic activity/Vol] 126 U/L Critically high 46-116 [facility] Comment on above: Performed By: #### L IPID, CMP #### [facility] [address] [address] [address] Dayron Ellis ALT [Catalytic activity/Vol] 34 U/L Normal 14-59 [facility] Comment on above: Performed By: #### L IPID, CMP #### [facility] [address] [address] [address] Dayron Ellis Anion gap [Moles/Vol] 13.2 mmol/L Normal [facility] Comment on above: Performed By: #### L IPID, CMP #### [facility] [address] [address] [address] Dayron Ellis AST [Catalytic activity/Vol] 15 U/L Normal 15-37 [facility] Comment on above: Performed By: #### L IPID, CMP #### [facility] [address] [address] [address] Dayron Ellis Bilirubin [Mass/Vol] 0.4 mg/dL Normal 0.2-1.3 [facility] Comment on above: Performed By: #### L IPID, CMP #### [facility] [address] [address] [address] Dayron Ellis Calcium [Mass/Vol] 9.8 mg/dL Normal 8.5-10.1 [facility] Comment on above: Performed By: #### L IPID, CMP #### [facility] [address] [address] [address] Dayron Ellis Chloride [Moles/Vol] 102 mmol/L Normal 98-107 [facility] Comment on above: Performed By: #### L IPID, CMP #### [facility] [address] [address] [address] Dayron Ellis CO2 [Moles/Vol] 28.9 mmol/L Normal 22.0-30.0 [facility] Comment on above: Performed By: #### L IPID, CMP #### [facility] [address] [address] [address] Dayron Ellis Creatinine [Mass/Vol] 0.71 mg/dL Normal 0.52-1.04 [facility] Comment on above: Performed By: #### L IPID, CMP #### [facility] [address] [address] [address] Dayron Ellis EGFR-AF NAURUAN >60 Normal >=60 [facility] Comment on above: Performed By: #### L IPID, CMP #### [facility] [address] [address] [address] Dayron Ellis EGFR-NON AF NAURUAN >60 Normal >=60 [facility] Comment on above: Performed By: #### L IPID, CMP #### [facility] [address] [address] [address] Dayron Ellis Globulin (S) [Mass/Vol] 3.6 g/dL Normal [facility] Comment on above: Performed By: #### L IPID, CMP #### [facility] [address] [address] [address] Dayron Ellis Glucose [Mass/Vol] 114 mg/dL Critically high 74-106 [facility] Comment on above: Performed By: #### L IPID, CMP #### [facility] [address] [address] [address] Dayron Ellis Potassium [Moles/Vol] 4.1 mmol/L Normal 3.4-5.0 [facility] Comment on above: Performed By: #### L IPID, CMP #### [facility] [address] [address] [address] Dayron Ellis Protein [Mass/Vol] 7.5 g/dL Normal 6.1-8.2 [facility] Comment on above: Performed By: #### L IPID, CMP #### [facility] [address] [address] [address] Dayron Ellis Sodium [Moles/Vol] 140 mmol/L Normal 137-145 [facility] Comment on above: Performed By: #### L IPID, CMP #### [facility] [address] [address] [address] Dayron Ellis Urea nitrogen [Mass/Vol] 13.0 mg/dL Normal 7.0-18.0 [facility] Comment on above: Performed By: #### L IPID, CMP #### [facility] [address] [address] [address] Dayron Ellis Urea nitrogen/Creatinin e [Mass ratio] 18.3 mg/mg Normal [facility] Comment on above: Performed By: #### L IPID, CMP #### [facility] [address] [address] [address] Dayron Ellis HIP LEFT 1 OR 2 VWS WITH PEL VISon 05-13-2017 HIP LEFT 1 OR 2 VWS WITH PELVIS [facility] [place] [address] Patient Name: ALICIA RUTHERFORD : 1945Sex: FAge: Race: WhiteMRN: [id number]. Location: 84Patient Status: Date: 05/13/2017 9:50:00 AMCompleted Date: 05/13/2017 09:58 AMRequesting Provider: BELEN LEMUS Attending Provider: Report Copy To: Signs & Symptoms: S72.032D Displ midcervical fx l femur, subs for clos fx w routn heal [id number]: AthenaComments: , , Views (X-RAY, HIP): Radiologic Protocol , , , Ordering Provider - BELEN LEMUS PA-C , Exam: HIP LEFT 1 OR 2 VWS WITH PELVISAccession #: [id number] HIP LEFT 1 OR 2 VWS WITH PELVIS 05/13/2017 9:58 AM EST SIGNS AND SYMPTOMS: S72.032D Displ midcervical fx l femur, subs for clos fx w routn heal I10 TECHNOLOGIST COMMENTS: Patient states left hip AMILCAR x 10/2016 ortho follow up of left hip QUESTION FOR THE RADIOLOGIST: , , Views (X-RAY, HIP): Radiologic Protocol , , , Ordering Megan LEMUS PA-C , PROTOCOL: AP(PA) and Lateral views were obtained. COMPARISON: February 08, 2017 FINDINGS: Soft tissues:Improved swelling Bones:Osteoporosis Joints:Left hemiarthroplasty in satisfactory and unchanged alignmentMild right [place] hip arthritisMild degenerative disc disease and sacroiliitis IMPRESSION: Left hemiarthroplasty in satisfactory alignment Electronically signed by:Karl Alejo. Transcribed by: [email or web address], User Resident: Electronically Signed by: KARL ALEJO @ 05/13/2017 10:33 AM Normal [facility] Comment on above: Order Comment: , , V iews (X-RAY, HIP): Radiologic Protocol , , , Ordering Megan RAMIREZC , HIP LEFT 1 OR 2 VWS WITH PEL VISon 02-08-2017 HIP LEFT 1 OR 2 VWS WITH PELVIS [facility] [address] [place] [address] Patient Name: ALICIA RUTHEFRORD : 1945Sex: FAge: Race: WhiteMRN: [id number]. Location: 84Patient Status: OVisit #: [id number] Date: 02/08/2017 10:05:00 AMCompleted Date: 02/08/2017 10:06 AMRequesting Provider: BELEN LEMUS Attending Provider: BELEN LEMUS Report Copy To: Signs & Symptoms: M96.662 Fx femur fol insrt ortho implnt/prosth/bone plt, left leg [id number]: AthenaComments: , , , Ordering Provider - BELEN MARIAH PA-C , Rendering Provider - BELEN MARIAH PA-C , Exam: HIP LEFT 1 OR 2 VWS WITH PELVISAccession #: [id number] HIP LEFT 1 OR 2 VWS WITH PELVIS 02/08/2017 10:08 AM EDT SIGNS AND SYMPTOMS: M96.662 Fx femur fol insrt ortho implnt/prosth/bone plt, left leg I10 TECHNOLOGIST COMMENTS: History of left hip surgery 10/25/2016. Ortho follow up. QUESTION FOR THE RADIOLOGIST: , , , Ordering Provider - BELEN MARIAH PA-C , Rendering Provider - BELEN MARIAH PA-C , PROTOCOL: AP(PA) and Lateral views were obtained. COMPARISON: December 14, 2016 FINDINGS: Soft tissues:Surgical clips remain in left hemipelvis while the right ureteral stent has been removed. Bones:Osteoporosis Joints:Left hemiarthroplasty in satisfactory alignmentRight [place] hip intactDegenerative changes of lower spine and SI joints similar to prior study IMPRESSION: Healing left hip hemiarthroplasty Electronically signed by:Karl Alejo. Transcribed by: [email or web address], User Resident: Electronically Signed by: KARL ALEJO @ 02/08/2017 03:56 PM Normal [facility] Comment on above: Order Comment: , , = ========= , Ordering Provider - BELEN MARIAH PA-C , Rendering Provider - BELEN MARIAH PA-C , Vital Signs Date Time Vital Sign Value Performing Clinician Facility 02-06-2024 08:24-0400 Body mass index (BMI) [Ratio] 28.32 kg/m2 Jonathan O'Maryan PA-C Work Phone: [facility] 02-06-2024 08:24-0400 Body weight 74.84 kg Jonathan O'Maryan PA-C Work Phone: [facility] Comment on above: verbal 11-14-2023 09:08-0400 Body mass index (BMI) [Ratio] 25.75 kg/m2 Jonathan O'Maryan PA-C Work Phone: [facility] 11-14-2023 09:08-0400 Body weight 68.04 kg Jonathan O'Maryan PA-C Work Phone: [facility] 08-29-2023 14:09-0500 Body height 162.6 cm Pacc 1 Work Phone: [facility] 08-29-2023 14:09-0500 Body temperature 98.1 [degF] Pacc 1 Work Phone: [facility] 08-29-2023 14:09-0500 Body weight 68.04 kg Pacc 1 Work Phone: [facility] 08-29-2023 14:09-0500 Diastolic blood pressure 66 mm[Hg] Pacc 1 Work Phone: [facility] 08-29-2023 14:09-0500 Heart rate 85 /min Pacc 1 Work Phone: [facility] 08-29-2023 14:09-0500 SaO2% (BldA) [Mass fraction] 98 % Pacc 1 Work Phone: [facility] 08-29-2023 14:09-0500 Systolic blood pressure 104 mm[Hg] Pacc 1 Work Phone: [facility] 08-29-2023 13:16-0500 Body weight 71.67 kg Rachel Johnson APRN.CNP Work Phone: [facility] 08-29-2023 13:16-0500 Diastolic blood pressure 74 mm[Hg] Rachel [place] DEPLOYMENT ENGINEER.LEAD PERSON Work Phone: [facility] 08-29-2023 13:16-0500 Heart rate 84 /min Rachel Elizabeth DEPLOYMENT ENGINEER.LEAD PERSON Work Phone: [facility] 08-29-2023 13:16-0500 Systolic blood pressure 110 mm[Hg] Rachel [place] DEPLOYMENT ENGINEER.LEAD PERSON Work Phone: [facility] 06-10-2023 11:14-0500 Blood Pressure Location Eddie MARTINES [facility] 06-10-2023 11:14-0500 Body temperature 97.7 [degF] Eddie MARTINES [facility] 06-10-2023 11:14-0500 Diastolic blood pressure 86 mm[Hg] Eddie MARTINES [facility] 06-10-2023 11:14-0500 Heart rate 72 /min Eddie MARTINES [facility] 06-10-2023 11:14-0500 Systolic blood pressure 138 mm[Hg] Eddie MARTINES [facility] Encounters Encounter Date Encounter Type Care Provider Facility Start: 06-17-2024 End: 06-18-2024 Tiffany Ro MD Work Phone: [facility] Comment on above: Acquired hypothyroid ism (CMS/HCC) Start: 03-30-2024 End: 03-30-2024 E-mail encounter from caregiver Richard De La Garzadelisa JOHNLEAD PERSON Work Phone: [facility] Start: 03-30-2024 End: 03-30-2024 Follow-up encounter Richard Henriquez APRN.LEAD PERSON Work Phone: [facility] Comment on above: Actionable Findings Follow-up Start: 02-12-2024 ambulatory MELANI MCKEEI Facility:[facility] Start: 02-12-2024 End: 02-12-2024 Subsequent hospital visit by physician [facility] ([facility]) Work Phone: [facility] Radiology CT Scan Comment on above: Former smoker [Z87.8 91] Start: 02-06-2024 End: 02-06-2024 ambulatory JONATHAN O'MARYAN Facility:[facility] Start: 02-06-2024 End: 02-06-2024 Office outpatient visit 25 minutes Jonathan O'Maryan PA-C Work Phone: Urology Comment on above: Nephrolithiasis (Chioma luis Dx); Urine volume deficient; Hypocitraturia Start: 01-03-2024 Telephone encounter Jonathan CORP80' nohue PA-C Work Phone: Urology Comment on above: [employer] Start: 12-26-2023 End: 12-26-2023 ambulatory JONATHAN O'MARYAN Facility:[facility] Start: 12-26-2023 End: 12-26-2023 Office outpatient visit 25 minutes Jonathan O'Maryan PA-C Work Phone: Urology Comment on above: Nephrolithiasis (Chioma luis Dx); Bilateral renal cysts Start: 12-14-2023 End: 12-14-2023 ambulatory TROY CHAVEZ Facility:[facility] Start: 12-14-2023 End: 12-14-2023 Subsequent hospital visit by physician [facility] (Lg Bore/1.5t) Radiology MRI Comment on above: Other specified diso rders of kidney and ureter [N28.89] Start: 12-13-2023 End: 12-13-2023 ambulatory FREDY RO Not Available Start: 11-14-2023 End: 11-14-2023 ambulatory FREDY RO Facility:[facility] Start: 11-14-2023 End: 11-14-2023 Patient encounter procedure Jonathan O'Maryan PA-C Work Phone: Urology Comment on above: Nephrolithiasis (Chioma luis Dx) Start: 11-07-2023 ambulatory Troy Chavez MD Work Phone: Urology Comment on above: Kidney ultrasound Start: 11-07-2023 E-mail encounter fro m caregiver Troy Chavez MD Work Phone: Urology Start: 11-02-2023 ambulatory TROY CHAVEZ Facility:[facility] Start: 11-02-2023 End: 11-02-2023 Subsequent hospital visit by physician [facility] Work Phone: [facility] Radiology Ultrasound Comment on above: Nephrolithiasis [N20 .0] Start: 10-26-2023 End: 10-26-2023 Telemedicine consultation with patient Melani Thacker MD Work Phone: Infectious Disease Start: 10-26-2023 End: 10-26-2023 ambulatory Melani Thacker MD Work Phone: Infectious Disease Comment on above: PLEASE CALL DO TABITHA H NIKOLAYE GABY Former smoker (Prima ry Dx); Severe episode of recurrent major depressive disorder, without psychotic features (HCC); Disorder involving thrombocytopenia (HCC); Malnutrition of mild degree (HCC); Chronic diastolic CHF (congestive heart failure) (HCC); Stage 3a chronic kidney disease (HCC) Start: 10-21-2023 End: 10-21-2023 ambulatory MELANI KIRSTIE Facility:[facility] Start: 10-21-2023 End: 10-21-2023 Subsequent hospital visit by physician [facility] Work Phone: Radiology Comment on above: Former smoker [Z87.8 91] Start: 10-10-2023 End: 10-10-2023 ambulatory MELANI KIRSTIE Facility:[facility] Start: 09-26-2023 End: 09-26-2023 ambulatory FREDY RO Not Available Start: 09-21-2023 End: 09-21-2023 Telemedicine consultation with patient Melani Thacker MD Work Phone: [facility] Start: 09-21-2023 End: 09-21-2023 Patient encounter procedure Troy Chavez MD Work Phone: Urology Comment on above: Nephrolithiasis (Chioma luis Dx) Start: 09-21-2023 End: 10-02-2023 ambulatory Melani Thacker MD Work Phone: Infectious Disease Comment on above: Former smoker (Prima ry Dx) Start: 09-20-2023 ambulatory Joy thurman MD Work Phone: [facility] Start: 09-20-2023 E-mail encounter latrice [place] caregiver Joy Olson MD Work Phone: [facility] Start: 09-16-2023 Telephone encounter Bernadette smith MD Work Phone: Geriatrics Comment on above: Consult (Best practi ce) Start: 09-15-2023 Telephone encounter Grecia Arechiga RN U [facility]ctor Comment on above: Manager Paid - O ther Start: 09-13-2023 ambulatory Troy Chavez MD Work Phone: Urology Comment on above: post-op check in Start: 09-13-2023 E-mail encounter latrice north caregiver Troy Chavez MD Work Phone: [facility] Start: 09-10-2023 End: 09-17-2023 Evaluation and management of inpatient TROY CHAVEZ Facility:[facility] Start: 09-05-2023 Telephone encounter Grecia Arechiga RN U hector Comment on above: Results Start: 08-31-2023 Telephone encounter Cate Shafer RN Pr e Anesthesia Comment on above: PreOp Call (Qamar instruction) Start: 08-30-2023 End: 08-30-2023 ambulatory FREDY RO Not Available Start: 08-29-2023 End: 08-29-2023 ambulatory FREDY RO Facility:[facility] Start: 08-29-2023 End: 08-29-2023 Admission to establishment Pacc Main 1 Work Phone: [facility] Start: 08-29-2023 Encounter for other preprocedural examination MELANI THACKER [facility] Start: 08-29-2023 End: 08-29-2023 ambulatory Pacc Main 1 Work Phone: Pre Anesthesia Comment on above: Preop examination (P rimary Dx); Hypothyroidism, unspecified type; Gastroesophageal reflux disease without esophagitis; Hypertension, unspecified type; Pulmonary embolism, unspecified chronicity, unspecified pulmonary embolism type, unspecified whether acute cor pulmonale present (HCC); Chronic diastolic CHF (congestive heart failure) (HCC); Anemia, unspecified type Start: 08-29-2023 End: 08-29-2023 ambulatory RACHEL ELIZABETH Facility:[facility] Start: 08-29-2023 Encounter for other preprocedural examination RACHEL ELIZABETH [facility] Start: 08-29-2023 End: 08-29-2023 Patient encounter procedure Rachel Elizabeth DEPLOYMENT ENGINEER.LEAD PERSON Work Phone: Urology Comment on above: Pre-op exam (Primary Dx) Start: 08-29-2023 End: 08-29-2023 Preprocedural examination done Rachel Johnson APRN.LEAD PERSON Work Phone: [facility] Work Phone: Start: 08-26-2023 End: 08-26-2023 Telemedicine consultation with patient Melani Thacker MD Work Phone: [facility] Start: 08-26-2023 End: 08-26-2023 ambulatory Melani Thacker MD Work Phone: Infectious Disease Comment on above: Nephrolithiasis (Chioma luis Dx) Start: 08-15-2023 Telephone encounter Grecia young Start: 08-01-2023 Telephone encounter Grecia young Comment on above: Patient Question Start: 07-18-2023 End: 07-24-2023 Evaluation and management of inpatient TROY CHAVEZ Facility:[facility] Start: 07-11-2023 End: 07-11-2023 ambulatory TROY CHAVEZ Facility:[facility] Start: 07-11-2023 End: 07-11-2023 ambulatory FREDY RO Facility:[facility] Start: 07-11-2023 Encounter for other preprocedural examination MELANI KIRSTIE [facility] Start: 07-06-2023 End: 07-06-2023 ambulatory MELANI KIRSTIE Facility:[facility] Start: 07-05-2023 End: 07-05-2023 ambulatory TROY CHAVEZ Facility:[facility] Start: 07-05-2023 ambulatory JONATHAN LANDRUM Facilit y:[facility] Start: 06-17-2023 End: 06-17-2023 ambulatory JONATHAN LANDRUM Facility:[facility] Start: 06-10-2023 End: 06-11-2023 ambulatory Eddie MARTINES Facility:[facility] Start: 06-10-2023 End: 06-10-2023 Patient encounter procedure Eddie MARTINES [facility] Start: 05-31-2023 End: 06-01-2023 ambulatory Eddie MARTINES Facility: [place] Start: 05-20-2023 End: 05-21-2023 ambulatory Eddie MARTINES Facility:CD:[id number] Start: 05-12-2023 End: 05-12-2023 ambulatory FREDY RO Not Available Start: 06-03-2022 End: 06-04-[address] FREDY RO Facility:[facility] Start: 04-20-2022 End: 04-21-[address] FREDY RO Facility:[facility] Start: 04-09-2022 End: 04-10-[address] FREDY RO Facility:[facility] Start: 10-16-2021 End: 10-17-[address] FREDY RO Facility:[facility] Start: 05-13-2017 End: 05-14-2017 Ambulatory BELEN LEMUS Facility:[facility] Start: 02-08-2017 End: 02-09-2017 Ambulatory BELEN LEMUS Facility:[facility] Procedures Date Procedure Procedure Detail Performing Clinician Start: 12-14-2023 Mri abdomen w/o & w/ contrast material Troy Chavez MD Work Phone: Start: 10-21-2023 Ct thorax w/o contra st material Melani Thacker MD Work Phone: Start: 08-29-2023 Antibody screen MELANI HINTON Comment on above: Order Comment: Speci men Type: BLOOD SPECIMENOrdering Facility: [facility] Address: [address] [place] [address] Performed By: #### T SCR30 ####CC MAIN BLOOD BANKIA [id number] [address] Start: 08-29-2023 Urnls dip stick/tabl et reagent auto microscopy Bulk Order Provider Start: 07-20-2023 Echocardiography MELANI KIRSTIE Start: 07-11-2023 Antibody screen MELANI M MARY JANE Comment on above: Order Comment: Speci men Type: BLOOD SPECIMENOrdering Facility: [facility] Address: [address] [place] [address] Performed By: #### T SCR30 ####[facility] [id number] [address] Start: 06-23-2017 Extracorporeal shock wave lithotripsy of calculus of kidney Eddie MARTINES Start: 05-27-2017 Cystoscopy Eddie KEENE Start: 02-03-2017 Extracorporeal shock wave lithotripsy of calculus of kidney Eddie MARTINES Start: 10-21-2016 Extracorporeal shock wave lithotripsy of calculus of kidney Eddie MARTINES Start: 10-16-2015 Repair of right ingu inal hernia Eddie MARTINES Start: 12-19-2013 Extracorporeal shock wave lithotripsy of calculus of kidney Eddie MARTINES Start: 12-07-2013 Removal of nephrostomy tube Eddie MARTINES Start: 12-05-2013 Cystourethroscopy wi percutaneous insertion of nephrostomy tube Eddie MARTINES Start: 02-05-2013 Cystoscopic removal of ureteric stent Eddie MARTINES Start: 01-23-2013 Extracorporeal shock wave lithotripsy of calculus of kidney Eddie MARTINES Start: 01-12-2013 Cystoscopy and retro grade pyelography Eddie MARTINES Start: 05-24-2011 Cystoscopy Eddie KEENE Appendectomy Eddie MARTINES Biopsy of breast Eddie Mcfadden Colonoscopy Eddie MARTINES Esophageal hiatus he rnia repair Eddie MARTINES Repair of stress inc ontinence by suprapubic sling Eddie MARTINES Tonsillectomy Eddie MARTINES Total abdominal hyst erectomy with bilateral salpingo-oophorectomy Eddie MARTINES Total knee replacement Baudilio MARTINES Plan of Treatment Date Care Activity Detail Author Start: 09-16-2026 Diabetes Screening Diabetes Screenin g [facility] Start: 09-15-2026 Diabetes Screening Diabetes Screenin g [facility] Start: 09-14-2026 Diabetes Screening Diabetes Screenin [facility] Start: 09-12-2026 Diabetes Screening Diabetes Screenin g [facility] Start: 08-28-2026 Diabetes Screening Diabetes Screenin g [facility] Start: 07-24-2026 Diabetes Screening Diabetes Screenin g [facility] Start: 09-16-2024 Creatinine measurement Serum Creatin ine [facility] Start: 09-15-2024 Creatinine measurement Serum Creatin ine [facility] Start: 09-14-2024 Creatinine measurement Serum Creatin ine [facility] Start: 09-12-2024 Creatinine measurement Serum Creatin ine [facility] Start: 08-28-2024 BP Controlled (<130/80) BP Controlle d (<130/80) [facility] Start: 08-28-2024 Complete blood count Hemoglobin/Johnathon tocrit [facility] Start: 08-28-2024 Creatinine measurement Serum Creatin ine [facility] Start: 08-08-2024 End: 08-08-2024 Patient encounter procedure 08/08/2024 9:30 AM EST [facility] [address] [facility] [place] [address] Jonathan Landrum PA-C [address] [place] [address] 1 month follow up Urology Comment on above: 1 month follow up Start: 07-24-2024 Creatinine measurement Serum Creatin ine [facility] Start: 07-11-2024 BP Controlled (<130/80) BP Controlle d (<130/80) [facility] Start: 05-28-2024 End: 05-28-2024 Patient encounter procedure 05/28/2024 4:00 PM EST Office Visit Geriatrics [address] [place], [place] [id number] Sly Rodriguez MD [address] [place], [place] [id number] gem evaluation Geriatrics Comment on above: gem evaluation Start: 02-26-2024 Covid-19 Vaccine ( season) Covid-19 Vaccine ( season) [facility] Start: 02-26-2024 Influenza vaccination C [facility] Start: 02-22-2024 End: 02-22-2024 Follow-up encounter 02/22/2024 1:00 PM EDT [facility] [address] [place] [address] Melani Thacker MD [address] [place] [address] Nephrolithiasis Follow Up Infectious Disease Comment on above: Nephrolithiasis Foll ow Up Start: 02-22-2024 End: 02-22-2024 Patient encounter procedure Radiology Comment on above: Former smoker [Z87.8 91 (ICD-10-CM)] Nephrolithiasis Foll ow Up Start: 02-12-2024 End: 02-12-2024 Patient encounter procedure 02/12/2024 9:30 AM EDT Appointment [facility] [place] [facility] [address] [place] [address] ormer smoker [Z87.891] [facility] Radiology CT Scan Comment on above: ormer smoker [Z87.89 1] Start: 02-06-2024 End: 02-06-2024 Patient encounter procedure 02/06/2024 8:30 AM EDT Office Visit Urology [address] [place] [address] Jonathan Landrum PA-C [address] [place] [address] 1 month follow up Urology Comment on above: 1 month follow up Start: 02-01-2024 End: 02-01-2024 Patient encounter procedure 02/01/2024 8:30 AM EDT Appointment [facility] [place] Scan [address] [place] [address] CT CHEST WO [facility] Radiology CT Scan Comment on above: CT CHEST WO IVCON Start: 01-26-2024 End: 11-24-2024 CT Chest WO contrast CT CHEST WO IVCON Radiology Routine Former smoker Expected: 01/26/2024, Expires: 11/24/2024 [facility] Work Phone: Comment on above: Expected: 01/26/2024 , Expires: 11/24/2024 Start: 01-12-2024 End: 01-12-2024 Patient encounter procedure 01/12/2024 4:00 PM EDT Office Visit Geriatrics [address] [place] [address] Sly Rodriguez MD [address] [place] [address] [phone] GEM new evaluation Geriatrics Comment on above: GEM new evaluation Start: 01-03-2024 End: 04-03-2024 LITHOLINK 24HR URINE PANEL LITHOLINK 24HR URINE PANEL Lab Routine Nephrolithiasis Expected: 01/03/2024, Expires: 04/03/2024 [facility] Work Phone: Comment on above: Expected: 01/03/2024 , Expires: 04/03/2024 Start: 12-26-2023 End: 12-26-2023 Patient encounter procedure 12/26/2023 9:30 AM EDT Office Visit Urology [address] [place] [address] Jonathan Landrum PA-C [address] [place] [address] 6wk follow up Urology Comment on above: 6wk follow up Start: 12-14-2023 End: 12-14-2023 Patient encounter procedure 12/14/2023 10:00 AM EDT Appointment Radiology MRI [address] [place] [address] Other specified disorders of kidney and ureter [N28.89] Radiology MRI Comment on above: Other specified diso rders of kidney and ureter [N28.89] Start: 11-14-2023 End: 11-14-2023 Patient encounter procedure 11/14/2023 9:30 AM EDT Office Visit Urology [address] [place] [address] Jonathan Landrum PA-C [address] [place] [address] 6 week litholink review Urology Comment on above: 6 week litholink rev iew Start: 11-04-2023 End: 11-04-2023 Patient encounter procedure 11/04/2023 10:00 AM EDT Office Visit Urology [address] [address] Jonathan Landrum PA-C [address] [place] [address] 6 week litholink review Urology Comment on above: 6 week litholink rev iew Start: 11-02-2023 End: 11-02-2023 Patient encounter procedure [facility] Radiology General Comment on above: XR ABDOMEN 3V KUB W/ OBLIQUES XR first Start: 10-26-2023 End: 10-26-2023 ambulatory 10/26/2023 3:30 PM EDT [facility] [address] [place] [address] Melani Thacker MD [address] [place] [address] *please call [phone] Infectious Disease Comment on above: *please call [phone] Start: 10-22-2023 End: 10-20-2024 CT Chest WO contrast CT CHEST WO IVCON Radiology Routine Former smoker Expected: 10/22/2023, Expires: 10/20/2024 [facility] Work Phone: Comment on above: Expected: 10/22/2023 , Expires: 10/20/2024 Start: 10-02-2023 End: 01-01-2024 ASPERGILLUS GALACTOMANNAN SERUM ASPERGILLUS GALACTOMANNAN SERUM Lab Routine Former smoker Expected: 10/02/2023, Expires: 01/01/2024 [facility] Work Phone: Comment on above: Expected: 10/02/2023 , Expires: 01/01/2024 Start: 10-02-2023 End: 01-01-2024 BLASTOMYCES ANTIGEN BLASTOMYCES ANTIGEN Lab Routine Former smoker Expected: 10/02/2023, Expires: 01/01/2024 [facility] Work Phone: Comment on above: Expected: 10/02/2023 , Expires: 01/01/2024 Start: 10-02-2023 End: 01-01-2024 FUNGAL BATTERY ID FUNGAL BATTERY ID Lab Routine Former smoker Expected: 10/02/2023, Expires: 01/01/2024 [facility] Work Phone: Comment on above: Expected: 10/02/2023 , Expires: 01/01/2024 Start: 10-02-2023 End: 01-01-2024 HISTOPLASMA AG URINE HISTOPLASMA AG URINE Lab Routine Former smoker Expected: 10/02/2023, Expires: 01/01/2024 [facility] Work Phone: Comment on above: Expected: 10/02/2023 , Expires: 01/01/2024 Start: 08-01-2023 End: 10-31-2023 Bacteria identified in Urine by Culture URINE CULTURE Microbiology Routine Screening for genitourinary condition Expected: 08/01/2023, Expires: 10/31/2023 [facility] Work Phone: Comment on above: Expected: 08/01/2023 , Expires: 10/31/2023 Start: 08-01-2023 End: 10-31-2023 Urinalysis complete panel - Urine URINALYSIS, WITH MICROSCOPIC Lab Routine Screening for genitourinary condition Expected: 08/01/2023, Expires: 10/31/2023 [facility] Work Phone: Comment on above: Expected: 08/01/2023 , Expires: 10/31/2023 Start: 06-27-2023 Advance Directive Discussion Advance Directive Discussion [facility] Start: 06-27-2023 Behavioral Health Screening Behavioral Health Screening [facility] Start: 06-27-2023 Depression Assessment Depression Ass essment [facility] Start: 02-25-2023 Covid-19 Vaccine ( season) Covid-19 Vaccine ( season) [facility] Start: 02-25-2023 Influenza vaccination Influenza Vacc ine (#1) [facility] Start: 05-08-2021 Pneumococcal Vaccine : 65+ (2 of 2 - PCV) Pneumococcal Vaccine: 65+ (2 of 2 - PCV) [facility] Start: 05-08-2021 Pneumococcal Vaccine : 65+ Years (2 of 2 - PCV) Pneumococcal Vaccine: 65+ Years (2 of 2 - PCV) [facility] Start: 2021 RSV Vaccine (1 - 1-d ose 75+ series) RSV Vaccine (1 - 1-dose 75+ series) [facility] Start: 2011 Screening for osteoporosis Bone Density Screening [facility] Start: 2006 RSV Vaccine (1 - 1-d ose 60+ series) RSV Vaccine (1 - 1-dose 60+ series) [facility] Start: 1996 Shingrix Vaccine (1 of 2) Stokes grix Vaccine (1 of 2) [facility] Start: 1965 Urine microalbumin profile DTaP,Tdap,Td Vaccine (1 - Tdap) [facility] Start: 1964 Annual PCP Team Diesel Maintenance Technician justin Disease Visit Annual PCP Team Chronic Disease Visit [facility] Start: 1964 Anxiety Screening Anxiety Screening [facility] Start: 1964 Hepatitis C screening Hepatitis C Ia kaushik [facility] CT Chest WO contrast CT CHEST WO IVCON Radiology Routine Former smoker 02/12/2024 9:24 AM EDT [facility] Work Phone: End: 12-06-2024 MR Kidney WO and W contrast IV MRI KIDNEY WO/W IVCON Radiology Routine Other specified disorders of kidney and ureter 1 Occurrences starting 11/07/2023 until 12/06/2024 [facility] Work Phone: Comment on above: 1 Occurrences starti ng 11/07/2023 until 12/06/2024 End: 10-20-2024 US Kidney - bilateral and Urinary bladder US KIDNEY/BLADDER Radiology Routine Nephrolithiasis 1 Occurrences starting 09/21/2023 until 10/20/2024 [facility] Work Phone: Comment on above: 1 Occurrences starti ng 09/21/2023 until 10/20/2024 US Kidney - bilatera l and Urinary bladder US KIDNEY/BLADDER Radiology Routine Nephrolithiasis 11/02/2023 12:51 PM EDT [facility] Work Phone: End: 03-08-2025 US Kidney - bilateral and Urinary bladder US KIDNEY/BLADDER Radiology Routine Nephrolithiasis 1 Occurrences starting 02/06/2024 until 03/08/2025 [facility] Work Phone: Comment on above: 1 Occurrences starti ng 02/06/2024 until 03/08/2025 End: 10-20-2024 XR Abdomen GE 3 Views AP and Oblique and Cone XR ABDOMEN 3V KUB W/OBLIQUES Radiology Routine Nephrolithiasis 1 Occurrences starting 09/21/2023 until 10/20/2024 [facility] Work Phone: Comment on above: 1 Occurrences starti ng 09/21/2023 until 10/20/2024 XR Abdomen GE 3 View s AP and Oblique and Cone XR ABDOMEN 3V KUB W/OBLIQUES Radiology Routine Nephrolithiasis 11/02/2023 12:22 PM EDT [facility] Work Phone: End: 03-07-2025 XR Abdomen GE 3 Views AP and Oblique and Cone XR ABDOMEN 3V KUB W/OBLIQUES Radiology Routine Nephrolithiasis 1 Occurrences starting 02/06/2024 until 03/07/2025 [facility] Comment on above: 1 Occurrences starti ng 02/06/2024 until 03/07/2025 [facility] Immunizations Immunization Date Immunization Notes Care Provider [facility] 04-09-2022 Seasonal trivalent influenza vaccine, adjuvanted, preservative free Fredy Ro MD Work Phone: [facility] 04-09-2022 influenza virus vacc ine, unspecified formulation Grceia Arechiga RN [facility] 04-14-2021 influenza virus vacc ine, unspecified formulation Eddie MARTINES [facility] [place] 04-14-2021 Seasonal trivalent influenza vaccine, adjuvanted, preservative free Fredy Ro MD Work Phone: [facility] 04-08-2021 influenza virus vacc ine, unspecified formulation Eddie MARTINES [facility] 04-08-2021 influenza, seasonal, injectable, preservative free Fredy Ro MD Work Phone: [facility] 08-24-2020 SARS-CoV-2 (COVID-19 ) mRNA BNT-162b2 michaelax Eddie MARTINES [facility] Comment on above: Result Comment: 2022: [id number] 08-03-2020 SARS-CoV-2 (COVID-19 ) mRNA BNT-162b2 michaelax Eddie MARTINES [facility] Comment on above: Result Comment: 2022: [id number] 05-08-2020 pneumococcal polysaccharide vaccine, 23 valent Eddie MARTINES [facility] 03-21-2020 influenza virus vacc ine, unspecified formulation Eddie MARTINES [facility] 03-21-2020 Seasonal trivalent influenza vaccine, adjuvanted, preservative free Fredy Ro MD Work Phone: [facility] 06-27-2013 pneumococcal polysaccharide vaccine, 23 valent Eddie MARTINES [facility] Payers Date Payer Category Payer Medicare [id number] 2018 Private Health Insurance AETNA AETNA OPEN ACCESS AETNA SELECT [id number] 2018-Present [address] [place] [address] EPO [id number] 2016 Medicare MEDICARE MEDICAR E A AND B [id number] 2016-Present [phone] [address] [address] [place] [address] Medicare [id number] 2007 Managed Care HMO (unspecified) [employer] [id number] 1959 Medicare [id number] 1959 Private Health Insurance [id number] 1946 Unknown [id number] 1946 Unknown [id number] [id number] 1946 Unknown [id number] [id number] 1946 Unknown [id number] [id number] 1946 Unknown [id number] [id number] 1946 Unknown [id number] [id number] 1946 Unknown [id number] [id number] 1946 Unknown [id number] [id number] 1946 Unknown [id number] [id number] 1946 Unknown [id number] [id number] 1946 Unknown [id number] [id number] Medicare [id number] Social History Date Type Detail Facility Start: 09-04-2013 [facility] History of tobacco use Current smoker [facility] History of tobacco use Cigarette Smoker [facility] Start: 09-04-2013 End: 05-11-2023 Tobacco use and exposure Smokeless tobacco non-user [facility] Start: 07-18-2023 End: 02-06-2024 Alcohol intake Current drinker of alcohol (finding) [facility] Start: 11-18-2022 End: 07-19-2023 History of Social function [facility] Start: 11-18-2022 End: 07-19-2023 [facility] Utilities [facility] Has the electric, [employer] s, oil, or water company threatened to shut off services in your home in past 12Mo No [facility] Start: 06-10-2023 How hard is it for y ou to pay for the very basics like food, housing, medical care, and heating Not hard at all [facility] (I/We) worried mateus er (my/our) food would run out before (I/we) got money to buy more. Never true [facility] Start: 1945 Sex Assigned At Not on file C [facility] Start: 05-11-2023 [facility] Never smoked tobacco [facility] Start: 12-13-2023 Alcoholic beverage intake Ex-drinker (finding) [facility] Start: 05-11-2023 Alcohol Comment Caffeine intak e : 1 cup per day of coffee [facility] Medical Equipment Procedure Code Equipment Code Equipment Origin al Text Equipment Identifier Dates Stent Inlay Opti ma 7fr Taper [place] Green Polymer Phreecoat 26cm Ureteral - [id number] Start: 07-18-2023 Stent Inlay Opti ma 7fr Taper [place] Green Phreecoat Polymer 28cm Ureteral - [id number] Start: 07-18-2023 Stent Inlay Opti ma 7fr Taper [place] Green Phreecoat Polymer 28cm Ureteral - [id number] Start: 09-12-2023 Functional Status Date Assessment Result Facility 06-10-2023 Functional Status N/A [facility] Clinical Notes 06-10-2023 to 02-12-2024 Linn Munoz, RT(R) - 02/12/2024 9:30 AM EDTPatient InstructionsOJonathan Yepez PA-C - 02/06/2024 8:30 AM EDTAddendum Note - OJonathan Yepez PA-C - 01/03/2024 5:23 PM EDTPatient Instructions Note Date & Type Note Facility 02-12-2024 History of Presen t illness Narrative Radiology Service Progress Note PATIENT NAME: Alicia Rutherford DATE OF SERVICE: February 12, 2024 TIME: 9:18 AM PATIENT IDENTITY VERIFICATION COMPLETED USING TWO (2) IDENTIFIERS: Name and Date of confirmed by patient verbally and Name and Date of confirmed by identification band. FALL SCREENING: Has the patient had 2 falls in the last year or 1 fall with injury or currently using an Ambulatory Assistive Device (Walker, Cane, Wheelchair, Crutches, etc.)? No PATIENT GENDER DATA: Female. status: : No status: NO. PATIENT RELEVANT IMPLANT DATA REVIEWED: Not Applicable PATIENT PRESENTS WITH AN IMPLANTABLE OR ATTACHED CEMENT MASON HELPER: No RADIOLOGY DEPARTMENT: CT; Exam(s) Completed: Chest PERIPHERAL IV DATA: Not applicable SIGNED BY: RT Milad(Sanju) February 12, 2024 9:18 AM documented in this encounter [facility] 02-12-2024 Note HNO ID: [id number] Author: LINN MUNOZ RT(R) Service: Radiology Author Type: Technologist Type: Progress Notes Filed: 02/12/2024 09:19 Note Text: Radiology Service Progress Note PATIENT NAME: Alicia Rutherford DATE OF SERVICE: February 12, 2024 TIME: 9:18 AM PATIENT IDENTITY VERIFICATION COMPLETED USING TWO (2) IDENTIFIERS: Name and Date of confirmed by patient verbally and Name and Date of confirmed by identification band. FALL SCREENING: Has the patient had 2 falls in the last year or 1 fall with injury or currently using an Ambulatory Assistive Device (Walker, Cane, Wheelchair, Crutches, etc.)? No PATIENT GENDER DATA: Female. status: : No status: NO. PATIENT RELEVANT IMPLANT DATA REVIEWED: Not Applicable PATIENT PRESENTS WITH AN IMPLANTABLE OR ATTACHED CEMENT MASON HELPER: No RADIOLOGY DEPARTMENT: CT; Exam(s) Completed: Chest PERIPHERAL IV DATA: Not applicable SIGNED BY: BRIGIDA Stinson) February 12, 2024 9:18 AM [facility] 02-06-2024 Instructions Jonathan Landrum PA-C - 02/06/2024 8:49 AM EDT - Please follow up in about 6 months with US, kUB, and Litholink - Please re-schedule chest CT scan (from Infectious Disease order) documented in this encounter [facility] 02-06-2024 History of Presen t illness Narrative Images from the original note were not included. UROLOGY NOTE Chief complaint: kidney stone follow up Alicia Rutherford is a 78 year old female who presents today for kidney stone management and prevention counseling. s/p L PCNL on 07/18/23 and R PCNL on 09/13/[address] Chavez. Cleo. Last saw Dr. Chavez on 09/21/23: Discussed findings with patient, RTC in 6 wk for f/u (call me if probs), KUB at F/U, Renal Ultrasound at F/U, and Litholink Comments: well-tolerated; Right PCNL site well-healed, suture removed. Ordered MRI based on recent US showing possible mass. Interval hx December 26, 2023 Unfortunately she received the Litholink 24-hour urine collection kit, but issue with the preservative. Litholink lab said they were sending new kit about 2 weeks ago; still not yet received. She did complete the MRI, which merely showed benight bilateral renal cysts. - Reviewed MRI showing bilateral renal cysts - She is waiting for new Litholink kit. If not received by next week, she will reach out to me for further inquiry. - Otherwise, plan to follow up in about month to review LL. RTC in 1 month w/ new LL. Interval hx February 06, 2024 Patient returns to clinic having completed new Litholink for review. Admits to not being a water drinker. Body mass index is 28.32 kg/m . PAST MEDICAL HISTORY No date: Anxiety No date: Bursitis of hip, right No date: Diastolic heart failure (HCC) No date: HTN (hypertension) No date: Hypothyroid No date: Pulmonary embolism (HCC) PAST SURGICAL HISTORY No date: ADENOIDECTOMY PRIMARY <AGE 13 Comment: Adenoidectomy No date: HYSTERECTOMY HX Comment: TOTAL ABDOMINAL HYSTERECTOMY No date: LITHOTRIPSY XTRCORP SHOCK WAVE Comment: Lithotripsy No date: PAST SURGICAL HISTORY OF Comment: Infarcted Omentum No date: PAST SURGICAL HISTORY OF Comment: Ear No date: PAST SURGICAL HISTORY OF Comment: 2 parathyroid tumors removed 03/24/2014 No date: PAST SURGICAL HISTORY OF Comment: kidney stones 11/2013 No date: PAST SURGICAL HISTORY OF Comment: right total knee replacement 09/2013 No date: PAST SURGICAL HISTORY OF Comment: parathyroid tumors 02/2014 No date: RPR EPIGASTRIC HERNIA REDUCIBLE SPX Comment: Hiatal hernia repair No date: TONSILLECTOMY PRIMARY/SECONDARY <AGE 13 Comment: Tonsillectomy No family history on file. Social History Tobacco Use Smoking status: Former Years: 13 Types: Cigarettes Smokeless tobacco: Never Substance Use Topics Alcohol use: Yes Comment: rarely Drug use: No Current Outpatient Medications on File Prior to Visit Medication Sig apixaban (ELIQUIS) 5 mg tab(s) Take 5 mg by mouth. amLODIPine (NORVASC) 5 mg tablet Take 1 tablet by mouth every morning. tamsulosin (FLOMAX) 0.4 mg Take 1 capsule by mouth at bedtime as needed (For stent discomfort) for up to 7 days. Take for stent discomfort (Patient not taking: Reported on 12/26/2023) famotidine (PEPCID) 40 mg tablet Take 40 mg by mouth once daily. (Patient not taking: Reported on 12/26/2023) polyethylene glycol 3350 (MIRALAX ORAL) Take by mouth. (Patient not taking: Reported on 12/26/2023) mirtazapine (REMERON) 30 mg tablet Take 30 mg by mouth every morning. magnesium oxide 200 mg magnesium tab Take by mouth. carvedilol (COREG) 12.5 mg tablet Take 1 tablet by mouth twice daily. cyanocobalamin (VITAMIN B-12) 1,000 mcg tab Take 1,000 mcg by mouth once daily. levothyroxine (SYNTHROID) 125 mcg tablet Take 125 mcg by mouth once daily. multivitamins(DAILY MULTIPLE TAB) Take by mouth. (Patient not taking: Reported on 12/26/2023) No current facility-administered medications on file prior to visit. ALLERGIES No Known Allergies Telephone on 01/03/2024 Component Date Value Ref Range Status CYSTINE, URINE, QUALITATIVE 01/18/2024 Neg Negative Final URINE VOLUME (PRESERVED) 01/18/2024 640 500 - 4,000 mL/24 hr Final CALCIUM OXALATE SATURATION 01/18/2024 10.05 (H) 6.00 - 10.00 Final CALCIUM, URINE 01/18/2024 113 <200 mg/24 hr Final OXALATE, URINE 01/18/2024 16 (L) 20 - 40 mg/24 hr Final CITRATE, URINE 01/18/2024 289 (L) >550 mg/24 hr Final CALCIUM PHOSPHATE SATURATION 01/18/2024 2.83 (H) 0.50 - 2.00 Final PH, 24 HR, URINE 01/18/2024 6.443 (H) 5.800 - 6.200 Final URIC ACID SATURATION 01/18/2024 0.23 <1.00 Final URIC ACID, URINE 01/18/2024 181 <750 mg/24 hr Final SODIUM, URINE 01/18/2024 56 50 - 150 mmol/24 hr Final POTASSIUM, URINE 01/18/2024 37 20 - 100 mmol/24 hr Final MAGNESIUM, URINE 01/18/2024 62 30 - 120 mg/24 hr Final PHOSPHORUS, URINE 01/18/2024 335 (L) 600 - 1,200 mg/24 hr Final AMMONIUM, URINE 01/18/2024 4 (L) 15 - 60 mmol/24 hr Final CHLORIDE, URINE 01/18/2024 61 (L) 70 - 250 mmol/24 hr Final SULFATE, URINE 01/18/2024 7 (L) 20 - 80 meq/24 hr Final UREA NITROGEN, URINE 01/18/2024 2.06 (L) 6.00 - 14.00 g/24 hr Final PROTEIN CATABOLIC RATE 01/18/2024 0.4 (L) 0.8 - 1.4 g/kg/24 hr Final CREATININE, URINE 01/18/2024 442 Not Applic. mg/24 hr Final CREATININE/KG BODY WEIGHT 01/18/2024 5.9 (L) 8.7 - 20.3 mg/24 hr/kg Final CALCIUM/KG BODY WEIGHT 01/18/2024 1.5 <4.0 mg/24 hr/kg Final CALCIUM/CREATININE RATIO 01/18/2024 256 51 - 262 mg/g creat Final COMMENT 01/18/2024 Note Final Stone Panel/ Litholink: Latest Ref Rng 01/18/2024 CYSTINE, URINE, QUALITATIVE Negative Neg URINE VOLUME (PRESERVED) 500 - 4,000 mL/24 hr 640 CALCIUM OXALATE SATURATION 6.00 - 10.00 10.05 (H) CALCIUM, URINE <200 mg/24 hr 113 OXALATE, URINE 20 - 40 mg/24 hr 16 (L) Citrate, Urine >550 mg/24 hr 289 (L) CALCIUM PHOSPHATE SATURATION 0.50 - 2.00 2.83 (H) PH, 24 HR, URINE 5.800 - 6.200 6.443 (H) URIC ACID SATURATION <1.00 0.23 URIC ACID, URINE <750 mg/24 hr 181 SODIUM, URINE 50 - 150 mmol/24 hr 56 POTASSIUM, URINE 20 - 100 mmol/24 hr 37 Magnesium, Urine 30 - 120 mg/24 hr 62 Phosphorus, Urine 600 - 1,200 mg/24 hr 335 (L) AMMONIUM, URINE 15 - 60 mmol/24 hr 4 (L) CHLORIDE, URINE 70 - 250 mmol/24 hr 61 (L) SULFATE, URINE 20 - 80 meq/24 hr 7 (L) Urea Nitrogen, Urine 6.00 - 14.00 g/24 hr 2.06 (L) Protein Catabolic Rate 0.8 - 1.4 g/kg/24 hr 0.4 (L) CREATININE, URINE Not Applic. mg/24 hr 442 CREATININE/KG BODY WEIGHT 8.7 - 20.3 mg/24 hr/kg 5.9 (L) CALCIUM/KG BODY WEIGHT <4.0 mg/24 hr/kg 1.5 CALCIUM/CREATININE RATIO 51 - 262 mg/g creat 256 Comment Note Legend: (H) High (L) Low Assessment/Plan: Encounter Diagnosis ICD-10-CM 1. Nephrolithiasis N20.0 US KIDNEY/BLADDER XR ABDOMEN 3V KUB W/OBLIQUES 2. 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 Emphasis on increasing fluid (water!) intake, and increasing dietary citrus. - Follow up with new Litholink, US and KUB in about 6 months to reassess - Discussed completing chest CT for Infectious Disease provider Reviewed recent 24 hour urine study and discussed strategies for stone prevention. Low urine volume - Recommend increasing your fluid intake to 2.5-3 L/day or 80-100 fluid oz/day. Not only increase fluids during the day but also drink 1-2 glasses of water before bed, get up at least once through the night to urinate, and then drink another glass of water before returning to sleep. Hypocitraturia - Recommend increasing dietary citrate intake. Adding more fruits & vegetables to your diet; in particular citrus fruits like immanuel, limes, oranges, melons and tomatoes. General stone prevention guidelines: Fluid intake - #1 reason why people form stones - not enough fluid! Recommend increasing water/fluid intake (2.5-3 L/day or 80-100 fluid oz/day), including nighttime hydration. We recommend emptying your bladder and drinking 1-2 glasses of water prior to bed, then getting up at least once during the night to empty your bladder again and drinking 1 more glass of water before returning to bed. All fluids count but water is best. Dooling intake - Recommend increasing dietary citrate intake. Adding more fruits & vegetables to your diet; in particular citrus fruits (immanuel/limes/lemonade/melons/to matoes). One can add 4 oz of lemon juice diluted in 32 oz of water daily to start. If diet changes are too difficult we can prescribe a medication, potassium citrate, that can help increase your citrate levels. Sodium intake - Recommend a low sodium diet <2000mg/d. Read food labels, choose low sodium options, avoid canned, frozen or boxed meals, eat more fresh foods, and possibly add a fish oil supplement daily (2000mg/d) Calcium intake - Recommend 2-3 servings of calcium per day. Not advisable for stone patients to restrict calcium intake as it is very important for good bone, muscle, and tissue health. Decrease soft drinks (has phosphoric acid). Protein intake: about 1 g of protein per kilo body weight per day. Patients with high urine oxalate: avoid spinach, nuts, seeds, potatoes. Foods like banana, avocado, soybean, len, cereals are good for you. Drink enough fluids each day. If you are not producing enough urine, your health care provider will recommend you drink at least 3 liters of liquid each day. This equals about 3 quarts (about ten 10-ounce glasses). This is a great way to lower your risk of forming new stones. Remember to drink more to replace fluids lost when you sweat from exercise or in hot weather. All fluids count toward your fluid intake. But it's best to drink mostly no-calorie or low-calorie drinks. This may mean limiting sugar-sweetened or alcoholic drinks. Knowing how much you drink during the day can help you understand how much you need to drink to produce 2.5 liters of urine. Use a household measuring cup to measure how much liquid you drink for a day or two. Drink from bottles or cans with the fluid ounces listed on the label. Keep a log, and add up the ounces at the end of the day or 24-hour period. Use this total to be sure you are reaching your daily target urine amount of at least 85 ounces (2.5 liters) of urine daily. Health care providers recommend people who form cystine stones drink more liquid than other stone formers. Usually 4 liters of liquid is advised to reduce cystine levels in your urine. Reduce the amount of salt in your diet. This tip is for people with high sodium intake and high urine calcium or cystine. Sodium can cause both urine calcium and cystine to be too high. Your health care provider may advise you to avoid foods that have a lot of salt. The Centers for Disease Control (CDC) and other health groups advise not eating more than 2,300 mg of salt per day. The following foods are high in salt and should be eaten in moderation: Cheese (all types) Most frozen foods and meats, including salty cured meats, deli meats (cold cuts), hot dogs, bratwurst and sausages Canned soups and vegetables Breads, bagels, rolls and baked goods Salty snacks, like chips and pretzels Bottled salad dressings and certain breakfast cereals Pickles and olives Casseroles, other mixed foods, pizza and lasagna Canned and bottled sauces Certain condiments, table salt and some spice blends Eat the recommended amount of calcium. If you take calcium supplements, make sure you aren't getting too much calcium. On the other hand make sure you aren't getting too little calcium either. Talk with your health care provider or dietitian about whether you need supplements. Good sources of calcium to choose from often are those low in salt. Eating calcium-rich foods or beverages with meals every day is a good habit. There are many non-dairy sources of calcium, such as calcium-fortified non-dairy milks. There are good choices, especially if you avoid dairy. You can usually get enough calcium from your diet without supplements if you eat [id number] servings of calcium-rich food. Many foods and beverages have calcium in them. Some foods and beverages that might be easy to include on a daily basis with meals are: Table of Foods Rich in Calcium Eat plenty of fruits and vegetables. Eating at least five servings of fruits and vegetables daily is recommended for all people who form kidney stones. Eating fruits and vegetables give you potassium, fiber, magnesium, antioxidants, phytate and citrate, all of which may help keep stones from forming. A serving means one piece of fruit or one potato or one cup of raw vegetables. For cooked vegetables, a serving is cup. If you are worried you may not be eating the right amount of fruits and vegetables, talk to your health care provider about what will be best for you. Eat foods with low oxalate levels. This recommendation is for patients with high urine oxalate. Eating calcium-rich foods (see table above) with meals can often control the oxalate level in your urine. Urinary oxalate is controlled because eating calcium lowers the oxalate level in your body. But if doing that does not control your urine oxalate, you may be asked to eat less of certain high-oxalate foods. Nearly all plant foods have oxalate, but a few foods contain a lot of it. These include spinach, rhubarb and almonds. It is usually not necessary to completely stop eating foods that contain oxalate. This needs to be determined individually and depends on why your oxalate levels are high in the first place. Eat less meat. If you make cystine or calcium oxalate stones and your urine uric acid is high, your health care provider may tell you to eat less animal protein. If your health care provider thinks your diet is increasing your risk for stones, he or she will tell you to eat less meat, fish, seafood, poultry, pork, pena, mutton and game meat than you eat now. This might mean eating these foods once or twice rather than two or three times a day, fewer times during the week, or eating smaller portions when you do eat them. The amount to limit depends on how much you eat now and how much your diet is affecting your uric acid levels. https://[email or web address].org/ur ology-a-z/k/kidney-stones#Preven tion%20of%20Future%20Stones RTC in 6 months w/ new LL and imaging. Jonathan Landrum PA-C documented in this encounter [facility] 02-06-2024 Note [facility] 01-03-2024 Note Addended by: JONATHAN HEREDIA on: 01/03/2024 05:23 PM Modules accepted: Orders [facility] 01-03-2024 Miscellaneous Notes Addended by: JONATHAN LANDRUM on: 01/03/2024 05:23 PM Modules accepted: Orders Patient called office to inform Jonathan that she did not receive the new [facility] 24-hour urine collection kit. Please call her with instruction to obtain the kit. Thanks documented in this encounter [facility] 01-03-2024 Telephone encounter Note Patient called office to inform Jonathan that she did not receive the new Litholink 24-hour urine collection kit. Please call her with instruction to obtain the kit. Thanks [facility] 12-26-2023 Instructions Jonathan Landrum PA-C - 12/26/2023 9:34 AM EDT - Let me know if no 24-hour urine collection kit received by next week - Please follow up in about 1 months with LL documented in this encounter [facility] 12-26-2023 History of Presen t illness Narrative UROLOGY NOTE Chief complaint: kidney stones Alicia Rutherford is a 78 year old female who presents today for kidney stone management and prevention counseling. Unfortunately she received the [facility]olink 24-hour urine collection kit, but issue with the preservative. [facility] lab said they were sending new kit about 2 weeks ago; still not yet received. She did complete the MRI, which merely showed benight bilateral renal cysts. There is no height or weight on file to calculate BMI. PAST MEDICAL HISTORY Diagnosis Date Anxiety Bursitis of hip, right Diastolic heart failure (HCC) HTN (hypertension) Hypothyroid Pulmonary embolism (HCC) PAST SURGICAL HISTORY Procedure Laterality Date ADENOIDECTOMY PRIMARY <AGE 13 Adenoidectomy HYSTERECTOMY HX TOTAL ABDOMINAL HYSTERECTOMY LITHOTRIPSY XTRCORP SHOCK WAVE Lithotripsy PAST SURGICAL HISTORY OF Infarcted Omentum PAST SURGICAL HISTORY OF Ear PAST SURGICAL HISTORY OF 2 parathyroid tumors removed 03/24/2014 PAST SURGICAL HISTORY OF kidney stones 11/2013 PAST SURGICAL HISTORY OF right total knee replacement 09/2013 PAST SURGICAL HISTORY OF parathyroid tumors 02/2014 RPR EPIGASTRIC HERNIA REDUCIBLE SPX Hiatal hernia repair TONSILLECTOMY PRIMARY/SECONDARY <AGE 13 Tonsillectomy No family history on file. Social History Tobacco Use Smoking status: Former Years: 13 Types: Cigarettes Smokeless tobacco: Never Substance Use Topics Alcohol use: Yes Comment: rarely Drug use: No Current Outpatient Medications on File Prior to Visit Medication Sig amLODIPine (NORVASC) 5 mg tablet Take 1 tablet by mouth every morning. tamsulosin (FLOMAX) 0.4 mg Take 1 capsule by mouth at bedtime as needed (For stent discomfort) for up to 7 days. Take for stent discomfort famotidine (PEPCID) 40 mg tablet Take 40 mg by mouth once daily. polyethylene glycol 3350 (MIRALAX ORAL) Take by mouth. mirtazapine (REMERON) 30 mg tablet Take 30 mg by mouth every morning. magnesium oxide 200 mg magnesium tab Take by mouth. carvedilol (COREG) 12.5 mg tablet Take 1 tablet by mouth twice daily. cyanocobalamin (VITAMIN B-12) 1,000 mcg tab Take 1,000 mcg by mouth once daily. levothyroxine (SYNTHROID) 125 mcg tablet Take 125 mcg by mouth once daily. multivitamins(DAILY MULTIPLE TAB) Take by mouth. No current facility-administered medications on file prior to visit. ALLERGIES No Known Allergies Hospital Outpatient Visit on 11/02/2023 Component Date Value Ref Range Status Radiology Result 11/02/2023 ACTIONABLE (Actionable) Final Comment: This report contains an incidental or actionable finding. This finding may be a new finding separate from the reason your provider ordered the imaging test or it may be an already known finding that needs additional or continued follow-up. Because of this incidental or actionable finding, you may need another test (imaging or a different type of test). Please contact your provider for the next steps. Images: MRI 12/14/23: Right kidney: Benign cysts. No solid mass. Multifocal parenchymal scarring scarring. No hydronephrosis. Left kidney: Benign cysts. No solid mass; specifically no hilar mass as queried on 11/02/2023 ultrasound. Multifocal parenchymal scarring scarring. No hydronephrosis. Assessment/Plan: Encounter Diagnosis ICD-10-CM 1. Nephrolithiasis N20.0 2. Bilateral renal cysts N28.1 - Reviewed MRI showing bilateral renal cysts - She is waiting for new Litholink kit. If not received by next week, she will reach out to me for further inquiry. - Otherwise, plan to follow up in about month to review LL. RTC in 1 month w/ new LL. I spent a total of 31 minutes on the date of the service which included preparing to see the patient, [id number] patient care, completing clinical documentation, obtaining and/or reviewing separately obtained history, counseling and educating the patient/family/caregiver, and communicating results to the patient/family/caregiver. Jonathan Landrum PA-C documented in this encounter [facility] 12-26-2023 Note [facility] 12-14-2023 History of Presen t illness Narrative Radiology Service Progress Note PATIENT NAME: Alicia Rutherford DATE OF SERVICE: December 14, 2023 TIME: 10:11 AM PATIENT IDENTITY VERIFICATION COMPLETED USING TWO (2) IDENTIFIERS: Name and Date of confirmed by patient verbally and Name and Date of confirmed by identification band FALL SCREENING: Has the patient had 2 falls in the last year or 1 fall with injury or currently using an Ambulatory Assistive Device (Walker, Cane, Wheelchair, Crutches, etc.)? No PATIENT GENDER DATA: Female. status: : No status: N/A PATIENT RELEVANT IMPLANT DATA REVIEWED: Yes PATIENT PRESENTS WITH AN IMPLANTABLE OR ATTACHED CEMENT MASON HELPER: No RADIOLOGY DEPARTMENT: MR; Exam(s) Completed: Body: Renal PERIPHERAL IV DATA: Site assessment: Clean,Dry and Intact, Site disposition Discontinued SIGNED BY: RT Colette(R) December 14, 2023 10:11 AM documented in this encounter [facility] 12-14-2023 Note [facility] 12-14-2023 Note [facility] 11-14-2023 Instructions Jonathan Landrum PA-C - 11/14/2023 9:40 AM EDT Please follow up in about 5-6 weeks (with Litholink and MRI beforehand) documented in this encounter [facility] 11-14-2023 Note [facility] 11-14-2023 History of Presen t illness Narrative Images from the original note were not included. UROLOGY NOTE Chief complaint: kidney stones Alicia Rutherford is a 78 year old female who presents today for kidney stone management and prevention counseling. s/p L PCNL on 07/18/23 and R PCNL on 09/13/[address] Chavez. Cleo. Last saw Dr. Chavez on 09/21/23: Discussed findings with patient, RTC in 6 wk for f/u (call me if probs), KUB at F/U, Renal Ultrasound at F/U, and [facility] Comments: well-tolerated; Right PCNL site well-healed, suture removed. Ordered MRI based on recent US showing possible mass. Pt currently: no fever, no chills, no nausea, no vomiting, no dysuria, no gross hematuria, no renal colic Body mass index is 25.75 kg/m . PAST MEDICAL HISTORY Diagnosis Date Anxiety Bursitis of hip, right Diastolic heart failure (HCC) HTN (hypertension) Hypothyroid Pulmonary embolism (HCC) PAST SURGICAL HISTORY Procedure Laterality Date ADENOIDECTOMY PRIMARY <AGE 13 Adenoidectomy HYSTERECTOMY HX TOTAL ABDOMINAL HYSTERECTOMY LITHOTRIPSY XTRCORP SHOCK WAVE Lithotripsy PAST SURGICAL HISTORY OF Infarcted Omentum PAST SURGICAL HISTORY OF Ear PAST SURGICAL HISTORY OF 2 parathyroid tumors removed 03/24/2014 PAST SURGICAL HISTORY OF kidney stones 11/2013 PAST SURGICAL HISTORY OF right total knee replacement 09/2013 PAST SURGICAL HISTORY OF parathyroid tumors 02/2014 RPR EPIGASTRIC HERNIA REDUCIBLE SPX Hiatal hernia repair TONSILLECTOMY PRIMARY/SECONDARY <AGE 13 Tonsillectomy No family history on file. Social History Tobacco Use Smoking status: Former Years: 13 Types: Cigarettes Smokeless tobacco: Never Substance Use Topics Alcohol use: Yes Comment: rarely Drug use: No Current Outpatient Medications on File Prior to Visit Medication Sig amLODIPine (NORVASC) 5 mg tablet Take 1 tablet by mouth every morning. famotidine (PEPCID) 40 mg tablet Take 40 mg by mouth once daily. polyethylene glycol 3350 (MIRALAX ORAL) Take by mouth. mirtazapine (REMERON) 30 mg tablet Take 30 mg by mouth every morning. magnesium oxide 200 mg magnesium tab Take by mouth. carvedilol (COREG) 12.5 mg tablet Take 1 tablet by mouth twice daily. cyanocobalamin (VITAMIN B-12) 1,000 mcg tab Take 1,000 mcg by mouth once daily. levothyroxine (SYNTHROID) 125 mcg tablet Take 125 mcg by mouth once daily. multivitamins(DAILY MULTIPLE TAB) Take by mouth. tamsulosin (FLOMAX) 0.4 mg Take 1 capsule by mouth at bedtime as needed (For stent discomfort) for up to 7 days. Take for stent discomfort No current facility-administered medications on file prior to visit. ALLERGIES No Known Allergies Hospital Outpatient Visit on 11/02/2023 Component Date Value Ref Range Status Radiology Result 11/02/2023 ACTIONABLE (Actionable) Final Comment: This report contains an incidental or actionable finding. This finding may be a new finding separate from the reason your provider ordered the imaging test or it may be an already known finding that needs additional or continued follow-up. Because of this incidental or actionable finding, you may need another test (imaging or a different type of test). Please contact your provider for the next steps. Stone composition: 07/18/2023 09/12/2023 Calculus Type Calculus, CALCULI/CALCULUS CALCULI/CALCULUS Calculus Color DESIR WHITE Calculus Size and Wt Multiple pieces. 2.0035 GRAMS Multiple pieces. 0.0880 GRAMS Calculus Composition 100% Calcium Phosphate 90% Calcium Phosphate Calculus Composition 2 10% Minor Components Calculus Analysis -- -- Images: US 11/02/23: Right Kidney: -Renal length: 10.9 cm -Parenchyma: Normal parenchymal echogenicity. Normal parenchymal thickness. -Collecting system: No hydronephrosis. -Calculus: Echogenic focus measuring approximately 5 x 1 x 5 mm is identified in the mid right kidney, compatible with a nonobstructing renal calculus. -Lesion: An avascular, anechoic, well circumscribed lesion measuring 3.8 x 3.3 x 3.5 cm is identified in the mid to upper pole, compatible with a partly exophytic simple renal cyst. Left Kidney: -Renal length: 10.1 cm -Parenchyma: Normal parenchymal echogenicity. Normal parenchymal thickness. -Collecting system: No hydronephrosis. -Calculus: Echogenic foci measuring 3 x 1 x 3 mm and 4 x 3 x 5 mm in the mid and lower pole, compatible with nonobstructing renal calculi. -Lesion: Solid, iso to hypoechoic density measuring 2.4 x 2.1 x 2.5 cm is identified in the medial aspect of the mid left kidney; concerning for a lesion in this region. Bladder: No sonographically obvious intraluminal bladder lesions. KUB 11/02/23: Approximately 0.9 cm curvilinear calcification overlying the expected region of the inferior RIGHT kidney, which could represent calyceal constipation seen on CT dated 09/17/2023. CT 09/17/23: Kidneys: Right kidney: Interval nephrolithotomy of the 4.8 cm renal pelvis calculus on prior CT with several small residual lower pole fragments measuring up to 0.9 x 0.6 cm (3:60). Right double-J ureteral stent in situ. Heterogeneous soft tissue within the renal pelvis with surrounding mild inflammatory changes is likely postoperative. Similarly small linear tract extending to the posterior right renal cortex into the renal pelvis with small amount of retroperitoneal hemorrhage are likely also postoperative (3:59). No hydronephrosis or organized perinephric hematoma. Simple right renal cyst. Left kidney: Few subcentimeter nonobstructing renal calculi measuring up to 0.4 cm (3:61). Punctate stone in the LEFT renal pelvis (3:57). Distalmost LEFT ureter obscured due to streak artifact from LEFT arthroplasty. No hydronephrosis. No finding to suggest cyst or mass in the unenhanced kidney. CT 07/20/23: Right kidney and ureter: * Large 3.5 x 2.9 cm staghorn calculus in the renal pelvis, unchanged. * Double-J ureteral stent coils in the upper calyx and bladder. No calculus along the course of the stent. Mild stranding around the renal pelvis and ureter is unchanged. No hydronephrosis. * Exophytic upper pole cyst. Left kidney and ureter: * Interval percutaneous nephrolithotomy with removal of 2.3 cm left renal pelvis stone. Subtle layering hyperdensity along the dependent renal pelvis (2:53) is new. Nonobstructing calculi in a left lower pole calyx measuring 0.5 cm, new. * Double-J ureteral stent coiled in the upper pole and bladder without calculus along the course of the stent. Associated peripelvic and periureteral stranding has mildly increased. No hydronephrosis. Bladder: No calculus or wall thickening. Assessment/Plan: N20.0 Nephrolithiasis (primary encounter diagnosis) - Patient is interested in 24-hour urine collection and dietary analysis for stone prevention. Litholink kit to be sent to and completed by patient. - Follow up after MRI to review as well General stone prevention guidelines: Fluid intake - #1 reason why people form stones - not enough fluid! Recommend increasing water/fluid intake (2.5-3 L/day or 80-100 fluid oz/day), including nighttime hydration. We recommend emptying your bladder and drinking 1-2 glasses of water prior to bed, then getting up at least once during the night to empty your bladder again and drinking 1 more glass of water before returning to bed. All fluids count but water is best. Dooling intake - Recommend increasing dietary citrate intake. Adding more fruits & vegetables to your diet; in particular citrus fruits (immanuel/limes/lemonade/melons/to matoes). One can add 4 oz of lemon juice diluted in 32 oz of water daily to start. If diet changes are too difficult we can prescribe a medication, potassium citrate, that can help increase your citrate levels. Sodium intake - Recommend a low sodium diet <2000mg/d. Read food labels, choose low sodium options, avoid canned, frozen or boxed meals, eat more fresh foods, and possibly add a fish oil supplement daily (2000mg/d) Calcium intake - Recommend 2-3 servings of calcium per day. Not advisable for stone patients to restrict calcium intake as it is very important for good bone, muscle, and tissue health. Decrease soft drinks (has phosphoric acid). Protein intake: about 1 g of protein per kilo body weight per day. Patients with high urine oxalate: avoid spinach, nuts, seeds, potatoes. Foods like banana, avocado, soybean, len, cereals are good for you. Drink enough fluids each day. If you are not producing enough urine, your health care provider will recommend you drink at least 3 liters of liquid each day. This equals about 3 quarts (about ten 10-ounce glasses). This is a great way to lower your risk of forming new stones. Remember to drink more to replace fluids lost when you sweat from exercise or in hot weather. All fluids count toward your fluid intake. But it's best to drink mostly no-calorie or low-calorie drinks. This may mean limiting sugar-sweetened or alcoholic drinks. Knowing how much you drink during the day can help you understand how much you need to drink to produce 2.5 liters of urine. Use a household measuring cup to measure how much liquid you drink for a day or two. Drink from bottles or cans with the fluid ounces listed on the label. Keep a log, and add up the ounces at the end of the day or 24-hour period. Use this total to be sure you are reaching your daily target urine amount of at least 85 ounces (2.5 liters) of urine daily. Health care providers recommend people who form cystine stones drink more liquid than other stone formers. Usually 4 liters of liquid is advised to reduce cystine levels in your urine. Reduce the amount of salt in your diet. This tip is for people with high sodium intake and high urine calcium or cystine. Sodium can cause both urine calcium and cystine to be too high. Your health care provider may advise you to avoid foods that have a lot of salt. The Centers for Disease Control (CDC) and other health groups advise not eating more than 2,300 mg of salt per day. The following foods are high in salt and should be eaten in moderation: Cheese (all types) Most frozen foods and meats, including salty cured meats, deli meats (cold cuts), hot dogs, bratwurst and sausages Canned soups and vegetables Breads, bagels, rolls and baked goods Salty snacks, like chips and pretzels Bottled salad dressings and certain breakfast cereals Pickles and olives Casseroles, other mixed foods, pizza and lasagna Canned and bottled sauces Certain condiments, table salt and some spice blends Eat the recommended amount of calcium. If you take calcium supplements, make sure you aren't getting too much calcium. On the other hand make sure you aren't getting too little calcium either. Talk with your health care provider or dietitian about whether you need supplements. Good sources of calcium to choose from often are those low in salt. Eating calcium-rich foods or beverages with meals every day is a good habit. There are many non-dairy sources of calcium, such as calcium-fortified non-dairy milks. There are good choices, especially if you avoid dairy. You can usually get enough calcium from your diet without supplements if you eat [id number] servings of calcium-rich food. Many foods and beverages have calcium in them. Some foods and beverages that might be easy to include on a daily basis with meals are: Table of Foods Rich in Calcium Eat plenty of fruits and vegetables. Eating at least five servings of fruits and vegetables daily is recommended for all people who form kidney stones. Eating fruits and vegetables give you potassium, fiber, magnesium, antioxidants, phytate and citrate, all of which may help keep stones from forming. A serving means one piece of fruit or one potato or one cup of raw vegetables. For cooked vegetables, a serving is cup. If you are worried you may not be eating the right amount of fruits and vegetables, talk to your health care provider about what will be best for you. Eat foods with low oxalate levels. This recommendation is for patients with high urine oxalate. Eating calcium-rich foods (see table above) with meals can often control the oxalate level in your urine. Urinary oxalate is controlled because eating calcium lowers the oxalate level in your body. But if doing that does not control your urine oxalate, you may be asked to eat less of certain high-oxalate foods. Nearly all plant foods have oxalate, but a few foods contain a lot of it. These include spinach, rhubarb and almonds. It is usually not necessary to completely stop eating foods that contain oxalate. This needs to be determined individually and depends on why your oxalate levels are high in the first place. Eat less meat. If you make cystine or calcium oxalate stones and your urine uric acid is high, your health care provider may tell you to eat less animal protein. If your health care provider thinks your diet is increasing your risk for stones, he or she will tell you to eat less meat, fish, seafood, poultry, pork, pena, mutton and game meat than you eat now. This might mean eating these foods once or twice rather than two or three times a day, fewer times during the week, or eating smaller portions when you do eat them. The amount to limit depends on how much you eat now and how much your diet is affecting your uric acid levels. https://www.urologyhealth.org/ur ology-a-z/k/kidney-stones#Preven tion%20of%20Future%20Stones RTC in 1 month w/ new LL and imaging. I spent a total of 20 minutes on the date of the service which included preparing to see the patient, [id number] patient care, completing clinical documentation, obtaining and/or reviewing separately obtained history, counseling and educating the patient/family/caregiver, and communicating results to the patient/family/caregiver. Jonathan Landrum PA-C documented in this encounter [facility] 11-02-2023 History of Presen t illness Narrative Radiology Service Progress Note PATIENT NAME: Alicia Rutherford DATE OF SERVICE: November 02, 2023 TIME: 12:41 PM PATIENT IDENTITY VERIFICATION COMPLETED USING TWO (2) IDENTIFIERS: Name and Date of confirmed by patient verbally and Name and Date of confirmed by identification band. FALL SCREENING: Has the patient had 2 falls in the last year or 1 fall with injury or currently using an Ambulatory Assistive Device (Walker, Cane, Wheelchair, Crutches, etc.)? Yes, Patient High Risk for Falls What interventions were put in place to prevent falls during this visit? Offered Assistance with Transfers/Clothing and Increased Observations by Caregivers PATIENT GENDER DATA: Female. status: : No status: N/A PATIENT RELEVANT IMPLANT DATA REVIEWED: Not Applicable PATIENT PRESENTS WITH AN IMPLANTABLE OR ATTACHED CEMENT MASON HELPER: No RADIOLOGY DEPARTMENT: Ultrasound PERIPHERAL IV DATA: Not applicable SIGNED BY: Zeenat Alex RDMS November 02, 2023 12:41 PM documented in this encounter [facility] 11-02-2023 Note HNO ID: [id number] Author: ZEENAT ALEX RDMS Service: Abstract Author Type: Traffic Controller Cable Type: Progress Notes Filed: 11/02/2023 12:41 Note Text: Radiology Service Progress Note PATIENT NAME: Alicia Rutherford DATE OF SERVICE: November 02, 2023 TIME: 12:41 PM PATIENT IDENTITY VERIFICATION COMPLETED USING TWO (2) IDENTIFIERS: Name and Date of confirmed by patient verbally and Name and Date of confirmed by identification band. FALL SCREENING: Has the patient had 2 falls in the last year or 1 fall with injury or currently using an Ambulatory Assistive Device (Walker, Cane, Wheelchair, Crutches, etc.)? Yes, Patient High Risk for Falls What interventions were put in place to prevent falls during this visit? Offered Assistance with Transfers/Clothing and Increased Observations by Caregivers PATIENT GENDER DATA: Female. status: : No status: N/A PATIENT RELEVANT IMPLANT DATA REVIEWED: Not Applicable PATIENT PRESENTS WITH AN IMPLANTABLE OR ATTACHED CEMENT MASON HELPER: No RADIOLOGY DEPARTMENT: Ultrasound PERIPHERAL IV DATA: Not applicable SIGNED BY: Zeenat Alex RDMS November 02, 2023 12:41 PM [facility] 11-02-2023 History of Presen t illness Narrative Radiology Service Progress Note PATIENT NAME: Alicia Rutherford DATE OF SERVICE: November 02, 2023 TIME: 12:20 PM PATIENT IDENTITY VERIFICATION COMPLETED USING TWO (2) IDENTIFIERS: Name and Date of confirmed by patient verbally. FALL SCREENING: Has the patient had 2 falls in the last year or 1 fall with injury or currently using an Ambulatory Assistive Device (Walker, Cane, Wheelchair, Crutches, etc.)? Yes, Patient High Risk for Falls What interventions were put in place to prevent falls during this visit? [place] Risk Wristband Applied, Offered Assistance with Transfers/Clothing, and Increased Observations by Caregivers PATIENT GENDER DATA: Female. status: : No status: NO. PATIENT RELEVANT IMPLANT DATA REVIEWED: Not Applicable PATIENT PRESENTS WITH AN IMPLANTABLE OR ATTACHED CEMENT MASON HELPER: No RADIOLOGY DEPARTMENT: General X-ray: Exam(s) Completed: Abdomen X-Ray: Abdomen with Obliques PERIPHERAL IV DATA: Not applicable SIGNED BY: RT Heather(Sanju) November 02, 2023 12:20 PM documented in this encounter [facility] 11-02-2023 Note HNO ID: [id number] Author: SONG MCRAE RT(R) Service: Radiology Author Type: Technologist Type: Progress Notes Filed: 11/02/2023 12:21 Note Text: Radiology Service Progress Note PATIENT NAME: Alicia Rutherford DATE OF SERVICE: November 02, 2023 TIME: 12:20 PM PATIENT IDENTITY VERIFICATION COMPLETED USING TWO (2) IDENTIFIERS: Name and Date of confirmed by patient verbally. FALL SCREENING: Has the patient had 2 falls in the last year or 1 fall with injury or currently using an Ambulatory Assistive Device (Walker, Cane, Wheelchair, Crutches, etc.)? Yes, Patient High Risk for Falls What interventions were put in place to prevent falls during this visit? [place] Risk Wristband Applied, Offered Assistance with Transfers/Clothing, and Increased Observations by Caregivers PATIENT GENDER DATA: Female. status: : No status: NO. PATIENT RELEVANT IMPLANT DATA REVIEWED: Not Applicable PATIENT PRESENTS WITH AN IMPLANTABLE OR ATTACHED CEMENT MASON HELPER: No RADIOLOGY DEPARTMENT: General X-ray: Exam(s) Completed: Abdomen X-Ray: Abdomen with Obliques PERIPHERAL IV DATA: Not applicable SIGNED BY: RT Heather(R) November 02, 2023 12:20 PM [facility] 10-26-2023 Note [facility] 10-26-2023 History of Presen t illness Narrative Alicia Rutherford is a 78 year old female with a history of Urinary infection, pulmonary nodules INTERVAL EVENTS: Since last visit No fevers No respiratory symptoms at all Does not recall any cold/flu-like illnesses over the course of the [id number] fall/winter season No SOB/windedness No cough, sore throat No chills/night sweats No rashes No urinary symptoms No retention No blood/pus in urine Following up with urology 11/04/2023 Completed courses of antibiotics; now off of antibiotic therapy CURRENT MEDICATIONS: Current Outpatient Medications Medication Sig amLODIPine (NORVASC) 5 mg tablet Take 1 tablet by mouth every morning. tamsulosin (FLOMAX) 0.4 mg Take 1 capsule by mouth at bedtime as needed (For stent discomfort) for up to 7 days. Take for stent discomfort famotidine (PEPCID) 40 mg tablet Take 40 mg by mouth once daily. polyethylene glycol 3350 (MIRALAX ORAL) Take by mouth. mirtazapine (REMERON) 30 mg tablet Take 30 mg by mouth every morning. magnesium oxide 200 mg magnesium tab Take by mouth. carvedilol (COREG) 12.5 mg tablet Take 1 tablet by mouth twice daily. cyanocobalamin (VITAMIN B-12) 1,000 mcg tab Take 1,000 mcg by mouth once daily. levothyroxine (SYNTHROID) 125 mcg tablet Take 125 mcg by mouth once daily. multivitamins(DAILY MULTIPLE TAB) Take one(1) tablet daily. (Patient not taking: Reported on 07/11/2023) No current facility-administered medications for this visit. REVIEW OF SYSTEMS: complete ros conducted and negative except for above PHYSICAL EXAM: Telephone encounter I have communicated my name and active licensure. The patient's identity and physical location were verified at the time of this visit. Either the patient or their legal senior sales representative has been informed of the risks and benefits of -- and alternatives to -- treatment through a remote evaluation and consents to proceed with the evaluation remotely. 10/10/2023 Noninvasive evaluation for fungal etiologies of pulmonary nodules completed and negative Dedicated CT chest 10/21/2023 personally reviewed Report: IMPRESSION: Findings suggesting infectious bronchiolitis within the lower lobes left greater than right with overall improvement in the right lower lobe since prior CT abdomen pelvis. Additional follow-up chest CT in 3 months is recommended to ensure resolution. Solid pulmonary nodules measuring up to 5 mm can be reassessed on follow-up. Possible 2.3 cm contour deformity at the upper pole left kidney. Contrast-enhanced MRI is recommended to exclude a neoplasm. IMPRESSION/PLAN: Alicia Rutherford is a 78 year old female with PMH of renal calculus, stage 3 kidney disease, PE (on Eliquis), diastolic HF (EF 65-70%), HTN, hypothyroidism, who presented on 07/18 for elective percutaneous nephrolithotomy s/p Left PCNL was performed and bilateral stents were exchanged, complicated by Klebsiella pneumoniae UTI and treated with bactrim CT abd/pelvis 09/17/2023 with upper cuts (lower thorax) demonstrating pulmonary nodules and lower lobe consolidations concerning for PNA Dedicated CT chest 10/21/2023 with interval improvement of above findings Observe off of antibiotic therapy Continues to denies any respiratory or systemic symptoms of infection Repeat CT chest in 3 months I spent 20 minutes discussing this patient's care with her by phone and coordinating care. Melani Thacker MD documented in this encounter [facility] 10-21-2023 History of Presen t illness Narrative Radiology Service Progress Note PATIENT NAME: Alicia Rutherford DATE OF SERVICE: October 21, 2023 TIME: 8:09 AM PATIENT IDENTITY VERIFICATION COMPLETED USING TWO (2) IDENTIFIERS: Name and Date of confirmed by patient verbally and Name and Date of confirmed by identification band. FALL SCREENING: Has the patient had 2 falls in the last year or 1 fall with injury or currently using an Ambulatory Assistive Device (Walker, Cane, Wheelchair, Crutches, etc.)? No PATIENT GENDER DATA: Female. status: : No status: NO. PATIENT RELEVANT IMPLANT DATA REVIEWED: Not Applicable PATIENT PRESENTS WITH AN IMPLANTABLE OR ATTACHED CEMENT MASON HELPER: No RADIOLOGY DEPARTMENT: CT; Exam(s) Completed: Chest PERIPHERAL IV DATA: Not applicable SIGNED BY: RT Padmini(R) October 21, 2023 8:09 AM documented in this encounter [facility] 10-21-2023 Note [facility] 09-21-2023 Note [facility] 09-21-2023 History of Presen t illness Narrative Alicia Rutherford is a 78 year old female with a history of Urinary infection INTERVAL EVENTS: No events Afebrile, no chills, night sweats, weight loss No fatigue No coughing No sore throat No respiratory symptoms No n/v/abdominal pain/diarrhea Minimal outdoor activities/plants Does have a cat, doesn't change litter No birds or bird feeders Former smoker, < 1 ppd x 45 years CURRENT MEDICATIONS: Current Outpatient Medications Medication Sig amLODIPine (NORVASC) 5 mg tablet Take 1 tablet by mouth every morning. tamsulosin (FLOMAX) 0.4 mg Take 1 capsule by mouth at bedtime as needed (For stent discomfort) for up to 7 days. Take for stent discomfort apixaban (ELIQUIS) 5 mg tab(s) Take 1 tablet by mouth every morning. Patient should start on July 25, 2023. famotidine (PEPCID) 40 mg tablet Take 40 mg by mouth once daily. polyethylene glycol 3350 (MIRALAX ORAL) Take by mouth. mirtazapine (REMERON) 30 mg tablet Take 30 mg by mouth every morning. magnesium oxide 200 mg magnesium tab Take by mouth. carvedilol (COREG) 12.5 mg tablet Take 1 tablet by mouth twice daily. cyanocobalamin (VITAMIN B-12) 1,000 mcg tab Take 1,000 mcg by mouth once daily. levothyroxine (SYNTHROID) 125 mcg tablet Take 125 mcg by mouth once daily. multivitamins(DAILY MULTIPLE TAB) Take one(1) tablet daily. (Patient not taking: Reported on 07/11/2023) No current facility-administered medications for this visit. Antibiotic Treatment Duration: 2 weeks Medication Related Side Effects: none REVIEW OF SYSTEMS: complete ROS conducted and negative except for above PHYSICAL EXAM: I have communicated my name and active licensure. The patient's identity and physical location were verified at the time of this visit. Either the patient or their legal senior sales representative has been informed of the risks and benefits of -- and alternatives to -- treatment through a remote evaluation and consents to proceed with the evaluation remotely. CT abd/pelvis 09/17/2023: IMPRESSION: Interval lithotripsy on RIGHT with in situ double-J ureteral stent and several residual stone fragments measuring up to 0.9 cm. Several residual LEFT kidney renal calculi. No hydronephrosis. No perinephric hematoma. Residual colonic and rectal feces. No surrounding inflammatory changes to suggest stercoral colitis. New right middle lobe nodule and tree in bud nodularity at the right lung base, favored to represent infectious/inflammatory process. Recommend follow-up chest CT to assess resolution in 4-6 weeks. IMPRESSION/PLAN: Alicia Rutherford is a 78 year old female with PMH of renal calculus, stage 3 kidney disease, PE (on Eliquis), diastolic HF (EF 65-70%), HTN, hypothyroidism, who presented on 07/18 for elective percutaneous nephrolithotomy s/p Left PCNL was performed and bilateral stents were exchanged, complicated by Klebsiella pneumoniae UTI and treated with bactrim Observe off of antibiotic therapy CT abd/pelvis 09/17/2023 with new pulmonary nodule noted Denies any respiratory or systemic symptoms of infection Merits dedicated CT chest Ordered noninvasive evaluation for endemic fungal mycoses I spent 20 minutes discussing this patient's care with her and her by phone and coordinating care. Melani Thacker MD documented in this encounter [facility] 09-21-2023 Note [facility] 09-21-2023 History of Presen t illness Narrative CYSTOSCOPY PROCEDURE MKwesi'S HOP NOTE Pertinent History and Physical Exam reviewed and is unchanged. Primary Diagnosis: Nephrolithiasis Procedure: Stent Extraction Informed Consent Discussed: Yes. Risks, benefits, alternatives and personnel discussed with patient who consents to proceed. Audible Time-Out: Yes Details of Procedure: TECHNIQUE: The procedure was fully explained to the patient, risks were reviewed. The patient was placed in the supine position. The genitalia were prepped with antiseptic soap per protocol, and the urethra was anesthetized with viscous 2% lidocaine. The flexible cystoscope was introduced into the urethra and advanced under direct vision with findings as outlined below. At the conclusion of the procedure, the cystoscope was withdrawn. Anesthetics given: 10 cc 2% Lidocaine-Urethral Operative Findings Urethra: Normal Bladder: Right stent removed without difficulty Radiologic Studies CT: 09/17/23 CT w/o contrast shows a few residual stone fragments in right kidney (and in left); reading indicates fragments up to 9 mm but I measured them -- the larger looks like 2 stone fragments adjacent, totalling 6 mm, and the smaller appears to be 2 fragments adjacent with sand, largest fragment 3-4 mm. Left largest fragment 4 mm. None alongside stent or near UPJ (either side). Urogram: N/A Urethrogram: N/A Cystogram: N/A Retrograde Pyelogram(s): None Ultrasound: None KUB: None Complications: None Recommendations: Discussed findings with patient, RTC in 6 wk for f/u (call me if probs), KUB at F/U, Renal Ultrasound at F/U, and Litholink Comments: well-tolerated; Right PCNL site well-healed, suture removed. Post Procedure Evaluation Condition Post Procedure: satisfactory Post Procedure Medications: Fosfomycin Troy Chavez MD Director, Surgical [facility] Pager [phone] 09/21/2023 UNIVERSAL PROTOCOL / SAFETY CHECKLIST Procedure to be Performed: cystoscopy Sign In: A Moment of CARE was completed. Personnel directly involved with the procedure wore the appropriate PPE (Personal Protective Equipment). Patient/Surrogate Stated/Verified: PATIENT VERIFIED(optional for EMERGENT procedures): Patient name, Date of , Relevant allergies, and The intended procedure Time Out Communication: Intended patient and procedure match the source documents. Consent documented and matches the intended procedure. No relevant labs, photos, and/or imaging studies were applicable for review. No correct side/site applicable for marking and visibility. Medications required for procedure verified. Fire risk assessed and interventions discussed. No implant(s) inserted. Sign Out: SIGN OUT (optional for EMERGENT procedures): No specimen collected. No instruments, equipment or retained foreign bodies applicable. Post-procedure follow-up management communicated and Plan of Care Visit completed when applicable. Naila Mcclure RN documented in this encounter [facility] 09-21-2023 Note [facility] 09-21-2023 Nurse Note Actual procedure/procedure scheduled: Yes Performing provider/scheduled provider: Yes Patient was roomed in: Q9- 07 Lan Engineer offered:Patient declines Patient arrived in the room at: 0915 for preassessment questioins and vitals. Patient taken back to waiting room to wait closer to appointment time per patient request since Dr Chavez called and stated he would not be on unit until 10am and patient has poor gait and mobility and did not want to lay that long on exam table. Patient ready for procedure: 0956 The procedure started at ( Time Only): 1014 The procedure ended at: 1019 Was the procedure delayed. on the phone The patient left the procedure room at: 1030 Naila Mcclure RN PRE PROCEDURE ASSESSMENT- Cysto Procedure Indication: Cystoscopy and Stent Extraction Latex Allergy: No Allergies reviewed and updated. Yes Pre-Procedure Vital Signs: BP: 132/87 Pulse: 78 Heart valve replacement: No Joint replacement: Yes Back Office UA otained: not applicable PROCEDURE PREP-Cysto Patient ID with two(2)identifiers verified by: Naila Mcclure RN Pre-Procedure Antibiotics: None taken at home nor prior to procedure Patient Prep: Betadine Scrub to perineum and placement of Sterile Drape. COMPLETED Anesthetic Given:10 cc 2% Lidocaine jelly Naila Mcclure RN UNIVERSAL PROTOCOL / SAFETY CHECKLIST Procedure to be performed: Cystoscopy and Stent Extraction Sign in Communication: Completed Time Out: Team Confirms the Correct Patient, Correct Procedure, Correct Site and Site Marking, Correct Position (if applicable). Sign Out Discussion: Completed Naila Mcclure RN POST PROCEDURE NURSE ASSESSMENT Present along with physician during procedure exam. Naila Mcclure RN Instruction sheet given and reviewed and patient verbalizes understanding: yes Post Procedure Antibiotic: none Current pain intensity is 0 on a 0-10 pain scale. Naila Mcclure RN AMBULATORY PATIENT EDUCATION THE FOLLOWING WAS EVALUATED Motivation To Learn: Interested Family/Significant Other Support: High - Very involved in pt care Cognitive Ability: Alert/Oriented Method of Instruction: Individual instruction Written instruction - handouts Verbal instruction The Following Influencing Factors Were Barriers To This Education Session: None The Following Physical Limitations Were Barriers To This Education Session: Limited Mobility /wheelchair Instruction Provided To: Patient Oracle Solutions Architect Present: not applicable Discipline: Nursing Learning Topic: SURVIVAL SKILLS: Complication Prevention Patient Evaluation: Verbalizes understanding: Yes Supplemental Material Given: Written Material Instructed By Naila Mcclure RN In Department Urology . documented in this encounter [facility] 09-20-2023 Miscellaneous Notes Ethan, This is Dr. Olson, one of the Urology team members. There was an incidental finding on your CT scan of a lung nodule. Please discuss with your primary care doctor for further management. documented in this encounter [facility] 09-17-2023 Note [facility] 09-17-2023 Note [facility] 09-17-2023 Note HNO ID: [id number] Author: SHAKILA OSEI RN Service: ? Author Type: Registered Nurse Type: Progress Notes Filed: 09/17/2023 05:55 Note Text: Urology paged for parameters for straight cath. [facility] 09-16-2023 Miscellaneous Notes Referral to geriatrics clinic for formal neurocognitive assessment Consult Received in Best Practice For: Dx: dementia, orientation issues while hospitalized, possible new baselien after surgery Bed Number: [id number] Ordering: Waylon Warner MD Pgr: Attending: Waylon Warner MD Pgr: IPC Staff Dr. Cantor and IP Consult have been paged. documented in this encounter [facility] 09-16-2023 Note [facility] 09-15-2023 Note [facility] 09-15-2023 Note [facility] 09-15-2023 Miscellaneous Notes Called patients daughter to give her update per Dr. Chavez regarding patients hospital stay after her surgery. Explained to daughter that the latest update is that her mother is not to be discharged today. The patient's spouse felt that she was a little too weak to manage at home, even with home physical therapy visits, so through social service manager, we are making arrangements for her to go to a SNF to regain some more strength. Regarding the labs: Her lab values are all within an acceptable range considering the surgery that she underwent. It is normal for the hemoglobin to drop a little bit as surgery usually involves bleeding, especially the kind of surgery we performed to remove a very large stone from her right kidney. However, the drop in hemoglobin is commensurate with that surgery and does not indicate anything dangerous. We do not get concerned unless the hemoglobin drops below 6 for someone without heart problems or below 8 for someone with heart problems. Her hemoglobin has been above 10 and in fact, just IV fluids and fluid shifts that occur after surgery can also make the hemoglobin fluctuate a gram up or down. Her hemoglobin has been stable within the limits of error of the laboratory testing for the past 3 days indicating no sign of bleeding, and her vital signs have been stable. Blood sugars can go up a little with stress or depending upon how long it has been since a person has fasted. Many times labs are done at 1 in the morning and the person has not fasted for 8 or 12 hours so the blood sugar can be slightly elevated. Also sometimes our IV fluids contain dextrose which raises the blood sugar as dextrose itself is a sugar. I note that her blood sugar this morning was totally normal. Advised to daughter If she has further questions about this, Dr. Chavez would suggest that she set up a virtual visit so that they can talk in real-time. Patients daughter states that this does answer her questions about her mothers current state being admitted and has no further questions at this time. Instructed daughter to reach out if she does happen to have further questions or would like to set up VV. She voiced understanding. Grecia Arechiga RN September 15, 2023 2:10 PM documented in this encounter [facility] 09-15-2023 Note [facility] 09-14-2023 Note [facility] 09-14-2023 Note [facility] 09-13-2023 Note [facility] 09-12-2023 Note [facility] 09-12-2023 Note [facility] 09-12-2023 Note HNO ID: [id number] Author: MELISSA MCKENZIE APRN.CNP Service: Urology Author Type: Nurse Practitioner Type: Discharge Summary Filed: 09/19/2023 14:39 Note Text: Deleted duplicate [facility] 09-12-2023 Note [facility] 09-11-2023 Note [facility] 09-11-2023 Note [facility] 09-10-2023 Note HNO ID: [id number] Author: ALLISON MARTINEZ MD Service: Infectious Disease Author Type: Physician Type: Consults Filed: 09/10/2023 22:18 Note Text: See consult progress note dated September 10, 2023 Allison Martinez MD September 10, 2023 [facility] 09-05-2023 Miscellaneous Notes Images from the original note were not included. Called and spoke with patients to inform him of the following information per Dr. Chavez. Informed him that patients culture shows VRE, so Dr. Chavez needs to admit her 2 days prior to surgery date of 09/11 and start Linezolid which is restricted and will require an ID consult. Will request that this be updated with surgical schedulers. Grecia Arechiga RN September 05, 2023 3:45 PM Troy Chavez MD Olah, Shawna, RN Patient's culture shows VRE so we need to admit 2 days prior to surgery date of 09/11 and start on linezolid which is restricted and will require an ID consult. Please change the CURE and let patient know the reason. Thanks. documented in this encounter [facility] 08-31-2023 Miscellaneous Notes DOS 3-18 Left detailed VM message for 's nurse regarding faxed letter sent asking for Eliquis instructions. Requested a return call with call back number given. Thank you, Cate documented in this encounter [facility] 08-29-2023 History and physical note Images from the original note were not included. HISTORY AND PHYSICAL EXAMINATION SERVICE DATE: 08/29/2023 SERVICE TIME: 2:35 PM PRIMARY CARE PHYSICIAN: Fredy Ro MD, MD Assessment Patient has the following medical conditions which may affect rishi-operative course: Hypothyroidism -managed with Levothyroxine ESOPHAGEAL REFLUX -managed with Famotidine HTN (hypertension) -controlled with Amlodipine and Carvedilol -BP in office today 104/66 Pulmonary embolism (HCC) -during hospitalization for sepsis in 04/2023 -on Eliquis -follows with PCP, letter faxed for instructions Chronic diastolic CHF (congestive heart failure) (HCC) -per problem list in [facility], patient denies -Echo 07/20/23 shows EF 55% -no lower extremity edema on exam -patient denies CP or SOB Anemia - last H/H 11.3/35.0 on 07/24/23 -CBC pending Shannon Activity Status Index: METS: Take care of self; that is eating, dressing, bathing, using the toilet (2.75 METs) DASI Score: 2.75 Patient denies any chest pain or undue shortness of breath with the above physical activity. Clinical Frailty Scale: 5. Mildly frail STOP-Bang Score: Has or is being treated for high blood pressure Patient over 50 years old Denies snoring loudly Denies feeling tired, fatigued, or sleepy during the daytime Has not been observed to stop breathing or choking/gasping during sleep BMI less than or equal to 35 kg/m^2 Does not have a large neck Non-male patient STOP-Bang Score: 2 [id number] Score: Age: >=75 Sex: female CHF history: Yes Hypertension history: Yes Stroke/TIA/thromboembolism history: No Vascular disease history: No Diabetes history: No [id number] Score: 5 ANESTHESIA FINDINGS: Intubation History: No history of difficult intubation Significant Anesthesia Considerations: none Airway History: No history of difficult airway I - PHYSICAL EVALUATION AIRWAY Patient intubated: No. Mallampati: IV. TM distance: >3 FB. Neck ROM: limited extension. Mouth opening: adequate. Short neck: no. Thick neck: no Mckeon present: no Lip Bite Test: II DENTAL Dental findings: teeth intact. II - ANESTHESIA PLAN Beta Cornelia Monitoring Plan Post Procedure Analgesic Plan PLAN This patient is optimally prepared for surgery pending LABS. Eliquis - letter faxed to PCP, Dr. Ro. CONSULTS: Patient does not require consults for optimization at this time. The Following Tests/Procedures Have Been Initiated: CBC, BMP, PT, PTT ordered EKG in [facility] 07/18/23 reviewed and accepted Planned Anesthetic: Per anesthesia choice REASON FOR VISIT: Alicia Rutherford is a 78 year old female who is scheduled for Procedure(s): PERC NEPHROLITHOTOMY LITHOTRIPSY,STONE EXTRACTION,ANTEGRADE URETEROSCOPY,STENT PLACEMENT WHEN PERFORMED INCD IMAGING UP TO 2cm (Right) REMOVAL STENT URETERAL (Left) at the request of Troy Green MD for consultation. My final recommendation will be communicated back to the requesting physician by way of shared medical record or letter. Subjective The patient has the following: ACTIVE PROBLEM LIST Esophageal Reflux Htn (Hypertension) Calculus of Kidney Ureteral Stent Present Hypothyroidism Abnormal Urinalysis Family History of Nephrolithiasis Former Smoker Unspecified Severe Protein-Calorie Malnutrition (Hcc) Stage 3a Chronic Kidney Disease (Hcc) Pulmonary Embolism (Hcc) Chronic Diastolic Chf (Congestive Heart Failure) (Hcc) Nephrolithiasis Facial Droop Encephalopathy Anemia COVID-19 Immunization Status Overdue - Covid-19 Vaccine ( season) Overdue since 02/25/2023 08/24/2020 Outside Immunization: COVID-19, mRNA, LNP-S, PF, 30 mcg/0.3 mL dose 08/03/2020 Outside Immunization: COVID-19, mRNA, LNP-S, PF, 30 mcg/0.3 mL dose CHIEF COMPLAINT: Nephrolithiasis HPI: Alicia Rutherford is a 78 year old female who presents to [facility] today for preop exam. Patient is scheduled for the above procedure on 09/12/23. Patient was admitted in 04/2023 with sepsis 2/2 kidney stone. She underwent bilateral ureteral stent placement. She underwent lithotripsy on the left side 07/18/23. Denies fevers, chills, chest pain, and SOB. REVIEW OF SYSTEMS: General: No weight loss, malaise or fevers. Neurological: Negative for: headaches, impaired sensorium, seizures, TIA and strokes. Respiratory: Negative for: asthma, COPD, current cough, dyspnea, pneumonia within 6 weeks, tobacco use, URI < 2 weeks and obstructive sleep apnea. Cardiovascular: Positive for: congenital heart defect, DVT/PE and hypertension Negative for: angina, anticoagulation therapy, arrhythmia, CAD, chest pain, CHF, hyperlipidemia, murmur/valvular heart disease and PVD. GI: Negative for: abdominal pain, GERD, liver disease, nausea, vomiting and ETOH >2 drinks/day. : Positive for: dysuria, hematuria and nephrolithiasis. Negative for: frequent urination and renal failure. CUTTER BANANA ROOM: Negative for abnormal vaginal bleeding, abnormal vaginal discharge. Endocrine: Positive for: hypothyroidism. Negative for: diabetes mellitus, hyperthyroidism and steroid for chronic problem. Hematology: Positive for: anemia and chronic anti-coagulation/platelet meds. Patient is on anti-coagulation/platelet medication(s): DOAC. Oncology: No history of CA metastasis, chemo within 30 days, or radiotherapy within 90 days. No history of oncological symptoms or problems. Psych: No history of psychiatric symptoms or problems. Musculoskeletal: Negative for joint pain or swelling, back pain or muscle pain. Skin: Negative for lesions, rash and itching. PAST MEDICAL HISTORY Diagnosis Date Anxiety Bursitis of hip, right Diastolic heart failure (HCC) HTN (hypertension) Hypothyroid Pulmonary embolism (HCC) PAST SURGICAL HISTORY Procedure Laterality Date ADENOIDECTOMY PRIMARY <AGE 13 Adenoidectomy HYSTERECTOMY HX LITHOTRIPSY XTRCORP SHOCK WAVE Lithotripsy PAST SURGICAL HISTORY OF Infarcted Omentum PAST SURGICAL HISTORY OF Ear PAST SURGICAL HISTORY OF 2 parathyroid tumors removed 03/24/2014 PAST SURGICAL HISTORY OF kidney stones 11/2013 PAST SURGICAL HISTORY OF right total knee replacement 09/2013 PAST SURGICAL HISTORY OF parathyroid tumors 02/2014 RPR EPIGASTRIC HERNIA REDUCIBLE SPX Hiatal hernia repair TONSILLECTOMY PRIMARY/SECONDARY <AGE 13 Tonsillectomy No family history on file. Social History Tobacco Use Smoking status: Former Years: 12 Types: Cigarettes Smokeless tobacco: Never Substance Use Topics Alcohol use: Yes Comment: rarely Drug use: No Prior to Admission medications as of 08/29/23 1317 Medication Sig Last Dose Taking sulfamethoxazole-trimethoprim (BACTRIM DS) 800-160 mg per tablet Take 1 tablet by mouth two times a day for 14 days. Taking Yes apixaban (ELIQUIS) 5 mg tab(s) Take 1 tablet by mouth every morning. Patient should start on July 25, 2023. Taking Yes trospium (SANCTURA) 20 mg tablet Take 1 tablet by mouth two times a day as needed for bladder spasms for up to 14 days. Taking Yes amLODIPine (NORVASC) 10 mg tablet Take 10 mg by mouth every morning. Taking Yes famotidine (PEPCID) 40 mg tablet Take 40 mg by mouth once daily. Taking Yes mirtazapine (REMERON) 30 mg tablet Take 30 mg by mouth every morning. Taking Yes magnesium oxide 200 mg magnesium tab Take by mouth. Taking Yes carvedilol (COREG) 12.5 mg tablet Take 1 tablet by mouth twice daily. Taking Yes levothyroxine (SYNTHROID) 125 mcg tablet Take 125 mcg by mouth once daily. Taking Yes tamsulosin (FLOMAX) 0.4 mg Take 1 capsule by mouth once daily 30 minutes after the same meal each day. Patient not taking: Reported on 08/29/2023 Not Taking sulfamethoxazole-trimethoprim (BACTRIM DS) 800-160 mg per tablet Take 1 tablet by mouth two times a day. polyethylene glycol 3350 (MIRALAX ORAL) Take by mouth. cyanocobalamin (VITAMIN B-12) 1,000 mcg tab Take 1,000 mcg by mouth once daily. multivitamins(DAILY MULTIPLE TAB) Take one(1) tablet daily. Patient not taking: Reported on 07/11/2023 No medication comments found. ALLERGIES No Known Allergies Objective PHYSICAL EXAM: General: alert and oriented and healthy appearance. Pertinent negatives noted - not distressed. Skin: normal color, no rash or lesions. HEENT: EOM intact and pupils equal round. Pertinent negatives noted - no carotid bruit. Cardiovascular: regular rate and rhythm, normal S1 and S2, no rub, murmurs, or gallop. Respiratory: normal breath sounds, no wheezes or crackles. No chest wall deformity or tenderness. Abdomen: bowel sounds present. Extremities: no deformity, no edema or tenderness, no joint swelling or clubbing. Neurological: normal cognition and motor skills. Gait normal. No weakness or sensory deficit. PAIN ASSESSMENT: VITALS: BP 104/66 Pulse 85 Temp (Src) 98.1 (Temporal) Ht 5' 4 (1.63m) Wt 150 lb (68.0kg) SpO2 98% BMI 25.73 kg/(m^2). Diagnostic tests reviewed for today's visit: Lab Value Units Date High Low HB 11.3 g/dL 07/24/2023 15.5 11.5 HCT 35.0 % 07/24/2023 46.0 36.0 WBC 7.12 k/uL 07/24/2023 11.00 3.70 PLT 332 k/uL 07/24/2023 400 150 NA 137 mmol/L 07/24/2023 144 136 K 3.7 mmol/L 07/24/2023 5.1 3.7 GLUC 97 mg/dL 07/24/2023 99 74 BUN 10 mg/dL 07/24/2023 21 7 CREAT 0.65 mg/dL 07/24/2023 0.96 0.58 PTSEC No results within date range. INR No results within date range. APTT No results within date range. ALT 8 U/L 07/19/2023 38 7 AST 17 U/L 07/19/2023 35 13 TBILI 0.3 mg/dL 07/19/2023 1.3 0.2 TSH No results within date range. Lab Value Units Date High Low HCGQT No results within date range. UHCG No results within date range. HCG, BODY* No results within date range. Lab Value Units Date High Low ABORHD No results within date range. ABSCREEN No results within date range. Hemoglobin A1C (%) Date Value 07/19/2023 5.3 Recent Results (from the past 8760 hour(s)) ECG COMPLETE Collection Time: 07/18/23 1:49 PM Result Value Ventricular Rate 104 Atrial Rate 104 P-R Interval 144 QRS Duration 90 QT Interval 322 QTC Calculation (Bazett) 423 Calculated P [place] 46 Calculated R [place] -20 Calculated T [place] 61 Impression SINUS TACHYCARDIA MINIMAL VOLTAGE CRITERIA FOR LVH, MAY BE NORMAL VARIANT ( R in aVL ) BORDERLINE ECG Confirmed by TERELL DICKERSON, PHOEBE ([id number]) on 07/26/2023 9:27:37 PM Recent Results (from the past 53520 hour(s)) ECHO Collection Time: 07/20/23 3:26 PM Impression CONCLUSIONS: - Exam indication: Signs of stroke - The left ventricle is normal in size. Left ventricular systolic function is normal. EF = 55 5% (2D biplane) - The right ventricle is normal in size. Right ventricular systolic function is normal. -Agitated saline contrast study appears negative for shunt flow (clip #59). - The patient has not had a prior [facility] echocardiographic exam for comparison. * * * Final * * * Instructions Given to Patient: Instructions located in the after visit summary. Patient given verbal and written preop instructions and voices comprehension and compliance. SIGNATURE: Opal Villeda PA-C PATIENT NAME: Alicia Rutherford DATE: August 29, 2023 TIME: 1:09 PM PAGER/CONTACT #: documented in this encounter [facility] 08-29-2023 Instructions Opal Villeda PA-C - 08/29/2023 2:40 PM EST PATIENT PREOPERATIVE INSTRUCTIONS [facility] Scheduling Office: [phone] --If no call by 4pm the Tuesday before surgery, please call this number. [address] [place] [address]. Please read below carefully for your personalized instructions. Dietary Restrictions: - No solid food after midnight. - You may have 12 ounces of clear liquids (water, clear juices such as apple juice or gatorade, carbonated beverages, clear tea, black coffee, jello) until 2 hours before scheduled arrival at facility. Medications: Unless instructed differently below, stay on all of your medications until your surgery. If you start any new medications after today's visit, please contact your surgeon. Pre-Surgery Med Instructions Medication Instructions sulfamethoxazole-trimethoprim (BACTRIM DS) 800-160 mg per tablet Take the day of surgery with a small sip of water apixaban (ELIQUIS) 5 mg tab(s) I will reach out to your Primary Care provider and make sure he is okay with you holding it 2-3 days preop. trospium (SANCTURA) 20 mg tablet Take the day of surgery with a small sip of water amLODIPine (NORVASC) 10 mg tablet Take the day of surgery with a small sip of water famotidine (PEPCID) 40 mg tablet Take the day of surgery with a small sip of water mirtazapine (REMERON) 30 mg tablet Take the night before as usual. magnesium oxide 200 mg magnesium tab You may continue it up until the day before surgery. carvedilol (COREG) 12.5 mg tablet Take the day of surgery with a small sip of water levothyroxine (SYNTHROID) 125 mcg tablet Take the day of surgery with a small sip of water If you start any new medications after today's visit, please contact the surgeon's office. Blood Thinning Medications: - Stop NSAIDS (Ibuprofen, Advil, Aleve, Motrin, Celebrex, Mobic, etc.) 7 days before surgery, as directed by your surgeon. - Stop Aspirin 7 days before surgery, as directed by your surgeon. - Stop Vitamin E, ALL multi-vitamins, herbals and dietary supplements 7 days before surgery. - You may take Tylenol (Acetaminophen) or any of your pain medications that do not contain aspirin or NSAIDS as needed. Important Reminders: - Candy, mints, and tobacco products are NOT permitted the morning of surgery. - Hearing aids, dentures and glasses may be worn the morning of surgery. - NO jewelry, body piercings, makeup, hairpins or contacts are to be worn the day of surgery. If you develop symptoms such as a fever, cold, or flu, or have other changes to your health within TWO DAYS of scheduled surgery or the morning of surgery, please contact the surgery center above. Personal Belongings: -Please have photo ID and insurance cards. -If you do not have a copy of advance directives on file with us, please bring a copy with you on the day of surgery. - Leave ALL valuables and money at home or with family members. For Outpatient Procedures: - YOU MUST HAVE A RESPONSIBLE GLUER AND SLICER HAND TAKE YOU HOME. A MARKETING OFFICER OR CLINICAL TRIAL COORDINATOR CANNOT BE MADE A RESPONSIBLE GLUER AND SLICER HAND. - We recommend that a responsible person stays with you overnight to take care of you. - You cannot stay in a hotel alone after outpatient surgery. You will not be permitted to have your surgery, if you do not have someone to take care of you. Arrival Time for Surgery: - To obtain your arrival time for surgery, call your physician's office the day before your surgery. - If your surgery is scheduled for Tuesday, call the Tuesday before. Your surgeon s dynamometer tester engine will tell you what time to call the office. - If you have not reached the departmental dynamometer tester engine by 5 P.M., call [phone] after 5 P.M. the day before your surgery. Please be aware that emergency situations arise, which may delay or change your surgical time. If this happens, we will notify you as soon as possible and regret any inconvenience. If you already have an Advance Directive, please fax a copy to [phone] or email to for it to be added to your chart. If you do not have an Advance Directive, you can find the appropriate form and more information at [email or web address]. We recommend that you complete the Advance Directive form found on the website and bring it with you the day of your surgery. It can be witnessed and scanned into your chart that day. Opal Villeda PA-C documented in this encounter [facility] 08-29-2023 Instructions Rachel Johnson APRN.LEAD PERSON - 08/29/2023 1:34 PM EST Dietary Restrictions: - No solid food after midnight. - You may have 12 ounces of clear liquids (water, clear juices such as apple juice or gatorade, carbonated beverages, clear tea, black coffee, jello) until 2 hours before scheduled arrival at facility. - Do not drink any alcohol after midnight the night before your surgery. Arrival Time: Your arrival time will be provided to you the day before surgery. If you do not hear from surgery scheduling by 3:00 pm the day prior to your surgery, you can contact Urology Surgery at [phone]. We would like to reminded you that surgery time provided is tentative based on potential changes with transplant surgeries. Please check in at desk J1[address]9 in the [facility] ( building, [address] [place] [address]) Medications: Unless instructed differently below, stay on all of your medications until your surgery. Approved medications to take the morning of surgery with a sip of water: per anesthesia If you start any new medications after today's visit, please contact the surgeon's office. Blood Thinning Medications: - Stop NSAIDS (Ibuprofen, Advil, Aleve, Motrin, Celebrex, Mobic, etc.) 7 days before surgery, as directed by your surgeon. - Stop Aspirin 7 days before surgery, as directed by your surgeon. - Stop Vitamin E, ALL multi-vitamins, herbals and dietary supplements 7 days before surgery. - You may take Tylenol (Acetaminophen) or any of your pain medications that do not contain aspirin or NSAIDS as needed. Important Reminders: - If you are prescribed inhalers for breathing, continue using them. - Candy, mints, and tobacco products are NOT permitted the morning of surgery. - Hearing aids, dentures and glasses may be worn the morning of surgery. - NO jewelry, body piercings, makeup, hairpins or contacts are to be worn the day of surgery. documented in this encounter [facility] 08-29-2023 Note [facility] 08-29-2023 History of Presen t illness Narrative [facility] PRE-OP NOTE Alicia Rutherford is a 78 year old female. Pre-op Date: August 29, 2023 Date of Procedure: 09/12/23 Surgeon Role Service Troy Chavez MD Primary Urology Procedure: PERC NEPHROLITHOTOMY LITHOTRIPSY,STONE EXTRACTION,ANTEGRADE URETEROSCOPY,STENT PLACEMENT WHEN PERFORMED INCD IMAGING UP TO 2cm Laterality Anesthesia Op Region Right General Kidney Procedure: REMOVAL STENT URETERAL Laterality Anesthesia Op Region Left General Ureter Diagnosis: Nephrolithiasis There were no vitals taken for this visit. Pain Assessment: Are you currently having pain? No 0 on a scale of 0 to 10 Surgical Guide Book Status: Patient given book today. Dialysis Guide Book Status: N/A Allergies Reviewed: Yes Medications Reviewed: Yes Is patient currently on oral steroids?: No Has the patient had a UTI in the past month?: Yes. Antibiotic taken: Bactrim Does the patient have any artificial joints (last 2 years), metal parts, pacemakers or cardiac/ureteral stents in place?: Yes, knee several years ago, hip several years ago per patient Does the patient have diabetes?: No Is the patient routinely taking anticoagulants?: Yes. Eliquis Can the patient have an IV put in either arm?: Yes Urine Dip Complete?: Yes URINE CULTURE COMPLETE?: Yes Ostomy/Stoma Nurse appointment made/completed: N/A [facility] Clear[facility]: Cleared per [facility] - To be seen [facility]: Cleared per [facility] - N/A All testing on cureform has been scheduled: Yes Consent Signed: Yes. DOS Orders Placed and Signed: No. Pre-op H&P Done by [facility]: To be done by [facility]. PATIENT INSTRUCTIONS FOR SURGERY 1.) DO NOT HAVE ANYTHING TO EAT AFTER MIDNIGHT THE DAY BEFORE SURGERY except for certain morning medications as instructed by the doctor. Candy, mints, gum, and smoking are NOT permitted. You may drink clear liquids (Sprite, water, braxton layne) up to two hours before your arrival time on the day of surgery. 2.) Medications to be taken on the morning of surgery with a few sips of water: per [facility] 3.) Please bring all your prescribed inhalers (if you have any you normally take) to the hospital. 4.) Arrival time: Call for arrival. 5.) Prep given: No 6.) Lovenox instructions given: N/A 7.) Patient reminded that surgery time provided day before surgery is tentative based on potential changes with transplants. Recommendations: This patient is optimally prepared for surgery pending ANESTHESIA CONSULT and LABS. Rachel Johnson APRN.CNP documented in this encounter [facility] 08-26-2023 Note [facility] 08-26-2023 History of Presen t illness Narrative Alicia Rutherford is a 78 year old female with a history of Urinary infection INTERVAL EVENTS: Discharged to nursing facility Started on mirtazepine; has suffered fatigue since Discharged from nursing facility to home 08/22/2023 Urine culture repeated 08/15/2023 with 50K VRE, treated with linezolid 600 mg PO BID x 10 days (Bactrim held at that time), then resumed Has reported hematuria since hospital discharge No systemic symptoms of infection N/V with zyvox, but not with bactrim No appetite, taste adversely affected; weight loss No abdominal pain No diarrhea No rashes Plans for stent removal 09/12/2023 CURRENT MEDICATIONS: Current Outpatient Medications Medication Sig sulfamethoxazole-trimethoprim (BACTRIM DS) 800-160 mg per tablet Take 1 tablet by mouth two times a day for 14 days. apixaban (ELIQUIS) 5 mg tab(s) Take 1 tablet by mouth every morning. Patient should start on July 25, 2023. tamsulosin (FLOMAX) 0.4 mg Take 1 capsule by mouth once daily 30 minutes after the same meal each day. (Patient not taking: Reported on 08/29/2023) sulfamethoxazole-trimethoprim (BACTRIM DS) 800-160 mg per tablet Take 1 tablet by mouth two times a day. trospium (SANCTURA) 20 mg tablet Take 1 tablet by mouth two times a day as needed for bladder spasms for up to 14 days. amLODIPine (NORVASC) 10 mg tablet Take 10 mg by mouth every morning. famotidine (PEPCID) 40 mg tablet Take 40 mg by mouth once daily. polyethylene glycol 3350 (MIRALAX ORAL) Take by mouth. mirtazapine (REMERON) 30 mg tablet Take 30 mg by mouth every morning. magnesium oxide 200 mg magnesium tab Take by mouth. carvedilol (COREG) 12.5 mg tablet Take 1 tablet by mouth twice daily. cyanocobalamin (VITAMIN B-12) 1,000 mcg tab Take 1,000 mcg by mouth once daily. levothyroxine (SYNTHROID) 125 mcg tablet Take 125 mcg by mouth once daily. multivitamins(DAILY MULTIPLE TAB) Take one(1) tablet daily. (Patient not taking: Reported on 07/11/2023) No current facility-administered medications for this visit. Antibiotic Treatment Duration: 2 weeks Medication Related Side Effects: none REVIEW OF SYSTEMS: complete ros conducted and negative except for above PHYSICAL EXAM: Nad conversant sitting up No thrush or oral sores No edema No scleral icterus No central line No bejarano I have communicated my name and active licensure. The patient's identity and physical location were verified at the time of this visit. Either the patient or their legal senior sales representative has been informed of the risks and benefits of -- and alternatives to -- treatment through a remote evaluation and consents to proceed with the evaluation remotely. IMPRESSION/PLAN: Alicia Rutherford is a 78 year old female with PMH of renal calculus, stage 3 kidney disease, PE (on Eliquis), diastolic HF (EF 65-70%), HTN, hypothyroidism, who presented on 07/18 for elective percutaneous nephrolithotomy s/p Left PCNL was performed and bilateral stents were exchanged, complicated by Klebsiella pneumoniae UTI and treated with bactrim Plans for stent removal 09/12/2023 Continue bactrim until planned procedure 09/12/2023 Counseled to discuss cessation of mirtazepine with PCP given fatigue I spent 30 minutes discussing this patient's care with her and her by phone and coordinating care. Melani Thacker MD documented in this encounter [facility] 08-15-2023 Miscellaneous Notes Called patient [facility] to inform that outside urine culture was received. Patient was taking Bactrim previously as directed by Dr. Chavez, however, she had a recent UCX done at her SNF and provider wanted to provide update that they stopped her Bactrim for now and prescribed Zyvox. Will have her restart Bactrim when Zyvox is complete. External ucx resultshave been scanned in, will update Dr. Chavez. Patient is scheduled for her pre-ops on 08/28. Surgery is on 09/11. Grecia Arechiga RN August 15, 2023 4:43 PM documented in this encounter [facility] 08-01-2023 Miscellaneous Notes Called and spoke with patients to discuss sooner surgery date. Patients is inquiring if patient can have sooner surgery, however, Dr. Chaevz had wanted to wait at least 6 weeks from her last procedure. Patients states that she was doing well after surgery for about a week now and has started to develop some symptoms, which is why he is requesting sooner surgery date. states that patient is confused and now experiencing blood in her urine as well as loss of appetite. Patient has started to develop shortness of breath about 1 weeks ago and he states the SNF is aware of this. Discussed that an updated urinalysis and urine culture would be recommended despite being on antibiotics currently if patient is becoming more confused. Hematuria is expected with the stent in place, but it has been increasing according to . [phone] ward [phone] fax number Attention Chelsie Called and spoke with AISSATOU Holguin from [facility]. She as well confirmed the symptoms that patients discussed and states that the primary care provider for the SNF is coming tomorrow to evaluate her SOB and loss of appetite. A Chest X-ray was also ordered and is being done tonight or tomorrow. Advised that UA/UCX orders will be faxed over to have complete and rule out infection. AISSATOU Holguin voiced understanding. Will update Dr. Chavez. Grecia Arechiga RN August 01, 2023 3:07 PM documented in this encounter [facility] 07-23-2023 Note [facility] 07-23-2023 Note HNO ID: [id number] Author: ROSALINDA YAO RN Service: ? Author Type: Registered Nurse Type: Progress Notes Filed: 07/23/2023 07:23 Note Text: [id number] AMET consulted to attempt IV, unable to start IV resource protection specialist doctor aware [id number] Rosalinda [facility] 07-22-2023 Note [facility] 07-21-2023 Note [facility] 07-21-2023 Note [facility] 07-20-2023 Note [facility] 07-20-2023 Note [facility] 07-20-2023 Note [facility] 07-20-2023 Note [facility] 07-20-2023 Note [facility] 07-20-2023 Note [facility] 07-20-2023 Note [facility] 07-19-2023 Note [facility] 07-18-2023 Note [facility] 07-18-2023 Note [facility] 07-18-2023 Note [facility] 07-12-2023 Note [facility] 07-05-2023 Note [facility] 07-05-2023 Note HNO ID: [id number] Author: CHRISTINE GRIFFIN CT Service: Radiology Author Type: Technologist Type: Progress Notes Filed: 07/05/2023 07:22 Note Text: Radiology Service Progress Note PATIENT NAME: Alicia Rutherford DATE OF SERVICE: July 05, 2023 TIME: 7:22 AM PATIENT IDENTITY VERIFICATION COMPLETED USING TWO (2) IDENTIFIERS: Name and Date of confirmed by patient verbally. FALL SCREENING: Has the patient had 2 falls in the last year or 1 fall with injury or currently using an Ambulatory Assistive Device (Walker, Cane, Wheelchair, Crutches, etc.)? No PATIENT GENDER DATA: Female. status: : No status: NO. PATIENT RELEVANT IMPLANT DATA REVIEWED: Not Applicable RADIOLOGY DEPARTMENT: CT; Exam(s) Completed: Abdomen/Pelvis PERIPHERAL IV DATA: Not applicable SIGNED BY: JB MEDINA July 05, 2023 7:22 AM [facility] 06-17-2023 Note [facility] 06-10-2023 Hospital Discharg e instructions Patient Education 06/10/2023 11:38:21 Kidney Stones, Mpgr-cq-Pvhe Kidney Stones Kidney stones are rock-like masses that form inside of the kidneys. Kidneys are organs that make pee (urine). A kidney stone may move into other parts of the urinary tract, including: The tubes that connect the kidneys to the bladder (ureters). The bladder. The tube that carries urine out of the body (urethra). Kidney stones can cause very bad pain and can block the flow of pee. The stone usually leaves your body (passes) through your pee. You may need to have a doctor take out the stone. What are the causes? Kidney stones may be caused by: A condition in which certain glands make too much parathyroid hormone (primary hyperparathyroidism). A buildup of a type of crystals in the bladder made of a chemical called uric acid. The body makes uric acid when you eat certain foods. Narrowing (stricture) of one or both of the ureters. A kidney blockage that you were born with. Past surgery on the kidney or the ureters, such as gastric bypass surgery. What increases the risk? You are more likely to develop this condition if: You have had a kidney stone in the past. You have a family history of kidney stones. You do not drink enough water. You eat a diet that is high in protein, salt (sodium), or sugar. You are overweight or very overweight (obese). What are the signs or symptoms? Symptoms of a kidney stone may include: Pain in the side of the belly, right below the ribs (flank pain). Pain usually spreads (radiates) to the groin. Needing to pee often or right away (urgently). Pain when going pee (urinating). Blood in your pee (hematuria). Feeling like you may vomit (nauseous). Vomiting. Fever and chills. How is this treated? Treatment depends on the size, location, and makeup of the kidney stones. The stones will often pass out of the body through peeing. You may need to: Drink more fluid to help pass the stone. In some cases, you may be given fluids through an IV tube put into one of your veins at the hospital. Take medicine for pain. Make changes in your diet to help keep kidney stones from coming back. Sometimes, medical procedures are needed to remove a kidney stone. This may involve: A procedure to break up kidney stones using a beam of light (laser) or shock waves. Surgery to remove the kidney stones. Follow these instructions at home: Medicines Take axck-vsz-eafusgk and prescription medicines only as told by your doctor. Ask your doctor if the medicine prescribed to you requires you to avoid driving or using heavy machinery. Eating and drinking Drink enough fluid to keep your pee pale yellow. You may be told to drink at least 8 10 glasses of water each day. This will help you pass the stone. If told by your doctor, change your diet. This may include: ?Limiting how much salt you eat. ?Eating more fruits and vegetables. ?Limiting how much meat, poultry, fish, and eggs you eat. Follow instructions from your doctor about eating or drinking restrictions. General instructions Collect pee samples as told by your doctor. You may need to collect a pee sample: ?24 hours after a stone comes out. ?8 12 weeks after a stone comes out, and every 6 12 months after that. Strain your pee every time you pee (urinate), for as long as told. Use the strainer that your doctor recommends. Do not throw out the stone. Keep it so that it can be tested by your doctor. Keep all follow-up visits as told by your doctor. This is important. You may need follow-up tests. How is this prevented? To prevent another kidney stone: Drink enough fluid to keep your pee pale yellow. This is the best way to prevent kidney stones. Eat healthy foods. Avoid certain foods as told by your doctor. You may be told to eat less protein. Stay at a healthy weight. Where to find more information National Kidney Foundation (NKF): www.kidney.org U[employer] Care Foundation (UCF): www.urologyhealth.org Contact a doctor if: You have pain that gets worse or does not get better with medicine. Get help right away if: You have a fever or chills. You get very bad pain. You get new pain in your belly (abdomen). You pass out (faint). You cannot pee. Summary Kidney stones are rock-like masses that form inside of the kidneys. Kidney stones can cause very bad pain and can block the flow of pee. The stones will often pass out of the body through peeing. Drink enough fluid to keep your pee pale yellow. This information is not intended to replace advice given to you by your health care provider. Make sure you discuss any questions you have with your health care provider. Document Revised: 02/15/2022 Document Reviewed: 02/15/2022 [employer] Patient Education 2022 Meeps. Follow Up Care 05/31/2023 09:48:31 With:RAMONA DICKERSON, Eddie Sprague, URL Address: [facility] [place] [employer] [address]- When: Unknown Comments:referral to [facility] for [facility] tx [facility] Evaluation + Plan note [facility] Evaluation note Diagnosis Screening for genitourinary condition- Primary Screening for other and unspecified genitourinary condition Nephrolithiasis Calculus of kidney [facility] Diagnosis Pre-op exam- Primary Preoperative examination, unspecified Nephrolithiasis Calculus of kidney [facility] Diagnosis Preop examination- Primary Preoperative examination, unspecified Hypothyroidism, unspecified type Gastroesophageal reflux disease without esophagitis Esophageal reflux Hypertension, unspecified type Pulmonary embolism, unspecified chronicity, unspecified pulmonary embolism type, unspecified whether acute cor pulmonale present (HCC) Chronic diastolic CHF (congestive heart failure) (HCC) Chronic diastolic heart failure Anemia, unspecified type Nephrolithiasis Calculus of kidney [facility] Diagnosis Screening for genitourinary condition Screening for other and unspecified genitourinary condition Nephrolithiasis Calculus of kidney [facility] Diagnosis Nephrolithiasis- Primary Calculus of kidney Nephrolithiasis Calculus of kidney [facility] Diagnosis Pulmonary nodule- Primary Solitary pulmonary nodule documented [facility] Diagnosis Nephrolithiasis- Primary Calculus of kidney [facility] Diagnosis Former smoker- Primary Personal history of tobacco use, presenting hazards to health [facility] Diagnosis Former smoker Personal history of tobacco use, presenting hazards to health [facility] Diagnosis Former smoker- Primary Personal history of tobacco use, presenting hazards to health Severe episode of recurrent major depressive disorder, 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) Malnutrition of mild degree (HCC) Malnutrition of mild degree Chronic diastolic CHF (congestive heart failure) (HCC) Chronic diastolic heart failure Stage 3a chronic kidney disease (HCC) documented [facility] Diagnosis Nephrolithiasis Calculus of kidney [facility] Diagnosis Nephrolithiasis Calculus of kidney [facility] Diagnosis Other specified disorders of kidney and ureter- Primary [facility] Diagnosis Nephrolithiasis- Primary Calculus of kidney documented in this encounter [facility] note* Diagnosis Other specified disorders of kidney and ureter documented in this encounter [facility] note* Diagnosis Nephrolithiasis- Primary Calculus of kidney Bilateral renal cysts Unspecified congenital cystic kidney disease documented in this encounter [facility] note* Diagnosis Nephrolithiasis- Primary Calculus of kidney documented in this encounter [facility] note* Diagnosis Nephrolithiasis- Primary Calculus of kidney Urine volume deficient Oliguria and anuria Hypocitraturia Other nonspecific finding on examination of urine documented in this encounter [facility] note* Diagnosis Shortness of breath- Primary Surgery, elective Unspecified elective surgery for purposes other than remedying health states Pre-op examination Preoperative examination, unspecified Pulmonary embolism, unspecified chronicity, unspecified pulmonary embolism type, unspecified whether acute cor pulmonale present (HCC) Hypertension, unspecified type Calculus of kidney Hypothyroidism, unspecified type Chronic diastolic CHF (congestive heart failure) (HCC) Chronic diastolic heart failure Preop examination- Primary Preoperative examination, unspecified Hypothyroidism, unspecified type Gastroesophageal reflux disease without esophagitis Esophageal reflux Hypertension, unspecified type Pulmonary embolism, unspecified chronicity, unspecified pulmonary embolism type, unspecified whether acute cor pulmonale present (HCC) Chronic diastolic CHF (congestive heart failure) (HCC) Chronic diastolic heart failure Anemia, unspecified type Former smoker Personal history of tobacco use, presenting hazards to health documented in this encounter [facility] note* Diagnosis Acquired hypothyroidism (CMS/HCC) Unspecified hypothyroidism documented in this encounter [facility] Narrative No data available for this section [facility] Progress note No data available for this section [facility] Reason for referral (narrative)* Diagnostic Procedure Only (Routine) - Pending Review Specialty Diagnoses / Procedures Referred By Hilary t Referred To Contact XR IMAGING Diagnoses Nephrolithiasis Procedures XR ABDOMEN 3V KUB W/OBLIQUES RADIOLOGIC EXAM ABDOMEN 3+ VIEWS Troy Chavez MD [address] [place] [address] [place] [id number] Referral ID Status Reason Start Date Expiration Date Visits Requested Visits Authorized [id number] Pending Review Auto-Generat ed Referral 09/21/2023 10/20/2024 1 1 * Diagnostic Procedure Only (Routine) - Pending Review Specialty Diagnoses / Procedures Referred By Contac t Referred To Contact US IMAGING Diagnoses Nephrolithiasis Procedures US KIDNEY/BLADDER US RETROPERITONEAL REAL TIME W/IMAGE COMPLETE Troy Chavez MD [address] [id number] Us Imaging [id number] Referral ID Status Reason Start Date Expiration Date Visits Requested Visits Authorized [id number] Pending Review Auto-Generat ed Referral 09/21/2023 10/20/2024 1 1 [facility] for referral (narrative)* Diagnostic Procedure Only (Routine) - New Request Specialty Diagnoses / Procedures Referred By Contac t Referred To Contact XR IMAGING Diagnoses Nephrolithiasis Procedures XR ABDOMEN 3V KUB W/OBLIQUES RADIOLOGIC EXAM ABDOMEN 3+ VIEWS Jonathan Landrum PA-C [address] [id number] Xr Imaging [id number] Referral ID Status Reason Start Date Expiration Date Visits Requested Visits Authorized [id number] New Request Auto-Generat ed Referral 02/06/2024 03/07/2025 1 1 * Diagnostic Procedure Only (Routine) - New Request Specialty Diagnoses / Procedures Referred By Contac t Referred To Contact US IMAGING Diagnoses Nephrolithiasis Procedures US KIDNEY/BLADDER US RETROPERITONEAL REAL TIME W/IMAGE COMPLETE Jonathan Landrum PA-C [address] [place] [address] Us Imaging [id number] Referral ID Status Reason Start Date Expiration Date Visits Requested Visits Authorized [id number] New Request Auto-Generat ed Referral 02/06/2024 03/07/2025 1 1 [facility] for referral (narrative) Referred by: RAMONA DICKERSON, Eddie Sprague [facility] Reeves Reason for visit Narrative* Diagnostic Procedure Only (Routine) - Closed Specialty Diagnoses / Procedures Referred By Herbertac t Referred To Contact US IMAGING Diagnoses Nephrolithiasis Procedures US KIDNEY/BLADDER US RETROPERITONEAL REAL TIME W/IMAGE COMPLETE Troy Chavez MD [address] [facility] [address] Us Imaging [place] [facility] Referral ID Status Reason Start Date Expiration Date V isits Requested Visits Authorized [id number] Closed Auto-Generate d Referral 09/21/2023 10/20/2024 1 1 [facility] for visit Narrative* Diagnostic Procedure Only (Routine) - Closed Specialty Diagnoses / Procedures Referred By Hilary t Referred To Contact CT IMAGING Diagnoses Former smoker Procedures CT CHEST WO IVCON DIAGNOSTIC COMPUTED TOMOGRAPHY THORAX W/O Melani Guzman MD [address] [place] [address] Ct [facility] [place] [address] Referral ID Status Reason Start Date Expiration Date V isits Requested Visits Authorized [id number] Closed Auto-Generate d Referral 02/01/2024 06/26/2024 1 1 [facility] Summary Purpose Family History No Family History Records FoundNo Family History Records FoundNo Family History Records FoundNo Family History Records FoundNo Family History Records FoundNo Family History Records Found No data available for this section Advance Directives Documents on File Type Date Recorded 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 Advance Directives and Living Will 08/25/2021 2015-09-23 living Wi ll Advance Directives and Living Will 08/25/2021 2015-09-23 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 Reason for Referral Specialty Diagnoses / Procedures Referred By Hilary t Referred To Contact CT IMAGING Diagnoses Former smoker Procedures CT CHEST WO IVCON DIAGNOSTIC COMPUTED TOMOGRAPHY THORAX W/O Melani Guzman MD [address] [place] [address] [place] [address] Referral ID Status Reason Start Date Expiration Date Visits Requested Visits Authorized [id number] Authorized Auto-Generat ed Referral 09/26/2023 10/20/2024 1 1 Referral ID Status Reason Start Date Expiration Date V isits Requested Visits Authorized [id number] Closed Auto-Generate d Referral 09/26/2023 10/20/2024 1 1 Referral ID Status Reason Start Date Expiration Date Visits Requested Visits Authorized [id number] Pending Review Auto-Generat ed Referral 01/26/2024 11/24/2024 1 1 Specialty Diagnoses / Procedures Referred By Hilary t Referred To Contact MR IMAGING Diagnoses Other specified disorders of kidney and ureter Procedures MRI KIDNEY WO/W IVCON MRI ABDOMEN W/O & W/CONTRAST MATERIAL Troy Chavez MD [address] [place] [address] Mr Imaging [id number] Referral ID Status Reason Start Date Expiration Date Visits Requested Visits Authorized [id number] Pending Review Auto-Generat ed Referral 11/07/2023 12/06/2024 1 1 Referral ID Status Reason Start Date Expiration Date V isits Requested Visits Authorized [id number] Closed Auto-Generate d Referral 11/07/2023 12/06/2024 1 1 Additional Source Comments INFORMATION SOURCE (unrecogn ized section and content) DATE CREATED AUTHOR 12/14/2017 [facility] DATE CREATED AUTHOR AUTHOR'S ORGANIZ ATION 06/08/2022 [facility] DATE CREATED AUTHOR AUTHOR'S ORGANIZ ATION 06/25/2023 [facility] DATE CREATED AUTHOR AUTHOR'S ORGANIZ ATION 12/15/2023 [facility]ical [facility] DATE CREATED AUTHOR AUTHOR'S ORGANIZ ATION 02/07/2024 [facility] DATE CREATED AUTHOR AUTHOR'S ORGANIZ ATION 02/19/2024 [facility] Source Comments (unrecognize d section and content) In the event this informatio n is protected by the Federal Confidentiality of Alcohol and Drug Abuse Patient Records regulations: The Federal rules restrict any use of the information to criminally investigate or prosecute any alcohol or drug abuse patient.[facility] the event this information is protected by the Federal Confidentiality of Alcohol and Drug Abuse Patient Records regulations: The Federal rules restrict any use of the information to criminally investigate or prosecute any alcohol or drug abuse patient.[facility] the event this information is protected by the Federal Confidentiality of Alcohol and Drug Abuse Patient Records regulations: The Federal rules restrict any use of the information to criminally investigate or prosecute any alcohol or drug abuse patient.[facility] the event this information is protected by the Federal Confidentiality of Alcohol and Drug Abuse Patient Records regulations: The Federal rules restrict any use of the information to criminally investigate or prosecute any alcohol or drug abuse patient.[facility] the event this information is protected by the Federal Confidentiality of Alcohol and Drug Abuse Patient Records regulations: The Federal rules restrict any use of the information to criminally investigate or prosecute any alcohol or drug abuse patient.[facility] the event this information is protected by the Federal Confidentiality of Alcohol and Drug Abuse Patient Records regulations: The Federal rules restrict any use of the information to criminally investigate or prosecute any alcohol or drug abuse patient.[facility] the event this information is protected by the Federal Confidentiality of Alcohol and Drug Abuse Patient Records regulations: The Federal rules restrict any use of the information to criminally investigate or prosecute any alcohol or drug abuse patient.[facility] the event this information is protected by the Federal Confidentiality of Alcohol and Drug Abuse Patient Records regulations: The Federal rules restrict any use of the information to criminally investigate or prosecute any alcohol or drug abuse patient.[facility] the event this information is protected by the Federal Confidentiality of Alcohol and Drug Abuse Patient Records regulations: The Federal rules restrict any use of the information to criminally investigate or prosecute any alcohol or drug abuse patient.[facility] the event this information is protected by the Federal Confidentiality of Alcohol and Drug Abuse Patient Records regulations: The Federal rules restrict any use of the information to criminally investigate or prosecute any alcohol or drug abuse patient.[facility] the event this information is protected by the Federal Confidentiality of Alcohol and Drug Abuse Patient Records regulations: The Federal rules restrict any use of the information to criminally investigate or prosecute any alcohol or drug abuse patient.[facility] the event this information is protected by the Federal Confidentiality of Alcohol and Drug Abuse Patient Records regulations: The Federal rules restrict any use of the information to criminally investigate or prosecute any alcohol or drug abuse patient.[facility] the event this information is protected by the Federal Confidentiality of Alcohol and Drug Abuse Patient Records regulations: The Federal rules restrict any use of the information to criminally investigate or prosecute any alcohol or drug abuse patient.[facility] the event this information is protected by the Federal Confidentiality of Alcohol and Drug Abuse Patient Records regulations: The Federal rules restrict any use of the information to criminally investigate or prosecute any alcohol or drug abuse patient.[facility] the event this information is protected by the Federal Confidentiality of Alcohol and Drug Abuse Patient Records regulations: The Federal rules restrict any use of the information to criminally investigate or prosecute any alcohol or drug abuse patient.[facility] the event this information is protected by the Federal Confidentiality of Alcohol and Drug Abuse Patient Records regulations: The Federal rules restrict any use of the information to criminally investigate or prosecute any alcohol or drug abuse patient.[facility] CenterIn the event this information is protected by the Federal Confidentiality of Alcohol and Drug Abuse Patient Records regulations: The Federal rules restrict any use of the information to criminally investigate or prosecute any alcohol or drug abuse patient.[facility] CenterIn the event this information is protected by the Federal Confidentiality of Alcohol and Drug Abuse Patient Records regulations: The Federal rules restrict any use of the information to criminally investigate or prosecute any alcohol or drug abuse patient.[facility] CenterIn the event this information is protected by the Federal Confidentiality of Alcohol and Drug Abuse Patient Records regulations: The Federal rules restrict any use of the information to criminally investigate or prosecute any alcohol or drug abuse patient.[facility] CenterIn the event this information is protected by the Federal Confidentiality of Alcohol and Drug Abuse Patient Records regulations: The Federal rules restrict any use of the information to criminally investigate or prosecute any alcohol or drug abuse patient.[facility] CenterIn the event this information is protected by the Federal Confidentiality of Alcohol and Drug Abuse Patient Records regulations: The Federal rules restrict any use of the information to criminally investigate or prosecute any alcohol or drug abuse patient.[facility] CenterIn the event this information is protected by the Federal Confidentiality of Alcohol and Drug Abuse Patient Records regulations: The Federal rules restrict any use of the information to criminally investigate or prosecute any alcohol or drug abuse patient.[facility] CenterIn the event this information is protected by the Federal Confidentiality of Alcohol and Drug Abuse Patient Records regulations: The Federal rules restrict any use of the information to criminally investigate or prosecute any alcohol or drug abuse patient.[facility] CenterIn the event this information is protected by the Federal Confidentiality of Alcohol and Drug Abuse Patient Records regulations: The Federal rules restrict any use of the information to criminally investigate or prosecute any alcohol or drug abuse patient.[facility] CenterIn the event this information is protected by the Federal Confidentiality of Alcohol and Drug Abuse Patient Records regulations: The Federal rules restrict any use of the information to criminally investigate or prosecute any alcohol or drug abuse patient.[facility] CenterIn the event this information is protected by the Federal Confidentiality of Alcohol and Drug Abuse Patient Records regulations: The Federal rules restrict any use of the information to criminally investigate or prosecute any alcohol or drug abuse patient.[facility] CenterIn the event this information is protected by the Federal Confidentiality of Alcohol and Drug Abuse Patient Records regulations: The Federal rules restrict any use of the information to criminally investigate or prosecute any alcohol or drug abuse patient.[facility] Reason for Visit (unrecogniz ed section and content) Reason Comments Patient Question Reason Comments Pre-Op Exam Reason Comments PreOp Call Eliquis instruction Reason Comments Hospital F/U Reason Comments Results Reason Comments Manager Paid - Other Reason Comments Consult Best practice Reason Comments Cystoscopy-1 Stent removal Reason Comments Infection Follow Up Specialty Diagnoses / Procedures Referred By Contac t Referred To Contact CT IMAGING Diagnoses Former smoker Procedures CT CHEST WO IVCON DIAGNOSTIC COMPUTED TOMOGRAPHY THORAX W/O CNTRST Melani Thacker MD [address] [place] [address] Ct Imaging [place] [address] Referral ID Status Reason Start Date Expiration Date V isits Requested Visits Authorized [id number] Closed Auto-Generate d Referral 09/26/2023 10/20/2024 1 1 Reason Comments Pneumonia Infection Follow Up Reason Comments Radio Gen RMP Specialty Diagnoses / Procedures Referred By Contac t Referred To Contact XR IMAGING Diagnoses Nephrolithiasis Procedures XR ABDOMEN 3V KUB W/OBLIQUES RADIOLOGIC EXAM ABDOMEN 3+ VIEWS Troy Chavez MD [address] [place] [address] Xr Imaging [place] [address] Referral ID Status Reason Start Date Expiration Date V isits Requested Visits Authorized [id number] Closed Auto-Generate d Referral 09/21/2023 10/20/2024 1 1 Reason Comments Follow Up F/U kidney stone Reason Comments Radiology MRI Specialty Diagnoses / Procedures Referred By Contac t Referred To Contact MR IMAGING Diagnoses Other specified disorders of kidney and ureter Procedures MRI KIDNEY WO/W IVCON MRI ABDOMEN W/O & W/CONTRAST MATERIAL Troy Chavez MD [address] [place] [address] Mr Imaging [place] [address] Referral ID Status Reason Start Date Expiration Date V isits Requested Visits Authorized [id number] Closed Auto-Generate d Referral 11/07/2023 12/06/2024 1 1 Reason Comments Established Patient Follow Up 6 week f/u Reason Comments Litholink Reason Comments Follow Up Reason Comments Med Refill Care Teams (unrecognized sec tion and content) Senior Director Finance Relationship Specialty Start Date End Date Fredy Ro MD [address] [facility] [address] PCP - General Family Medicine 07/06/23 Eddie Martines [address] [place] [address] Referring Urology 06/13/23 Senior Director Finance Relationship Specialty Start Date End Date Fredy Ro MD [address] [place] [phone] (Fax) PCP - General Family Medicine 07/06/23 Eddie Martines [address] [place] [address] Referring Urology 06/13/23 Senior Director Finance Relationship Specialty Start Date End Date Fredy Ro MD [address] [place] [address] (Fax) PCP - General Family Medicine 07/06/23 Eddie Martines [address] [place] [address] Referring Urology 06/13/23 Senior Director Finance Relationship Specialty Start Date End Date Fredy Ro MD [address] [place] [phone] (Fax) PCP - General Family Medicine 07/06/23 Eddie Martines [address] [place] [address] Referring Urology 06/13/23 Senior Director Finance Relationship Specialty Start Date End Date Fredy Ro MD [address] [facility] [place] [address] (Fax) PCP - General Family Medicine 07/06/23 Eddie Martines [address] [place] [address] Referring Urology 06/13/23 Senior Director Finance Relationship Specialty Start Date End Date Fredy Ro MD [address] [place] [place] [phone] (Fax) PCP - General Family Medicine 07/06/23 Eddie Martines [address] [address] Referring Urology 06/13/23 Senior Director Finance Relationship Specialty Start Date End Date Fredy Ro MD [address] [place] [address] (Fax) PCP - General Family Medicine 07/06/23 Eddie Martines [address] [place] [address] Referring Urology 06/13/23 Senior Director Finance Relationship Specialty Start Date End Date Fredy Ro MD [address] [place] [address] (Fax) PCP - General Family Medicine 07/06/23 Eddie Martines [address] [place] [address] Referring Urology 06/13/23 Senior Director Finance Relationship Specialty Start Date End Date Fredy Ro MD [address] [place] [place] [address] (Fax) PCP - General Family Medicine 07/06/23 Eddie Martines [address] [place] [address] Referring Urology 06/13/23 Senior Director Finance Relationship Specialty Start Date End Date Fredy Ro MD [address] [facility] [place] [address] (Fax) PCP - General Family Medicine 07/06/23 Eddie Martines [address] [place] [address] Referring Urology 06/13/23 Senior Director Finance Relationship Specialty Start Date End Date Fredy Ro MD [address] [place] [phone] (Fax) PCP - General Family Medicine 07/06/23 Eddie Martines [address] [place] [place] [address] Referring Urology 06/13/23 Senior Director Finance Relationship Specialty Start Date End Date Fredy Ro MD [address] [facility] [place] [address] (Fax) PCP - General Family Medicine 07/06/23 Eddie Martines [address] [place] [address] Referring Urology 06/13/23 Senior Director Finance Relationship Specialty Start Date End Date Fredy Ro MD [address] [facility] [place] [address] (Fax) PCP - General Family Medicine 07/06/23 Eddie Martines MD [address] [place] [address] Referring Urology 06/13/23 Senior Director Finance Relationship Specialty Start Date End Date Fredy Ro MD [address] [place] [address] (Fax) PCP - General Family Medicine 07/06/23 Eddie Martines MD [address] [place] [address] Referring Urology 06/13/23 Senior Director Finance Relationship Specialty Start Date End Date Fredy Ro MD [address] [place] [address] (Fax) PCP - General Family Medicine 07/06/23 Eddie Martines MD [address] [place] [address] Referring Urology 06/13/23 Senior Director Finance Relationship Specialty Start Date End Date Fredy Ro MD [address] [place] [address] (Fax) PCP - General Family Medicine 07/06/23 Eddie Martines MD [address] [place] [address] Referring Urology 06/13/23 Senior Director Finance Relationship Specialty Start Date End Date Fredy Ro MD [address] [facility] [place] [address] (Fax) PCP - General Family Medicine 07/06/23 Eddie Martines MD [address] [place] [address] Referring Urology 06/13/23 Senior Director Finance Relationship Specialty Start Date End Date Fredy Ro MD [address] [place] [facility] [place] [phone] (Fax) PCP - General Family Medicine 07/06/23 Eddie Martines MD [address] [place] [address] Referring Urology 06/13/23 Senior Director Finance Relationship Specialty Start Date End Date Fredy Ro MD [address] [place] [address] (Fax) PCP - General Family Medicine 07/06/23 Eddie Martines MD [address] [place] [address] Referring Urology 06/13/23 Senior Director Finance Relationship Specialty Start Date End Date Fredy Ro MD [address] [facility] [place] [phone] (Fax) PCP - General Family Medicine 07/06/23 Eddie Martines MD [address] [place] [address] Referring Urology 06/13/23 Senior Director Finance Relationship Specialty Start Date End Date Fredy Ro MD [address] [place] [address] (Fax) PCP - General Family Medicine 07/06/23 Eddie Martines MD [address] [place] [address] Referring Urology 06/13/23 Senior Director Finance Relationship Specialty Start Date End Date Fredy Ro MD [address] [place] [address] (Fax) PCP - General Family Medicine 07/06/23 Eddie Martines MD [address] [place] [address] Referring Urology 06/13/23 Senior Director Finance Relationship Specialty Start Date End Date Fredy Ro MD [address] [place] [address] (Fax) PCP - General Family Medicine 07/06/23 Eddei Martines MD [address] [place] [address] Referring Urology 06/13/23 Senior Director Finance Relationship Specialty Start Date End Date Fredy Ro MD [address] [place] [address] (Fax) PCP - General Family Medicine 07/06/23 Eddie Martines MD [address] [place] [address] Referring Urology 06/13/23 Senior Director Finance Relationship Specialty Start Date End Date Fredy Ro MD (Fax) PCP - General Family Medicine 11/16/22 Inactive Administered Medications - up to 3 most recent administrations Administered Medications (un recognized section and content) Medication Order MAR Action Action Date Dose Rate Site lidocaine urojet 2 % 10 mL topical gel (GLYDO) 10 mL, URETHRAL, ONCE (UP TO 30 DAYS AMB), 1 dose, On Tue09/21/23 at 0000, APPLY PRIOR TO PROCEDURE DIRECTED Given 09/21/2023 9:56 AM EDT 10 mL FOR RECORDS PERTAINING TO PATIENTS WHO ARE OR HAVE BEEN ENROLLED IN A CHEMICAL DEPENDENCY/SUBSTANCEABUSE PROGRAM, SOME INFORMATION MAY BE OMITTED. This clinical summary was aggregated from multiple sources. Caution should be exercised in using it in the provision of clinical care. This summary normalizes information from multiple sources, and as a consequence, information in this document may materially change the coding, format and clinical context of patient data. In addition, data may be omitted in some cases. CLINICAL DECISIONS SHOULD BE BASED ON THE PRIMARY CLINICAL RECORDS. [employer] provides no warranty or guarantee of the accuracy or completeness of information in this document.
[2024-07-12 08:43] LABS: Alanine Aminotransferase 17 U/L (14-59); Albumin Level 3.6 g/dL (3.4-5.0); Alkaline Phosphatase 124 U/L (46-116); Anion Gap 10.8; Aspartate Amino Transferase 14 U/L (15-37); BUN Creatinine Ratio 14.4; Bilirubin Total 0.6 mg/dL (0.2-1.0); Calcium 10.6 mg/dL (8.5-10.1); Carbon Dioxide 30.4 mmol/L (21.0-32.0); Chloride 106 mmol/L (98-107); Chol HDL Ratio 4.2; Cholesterol 254 mg/dL (<=200); Estimated GFR (African America >60 (>=60 mL/min/1.73m^2); Estimated GFR (Non-African Ame 56 (>=60 mL/min/1.73m^2); Globulin 3.7 g/dL; Glucose 114 mg/dL (74-106); HDL Cholesterol 61 mg/dL (40-60); Potassium 4.2 mmol/L (3.5-5.1); Sodium 143 mmol/L (136-145); Thyroid Stimulating Hormone 0.026 uIU/mL (0.358-3.740); Total Protein 7.3 g/dL (6.4-8.2); Triglycerides 176 mg/dL (<=150); VLDL CHOLESTEROL 35.2 mg/dL
[2024-07-12 08:51] LABS: Free T4 1.54 ng/dL (0.76-1.46)
== END 2024-07-12 07:51 | disposition home or self-care (01) ==
LOC: LAB 07:52
PROVIDERS: PCP Family Medicine; Visit Provider Family Medicine
DX: R53.82 Chronic fatigue, unspecified (principal); N18.31 Chronic kidney disease, stage 3a; Z13.1 Encounter for screening for diabetes mellitus; Z13.220 Encounter for screening for lipoid disorders; E03.9 Hypothyroidism, unspecified; I12.9 Hypertensive chronic kidney disease with stage 1 through stage 4 chronic kidney disease, or unspecified chronic kidney disease
CPT/HCPCS: 36415; 80053; 80061; 84439; 84443; 84481